=== PATIENT | male | born 1950 | race Caucasian/White ===

== ENCOUNTER 2020-12-21 19:47 | Inpatient (IN) | payer MEDICARE, SELFPAY ==
--- NOTE | ~2020-12-21 | US_ITS ---
EXAMINATION: US abdomen limited DATE: 12/22/2020 09:00 INDICATION: Abdominal pain TECHNIQUE: Multiple grayscale and Doppler ultrasound images of the abdomen were obtained. COMPARISON: CT dated 12/21/2020 FINDINGS: The pancreatic body is poorly visualized likely due to the peripancreatic edema related to acute inte rstitial pancreatitis seen on prior CT. No abnormal masses or loculated fluid collections identified. The pancreatic head and tail are obscured. Liver has normal echogenicity and contour, with a smooth surface. No liver lesion identified. No intrahepatic biliary duct dilation suspected. Portal venous f low was seen in the hepatopetal, normal direction and has normal Doppler waveform. 4 mm shadowing gal lstone along with dependently layering hyperechoic sludge at the neck of the otherwise normal-appeari ng gallbladder. No abnormal gallbladder wall thickening or pericholecystic fluid to suggest acute cho lecystitis. Patient was reportedly tender more centrally over the region of the pancreas but the sono graphic Bergman sign was reported as negative by the contact center team lead. Visualized portion of the proximal i nferior vena cava is normal. IMPRESSION: 1. Cholelithiasis without evidence of acute cholecystitis. 2. Poorly visualized pancreas likely related to acute interstitial pancreatitis but appreciated on pr ior CT. Reviewed, dictated and finalized at location A. IMPRESSION: 1. Cholelithiasis without evidence of acute cholecystitis. 2. Poorly visualized pancreas likely related to acute interstitial pancreatitis but appreciated on prior CT.
--- NOTE | ~2020-12-21 | CT_ITS ---
EXAMINATION: CT abdomen pelvis w con DATE: 12/21/2020 22:49 INDICATION: Left upper quadrant abdominal pain. TECHNIQUE: Computed tomography (CT) of the abdomen and pelvis was performed with 100 mL Omnipaque 350 intravenous contrast. Automated exposure control and iterative reconstruction technique were employe d. The dose-length product was 1603.27 mGy-cm. COMPARISON: None. FINDINGS: The visualized portions of the lung bases demonstrate mild atelectasis. No pleural effusion . The heart size is normal. There are coronary artery calcifications. No pericardial effusion. Left h epatic lobe is small. The gallbladder is distended. There is a gallstone in the gallbladder. There is fat stranding and free fluid around the pancreas, consistent with pancreatitis. The spleen and adren al glands are normal. There is cortical thinning of the kidneys. There are 1.2 cm and 2.0 cm hyperden se masses in left kidney. There are bilateral inguinal hernias containing fat. The pancreas is modera tely enlarged. There are no dilated loops of bowel. The appendix is normal. There are no pathological ly enlarged lymph nodes. There is moderate lumbar spondylosis. There are bridging endplate osteophyte s at multiple levels in the thoracic spine, consistent with diffuse idiopathic skeletal hyperostosis (DISH). IMPRESSION: 1. Acute interstitial pancreatitis. 2. Cholelithiasis. Gallbladder distention may be secondary to fasting or acute cholecystitis. 3. Two left kidney masses with the larger measuring 2.0 cm suspicious for renal cell carcinomas. Abdo [facility] CT without and with contrast is recommended. Reviewed, dictated and finalized at location A. IMPRESSION: 1. Acute interstitial pancreatitis. 2. Cholelithiasis. Gallbladder distention may be secondary to fasting or acute cholecystitis. 3. Two left kidney masses with the larger measuring 2.0 cm suspicious for renal cell carcinomas. Abdomen CT without and with contrast is recommended.
--- NOTE | ~2020-12-21 | XR_ITS ---
EXAMINATION: XR cholangiogram surg 1st inj DATE: 12/24/2020 16:38 INDICATION: Cholelithiasis. TECHNIQUE: 123 fluoroscopic images of the right upper quadrant were obtained during intraoperative ch olangiography performed by the surgeon. I was not present in the operating room. Fluoroscopy exposure time was 31 seconds. COMPARISON: MRCP 12/24/2020 FINDINGS: There is a catheter in the cystic duct. There is opacification of the biliary tree with pas braulio of contrast to the duodenum and stomach. A 4 mm filling defect at the periphery of the distal du ct may be a stone. The proximal duodenum demonstrates mild stricture, likely secondary to acute pancr eatitis. IMPRESSION: 1. 4 mm filling defect in the distal common bile duct, which may be a stone. 2. Mild stricture of the proximal duodenum, likely secondary to acute pancreatitis. Reviewed, dictated and finalized at location A. IMPRESSION: 1. 4 mm filling defect in the distal common bile duct, which may be a stone. 2. Mild stricture of the proximal duodenum, likely secondary to acute pancreati tis.
--- NOTE | ~2020-12-21 | US_ITS ---
EXAMINATION: US renal BI DATE: 12/22/2020 09:00 INDICATION: Kidney mass. Abdominal pain. TECHNIQUE: Multiple ultrasound grayscale images of the kidneys were obtained. COMPARISON: CT dated 12/21/2020 FINDINGS: The right kidney measures 11.5 x 6.7 x 6.4 cm. The left kidney measures 11.4 x 5.5 x 5.3 cm. The kidn eys demonstrate normal echogenicity. Hypoechoic exophytic lesion at the medial left kidney measuring 2.8 cm suspicious for renal cell carcinoma. A smaller 1.7 cm hypoechoic lesion inferiorly at the lowe r pole of the left kidney is without definitive correlate this location on the prior CT is likely art ifactual. A second smaller enhancing nodule at the upper pole of the left kidney is not visualized on the ultrasound images. . There is no hydronephrosis in either kidney. No stones identified. The luke dder is normal. IMPRESSION: 1. 2.8 cm hypoechoic exophytic lesion at the medial left kidney which appears to correspond to the l arger of the 2 enhancing nodules concerning for renal cell carcinoma identified on the prior CT. The smaller enhancing nodule seen on the prior CT is not identified but is located at the upper pole whic h is partially obscured on the current study. Reviewed, dictated and finalized at location A. IMPRESSION: 1. 2.8 cm hypoechoic exophytic lesion at the medial left kidney which appears to correspond to the larger of the 2 enhancing nodules concerning for renal teto l carcinoma identified on the prior CT. The smaller enhancing nodule seen on th e prior CT is not identified but is located at the upper pole which is partiall y obscured on the current study.
--- NOTE | ~2020-12-21 | XR_ITS ---
EXAMINATION: XR ERCP DATE: 12/23/2020 12:18 INDICATION: Choledocholithiasis. TECHNIQUE: 1 spot fluoroscopic images of the right upper quadrant were obtained during endoscopic ret rograde cholangiopancreatography (ERCP). Fluoroscopy exposure time was 54 seconds. COMPARISON: CT abdomen and pelvis 12/21/2020 FINDINGS: The single image demonstrates the endoscope with tip in the second portion of the duodenum. The biliary tree is not opacified. IMPRESSION: 1. Endoscope in the duodenum. Please refer to the ERCP procedure note for additional details. Reviewed, dictated and finalized at location A. IMPRESSION: 1. Endoscope in the duodenum. Please refer to the ERCP procedure note for addit ional details.
--- NOTE | ~2020-12-21 | MR_ITS ---
EXAMINATION: MR MRCP wo/w con/w 3D wo ind DATE: 12/24/2020 10:53 INDICATION: Pancreatitis and choledocholithiasis TECHNIQUE: Magnetic resonance imaging (MRI) of the abdomen was performed without and with 20 mL Multi viviane intravenous contrast. Sequences included coronal T2-weighted SS-FSE, coronal T2-weighted FS SS- FSE, coronal T2-weighted FS FIESTA, axial T2-weighted FS FIESTA, axial T2-weighted FIESTA, sagittal T 2-weighted SS-FSE, axial T1-weighted dual-echo FSPGR, axial T2-weighted SS-FSE, axial T1-weighted LAV A, axial T2-weighted STIR FSE. Thick-slab T2-weighted FRFSE-XL images were obtained for magnetic reso nance cholangiopancreatography (MRCP). Rotating maximum intensity projection 3-D reconstructions of t he volumetric data were created by the technologist. Postcontrast sequences included a time course of axial T1-weighted LAVA. COMPARISON: ERCP dated 12/23/[address] abdomen and pelvis dated 12/21/2020 FINDINGS: ABDOMEN MRI: Small left and trace right pleural effusions. Dependent atelectasis in the bilateral lower lobes. Hea rt size is normal. No pericardial effusion. 4 mm T2 hyperintense cyst in the right hepatic lobe. Live r is otherwise unremarkable. Gallbladder is dilated to 4.6 cm but without evident gallbladder wall th ickening. 3 mm low signal intensity likely stone in the dependent neck of the gallbladder. Spleen, bi lateral adrenal glands and left kidney are normal. 5 mm nonenhancing T2 hyperintense cyst at the mid left kidney. There were also partially exophytic 1.8 cm and 1.4 cm enhancing masses at the posterior lower pole of the left kidney consistent with renal cell carcinoma. Interval decrease in the amount o f the peripancreatic edema consistent with improving acute interstitial pancreatitis. There is persis tent small amount of nonloculated intraperitoneal fluid tracking caudally along the left and right pa racolic gutters. There is also a small amount of ascites along the liver, spleen and small bowel loop s in the midabdomen. No loculated abscesses or necrotic collections. Visualized portions of the bowel s are unremarkable. Mild lumbar levocurvature with moderate spondylosis. ABDOMEN MRCP: Grainer Machine on MRCP images limited by motion artifact. No intrahepatic biliary ductal dilation. The com mon bile duct is normal in diameter measuring up to 4-5 mm appears to taper gradually in the mid to d istal duct. No definitive choledocholithiasis identified however sensitivity is decreased by the sam on artifact. No dilation of the main pancreatic duct. IMPRESSION: 1. Improving acute interstitial pancreatitis with decreasing peripancreatic edema. 2. 3 mm gallstone in the gallbladder which is dilated but without wall thickening to suggest acute ch olecystitis. 3. Small amount of ascites and small left and trace right pleural effusions. 4. 1.8 cm and 1.4 cm enhancing mass at the lower pole of the left kidney consistent with renal cell c arcinoma. Reviewed, dictated and finalized at location A. IMPRESSION: 1. Improving acute interstitial pancreatitis with decreasing peripancreatic sofía ma. 2. 3 mm gallstone in the gallbladder which is dilated but without wall thickeni ng to suggest acute cholecystitis. 3. Small amount of ascites and small left and trace right pleural effusions. 4. 1.8 cm and 1.4 cm enhancing mass at the lower pole of the left kidney consis tent with renal cell carcinoma.
[2020-12-21 19:50] VITALS: BP 128/72; PULSE 104; RESP 16; TEMP 36.6; O2SAT 97
[2020-12-21 20:03] LABS: Basophils Absolute Auto 0.1 K/mm3 (0.0-0.1); Basophils Percent Auto 0.3 % (0.2-1.2); Eosinophils Percent Auto 0.1 % (0-4.4); Hematocrit 50.2 % (42.0-52.0); Hemoglobin 15.9 g/dL (14.0-18.0); Immature Granulocyte Absolute 0.13 K/mm3 (0.00-0.031); Immature Granulocyte Percent A 0.7 % (0-0.5); Lymphocytes Absolute Auto 0.94 K/mm3 (0.9-3.2); Mean Corpuscular HGB Conc 31.7 g/dl (32-36); Mean Corpuscular Hemoglobin 29.6 pg (26-34); Mean Corpuscular Volume 93.5 fl (80-100); Mean Platelet Volume 9.4 fl (7.4-10.4); Monocytes Absolute Auto 1.4 K/mm3 (0.1-0.6); Monocytes Percent Auto 7.2 % (2.6-8.5); Neutrophils Absolute Auto 16.3 K/mm3 (1.3-6.7); Neutrophils Percent Auto 86.7 % (45.5-73.1); Platelet Count Result 193 k/mm3 (150-375); Red Blood Count 5.37 M/mm3 (4.6-6.20); Red Cell Distribution Width 13.5 % (11.5-14.5); White Blood Count 18.8 K/mm3 (4.5-10.0)
[2020-12-21 20:18] LABS: Alanine Aminotransferase 262 U/L (4-50); Albumin Level 4.5 g/dL (3.5-5.1); Alkaline Phosphatase 113 U/L (38-126); Anion Gap 12 mmol/L (8-16); Aspartate Amino Transferase 194 U/L (17-59); Blood Urea Nitrogen 13 mg/dL (9-20); Calcium 9.1 mg/dL (8.4-10.2); Carbon Dioxide 24 mmol/L (22-30); Chloride 106 mmol/L (98-107); Estimated CRCL calculation 56 ml/min; Estimated Glomerular Filt Rate 43; Glucose 181 mg/dL (75-110); Sodium 142 mmol/L (137-145)
[2020-12-21] MEDS: ONDANSETRON INJ 4 MG/2 ML VIAL (20:42)
[2020-12-21 21:01] LABS: Lipase 30786 U/L (23-300)
--- NOTE | 2020-12-21 22:26 | ECG_ITS ---
Measurements Intervals [place] Rate: 101 P: 61 MD: 147 QRS: -61 QRSD: 130 T: 33 QT: 352 QTc: 458 Interpretive Statements SINUS TACHYCARDIA RIGHT BUNDLE BRANCH BLOCK LEFT ANTERIOR FASCICULAR BLOCK ABNORMAL ECG Electronically Signed On 12-22-2020 6:26:35 CDT by Jorge Martinez D.O.
--- NOTE | 2020-12-21 22:26 | ED.ABDPAIN ---
HPI - Abdominal Pain General Chief Complaint: Abdominal Pain Stated Complaint: vomiting, upper abd pain Time Seen by Provider: 12/21/20 22:07 Source: patient Mode of arrival: ambulatory Limitations: no limitations History of Present Illness HPI narrative: Patient is a 70-year-old male complaining of abdominal pain, epigastric, burning, 8 out of 10, nonradiating, accompanied by nausea vomiting, nonbilious nonbloody, started this afternoon. Patient denies any chest pain, shortness of breath, diarrhea, fever or chills. Related Data Allergies Allergy/AdvReac Type Severity Reaction Status Date / Time No Known Allergies Allergy Verified 12/21/20 20:42 Review of Systems Review of Systems: All systems reviewed & are unremarkable except as noted in HPI and below Constitutional: Constitutional: Denies body ache(s), Denies chills, Denies excessive sweating, Denies fatigue, Denies fever(s), Denies headache(s), Denies lethargy, Denies malaise, Denies weakness and Denies weight loss Eyes: Eyes: Denies blurry vision, Denies change in vision and Denies loss of vision ENT: Denies dizziness, Denies ear discharge, Denies headache(s), Denies lip swelling, Denies epistaxis, Denies nasal congestion, Denies neck pain, Denies throat swelling and Denies tongue swelling Cardiovascular: Cardiovascular: Denies chest pain, Denies chest pain at rest, Denies chest pain with activity, Denies diaphoresis, Denies rapid heart rate, Denies edema, Denies irregular heart rhythm, Denies lightheadedness, Denies palpitations, Denies dyspnea and Denies dyspnea on exertion Respiratory: Respiratory: Denies chest congestion, Denies cough, Denies hemoptysis, Denies dyspnea and Denies dyspnea on exertion Gastrointestinal: Gastrointestinal: Denies melena, Denies hematochezia, Denies diarrhea and Denies hematemesis Musculoskeletal: Musculoskeletal: Denies abnormal gait, Denies deformity, Denies joint swelling, Denies limited range of motion, Denies neck pain and Denies numbness Neurologic: Denies Abnormal speech present, Denies abnormal gait, Denies confusion, Denies dizziness, Denies headache(s), Denies focal weakness, Denies loss of vision, Denies numbness, Denies Other visual disturbances, Denies Sensory deficit (Neuro) and Denies weakness Psychiatric: Psychiatric: Denies confusion, Denies depression, Denies auditory hallucinations, Denies homicidal ideation and Denies suicidal ideation Endocrine: Endocrine: Denies cold intolerance, Denies excessive sweating, Denies fatigue, Denies heat intolerance and Denies palpitations Hematologic/Lymphatic: Hematologic/Lymphatic: Denies easy bleeding and Denies easy bruising Allergic/Immunologic: Allergic/Immunologic: Denies lip swelling, Denies throat swelling and Denies tongue swelling PMFSH Comments Past medical history: Hypertension Family history: Noncontributory Social history: Non-smoker no EtOH or drug use Exam Const: General: cooperative, healthy appearing, comfortable, no acute distress, well developed, alert and awake; No confusion Orientation/consciousness: oriented to person, oriented to place, oriented to time, patient oriented x3 and No confusion Limitations: no limitations HENMT: Head: normal to inspection, normocephalic and atraumatic Ears: hearing grossly normal bilaterally, TM normal on the right and TM normal on the left General nose exam: Normal external nose present, Normal nares present and No nasal discharge present Face and sinus: normal facial exam Mouth: Yes Normal oral and palatal mucosa present, Yes lip normal, Yes tongue normal and Yes oropharynx normal Throat: posterior oropharynx normal, tonsils normal and uvula midline Eyes: General: appearance normal, both eyes and all related structures Pupils: Equal, round and reactive pupils present EOM: EOMs intact bilaterally Neck: Neck: normal visual inspection, full ROM, no lymphadenopathy and no meningeal signs Chest: Chest palpation & inspection: norm
[2020-12-21 22:54] LABS: INR 1.1; Prothrombin Time 14.4 Seconds (11.1-14.7)
[2020-12-21 22:55] LABS: Partial Thromboplastin Time 25.7 SECONDS (22.3-36.8)
[2020-12-21] MEDS: LACTATED RINGERS 1,000 ML 999 ML IV CONT (23:00)
[2020-12-21] MEDS: PROMETHAZINE HCL 25 MG/ML AMPUL 12.5 MG IV PUSH (23:00)
[2020-12-21] MEDS: HYDROmorphone HCL INJ (*CRX) 1 MG/ML SYR 0.5 MG IV PUSH (23:01)
[2020-12-21 23:06] VITALS: BP 144/87; PULSE 101; RESP 16; O2SAT 96
[2020-12-21 23:06] LABS: Troponin I < 0.012 ng/mL (0.000-0.034)
[2020-12-21 23:55] LABS: Lactic Acid Reflex 1.8 mmol/L (0.7-2.1)
[2020-12-22] VITALS (7 sets, daily range): BP systolic 101–128; BP diastolic 45–69; PULSE 64–105; RESP 18–22; TEMP 36.3–38.2; O2SAT 91–96; BMI 44.6
--- NOTE | 2020-12-22 00:40 | ADMGEN ---
This patient, Rafael Diane, was admitted to 3 [facility] Surg Room 320-01. Patient/family oriented to hospital policies and general routines including ID bracelet, bed and alarms, visiting hours, pain management, procedures, bathroom and other care routines, personal items, smoking policy, room service/diet, and visiting hours. Information on how to activate the Rapid Response Team has been discussed. Patient/Family are encouraged to report perceived risks to care and to ask questions if they do not understand what they are told or what they should do.
--- NOTE | 2020-12-22 00:42 | PM.IMHP ---
H&P: HPI History of Present Illness Date/Time: 12/22/20 00:42 Chief Complaint: Abdominal pain nausea vomiting Narrative: This is a 70-year-old male who presents to the ER today with abdominal pain in the epigastric region severe sudden in onset 8 x 10 in intensity nonradiating . It was accompanied by nausea and vomiting nonbloody nonbilious that started this afternoon he denies any shortness of breath or chest pain no fever however he does report episodes of chills. Evaluation shows CBC with elevated white cell count at 18,000 elevated lipase at 30,000 CT scan of the abdomen and pelvis with acute interstitial pancreatitis with associated gallbladder distention and possible acute cholecystitis possible renal masses he has gotten IV fluid boluses 2 L so far he was given given IV morphine and Phenergan which is making him somnolent currently. Most of the history was taken from his son was at bedside. General surgery has been consulted from the ER. Is going to be admitted to the hospital for further evaluation and management Review of Systems Review of Systems: Narrative: - CONSTITUTIONAL: Denies weight loss, fever and chills. - HEENT: Denies changes in vision and hearing - RESPIRATORY: Denies SOB and cough. - CV: Denies palpitations and CP. - GI: Reports abdominal pain, nausea, vomiting and denies diarrhea. - : Denies dysuria and urinary frequency. - MSK: Denies myalgia and joint pain. - SKIN: Denies rash and pruritus. - NEUROLOGICAL: Denies headache and syncope. - PSYCHIATRIC: Denies recent changes in mood. Denies anxiety and depression. All systems reviewed & are unremarkable except as noted in HPI and below Constitutional: Constitutional: Reports fatigue and Reports weakness Neurologic: Reports weakness Endocrine: Endocrine: Reports fatigue [facility] Social History Social History Smoking status: Never smoker Alcohol intake: never Substance use: never Gender identity (if verbalized by the patient): Male Spiritual care concerns: No Meds Home Medications and Allergies Home Medications Medication Instructions Recorded Confirmed Type atorvastatin 10 mg PO DAILY 12/21/20 12/22/20 History lisinopril 20 mg PO DAILY 12/21/20 12/22/20 History Allergies Allergy/AdvReac Type Severity Reaction Status Date / Time No Known Allergies Allergy Verified 12/21/20 20:42 Vital Signs Vital Signs - 24 hr 12/21/20 19:50 12/21/20 23:06 Temperature 97.8 F Pulse Rate 104 H 101 H Respiratory Rate 16 16 Blood Pressure 128/72 144/87 H Pulse Oximetry 97 96 Exam Narrative: Exam Narrative: GENERAL: The patient is well developed, not in acute distress somnolent currently with pain medication that he received HEENT: Nonicteric sclerae, PERRLA, EOMI. Oropharynx clear. Dry mucous membranes. Conjunctivae appear well perfused. CHEST: Chest wall is nontender. HEART: Regular rate and rhythm without murmur, rubs, or gallops LUNGS: Clear to auscultation bilaterally. no respiratory distress ABDOMEN: Soft, positive bowel sounds, tender epigastric reason, no organomegaly. SKIN: No rash, no excessive bruising, petechiae, or purpura. NEUROLOGIC: Cranial nerves II-XII intact, somnolent opens his eyes upon verbal commands, moving all his extremities EXTREMITIES: no edema, cyanosis or clubbing Extrem: General: normal exam except as noted and no edema H&P: Results Labs Labs: Short CBC 12/21/20 Range/Units 19:56 WBC 18.8 H (4.5-10.0) K/mm3 Hgb 15.9 (14.0-18.0) g/dL Hct 50.2 (42.0-52.0) % Plt Count 193 (150-375) k/mm3 BMP 12/21/20 19:56 Sodium 142 Potassium 4.0 Chloride 106 Carbon Dioxide 24 BUN 13 Creatinine 1.60 H Glucose 181 H Calcium 9.1 Cardiac Enzymes 12/21/20 Range/Units 22:35 Troponin I < 0.012 (0.000-0.034) ng/mL Liver Function 12/21/20 Range/Units 19:56 Total Bilirubin 7.0 H (0.2-
[2020-12-22] MEDS: LACTATED RINGERS 1,000 ML 125 ML IV CONT ×4 (00:49→21:46)
[2020-12-22] MEDS: HYDROmorphone HCL INJ (*CRX) 1 MG/ML SYR 0.5 MG IV PUSH ×5 (04:27→21:45)
[2020-12-22] MEDS: ONDANSETRON INJ 4 MG/2 ML VIAL IV PUSH (05:32)
--- NOTE | 2020-12-22 09:28 | PM.CNGS ---
Assessment and Plan Assessment and plan (1) Acute pancreatitis: Qualifiers: Acute pancreatitis complication: unspecified Pancreatitis type: unspecified pancreatitis type Qualified Code(s): K85.90 - Acute pancreatitis without necrosis or infection, unspecified Code(s): K85.90 - Acute pancreatitis without necrosis or infection, unspecified Status: Inactive Assessment and Plan: the patient was admitted for acute pancreatitis. He also has significantly elevated liver enzymes concerning for possible common bile duct stone. Will await GI evaluation to determine if he will need an ERCP or other imaging. He is currently NPO and was placed on broad-spectrum IV antibiotics. Will continue bowel rest and pain control while he recovers from this episode of acute pancreatitis. I have discussed with him that pancreatitis was likely caused by his gallstones and ultimately laparoscopic cholecystectomy will be recommended to prevent recurrent episodes of pancreatitis or other complications. Ideally this will be done during this admission, but this partially depends how long it takes him to recover from pancreatitis. Will continue to follow along with patient and plan safe timing of surgery. (2) Cholelithiasis: Qualifiers: Cholecystitis presence: without cholecystitis Cholelithiasis location: gallbladder Code(s): K80.20 - Calculus of gallbladder without cholecystitis without obstruction Status: Acute (3) Transaminitis: Code(s): R74.01 - Elevation of levels of liver transaminase levels Status: Acute (4) Hyperbilirubinemia: Code(s): E80.6 - Other disorders of bilirubin metabolism Status: Acute (5) Left renal mass: Code(s): N28.89 - Other specified disorders of kidney and ureter Status: Acute History of Present Illness Consult details Consult date: 12/22/20 Reason for consult: other (Gallstone pancreatitis) Requesting physician: Gustabo Pearce MD Narrative: This is a 70-year-old man who presented to the emergency department overnight with upper abdominal pain. He states that this most recent episode started yesterday, but he has had multiple prior episodes like this over the past couple months. None have been this severe and the usually went away with time. He had not seen his primary care physician about this yet, but was planning to. His pain became more severe overnight, therefore he presented to the emergency department. He has had nausea and vomiting, but no change in bowel habits. He denies any fevers or chills. Review of Systems Review of Systems: All systems reviewed & are unremarkable except as noted in HPI and below Eyes: Eyes: Denies change in vision ENT: Denies hearing loss, Denies neck pain and Denies sore throat Cardiovascular: Cardiovascular: Denies chest pain and Denies dyspnea Respiratory: Respiratory: Denies cough, Denies dyspnea and Denies wheezing Gastrointestinal: Gastrointestinal: Reports as per HPI Genitourinary: Genitourinary: Denies hematuria and Denies dysuria Musculoskeletal: Musculoskeletal: Denies arthralgias, Denies joint swelling and Denies neck pain Allergic/Immunologic: Allergic/Immunologic: Denies wheezing PMFSH Past Medical History Medical History Acute pancreatitis Hyperlipidemia Hypertension Mass of kidney LUZMA (obstructive sleep apnea) Social History Social History Smoking status: Never smoker Alcohol intake: never Substance use: never Gender identity (if verbalized by the patient): Male Spiritual care concerns: No Meds Home Medications and Allergies Home Medications Medication Instructions Recorded Confirmed Type atorvastatin 10 mg PO DAILY 12/21/20 12/22/20 History lisinopril 20 mg PO DAILY 12/21/20 12/22/20 History Allergies Allergy/AdvReac Type
[2020-12-22 09:29] LABS: Hematocrit 47.7 % (42.0-52.0); Hemoglobin 15.2 g/dL (14.0-18.0); Mean Corpuscular HGB Conc 31.9 g/dl (32-36); Mean Corpuscular Hemoglobin 29.3 pg (26-34); Mean Corpuscular Volume 92.1 fl (80-100); Mean Platelet Volume 9.5 fl (7.4-10.4); Platelet Count Result 143 k/mm3 (150-375); Red Blood Count 5.18 M/mm3 (4.6-6.20); Red Cell Distribution Width 13.6 % (11.5-14.5); White Blood Count 13.8 K/mm3 (4.5-10.0)
[2020-12-22 09:40] LABS: Alanine Aminotransferase 200 U/L (4-50); Albumin Level 3.6 g/dL (3.5-5.1); Alkaline Phosphatase 93 U/L (38-126); Anion Gap 8 mmol/L (8-16); Aspartate Amino Transferase 112 U/L (17-59); Bilirubin,Total 6.5 mg/dL (0.2-1.3); Blood Urea Nitrogen 18 mg/dL (9-20); Calcium 8.2 mg/dL (8.4-10.2); Carbon Dioxide 27 mmol/L (22-30); Chloride 106 mmol/L (98-107); Estimated CRCL calculation 62 ml/min; Estimated Glomerular Filt Rate 50; Glucose 187 mg/dL (75-110); Magnesium 1.9 mg/dL (1.6-2.3); Potassium 4.5 mmol/L (3.4-5.0); Sodium 141 mmol/L (137-145)
[2020-12-22 13:57] LABS: Lipase 5602 U/L (23-300)
--- NOTE | 2020-12-22 14:58 | PM.IMPN ---
Progress Note: A&P Assessment and Plan (1) Acute pancreatitis: Qualifiers: Acute pancreatitis complication: unspecified Pancreatitis type: unspecified pancreatitis type Qualified Code(s): K85.90 - Acute pancreatitis without necrosis or infection, unspecified Code(s): K85.90 - Acute pancreatitis without necrosis or infection, unspecified Status: Acute Assessment and Plan: Lipase elevated at 30,[address] abdomen/pelvis showed acute interstitial pancreatitis with cholelithiasis, which is the likely etiology. Lipase improved today at 5000 Appreciate general surgery and gastroenterology consultation Continue IV fluid rehydration Advanced to clear liquid diet. Analgesics and antiemetics available as needed (2) Cholelithiasis: Qualifiers: Cholecystitis presence: without cholecystitis Cholelithiasis location: gallbladder Code(s): K80.20 - Calculus of gallbladder without cholecystitis without obstruction Status: Acute Assessment and Plan: Evident on CT abdomen/pelvis and abdominal ultrasound. No evidence of acute cholecystitis on RUQ US. General surgery and Gastroenterology following. Laparoscopic cholecystectomy has been recommended. Timing will depend upon improvement of pancreatitis Continue IV Zosyn at this time (3) Transaminitis: Code(s): R74.01 - Elevation of levels of liver transaminase levels Status: Acute Assessment and Plan: Likely secondary to gallstones/pancreatitis. Improving today. Continue to monitor LFTs ERCP/MRCP may be recommended. Will await GI recommendations (4) Mass of kidney: Code(s): N28.89 - Other specified disorders of kidney and ureter Status: Acute Assessment and Plan: Two left kidney masses measuring up to [address] Follow-up renal ultrasound showed 2.8 cm hypoechoic exophytic lesion of the medial left kidney concerning for renal cell carcinoma. Will place consult to Urology (5) Hypertension: Code(s): I10 - Essential (primary) hypertension Status: Acute Assessment and Plan: Blood pressures reviewed and are well controlled. Last BP 120/65. Lisinopril on hold given ALVIN (6) ALVIN (acute kidney injury): Code(s): N17.9 - Acute kidney failure, unspecified Status: Acute Assessment and Plan: Creatinine slightly elevated at presentation up to 1.6. Improved today to 1.4 Continue gentle IV fluids Lisinopril on hold as above (7) Leukocytosis: Code(s): D72.829 - Elevated white blood cell count, unspecified Status: Acute Assessment and Plan: Improving. Likely reactive secondary to pancreatitis. Trend CBC Additional Plan Fasting glucose noted to be elevated at 187. Will check A1c Subjective Date/time seen: 12/22/20 14:58 Interval history: Date of service: 12/22/2020 Rafael Diane is a 70-year-old male with a history of hypertension hyperlipidemia who is seen in follow-up for acute pancreatitis. He is feeling okay today. He rates his epigastric pain as 5/10. He has been feeling nauseous and had an episode of bilious emesis this morning. He reports hiccuping frequently after vomiting. He had a regular, formed bowel movement yesterday. He denies diarrhea. He denies lower abdominal pain or cramping. He would like to try to have something to drink. No shortness of breath, cough, or chest pain. No dizziness or lightheadedness. He has been able to get up and ambulate independently. Review of Systems Review of Systems: All systems reviewed & are unremarkable except as noted in HPI and below Exam Narrative: Exam Narrative: Mr. Diane is a well-nourished, well-appearing 70-year-old male who is lying supine in bed. He appears comfortable and is in NARD. Neuro: awake, alert and oriented x4, speech clear, no focal neuro deficits noted, gait steady HEENMT: normo
[2020-12-22 16:09] LABS: Add Urine Microscopic? YES; Appearance Urine Clear (Clear); Bacteria Urine Trace /hpf; Bilirubin Urine 1+ (Negative); Blood Urine Negative (Negative); Color Urine Amber (Yellow); Glucose Urine UA Negative (Negative); Ketones Urine Negative (Negative); Leukocyte Esterase Ur Negative LEU/UL (Negative); Nitrate Urine Negative (Negative); Protein Urine 1+ mg/dL (Negative); Squamous Epithelial Cell Urine Occasional /hpf (Few); WBC Urine 0-3 /hpf
[2020-12-22 16:11] LABS: Specific Grav Ur 1.032 (1.001-1.035)
--- NOTE | 2020-12-22 17:53 | WPDGICN ---
Assessment and Plan Assessment and plan (1) Hyperbilirubinemia: Code(s): E80.6 - Other disorders of bilirubin metabolism Status: Acute Assessment and Plan: this likely due to choledocholithiasis. We will schedule him for ERCP tomorrow. I discussed the procedure, the risks such as the possibility of worsening pancreatitis, of bleeding, of perforation or something that resulted (2) Acute pancreatitis: Qualifiers: Acute pancreatitis complication: unspecified Pancreatitis type: unspecified pancreatitis type Qualified Code(s): K85.90 - Acute pancreatitis without necrosis or infection, unspecified Code(s): K85.90 - Acute pancreatitis without necrosis or infection, unspecified Status: Acute Assessment and Plan: he does not drink alcohol, so obviously this is due to his gallstones. (3) Obesity: Code(s): E66.9 - Obesity, unspecified Status: Acute Assessment and Plan: Although his abdomen looked large as though he might have ascites none was seen on CT (4) Cholelithiasis: Qualifiers: Cholelithiasis location: gallbladder Cholecystitis presence: without cholecystitis Code(s): K80.20 - Calculus of gallbladder without cholecystitis without obstruction Status: Acute Assessment and Plan: after ERCP and removal of any common duct stones he will need a laparoscopic cholecystectomy. He has been seen by Dr. Galo GI Consult Note Consult date/time: 12/22/20 17:53 HPI: Rafael Diane is a 70 year old male who suddenly became ill about 4:00 p.m. yesterday he states that thats about when he had his last bowel movement and he feels uncomfortable in the left upper abdomen and feels as though stool somehow got backed up in their. He came into the emergency room is found to have markedly elevated liver enzymes and lipase over 30,000. A CT scan was found have gallstones and pancreatic edema. Ultrasound confirmed the same. There was no definite stone seen in the bile duct but his bilirubin and liver enzymes are elevated suggesting so. He has never past had problems that he knows of with his liver gallbladder but he states that his son had his gallbladder removed when in his 30s. He has never had a colonoscopy or other digestive disease problems. He did do a colo guard test 3 years ago that was negative. He had no recent vomiting or swallowing issues. Review of Systems Review of Systems: All systems reviewed & are unremarkable except as noted in HPI and below PMFSH Past Medical History Medical History Hyperlipidemia Hypertension Social History Social History Smoking status: Never smoker Alcohol intake: never Substance use: never Gender identity (if verbalized by the patient): Male Spiritual care concerns: No Meds Home Medications and Allergies Home Medications Medication Instructions Recorded Confirmed Type atorvastatin 10 mg PO DAILY 12/21/20 12/22/20 History lisinopril 20 mg PO DAILY 12/21/20 12/22/20 History Allergies Allergy/AdvReac Type Severity Reaction Status Date / Time No Known Allergies Allergy Verified 12/21/20 20:42 Vital Signs Vital Signs - 24 hr 12/21/20 19:50 12/21/20 23:06 12/22/20 00:44 Temperature 36.6 C 36.3 C L Pulse Rate 104 H 101 H 64 Respiratory Rate 16 16 22 H Blood Pressure 128/72 144/87 H 118/64 Pulse Oximetry 97 96 95 12/22/20 06:00 12/22/20 14:00 Temperature 36.6 C 36.7 C Pulse Rate 68 96 Respiratory Rate 18 18 Blood Pressure 128/69 120/65 Pulse Oximetry 91 92 Exam Const: General: alert and uncomfortable Nutritional Appearance: obese Orientation/consciousness: patient oriented x3 Resp: Effort & Inspection: normal respiratory effort Cardio: Rhythm: regular rhythm GI: Inspection: obesity GI Palp: Yes abdominal tenderness ( Epigastric and l
[2020-12-22 19:12] LABS: INR 1.3; Prothrombin Time 16.5 Seconds (11.1-14.7)
[2020-12-22] MEDS: ACETAMINOPHEN 325 MG TABLET 650 MG PO (21:45)
[2020-12-23] VITALS (13 sets, daily range): BP systolic 122–160; BP diastolic 53–85; PULSE 61–113; RESP 18–22; TEMP 36.3–38.8; O2SAT 90–100
[2020-12-23] MEDS: HYDROmorphone HCL INJ (*CRX) 1 MG/ML SYR 0.5 MG IV PUSH (02:48)
[2020-12-23 06:13] LABS: Hematocrit 47.5 % (42.0-52.0); Hemoglobin 15.1 g/dL (14.0-18.0); Mean Corpuscular HGB Conc 31.8 g/dl (32-36); Mean Corpuscular Hemoglobin 29.8 pg (26-34); Mean Corpuscular Volume 93.9 fl (80-100); Mean Platelet Volume 9.8 fl (7.4-10.4); Platelet Count Result 123 k/mm3 (150-375); Red Blood Count 5.06 M/mm3 (4.6-6.20); White Blood Count 18.3 K/mm3 (4.5-10.0)
[2020-12-23 06:48] LABS: Alanine Aminotransferase 110 U/L (4-50); Albumin Level 3.1 g/dL (3.5-5.1); Alkaline Phosphatase 76 U/L (38-126); Anion Gap 8 mmol/L (8-16); Aspartate Amino Transferase 50 U/L (17-59); Bilirubin,Total 4.2 mg/dL (0.2-1.3); Blood Urea Nitrogen 22 mg/dL (9-20); Carbon Dioxide 26 mmol/L (22-30); Chloride 105 mmol/L (98-107); Estimated CRCL calculation 62 ml/min; Estimated Glomerular Filt Rate 50; Glucose 169 mg/dL (75-110); Potassium 4.4 mmol/L (3.4-5.0); Sodium 139 mmol/L (137-145)
[2020-12-23 07:30] LABS: Hemoglobin A1C 5.8 % (<5.7)
[2020-12-23 09:13] LABS: Lipase 1785 U/L (23-300)
[2020-12-23] MEDS: LACTATED RINGERS 1,000 ML 150 ML IV CONT ×2 (10:31→14:42)
--- NOTE | 2020-12-23 10:37 | PC.NURSE ---
To GI Lab per terence at 0945, IV saline locked. Report given to HOMERO Batres.
--- NOTE | 2020-12-23 10:47 | WPDANESEPPF ---
Anes - Initial Pre Proc Eval Procedure: Operation Date: 12/23/20 10:45 Proposed Procedures p Endoscopic Retro Cholangiopancreatogram - Darren Lopez MD Date/Time: 12/23/20 10:47 Surgeon: Rose Marie Ferguson PA-C Pre Op Diagnosis: Acute Pancreatitis, Acute Cholecystitis Patient Data Age: 70 Gender: M Height: 1.78 m Weight: 141.3 kg Last Vital Signs Temp 97.7 F 12/23/20 10:33 Pulse 112 H 12/23/20 10:33 Resp 20 12/23/20 10:33 BP 138/69 12/23/20 10:33 Pulse Ox 93 12/23/20 10:33 Allergies Allergy/AdvReac Type Severity Reaction Status Date / Time No Known Allergies Allergy Verified 12/23/20 10:02 Home Medications Medication Instructions Recorded Confirmed Type atorvastatin 10 mg PO DAILY 12/21/20 12/22/20 History lisinopril 20 mg PO DAILY 12/21/20 12/22/20 History Laboratory Tests 12/22/20 12/22/20 12/22/20 09:21 15:55 18:38 WBC RBC Hgb Hct MCV MCH MCHC RDW Plt Count MPV PT 16.5 Seconds H Seconds (11.1-14.7) INR 1.3 Sodium Potassium Chloride Carbon Dioxide Anion Gap BUN Creatinine Estim Creat Clear Calc Estimated GFR Glucose Hemoglobin A1c Calcium Total Bilirubin AST ALT Alkaline Phosphatase Total Protein Albumin Lipase 5602 U/L H U/L (23-300) Urine Color Katelyn (Yellow) Urine Appearance Clear (Clear) Urine pH 5.0 (5.0-9.0) Ur Specific [place] 1.032 (1.001-1.035) Urine Protein 1+ mg/dL H mg/dL (Negative) Urine Glucose (UA) Negative mg/dL mg/dL (Negative) Urine Ketones Negative mg/dL mg/dL (Negative) Ur Blood (Man) Negative (Negative) Urine Nitrate Negative (Negative) Urine Bilirubin 1+ H (Negative) Urine Urobilinogen 4.0 mg/dL H mg/dL (<2.0) Leukocyte Esterase Rfl Negative NANCY/UL NANCY/UL (Negative) Urine RBC 3-5 /hpf H /hpf (0-2) Urine WBC 0-3 /hpf /hpf Ur Squamous Epith Cells Occasional /hpf /hpf (Few) Urine Bacteria Trace /hpf /hpf 12/23/20 12/23/20 12/23/20 06:04 06:04 06:04 WBC 18.3 K/mm3 H K/mm3 (4.5-10.0) RBC 5.06 M/mm3 M/mm3 (4.6-6.20) Hgb 15.1 g/dL g/dL (14.0-18.0) Hct 47.5 % % (42.0-52.0) MCV 93.9 fl fl (80-100) MCH 29.8 pg pg (26-34) MCHC 31.8 g/dl L g/dl (32-36) RDW 14.0 % % (11.5-14.5) Plt Count 123 k/mm3 L k/mm3 (150-375) MPV 9.8 fl fl (7.4-10.4) PT INR Sodium 139 mmol/L mmol/L (137-145) Potassium 4.4 mmol/L mmol/L (3.4-5.0) Chloride 105 mmol/L mmol/L (98-107) Carbon Dioxide 26 mmol/L mmol/L (22-30) Anion Gap 8 mmol/L mmol/L (8-16) BUN 22 mg/dL H mg/dL (9-20) Creatinine 1.40 mg/dL H mg/dL (0.7-1.3) Estim Creat Clear Calc 62 ml/min ml/min Estimated GFR 50 L (59 - ) Glucose 169 mg/dL H mg/dL (75-110) Hemoglobin A1c 5.8 % H % (<5.7) Calcium 8.0 mg/dL L mg/dL (8.4-10.2) Total Bilirubin 4.2 mg/dL H mg/dL (0.2-1.3) AST 50 U/L U/L (17-59) ALT 110 U/L H U/L (4-50) Alkaline Phosphatase 76 U/L U/L (38-126) Total Protein 6.0 g/dL L g/dL (6.3-8.2) Albumin 3.1 g/dL L g/dL (3.5-5.1) Lipase Urine Color Urine Appearance Urine pH Ur Specific [place] Urine Protein Urine Glucose (
--- NOTE | 2020-12-23 13:42 | WPDURCON ---
Assessment and Plan Assessment and plan (1) ALVIN (acute kidney injury): Code(s): N17.9 - Acute kidney failure, unspecified Status: Acute Assessment and Plan: Will continue to follow, no obstruction noted on CT. Not caused from renal mass. (2) Left renal mass: Code(s): N28.89 - Other specified disorders of kidney and ureter Status: Acute Assessment and Plan: No intervention at this time. Will plan to re-image in [address] abdomen/pelvis with and without contrast. Then to schedule a follow up in the office with Dr. Coleman following the CT scan for further evaluation and recommendation. (3) BPH (benign prostatic hyperplasia): Code(s): N40.0 - Benign prostatic hyperplasia without lower urinary tract symptoms Status: Acute Assessment and Plan: Start Flomax. Obtain a bladder scan prior to starting Flomax and call with results. [phone] Ensure that he voids prior to bladder scan. Urology Consult Note HPI Date Seen: 12/23/20 Requesting Physician: Rose Marie Ferguson PA-C Primary Care Provider: Whitley Avalos, [employer] Consult Narrative Narrative: Rafael Diane is a 70 year old male who came into the ER two days ago with c/o abdominal pain and has been since treated for pancreatitis. He was found incidentally on his CT scan initially to have two left kidney masses measuring >2.0cm noting potential renal cell carcinoma. He then had an US which also suggested this finding. His CT was done with contrast only. HIs WBC is 18.3, creatinine 1.40, down from 1.50. He was unaware of this finding, but denies any flank pain, chronic UTI's or gross hematuria in the past. His UA does show blood in it, otherwise no suspicion for infection. He does however c/o frequency, urgency, nocturia and a slowed urine stream. He has never been treated for BPH and feels that he does empty. Review of Systems Cardiovascular: Cardiovascular: Denies chest pain Respiratory: Respiratory: Reports no additional respiratory complaints Gastrointestinal: Gastrointestinal: Denies abdominal pain, Denies nausea and Denies vomiting Genitourinary: Genitourinary: Denies hematuria, Denies dysuria, Denies flank pain, Reports urinary frequency, Reports urinary hesitancy, Denies urinary incontinence and Reports urinary urgency [facility] Past Medical History Medical History Acute pancreatitis Hyperlipidemia Hypertension Mass of kidney LUZMA (obstructive sleep apnea) Social History Social History Smoking status: Never smoker Alcohol intake: never Substance use: never Gender identity (if verbalized by the patient): Male Spiritual care concerns: No Meds Home Medications and Allergies Home Medications Medication Instructions Recorded Confirmed Type atorvastatin 10 mg PO DAILY 12/21/20 12/22/20 History lisinopril 20 mg PO DAILY 12/21/20 12/22/20 History Allergies Allergy/AdvReac Type Severity Reaction Status Date / Time No Known Allergies Allergy Verified 12/23/20 10:02 Vital Signs Vital Signs - 24 hr 12/22/20 14:00 12/22/20 20:00 12/22/20 21:45 Temperature 98.1 F 100.7 F H Pulse Rate 96 96 Respiratory Rate 18 18 Blood Pressure 120/65 Pulse Oximetry 92 92 12/22/20 22:00 12/22/20 23:00 12/23/20 06:00 Temperature 100.7 F H 97.4 F L Pulse Rate 105 H 108 H Respiratory Rate 20 20 Blood Pressure 101/45 L 160/72 H Pulse Oximetry 92 96 96 12/23/20 06:45 12/23/20 10:33 12/23/20 12:23 Temperature 97.7 F 99.2 F Pulse Rate 102 H 112 H 101 H Respiratory Rate 20 22 H Blood Pressure 138/69 122/79 Pulse Oximetry 96 93 100 12/23/20 12:33 12/23/20 12:43 12/23/20 12:53 Temperature 98.6 F Pulse Rate 98 99 102 H Respiratory Rate 20 22 H 22 H Blood Pressure 128/77 129/81 131/81 Pulse Oximetry 100 100 96 12/23/20 13:03 12/23/20 13:13 Tempera
--- NOTE | 2020-12-23 13:46 | PC.NURSE ---
Returned from GI Lab at 1320. Report received from HOMERO Pabon.
--- NOTE | 2020-12-23 17:05 | PM.IMPN ---
Progress Note: A&P Assessment and Plan (1) Acute pancreatitis: Qualifiers: Acute pancreatitis complication: unspecified Pancreatitis type: unspecified pancreatitis type Qualified Code(s): K85.90 - Acute pancreatitis without necrosis or infection, unspecified Code(s): K85.90 - Acute pancreatitis without necrosis or infection, unspecified Status: Inactive Assessment and Plan: Lipase elevated at 30,[address] abdomen/pelvis showed acute interstitial pancreatitis with cholelithiasis, which is the likely etiology. Lipase improved today at 1800 Appreciate general surgery and gastroenterology consultation Continue IV fluid rehydration Continue clear liquid diet. Analgesics and antiemetics available as needed (2) Choledocholithiasis: Code(s): K80.50 - Calculus of bile duct without cholangitis or cholecystitis without obstruction Status: Acute Assessment and Plan: Evident on CT abdomen/pelvis and abdominal ultrasound. No evidence of acute cholecystitis on RUQ US. Underwent ERCP today which showed tiny gallstones passing from distal common bile duct. General surgery and Gastroenterology following. Laparoscopic cholecystectomy has been recommended. Timing will depend upon improvement of pancreatitis MRCP tomorrow to rule out common bile duct stone. (3) Sepsis: Code(s): A41.9 - Sepsis, unspecified organism Status: Acute Assessment and Plan: Evident by tachycardia, fever (T-max 100.7?), and leukocytosis. Suspect gallbladder etiology. Discussed case with Dr. Lopez, no evidence of cholangitis on ERCP, no purulent drainage. He is not jaundiced. Continue IV Zosyn Continue IV fluids Monitor vital signs, CBC, electrolytes Blood cultures collected. Low yield as he had already received 2 doses of IV Zosyn (4) Transaminitis: Code(s): R74.01 - Elevation of levels of liver transaminase levels Status: Acute Assessment and Plan: Likely secondary to gallstones/pancreatitis. Continues to improve. Continue to monitor LFTs MRCP tomorrow (5) Mass of kidney: Code(s): N28.89 - Other specified disorders of kidney and ureter Status: Inactive Assessment and Plan: Two left kidney masses measuring up to [address] Follow-up renal ultrasound showed 2.8 cm hypoechoic exophytic lesion of the medial left kidney concerning for renal cell carcinoma. Appreciate urology consultation Plan for repeat imaging in 3 months for further evaluation. Will arrange outpatient urology follow-up prior to discharge (6) ALVIN (acute kidney injury): Code(s): N17.9 - Acute kidney failure, unspecified Status: Acute Assessment and Plan: His baseline is unknown. Creatinine slightly elevated at presentation up to 1.6. Remained stable today at 1.4 Lisinopril on hold given ALVIN Monitor renal function closely. Renally dose medications and avoid nephrotoxins. (7) Hypertension: Code(s): I10 - Essential (primary) hypertension Status: Acute Assessment and Plan: Blood pressures reviewed and are well controlled. Last BP 143/71. Lisinopril on hold given ALVIN Additional Plan Patient's urinal was at the bedside with very dark, possibly bloody urine visualized. Will obtain UA to further evaluate for blood. He states his urine typically looks like this. May be due to renal mass as above. Consider obtaining CK if positive blood on UA. Continue IV fluids Subjective Date/time seen: 12/23/20 17:05 Interval history: Date of service: 12/23/2020 Rafael Tay Diane is a 70-year-old male with a history of hypertension hyperlipidemia who is seen in follow-up for acute gallstone pancreatitis. He is feeling about the same today. He reports abdominal pain as 5/10 in severity. He is tolerating clear liquids. Denies nausea or vomiting. He denies fevers or chills. He said he knows that
[2020-12-23] MEDS: LACTATED RINGERS 1,000 ML 100 ML IV CONT (21:47)
[2020-12-23] MEDS: ACETAMINOPHEN 325 MG TABLET 650 MG PO (21:47)
[2020-12-24] VITALS (14 sets, daily range): BP systolic 104–142; BP diastolic 58–81; PULSE 51–108; RESP 14–20; TEMP 36.2–36.8; O2SAT 90–100
[2020-12-24 01:18] LABS: Add Urine Microscopic? YES; Amorphous Sediment Urine Few; Appearance Urine Cloudy (Clear); Bacteria Urine Trace /hpf; Bilirubin Urine Negative (Negative); Blood Urine 1+ (Negative); Color Urine Amber (Yellow); Glucose Urine UA 1+ mg/dL (Negative); Ketones Urine Negative (Negative); Leukocyte Esterase Ur Negative LEU/UL (Negative); Mucus Urine Rare /lpf; Nitrate Urine Negative (Negative); Protein Urine 2+ mg/dL (Negative); RBC Urine 0-2 /hpf (0-2); Specific Grav Ur 1.026 (1.001-1.035); Squamous Epithelial Cell Urine Rare /hpf (Few); WBC Urine 0-3 /hpf
[2020-12-24 06:35] LABS: Hematocrit 42.6 % (42.0-52.0); Mean Corpuscular HGB Conc 32.9 g/dl (32-36); Mean Corpuscular Hemoglobin 29.5 pg (26-34); Mean Corpuscular Volume 89.9 fl (80-100); Mean Platelet Volume 10.1 fl (7.4-10.4); Platelet Count Result 129 k/mm3 (150-375); Red Blood Count 4.74 M/mm3 (4.6-6.20); Red Cell Distribution Width 13.6 % (11.5-14.5); White Blood Count 16.1 K/mm3 (4.5-10.0)
[2020-12-24 06:41] LABS: Alanine Aminotransferase 65 U/L (4-50); Albumin Level 2.8 g/dL (3.5-5.1); Alkaline Phosphatase 69 U/L (38-126); Anion Gap 6 mmol/L (8-16); Aspartate Amino Transferase 32 U/L (17-59); Bilirubin,Total 3.5 mg/dL (0.2-1.3); Blood Urea Nitrogen 21 mg/dL (9-20); Calcium 7.2 mg/dL (8.4-10.2); Carbon Dioxide 28 mmol/L (22-30); Chloride 100 mmol/L (98-107); Estimated CRCL calculation 71 ml/min; Estimated Glomerular Filt Rate 60; Glucose 149 mg/dL (75-110); Potassium 3.4 mmol/L (3.4-5.0); Sodium 134 mmol/L (137-145)
--- NOTE | 2020-12-24 08:45 | P.PNAN_ITS ---
Anes - Prog Note Post-Op Date/Time: 12/24/20 08:45 Cardiovascular status: normal Respiratory status: normal Airway patency: baseline Mental status: baseline Post-Op hydration status: normal Vital Signs: Last Vital Signs Temp 36.8 C 12/24/20 06:00 Pulse 108 H 12/24/20 06:00 Resp 20 12/24/20 06:00 BP 140/71 12/24/20 06:00 Pulse Ox 100 12/24/20 06:00 Pain Score (VAS): 0/10. Patient resting in bed at time of assessment, appears comfortable. RN at bedside. I/O: Intake & Output 12/23/20 12/24/20 12/24/20 23:59 07:59 15:59 Intake Total 1850 650 Output Total 120 Balance 1730 650 Laboratory Tests 12/24/20 06:03 12/24/20 06:03 12/23/20 12/24/20 12/24/20 08:45 00:57 06:03 WBC 16.1 H RBC 4.74 Hgb 14.0 Hct 42.6 MCV 89.9 MCH 29.5 MCHC 32.9 RDW 13.6 Plt Count 129 L MPV 10.1 Sodium Potassium Chloride Carbon Dioxide Anion Gap BUN Creatinine Estim Creat Clear Calc Estimated GFR Glucose Calcium Total Bilirubin AST ALT Alkaline Phosphatase Total Protein Albumin Lipase 1785 H Urine Color Katelyn Urine Appearance Cloudy H Urine pH 5.0 Ur Specific [place] 1.026 Urine Protein 2+ H Urine Glucose (UA) 1+ H Urine Ketones Negative Ur Blood (Man) 1+ H Urine Nitrate Negative Urine Bilirubin Negative Urine Urobilinogen 2.0 H Leukocyte Esterase Rfl Negative Urine RBC 0-2 Urine WBC 0-3 Ur Squamous Epith Cells Rare Amorphous Sediment Few H Urine Bacteria Trace Urine Mucus Rare 12/24/20 06:03 WBC RBC Hgb Hct MCV MCH MCHC RDW Plt Count MPV Sodium 134 L Potassium 3.4 Chloride 100 Carbon Dioxide 28 Anion Gap 6 L BUN 21 H Creatinine 1.20 Estim Creat Clear Calc 71 Estimated GFR 60 Glucose 149 H Calcium 7.2 L Total Bilirubin 3.5 H AST 32 ALT 65 H Alkaline Phosphatase 69 Total Protein 5.0 L Albumin 2.8 L Lipase Urine Color Urine Appearance Urine pH Ur Specific [place] Urine Protein Urine Glucose (UA) Urine Ketones Ur Blood (Man) Urine Nitrate Urine Bilirubin Urine Urobilinogen Leukocyte Esterase Rfl Urine RBC Urine WBC Ur Squamous Epith Cells Amorphous Sediment Urine Bacteria Urine Mucus Patient Feedback: Patient satisfied with anesthetic care.
--- NOTE | 2020-12-24 09:50 | P.PNAN_ITS ---
Anes - Prog Note Post-Op Date/Time: 12/24/20 09:50 Cardiovascular status: normal Respiratory status: normal Airway patency: baseline Mental status: baseline Post-Op hydration status: normal Vital Signs: Last Vital Signs Temp 36.8 C 12/24/20 06:00 Pulse 108 H 12/24/20 06:00 Resp 20 12/24/20 06:00 BP 140/71 12/24/20 06:00 Pulse Ox 100 12/24/20 06:00 Pain Score (VAS): 0 I/O: Intake & Output 12/23/20 12/24/20 12/24/20 23:59 07:59 15:59 Intake Total 1850 650 Output Total 120 Balance 1730 650 Laboratory Tests 12/24/20 06:03 12/24/20 06:03 12/24/20 12/24/20 12/24/20 00:57 06:03 06:03 WBC 16.1 H RBC 4.74 Hgb 14.0 Hct 42.6 MCV 89.9 MCH 29.5 MCHC 32.9 RDW 13.6 Plt Count 129 L MPV 10.1 Sodium 134 L Potassium 3.4 Chloride 100 Carbon Dioxide 28 Anion Gap 6 L BUN 21 H Creatinine 1.20 Estim Creat Clear Calc 71 Estimated GFR 60 Glucose 149 H Calcium 7.2 L Total Bilirubin 3.5 H AST 32 ALT 65 H Alkaline Phosphatase 69 Total Protein 5.0 L Albumin 2.8 L Urine Color Katelyn Urine Appearance Cloudy H Urine pH 5.0 Ur Specific [place] 1.026 Urine Protein 2+ H Urine Glucose (UA) 1+ H Urine Ketones Negative Ur Blood (Man) 1+ H Urine Nitrate Negative Urine Bilirubin Negative Urine Urobilinogen 2.0 H Leukocyte Esterase Rfl Negative Urine RBC 0-2 Urine WBC 0-3 Ur Squamous Epith Cells Rare Amorphous Sediment Few H Urine Bacteria Trace Urine Mucus Rare Patient Feedback: Patient satisfied with anesthetic care.
--- NOTE | 2020-12-24 10:30 | P.PNIM_ITS ---
Progress Note: A&P Assessment and Plan (1) Acute pancreatitis: Qualifiers: Acute pancreatitis complication: unspecified Pancreatitis type: unspecified pancreatitis type Qualified Code(s): K85.90 - Acute pancreatitis without necrosis or infection, unspecified Code(s): K85.90 - Acute pancreatitis without necrosis or infection, unspecified Status: Acute Assessment and Plan: * Lipase elevated at 30,000 at presentation. * CT abdomen/pelvis showed acute interstitial pancreatitis with cholelithiasis, which is the likely etiology. * Lipase improved yesterday at 1800 * rechecking now * MRCP scheduled for today to check the common bile duct * Appreciate general surgery and gastroenterology consultation * Continue IV fluid LR @ 100ml/hr * NPO for procedure today * Dilaudid 0.5mg IV Q4hr, [place] 1 tab Q6hr, tylenol 650mg PO Q4hr PRN for pain * Zofran 4mg IV Q4hr for antiemetics (2) Choledocholithiasis: Code(s): K80.50 - Calculus of bile duct without cholangitis or cholecystitis without obstruction Status: Acute Assessment and Plan: * Evident on CT abdomen/pelvis and abdominal ultrasound. * No evidence of acute cholecystitis on RUQ US. * Underwent ERCP today which showed tiny gallstones passing from distal common bile duct. * General surgery and Gastroenterology following. * Laparoscopic cholecystectomy has been recommended. * Timing will depend upon improvement of pancreatitis * Lipase is trending down * MRCP tomorrow to rule out common bile duct stone. (3) Sepsis: Code(s): A41.9 - Sepsis, unspecified organism Status: Acute Assessment and Plan: * Evident by tachycardia, fever (T-max 100.7?), and leukocytosis WBC 16.1 today. * Suspect gallbladder etiology. * Discussed case with Dr. Lopez, no evidence of cholangitis on ERCP, no purulent drainage. He is not jaundiced. * Continue IV Zosyn 3.375gm Q6hr * Continue IV fluids LR 100ml/hr * Monitor vital signs, CBC, electrolytes * Blood cultures collected and pending * Low yield as he had already received 2 doses of IV Zosyn (4) Transaminitis: Code(s): R74.01 - Elevation of levels of liver transaminase levels Status: Acute Assessment and Plan: * Likely secondary to gallstones/pancreatitis. Continues to improve. * Continue to trend LFTs * AST 32, ALT 65 trending down hoff[place] * MRCP found 3mm gallstone with gallbladder dilatation with acute cholecystitis (5) Mass of kidney: Code(s): N28.89 - Other specified disorders of kidney and ureter Status: Inactive Assessment and Plan: * Two left kidney masses measuring up to [address] * Follow-up renal ultrasound showed 2.8 cm hypoechoic exophytic lesion of the medial left kidney concerning for renal cell carcinoma. * Appreciate urology consultation * Plan for repeat imaging in 3 months for further evaluation. * Will arrange outpatient urology follow-up prior to discharge * MRCP does show a left kidney mas measuring 1.8cm and 1.4cm consistent with renal cell carcinoma (6) ALVIN (acute kidney injury): Code(s): N17.9 - Acute kidney failure, unspecified Status: Acute Assessment and Plan: * His baseline is unknown. Creatinine slightly elevated at presentation up to 1.6. * Remained stable today at 1.2 * Trend labs * Lisinopril on hold given ALVIN * Monitor renal function closely. * Renally dose medications and avoid nephrotoxins. (7) Hypertension:
--- NOTE | 2020-12-24 10:30 | PM.IMPN ---
Progress Note: A&P Assessment and Plan (1) Acute pancreatitis: Qualifiers: Acute pancreatitis complication: unspecified Pancreatitis type: unspecified pancreatitis type Qualified Code(s): K85.90 - Acute pancreatitis without necrosis or infection, unspecified Code(s): K85.90 - Acute pancreatitis without necrosis or infection, unspecified Status: Acute Assessment and Plan: Lipase elevated at 30,[address] abdomen/pelvis showed acute interstitial pancreatitis with cholelithiasis, which is the likely etiology. Lipase improved yesterday at 1800 rechecking now MRCP scheduled for today to check the common bile duct Appreciate general surgery and gastroenterology consultation Continue IV fluid LR @ 100ml/hr NPO for procedure today Dilaudid 0.5mg IV Q4hr, [place] 1 tab Q6hr, tylenol 650mg PO Q4hr PRN for pain Zofran 4mg IV Q4hr for antiemetics (2) Choledocholithiasis: Code(s): K80.50 - Calculus of bile duct without cholangitis or cholecystitis without obstruction Status: Acute Assessment and Plan: Evident on CT abdomen/pelvis and abdominal ultrasound. No evidence of acute cholecystitis on RUQ US. Underwent ERCP today which showed tiny gallstones passing from distal common bile duct. General surgery and Gastroenterology following. Laparoscopic cholecystectomy has been recommended. Timing will depend upon improvement of pancreatitis Lipase is trending down MRCP tomorrow to rule out common bile duct stone. (3) Sepsis: Code(s): A41.9 - Sepsis, unspecified organism Status: Acute Assessment and Plan: Evident by tachycardia, fever (T-max 100.7?), and leukocytosis WBC 16.1 today. Suspect gallbladder etiology. Discussed case with Dr. Lopez, no evidence of cholangitis on ERCP, no purulent drainage. He is not jaundiced. Continue IV Zosyn 3.375gm Q6hr Continue IV fluids LR 100ml/hr Monitor vital signs, CBC, electrolytes Blood cultures collected and pending Low yield as he had already received 2 doses of IV Zosyn (4) Transaminitis: Code(s): R74.01 - Elevation of levels of liver transaminase levels Status: Acute Assessment and Plan: Likely secondary to gallstones/pancreatitis. Continues to improve. Continue to trend LFTs AST 32, ALT 65 trending down [place] MRCP found 3mm gallstone with gallbladder dilatation with acute cholecystitis (5) Mass of kidney: Code(s): N28.89 - Other specified disorders of kidney and ureter Status: Inactive Assessment and Plan: Two left kidney masses measuring up to [address] Follow-up renal ultrasound showed 2.8 cm hypoechoic exophytic lesion of the medial left kidney concerning for renal cell carcinoma. Appreciate urology consultation Plan for repeat imaging in 3 months for further evaluation. Will arrange outpatient urology follow-up prior to discharge MRCP does show a left kidney mas measuring 1.8cm and 1.4cm consistent with renal cell carcinoma (6) ALVIN (acute kidney injury): Code(s): N17.9 - Acute kidney failure, unspecified Status: Acute Assessment and Plan: His baseline is unknown. Creatinine slightly elevated at presentation up to 1.6. Remained stable today at 1.2 Trend labs Lisinopril on hold given ALVIN Monitor renal function closely. Renally dose medications and avoid nephrotoxins. (7) Hypertension: Code(s): I10 - Essential (primary) hypertension Status: Acute Assessment and Plan: Blood pressures reviewed and are well controlled. Last BP 140/71. Lisinopril on hold given ALVIN Time Spent With Patient Time with patient: Greater than 35 minutes Subjective Date/time seen: 12/24/20 07:50 Interval history: Rafael Diane is a 70-year-old male with a history of hypertension hyperlipidemia who is seen in follow-up for acute gallstone pancreatitis.
[2020-12-24] MEDS: TAMSULOSIN HCL 0.4 MG CAPSULE PO (10:49)
[2020-12-24 10:55] LABS: Lipase 277 U/L (23-300)
[2020-12-24] MEDS: HYDROcodone/acetaminophen (*CRX) 5-325 MG TABLET 1 TAB PO (10:57)
[2020-12-24] MEDS: LACTATED RINGERS 1,000 ML 100 ML IV CONT (10:58)
[2020-12-24 11:32] LABS: Creatine Kinase 184 U/L (55-170)
--- NOTE | 2020-12-24 12:34 | PM.PNGS ---
Progress Note: A&P Assessment and Plan (1) Acute pancreatitis: Qualifiers: Acute pancreatitis complication: unspecified Pancreatitis type: unspecified pancreatitis type Qualified Code(s): K85.90 - Acute pancreatitis without necrosis or infection, unspecified Code(s): K85.90 - Acute pancreatitis without necrosis or infection, unspecified Status: Acute Assessment and Plan: Pancreatitis resolving. Likely caused by cholelithiasis. Now that he is improving, I would recommend proceeding with laparoscopic cholecystectomy with intraoperative cholangiogram, possible open. Procedure, risks, benefits, and alternatives discussed with patient. He agrees to proceed. (2) Cholelithiasis: Qualifiers: Cholelithiasis location: gallbladder Cholecystitis presence: without cholecystitis Code(s): K80.20 - Calculus of gallbladder without cholecystitis without obstruction Status: Acute Subjective Subjective Date/Time Seen: 12/24/20 12:34 Interval history: Pain improving. Still having some mild upper abdominal pain. +BM today. Exam GI: Inspection: obesity GI Palp: Yes Tenderness to palpation present (GI) (RUQ) and No Guarding due to palpation present (GI) Objective Data Vital Signs Vital Signs: Vital Signs - 24 hr 12/23/20 12:43 12/23/20 12:53 12/23/20 13:03 Temperature Pulse Rate 99 102 H 101 H Respiratory Rate 22 H 22 H 22 H Blood Pressure 129/81 131/81 136/85 Pulse Oximetry 100 96 94 12/23/20 13:13 12/23/20 14:00 12/23/20 21:47 Temperature 37.5 C 38.8 C H Pulse Rate 104 H 113 H Respiratory Rate 22 H 20 Blood Pressure 134/82 143/71 H Pulse Oximetry 95 90 12/23/20 22:00 12/23/20 23:25 12/24/20 06:00 Temperature 37.3 C 36.8 C Pulse Rate 61 89 108 H Respiratory Rate 18 20 Blood Pressure 130/53 L 140/71 Pulse Oximetry 94 91 100 Intake/Output Intake/Output: Intake & Output 12/21/20 12/22/20 12/23/20 12/24/20 23:59 23:59 23:59 23:59 Intake Total 4440 2500 1700 Output Total 120 120 Balance 4320 2380 1700 Meds/Results Medications: Active Medications Generic Name Dose Route Start Last Admin Trade Name Freq PRN Reason Stop Dose Admin Acetaminophen 650 mg 12/23/20 08:31 12/23/20 21:47 Acetaminophen 325 Mg Tablet PO 650 mg Q4H PRN Administration Pain 1-3, fever Hydrocodone Bitart/Acetaminophen 1 tab 12/22/20 15:18 12/24/20 10:57 Hydrocodone/Acetaminophen (*Crx) 5-325 Mg Tablet PO 1 tab Q6H PRN Administration Pain Rated 4-6 Hydromorphone HCl 0.5 mg 12/21/20 23:23 12/23/20 02:48 Hydromorphone Hcl Inj (*Crx) 1 Mg/Ml Syr IV PUSH 0.5 mg Q4H PRN Administration Pain Rated 7-10 Lactated Ringer's 1,000 mls @ 100 mls/hr 12/21/20 23:25 12/24/20 10:58 Lr - Lactated Ringers Iv IV CONT 100 mls/hr .Q10H NUPUR Administration Piperacillin/Tazobactam/Dextrose 3.375 gm in 50 mls @ 100 mls/hr 12/22/20 06:00 12/24/20 11:41 Zosyn 3.375 Gm/D5w 50ml Pm IVPB 100 mls/hr Q6H NUPUR Administration Ondansetron HCl 4 mg 12/21/20 23:23 12/22/20 05:32 Ondansetron Inj 4 Mg/2 Ml Vial IV PUSH 4 mg Q4H PRN Administration Nausea Tamsulosin HCl 0.4 mg 12/24/20 09:00 12/24/20 10:49 Tamsulosin Hcl 0.4 Mg Capsule PO 0.4 mg QAM NUPUR Administration Radiology Results: ITS Impressions Abdomen/Pelvis CT 12/21/20 22:51 IMPRESSION: 1. Acute interstitial pancreatitis. 2. Cholelithiasis. Gallbladder distention may be secondary to fasting or acute cholecystitis. 3. Two left kidney masses with the larger measuring 2.0 cm suspicious for renal cell carcinomas. Abdomen CT without and with contrast is recommended. Abdomen Ultrasound 12/22/20 09:29 IMPRESSION: 1. Cholelithiasis without evidence of acute cholecystitis. 2. Poorly visualized pancreas likely related to acute interstitial pancreatitis but appreciated on prior CT. Renal Ultrasound 12/22/20 09:48 IMPRESSION: 1.
--- NOTE | 2020-12-24 13:56 | WPDANESEPPF ---
Anes - Initial Pre Proc Eval Procedure: Operation Date: 12/23/20 10:45 Proposed Procedures p Endoscopic Retro Cholangiopancreatogram - Darren Lopez MD Operation Date: 12/24/20 15:30 Proposed Procedures p Laparoscopic Cholecystectomy With Intraoperative Cholangiograms - Connor Ceron DO Date/Time: 12/24/20 13:56 Surgeon: Rose Marie Ferguson PA-C Pre Op Diagnosis: Acute Pancreatitis, Acute Cholecystitis Patient Data Age: 70 Gender: M Height: 1.78 m Weight: 141.3 kg Last Vital Signs Temp 36.8 C 12/24/20 06:00 Pulse 108 H 12/24/20 06:00 Resp 20 12/24/20 06:00 BP 140/71 12/24/20 06:00 Pulse Ox 100 12/24/20 06:00 Allergies Allergy/AdvReac Type Severity Reaction Status Date / Time No Known Allergies Allergy Verified 12/23/20 10:02 Home Medications Medication Instructions Recorded Confirmed Type atorvastatin 10 mg PO DAILY 12/21/20 12/22/20 History lisinopril 20 mg PO DAILY 12/21/20 12/22/20 History Laboratory Tests 12/24/20 12/24/20 12/24/20 00:57 05:59 05:59 WBC RBC Hgb Hct MCV MCH MCHC RDW Plt Count MPV Sodium Potassium Chloride Carbon Dioxide Anion Gap BUN Creatinine Estim Creat Clear Calc Estimated GFR Glucose Calcium Total Bilirubin AST ALT Alkaline Phosphatase Total Creatine Kinase 184 U/L H U/L (55-170) Total Protein Albumin Lipase 277 U/L U/L (23-300) Urine Color Katelyn (Yellow) Urine Appearance Cloudy H (Clear) Urine pH 5.0 (5.0-9.0) Ur Specific [place] 1.026 (1.001-1.035) Urine Protein 2+ mg/dL H mg/dL (Negative) Urine Glucose (UA) 1+ mg/dL H mg/dL (Negative) Urine Ketones Negative mg/dL mg/dL (Negative) Ur Blood (Man) 1+ H (Negative) Urine Nitrate Negative (Negative) Urine Bilirubin Negative (Negative) Urine Urobilinogen 2.0 mg/dL H mg/dL (<2.0) Leukocyte Esterase Rfl Negative NANCY/UL NANCY/UL (Negative) Urine RBC 0-2 /hpf /hpf (0-2) Urine WBC 0-3 /hpf /hpf Ur Squamous Epith Cells Rare /hpf /hpf (Few) Amorphous Sediment Few H (None) Urine Bacteria Trace /hpf /hpf Urine Mucus Rare /lpf /lpf 12/24/20 12/24/20 06:03 06:03 WBC 16.1 K/mm3 H K/mm3 (4.5-10.0) RBC 4.74 M/mm3 M/mm3 (4.6-6.20) Hgb 14.0 g/dL g/dL (14.0-18.0) Hct 42.6 % % (42.0-52.0) MCV 89.9 fl fl (80-100) MCH 29.5 pg pg (26-34) MCHC 32.9 g/dl g/dl (32-36) RDW 13.6 % % (11.5-14.5) Plt Count 129 k/mm3 L k/mm3 (150-375) MPV 10.1 fl fl (7.4-10.4) Sodium 134 mmol/L L mmol/L (137-145) Potassium 3.4 mmol/L mmol/L (3.4-5.0) Chloride 100 mmol/L mmol/L (98-107) Carbon Dioxide 28 mmol/L mmol/L (22-30) Anion Gap 6 mmol/L L mmol/L (8-16) BUN 21 mg/dL H mg/dL (9-20) Creatinine 1.20 mg/dL mg/dL (0.7-1.3) Estim Creat Clear Calc 71 ml/min ml/min Estimated GFR 60 (59 - ) Glucose 149 mg/dL H mg/dL (75-110) Calcium 7.2 mg/dL L mg/dL (8.4-10.2) Total Bilirubin 3.5 mg/dL H mg/dL (0.2-1.3) AST 32 U/L U/L (17-59) ALT 65 U/L H U/L (4-50) Alkaline Phosphatase 69 U/L U/L (38-126) Total Creatine Kinase Total Protein 5.0 g/dL L g/dL (6.3-8.2) Albumin 2.8 g/dL L g/dL (3.5-5.1) Lipase Urine Color Urine Appearance Urine pH Ur Specific [place] Urine Protein
--- NOTE | 2020-12-24 14:18 | PC.NURSE ---
Patient to surgery via stretcher. IV saline locked. Report given and all questions answered.
--- NOTE | 2020-12-24 15:14 | WPDHPUPDATE1 ---
History and Physical Update Update Date/Time: 12/24/20 15:14 History and Physical has been reviewed, including an updated exam of the patient. There are NO changes in the patient's condition. Risks, benefits, and alternatives have been discussed and questions answered. Patient agrees to proceed with procedure.
[2020-12-24] MEDS: BUPIVACAINE/EPINEPHRINE 0.5% 10 ML VIAL 30 ML INFILTRATE (15:56)
[2020-12-24] MEDS: LACTATED RINGERS 1,000 ML 30 ML IV CONT ×2 (16:55)
--- NOTE | 2020-12-24 16:56 | W.PM.PROC2 ---
Procedure Note - Detailed Date of Procedure 12/24/20 Pre-op Diagnosis Acute Pancreatitis, Acute Cholecystitis Post-op Diagnosis same Procedure Performed Laparoscopic Cholecystectomy with intraoperative cholangiogram Surgeon Connor Ceron, DO Anesthesia general and local (0.5% bupivacaine with epinephrine) Indications This is a 70-year-old man who presented to the emergency department with epigastric abdominal pain. Imaging showed evidence of acute pancreatitis. He was admitted for further treatment. He did have elevated liver enzymes and significant hyperbilirubinemia. Dr. Lopez evaluated the patient and recommended ERCP which was done on 12/23/2020. Discussions were made with the patient about treatment options and decision was made to proceed with laparoscopic cholecystectomy with intraoperative cholangiogram. Findings Laparoscopic cholecystectomy with intraoperative cholangiogram was performed. Upon entering the abdomen laparoscopically, there appeared to be some bile tinged fluid within the upper abdomen. About 300 cc of bile tinged ascites was aspirated once the ports were placed. There was no clear evidence of perforated gallbladder when inspecting the actual gallbladder itself. He did have some some small gallstones within the gallbladder and many pericholecystic adhesions. An extra 12 mm port was placed in the left lower quadrant so that a paddle retractor could be placed and the omentum could be retracted out of the way of the neck of the gallbladder. Intraoperative cholangiogram was obtained using Omnipaque contrast. The images were sent to the radiologist for interpretation. There was a possible 4 mm defect in the distal common bile duct, but no evidence of bile duct occlusion. The gallbladder was removed and sent to the lab for pathology. Description of Procedure Procedure as well as risks, benefits, and alternatives were discussed with patient. Written consent was obtained and placed in chart prior to procedure. The patient was brought back to surgical suite. Patient was placed in supine position on operating table. Time-out was done to confirm patient and procedure. Patient was then intubated by the anesthesia department. Abdomen was prepped and draped in sterile fashion using chlorhexidine prep. 0.5% bupivacaine with epinephrine was infiltrated at each site of incision. A 5 millimeter incision was made near the umbilicus, and a 5 millimeter Optiview trocar was advanced through the abdominal layers under direct visualization. Once inside the abdominal cavity, carbon dioxide was insufflated to create a pneumoperitoneum. The camera was inserted and the abdomen was inspected. No immediate abnormalities were identified. The patient was placed in reverse Trendelenburg position and rotated slightly to the left. An 11 millimeter incision was made in the subxiphoid region, and an 11 millimeter trocar was inserted under direct visualization. Two 5 millimeter incisions were made in the right upper quadrant, and two 5 millimeter trocars were inserted under direct visualization. The gallbladder was identified and grasped at the fundus and retracted superiorly. It was then grasped at the infundibulum retracted laterally. Careful dissection around the neck of the gallbladder was performed using blunt dissection with a [place] grasper and hook electrocautery. The cystic duct was identified, and a window was created behind it. The cystic artery was also identified and a window was created behind it. The critical view of safety was identified, visualizing the cystic duct running directly into the neck of the gallbladder, and the cystic artery running directly into the wall of the gallbladder. A 5 millimeter clip bleach mixer was then used to place 2 clips proximally and 1 clip distally on the cystic artery and then it was transected using endoscopic scissors. The Salomon clamp was placed across the neck of the gallbladder and the Sal[place] cholangioca
[2020-12-24 17:23] LABS: Glucose Point of Care 145 mg/dl (65-105)
--- NOTE | 2020-12-24 18:15 | PC.NURSE ---
Patient returned from surgery via stretcher. Report received from HOMERO Amaya.
[2020-12-25 02:31] VITALS: PULSE 88; O2SAT 91
[2020-12-25 03:50] VITALS: BP 110/57; PULSE 73; RESP 20; TEMP 36.1; O2SAT 93
[2020-12-25] MEDS: HYDROcodone/acetaminophen (*CRX) 5-325 MG TABLET 1 TAB PO (06:43)
[2020-12-25 06:52] LABS: Hematocrit 39.6 % (42.0-52.0); Hemoglobin 12.9 g/dL (14.0-18.0); Mean Corpuscular HGB Conc 32.6 g/dl (32-36); Mean Corpuscular Hemoglobin 29.2 pg (26-34); Mean Corpuscular Volume 89.6 fl (80-100); Mean Platelet Volume 10.8 fl (7.4-10.4); Platelet Count Result 124 k/mm3 (150-375); Red Blood Count 4.42 M/mm3 (4.6-6.20); Red Cell Distribution Width 13.3 % (11.5-14.5)
[2020-12-25 07:02] LABS: Alanine Aminotransferase 46 U/L (4-50); Albumin Level 2.6 g/dL (3.5-5.1); Alkaline Phosphatase 58 U/L (38-126); Anion Gap 4 mmol/L (8-16); Aspartate Amino Transferase 27 U/L (17-59); Bilirubin,Total 1.5 mg/dL (0.2-1.3); Blood Urea Nitrogen 21 mg/dL (9-20); Calcium 7.2 mg/dL (8.4-10.2); Carbon Dioxide 27 mmol/L (22-30); Chloride 101 mmol/L (98-107); Estimated CRCL calculation 85 ml/min; Estimated Glomerular Filt Rate > 60; Glucose 164 mg/dL (75-110); Potassium 3.8 mmol/L (3.4-5.0); Sodium 132 mmol/L (137-145)
[2020-12-25 07:50] VITALS: BP 111/57; PULSE 52; RESP 16; TEMP 36.4; O2SAT 95
--- NOTE | 2020-12-25 08:08 | PM.PNGS ---
Progress Note: A&P Assessment and Plan (1) Acute pancreatitis: Qualifiers: Acute pancreatitis complication: unspecified Pancreatitis type: unspecified pancreatitis type Qualified Code(s): K85.90 - Acute pancreatitis without necrosis or infection, unspecified Code(s): K85.90 - Acute pancreatitis without necrosis or infection, unspecified Status: Acute Assessment and Plan: Doing well on POD#1 OK to discharge later today if tolerating diet Recommend 1 more week of antibiotics Follow up in 2 weeks in office (2) Acute cholecystitis: Code(s): K81.0 - Acute cholecystitis Status: Acute Subjective Subjective Date/Time Seen: 12/25/20 08:08 Interval history: Tolerating diet. Pain controlled. No fever. Exam GI: Inspection: incision (C/D/I) GI Palp: Yes Tenderness to palpation present (GI) (incisional) Objective Data Vital Signs Vital Signs: Vital Signs - 24 hr 12/24/20 14:34 12/24/20 16:55 12/24/20 17:25 Temperature 36.6 C Pulse Rate 92 108 H 95 Respiratory Rate 20 18 20 Blood Pressure 142/81 H 115/73 126/74 Pulse Oximetry 93 96 94 12/24/20 17:40 12/24/20 17:55 12/24/20 18:16 Temperature 36.5 C Pulse Rate 93 88 95 Respiratory Rate 14 16 Blood Pressure 129/63 133/79 125/77 Pulse Oximetry 94 94 90 12/24/20 18:31 12/24/20 18:35 12/24/20 19:01 Temperature 36.5 C 36.6 C Pulse Rate 94 94 Respiratory Rate 16 16 Blood Pressure 117/74 120/71 Pulse Oximetry 91 92 93 12/24/20 19:50 12/24/20 21:12 12/24/20 23:31 Temperature 36.6 C Pulse Rate 94 90 Respiratory Rate 16 Blood Pressure 111/74 Pulse Oximetry 93 91 92 12/24/20 23:50 12/25/20 02:31 12/25/20 03:50 Temperature 36.2 C L 36.1 C L Pulse Rate 51 L 88 73 Respiratory Rate 20 20 Blood Pressure 104/58 L 110/57 L Pulse Oximetry 92 91 93 Intake/Output Intake/Output: Intake & Output 12/22/20 12/23/20 12/24/20 12/25/20 23:59 23:59 23:59 23:59 Intake Total 4440 2500 2090 1250 Output Total 120 120 120 300 Balance 4320 3487 1367 389 Meds/Results Medications: Active Medications Generic Name Dose Route Start Last Admin Trade Name Freq PRN Reason Stop Dose Admin Acetaminophen 650 mg 12/23/20 08:31 12/23/20 21:47 Acetaminophen 325 Mg Tablet PO 650 mg Q4H PRN Administration Pain 1-3, fever Hydrocodone Bitart/Acetaminophen 1 tab 12/24/20 18:05 12/25/20 06:43 Hydrocodone/Acetaminophen (*Crx) 5-325 Mg Tablet PO 1 tab Q4H PRN Administration Pain Rated 4-6 Hydrocodone Bitart/Acetaminophen 1 tab 12/24/20 18:05 Hydrocodone/Acetaminophen (*Crx) 10-325 Mg Tablet PO Q6H PRN Pain Rated 7-10 Enoxaparin Sodium 40 mg 12/25/20 09:00 Enoxaparin 40 Mg/0.4 Ml Syringe SUB-Q DAILY NUPUR Hydromorphone HCl 0.5 mg 12/24/20 18:05 Hydromorphone Hcl Inj (*Crx) 1 Mg/Ml Syr IV PUSH Q2H PRN Pain Rated 4-6 Hydromorphone HCl 1 mg 12/24/20 18:05 Hydromorphone Hcl Inj (*Crx) 1 Mg/Ml Syr IV PUSH Q2H PRN Pain Rated 7-10 Piperacillin/Tazobactam/Dextrose 3.375 gm in 50 mls @ 100 mls/hr 12/22/20 06:00 12/25/20 06:42 Zosyn 3.375 Gm/D5w 50ml Pm IVPB 100 mls/hr Q6H NUPUR Administration Ondansetron HCl 4 mg 12/21/20 23:23 12/22/20 05:32 Ondansetron Inj 4 Mg/2 Ml Vial IV PUSH 4 mg Q4H PRN Administration Nausea Tamsulosin HCl 0.4 mg 12/24/20 09:00 12/24/20 10:49 Tamsulosin Hcl 0.4 Mg Capsule PO 0.4 mg QAM NUPUR Administration Radiology Results: ITS Impressions Abdomen/Pelvis CT 12/21/20 22:51 IMPRESSION: 1. Acute interstitial pancreatitis. 2. Cholelithiasis. Gallbladder distention may be secondary to fasting or acute cholecystitis. 3. Two left kidney masses with the larger measuring 2.0 cm suspicious for renal cell carcinomas. Abdomen CT without and with contrast is recommended. Abdomen Ultrasound 12/22/20 09:29 IMPRESSION: 1. Cholelithiasis without evidence of acute cholecy
[2020-12-25] MEDS: TAMSULOSIN HCL 0.4 MG CAPSULE PO (09:18)
[2020-12-25] MEDS: ENOXAPARIN 40 MG/0.4 ML SYRINGE SUB-Q (10:35)
--- NOTE | 2020-12-25 10:44 | P.PNIM_ITS ---
Progress Note: A&P Assessment and Plan (1) Acute pancreatitis: Qualifiers: Acute pancreatitis complication: unspecified Pancreatitis type: unspecified pancreatitis type Qualified Code(s): K85.90 - Acute pancreatitis without necrosis or infection, unspecified Code(s): K85.90 - Acute pancreatitis without necrosis or infection, unspecified Status: Acute Assessment and Plan: * Lipase elevated at 30,000 at presentation. * CT abdomen/pelvis showed acute interstitial pancreatitis with cholelithiasis, which is the likely etiology. * Lipase improved yesterday at 277 * MRCP * Appreciate general surgery and gastroenterology consultation * Continue IV fluid LR @ 100ml/hr * Low fat diet * Dilaudid 0.5mg IV Q2hr, [place] 10/325 1 tab Q6hr, tylenol 650mg PO Q4hr, [place] 5/325 1 tab Q6hr PRN for pain * Zofran 4mg IV Q4hr for antiemetics (2) Choledocholithiasis: Code(s): K80.50 - Calculus of bile duct without cholangitis or cholecystitis without obstruction Status: Acute Assessment and Plan: * Evident on CT abdomen/pelvis and abdominal ultrasound. * No evidence of acute cholecystitis on RUQ US. * Underwent ERCP today which showed tiny gallstones passing from distal common bile duct. * General surgery and Gastroenterology following. * Cholecystectomy performed yesterday * Lipase is 277 * MRCP found acute choley (3) Sepsis: Code(s): A41.9 - Sepsis, unspecified organism Status: Acute Assessment and Plan: * Evident by tachycardia, fever (T-max 100.7?), and leukocytosis WBC 11.0 today. * Suspect gallbladder etiology. * Discussed case with Dr. Lopez, no evidence of cholangitis on ERCP, no purulent drainage. He is not jaundiced. * Continue IV Zosyn 3.375gm Q6hr * Continue IV fluids LR 100ml/hr * Monitor vital signs, CBC, electrolytes * Blood cultures collected and no growth day 2 (4) Transaminitis: Code(s): R74.01 - Elevation of levels of liver transaminase levels Status: Acute Assessment and Plan: * Likely secondary to gallstones/pancreatitis. Continues to improve. * Continue to trend LFTs * AST 27, ALT 46 trending down [place]off[place] * MRCP found 3mm gallstone with gallbladder dilatation with acute cholecystitis (5) Mass of kidney: Code(s): N28.89 - Other specified disorders of kidney and ureter Status: Inactive Assessment and Plan: * Two left kidney masses measuring up to [address] * Follow-up renal ultrasound showed 2.8 cm hypoechoic exophytic lesion of the medial left kidney concerning for renal cell carcinoma. * Appreciate urology consultation * Plan for repeat imaging in 3 months for further evaluation. * Will arrange outpatient urology follow-up prior to discharge * MRCP does show a left kidney mas measuring 1.8cm and 1.4cm consistent with renal cell carcinoma (6) ALVIN (acute kidney injury): Code(s): N17.9 - Acute kidney failure, unspecified Status: Acute Assessment and Plan: * His baseline is unknown. Creatinine slightly elevated at presentation up to 1.6. * Remained stable today at 1.00 * Trend labs * Lisinopril on hold given ALVIN * Monitor renal function closely. * Renally dose medications and avoid nephrotoxins. (7) Hypertension: Code(s): I10 - Essential (primary) hypertension Status: Acute Assessment and Plan: * Blood pressures reviewed and are well controlled. Last BP 110/
--- NOTE | 2020-12-25 10:44 | PM.IMPN ---
Progress Note: A&P Assessment and Plan (1) Acute pancreatitis: Qualifiers: Acute pancreatitis complication: unspecified Pancreatitis type: unspecified pancreatitis type Qualified Code(s): K85.90 - Acute pancreatitis without necrosis or infection, unspecified Code(s): K85.90 - Acute pancreatitis without necrosis or infection, unspecified Status: Acute Assessment and Plan: Lipase elevated at 30,[address] abdomen/pelvis showed acute interstitial pancreatitis with cholelithiasis, which is the likely etiology. Lipase improved yesterday at 277 MRCP Appreciate general surgery and gastroenterology consultation Continue IV fluid LR @ 100ml/hr Low fat diet Dilaudid 0.5mg IV Q2hr, [place] 10/325 1 tab Q6hr, tylenol 650mg PO Q4hr, [place] 5/325 1 tab Q6hr PRN for pain Zofran 4mg IV Q4hr for antiemetics (2) Choledocholithiasis: Code(s): K80.50 - Calculus of bile duct without cholangitis or cholecystitis without obstruction Status: Acute Assessment and Plan: Evident on CT abdomen/pelvis and abdominal ultrasound. No evidence of acute cholecystitis on RUQ US. Underwent ERCP today which showed tiny gallstones passing from distal common bile duct. General surgery and Gastroenterology following. Cholecystectomy performed yesterday Lipase is 277 MRCP found acute choley (3) Sepsis: Code(s): A41.9 - Sepsis, unspecified organism Status: Acute Assessment and Plan: Evident by tachycardia, fever (T-max 100.7?), and leukocytosis WBC 11.0 today. Suspect gallbladder etiology. Discussed case with Dr. Lopez, no evidence of cholangitis on ERCP, no purulent drainage. He is not jaundiced. Continue IV Zosyn 3.375gm Q6hr Continue IV fluids LR 100ml/hr Monitor vital signs, CBC, electrolytes Blood cultures collected and no growth day 2 (4) Transaminitis: Code(s): R74.01 - Elevation of levels of liver transaminase levels Status: Acute Assessment and Plan: Likely secondary to gallstones/pancreatitis. Continues to improve. Continue to trend LFTs AST 27, ALT 46 trending down [place]off[place] MRCP found 3mm gallstone with gallbladder dilatation with acute cholecystitis (5) Mass of kidney: Code(s): N28.89 - Other specified disorders of kidney and ureter Status: Inactive Assessment and Plan: Two left kidney masses measuring up to [address] Follow-up renal ultrasound showed 2.8 cm hypoechoic exophytic lesion of the medial left kidney concerning for renal cell carcinoma. Appreciate urology consultation Plan for repeat imaging in 3 months for further evaluation. Will arrange outpatient urology follow-up prior to discharge MRCP does show a left kidney mas measuring 1.8cm and 1.4cm consistent with renal cell carcinoma (6) ALVIN (acute kidney injury): Code(s): N17.9 - Acute kidney failure, unspecified Status: Acute Assessment and Plan: His baseline is unknown. Creatinine slightly elevated at presentation up to 1.6. Remained stable today at 1.00 Trend labs Lisinopril on hold given ALVIN Monitor renal function closely. Renally dose medications and avoid nephrotoxins. (7) Hypertension: Code(s): I10 - Essential (primary) hypertension Status: Acute Assessment and Plan: Blood pressures reviewed and are well controlled. Last BP 110/57 Lisinopril on hold given ALVIN Subjective Date/time seen: 12/25/20 10:44 Interval history: Rafael Diane is a 70-year-old male with a history of hypertension hyperlipidemia who is seen in follow-up for acute gallstone pancreatitis. Review of Systems Review of Systems: All systems reviewed & are unremarkable except as noted in HPI and below Exam Const: General: cooperative, healthy appearing, no acute distress, well developed, alert, awake, lethargic, tired appearing a
--- NOTE | 2020-12-25 11:08 | WPDANESPN ---
Anes - Prog Note Post-Op Date/Time: 12/25/20 11:08 Cardiovascular status: normal Respiratory status: normal Airway patency: baseline Mental status: baseline Post-Op hydration status: normal Vital Signs: Last Vital Signs Temp 36.1 C L 12/25/20 03:50 Pulse 73 12/25/20 03:50 Resp 20 12/25/20 03:50 BP 110/57 L 12/25/20 03:50 Pulse Ox 93 12/25/20 03:50 Pain Score (VAS): 210 I/O: Intake & Output 12/24/20 12/25/20 12/25/20 23:59 07:59 15:59 Intake Total 340 1300 Output Total 120 300 Balance 220 1000 Laboratory Tests 12/25/20 06:21 12/25/20 06:21 12/24/20 12/24/20 12/24/20 05:59 12:52 17:20 WBC RBC Hgb Hct MCV MCH MCHC RDW Plt Count MPV Sodium Potassium Chloride Carbon Dioxide Anion Gap BUN Creatinine Estim Creat Clear Calc Estimated GFR Glucose POC Capillary Glucose 145 H Calcium Total Bilirubin AST ALT Alkaline Phosphatase Total Creatine Kinase 184 H Total Protein Albumin Blood Type A Positive Antibody Screen Negative 12/25/20 12/25/20 06:21 06:21 WBC 11.0 H RBC 4.42 L Hgb 12.9 L Hct 39.6 L MCV 89.6 MCH 29.2 MCHC 32.6 RDW 13.3 Plt Count 124 L MPV 10.8 H Sodium 132 L Potassium 3.8 Chloride 101 Carbon Dioxide 27 Anion Gap 4 L BUN 21 H Creatinine 1.00 Estim Creat Clear Calc 85 Estimated GFR > 60 Glucose 164 H POC Capillary Glucose Calcium 7.2 L Total Bilirubin 1.5 H AST 27 ALT 46 Alkaline Phosphatase 58 Total Creatine Kinase Total Protein 5.0 L Albumin 2.6 L Blood Type Antibody Screen Microbiology 12/23/20 08:45 Blood Blood Culture - Preliminary 12/23/20 08:48 Blood Blood Culture - Preliminary Post-procedural complaints: none Patient Feedback: Patient satisfied with anesthetic care.
--- NOTE | 2020-12-25 11:41 | P.DS_ITS ---
DS: Admitting Diagnosis Admitting Diagnosis Admitting Diagnosis: Acute pancreatitis Acute Veronica DS: Discharge Diagnosis Discharge Diagnosis (1) Acute pancreatitis: Qualifiers: Acute pancreatitis complication: unspecified Pancreatitis type: unspecified pancreatitis type Qualified Code(s): K85.90 - Acute pancreatitis without necrosis or infection, unspecified Code(s): K85.90 - Acute pancreatitis without necrosis or infection, unspecified Status: Acute Assessment and Plan: * Lipase elevated at 30,000 at presentation. * CT abdomen/pelvis showed acute interstitial pancreatitis with cholelithiasis, which is the likely etiology. * Lipase improved yesterday at 277 * MRCP * Appreciate general surgery and gastroenterology consultation * Continue IV fluid LR @ 100ml/hr * Low fat diet * Dilaudid 0.5mg IV Q2hr, [place] 10/325 1 tab Q6hr, tylenol 650mg PO Q4hr, [place] 5/325 1 tab Q6hr PRN for pain * Zofran 4mg IV Q4hr for antiemetics (2) Choledocholithiasis: Code(s): K80.50 - Calculus of bile duct without cholangitis or cholecystitis without obstruction Status: Acute Assessment and Plan: * Evident on CT abdomen/pelvis and abdominal ultrasound. * No evidence of acute cholecystitis on RUQ US. * Underwent ERCP today which showed tiny gallstones passing from distal common bile duct. * General surgery and Gastroenterology following. * Cholecystectomy performed yesterday * Lipase is 277 * MRCP found acute choley (3) Sepsis: Qualifiers: Sepsis acute organ dysfunction status: unspecified Sepsis type: sepsis due to unspecified organism Qualified Code(s): A41.9 - Sepsis, unspecified organism Code(s): A41.9 - Sepsis, unspecified organism Status: Acute Assessment and Plan: * Evident by tachycardia, fever (T-max 100.7?), and leukocytosis WBC 11.0 today. * Suspect gallbladder etiology. * Discussed case with Dr. Lopez, no evidence of cholangitis on ERCP, no purulent drainage. He is not jaundiced. * Continue IV Zosyn 3.375gm Q6hr * Continue IV fluids LR 100ml/hr * Monitor vital signs, CBC, electrolytes * Blood cultures collected and no growth day 2 (4) Transaminitis: Code(s): R74.01 - Elevation of levels of liver transaminase levels Status: Acute Assessment and Plan: * Likely secondary to gallstones/pancreatitis. Continues to improve. * Continue to trend LFTs * AST 27, ALT 46 trending down hoffman * MRCP found 3mm gallstone with gallbladder dilatation with acute cholecystitis (5) Mass of kidney: Code(s): N28.89 - Other specified disorders of kidney and ureter Status: Inactive Assessment and Plan: * Two left kidney masses measuring up to [address] * Follow-up renal ultrasound showed 2.8 cm hypoechoic exophytic lesion of the medial left kidney concerning for renal cell carcinoma. * Appreciate urology consultation * Plan for repeat imaging in 3 months for further evaluation. * Will arrange outpatient urology follow-up prior to discharge * MRCP does show a left kidney mas measuring 1.8cm and 1.4cm consistent with renal cell carcinoma (6) ALVIN (acute kidney injury): Code(s): N17.9 - Acute kidney failure, unspecified Status: Acute Assessment and Plan: * His baseline is unknown. Creatinine slightly elevated at presentation up to 1.6. * Remained stable today at 1.00 * Trend labs * Lisinopril on hold given ALVIN * M
--- NOTE | 2020-12-25 11:41 | PM.DS ---
DS: Admitting Diagnosis Admitting Diagnosis Admitting Diagnosis: Acute pancreatitis Acute Veronica DS: Discharge Diagnosis Discharge Diagnosis (1) Acute pancreatitis: Qualifiers: Acute pancreatitis complication: unspecified Pancreatitis type: unspecified pancreatitis type Qualified Code(s): K85.90 - Acute pancreatitis without necrosis or infection, unspecified Code(s): K85.90 - Acute pancreatitis without necrosis or infection, unspecified Status: Acute Assessment and Plan: Lipase elevated at 30,[address] abdomen/pelvis showed acute interstitial pancreatitis with cholelithiasis, which is the likely etiology. Lipase improved yesterday at 277 MRCP Appreciate general surgery and gastroenterology consultation Continue IV fluid LR @ 100ml/hr Low fat diet Dilaudid 0.5mg IV Q2hr, [place] 10/325 1 tab Q6hr, tylenol 650mg PO Q4hr, [place] 5/325 1 tab Q6hr PRN for pain Zofran 4mg IV Q4hr for antiemetics (2) Choledocholithiasis: Code(s): K80.50 - Calculus of bile duct without cholangitis or cholecystitis without obstruction Status: Acute Assessment and Plan: Evident on CT abdomen/pelvis and abdominal ultrasound. No evidence of acute cholecystitis on RUQ US. Underwent ERCP today which showed tiny gallstones passing from distal common bile duct. General surgery and Gastroenterology following. Cholecystectomy performed yesterday Lipase is 277 MRCP found acute choley (3) Sepsis: Qualifiers: Sepsis acute organ dysfunction status: unspecified Sepsis type: sepsis due to unspecified organism Qualified Code(s): A41.9 - Sepsis, unspecified organism Code(s): A41.9 - Sepsis, unspecified organism Status: Acute Assessment and Plan: Evident by tachycardia, fever (T-max 100.7?), and leukocytosis WBC 11.0 today. Suspect gallbladder etiology. Discussed case with Dr. Lopez, no evidence of cholangitis on ERCP, no purulent drainage. He is not jaundiced. Continue IV Zosyn 3.375gm Q6hr Continue IV fluids LR 100ml/hr Monitor vital signs, CBC, electrolytes Blood cultures collected and no growth day 2 (4) Transaminitis: Code(s): R74.01 - Elevation of levels of liver transaminase levels Status: Acute Assessment and Plan: Likely secondary to gallstones/pancreatitis. Continues to improve. Continue to trend LFTs AST 27, ALT 46 trending down hoffman MRCP found 3mm gallstone with gallbladder dilatation with acute cholecystitis (5) Mass of kidney: Code(s): N28.89 - Other specified disorders of kidney and ureter Status: Inactive Assessment and Plan: Two left kidney masses measuring up to [address] Follow-up renal ultrasound showed 2.8 cm hypoechoic exophytic lesion of the medial left kidney concerning for renal cell carcinoma. Appreciate urology consultation Plan for repeat imaging in 3 months for further evaluation. Will arrange outpatient urology follow-up prior to discharge MRCP does show a left kidney mas measuring 1.8cm and 1.4cm consistent with renal cell carcinoma (6) ALVIN (acute kidney injury): Code(s): N17.9 - Acute kidney failure, unspecified Status: Acute Assessment and Plan: His baseline is unknown. Creatinine slightly elevated at presentation up to 1.6. Remained stable today at 1.00 Trend labs Lisinopril on hold given ALVIN Monitor renal function closely. Renally dose medications and avoid nephrotoxins. (7) Hypertension: Qualifiers: Hypertension type: essential hypertension Qualified Code(s): I10 - Essential (primary) hypertension Code(s): I10 - Essential (primary) hypertension Status: Acute Assessment and Plan: Blood pressures reviewed and are well controlled. Last BP 110/57 Lisinopril on hold given ALVIN DS: Summary Hospital Course Hospital Course: Jovanny
--- NOTE | 2020-12-25 11:59 | WPDGIPROGNO ---
Progress Note: A&P Assessment and Plan (1) Cholelithiasis: Qualifiers: Cholelithiasis location: gallbladder Cholecystitis presence: without cholecystitis Code(s): K80.20 - Calculus of gallbladder without cholecystitis without obstruction Status: Acute Assessment and Plan: he underwent successful laparoscopic cholecystectomy by Dr. Ceron. (2) Hyperbilirubinemia: Code(s): E80.6 - Other disorders of bilirubin metabolism Status: Acute Assessment and Plan: Bilirubin is down to 1.5 following ERCP (3) Acute pancreatitis: Qualifiers: Acute pancreatitis complication: unspecified Pancreatitis type: unspecified pancreatitis type Qualified Code(s): K85.90 - Acute pancreatitis without necrosis or infection, unspecified Code(s): K85.90 - Acute pancreatitis without necrosis or infection, unspecified Status: Acute Assessment and Plan: lipase have been normal since yesterday. It is unlikely that he would develop pancreatitis again as he is not a drinker, unless he should develop recurrence common bile duct stones Additional Plan okay from my perspective for him to be discharged Time Spent With Patient Time with patient: 15 - 25 minutes Subjective Date/time seen: 12/25/20 06:50 this morning he states he feels good. He is still somewhat sore on the left side of his abdomen. he has no vomiting As looking forward to eating. He is afebrile Review of Systems Review of Systems: All systems reviewed & are unremarkable except as noted in HPI and below Exam GI: GI Palp: Yes abdominal tenderness ( generalized in the upper abdomen), Yes Soft to palpation and No Guarding due to palpation present (GI) Auscultation: normal bowel sounds Objective Data Vital Signs Vital Signs: Vital Signs - 24 hr 12/24/20 14:34 12/24/20 16:55 12/24/20 17:25 Temperature 36.6 C Pulse Rate 92 108 H 95 Respiratory Rate 20 18 20 Blood Pressure 142/81 H 115/73 126/74 Pulse Oximetry 93 96 94 12/24/20 17:40 12/24/20 17:55 12/24/20 18:16 Temperature 36.5 C Pulse Rate 93 88 95 Respiratory Rate 14 16 Blood Pressure 129/63 133/79 125/77 Pulse Oximetry 94 94 90 12/24/20 18:31 12/24/20 18:35 12/24/20 19:01 Temperature 36.5 C 36.6 C Pulse Rate 94 94 Respiratory Rate 16 16 Blood Pressure 117/74 120/71 Pulse Oximetry 91 92 93 12/24/20 19:50 12/24/20 21:12 12/24/20 23:31 Temperature 36.6 C Pulse Rate 94 90 Respiratory Rate 16 Blood Pressure 111/74 Pulse Oximetry 93 91 92 12/24/20 23:50 12/25/20 02:31 12/25/20 03:50 Temperature 36.2 C L 36.1 C L Pulse Rate 51 L 88 73 Respiratory Rate 20 20 Blood Pressure 104/58 L 110/57 L Pulse Oximetry 92 91 93 12/25/20 07:50 Temperature 36.4 C Pulse Rate 52 L Respiratory Rate 16 Blood Pressure 111/57 L Pulse Oximetry 95 Intake/Output Intake/Output: Intake & Output 12/22/20 12/23/20 12/24/20 12/25/20 23:59 23:59 23:59 23:59 Intake Total 4440 2500 2090 1420 Output Total 120 120 120 300 Balance 4320 2380 1970 1120 Meds/Results Medications: Active Medications Generic Name Dose Route Start Last Admin Trade Name Freq PRN Reason Stop Dose Admin Acetaminophen 650 mg 12/23/20 08:31 12/23/20 21:47 Acetaminophen 325 Mg Tablet PO 650 mg Q4H PRN Administration Pain 1-3, fever Hydrocodone Bitart/Acetaminophen 1 tab 12/24/20 18:05 12/25/20 06:43 Hydrocodone/Acetaminophen (*Crx) 5-325 Mg Tablet PO 1 tab Q4H PRN Administration Pain Rated 4-6 Hydrocodone Bitart/Acetaminophen 1 tab 12/24/20 18:05 Hydrocodone/Acetaminophen (*Crx) 10-325 Mg Tablet PO Q6H PRN Pain Rated 7-10 Enoxaparin Sodium 40 mg 12/25/20 09:00 12/25/20 10:35 Enoxaparin 40 Mg/0.4 Ml Syringe SUB-Q 40 mg DAILY NUPUR Administration Hydromorphone HCl 0.5 mg 12/24/20 18:05 Hydromorphone Hcl Inj (*Crx) 1 Mg/Ml Syr IV PUSH Q2H PRN Pain Rated 4-6 Hydromorpho
== END 2020-12-25 13:50 | disposition home or self-care (01) | DRG 853 ==
LOC: ANHED 23:19 → ANH3MEDSUR 12-22 07:30
PROVIDERS: Emergency Medicine; Internal Medicine Gastroenterology; Nurse Practitioner; Surgery; Admitting Provider Internal Medicine; Emergency Provider Emergency Medicine; PCP Registered Nurse; Visit Provider Physician Assistant
PROC: 0F998ZZ Drainage of Common Bile Duct, Via Natural or Artificial Opening Endoscopic (ICD-10-PCS; CPT 43260; principal; 2020-12-23 10:45)
PROC: 0FT44ZZ Resection of Gallbladder, Percutaneous Endoscopic Approach (ICD-10-PCS; CPT 47562; principal; 2020-12-24 15:30)
DX: A41.9 Sepsis, unspecified organism (principal); K85.10 Biliary acute pancreatitis without necrosis or infection; N17.9 Acute kidney failure, unspecified; Z68.41 Body mass index [BMI] 40.0-44.9, adult; K80.70 Calculus of gallbladder and bile duct without cholecystitis without obstruction; K31.9 Disease of stomach and duodenum, unspecified; N28.89 Other specified disorders of kidney and ureter; I10 Essential (primary) hypertension; E78.5 Hyperlipidemia, unspecified; R74.01 Elevation of levels of liver transaminase levels; E80.6 Other disorders of bilirubin metabolism; G47.33 Obstructive sleep apnea (adult) (pediatric); E66.9 Obesity, unspecified; N40.0 Benign prostatic hyperplasia without lower urinary tract symptoms; Z79.899 Other long term (current) drug therapy
CPT/HCPCS: 36415; 74177; 74183; 74300; 74329; 76376; 76705; 76775; 80053; 81001; 82550; 82948; 83036; 83605; 83690; 83735; 84484; 85025; 85027; 85610; 85730; 86850; 86900; 86901; 87040; 88304; 93005; 96365; 96375; 99285; A9270; A9577; J0131; J0330; J1100; J1170; J1650; J2250; J2405; J2543; J2550; J2704; J2710; J3010; J7030; J7120; Q9966; Q9967

== ENCOUNTER 2021-02-07 10:12 | Emergency (ER) | payer MEDICARE, SELFPAY ==
[2021-02-07 10:56] VITALS: BP 136/84; PULSE 111; RESP 20; TEMP 36.4; O2SAT 98
[2021-02-07 11:10] LABS: Basophils Percent Auto 0.5 % (0.2-1.2); Eosinophils Absolute Auto 0.2 K/mm3 (0-0.3); Eosinophils Percent Auto 2.9 % (0-4.4); Hemoglobin 12.8 g/dL (14.0-18.0); Immature Granulocyte Absolute 0.02 K/mm3 (0.00-0.031); Immature Granulocyte Percent A 0.2 % (0-0.5); Lymphocytes Absolute Auto 1.55 K/mm3 (0.9-3.2); Lymphocytes Percent Auto 19.2 % (18.3-44.2); Mean Corpuscular Hemoglobin 29.3 pg (26-34); Mean Corpuscular Volume 91.5 fl (80-100); Mean Platelet Volume 9.8 fl (7.4-10.4); Monocytes Absolute Auto 0.6 K/mm3 (0.1-0.6); Monocytes Percent Auto 6.8 % (2.6-8.5); Neutrophils Absolute Auto 5.7 K/mm3 (1.3-6.7); Neutrophils Percent Auto 70.4 % (45.5-73.1); Platelet Count Result 164 k/mm3 (150-375); Red Blood Count 4.37 M/mm3 (4.6-6.20); Red Cell Distribution Width 14.3 % (11.5-14.5); White Blood Count 8.1 K/mm3 (4.5-10.0)
[2021-02-07 11:26] LABS: Alanine Aminotransferase 14 U/L (4-50); Albumin Level 3.9 g/dL (3.5-5.1); Alkaline Phosphatase 79 U/L (38-126); Anion Gap 8 mmol/L (8-16); Aspartate Amino Transferase 17 U/L (17-59); Bilirubin,Total 1.8 mg/dL (0.2-1.3); Blood Urea Nitrogen 11 mg/dL (9-20); Calcium 9.2 mg/dL (8.4-10.2); Carbon Dioxide 27 mmol/L (22-30); Chloride 99 mmol/L (98-107); Estimated CRCL calculation 101 ml/min; Estimated Glomerular Filt Rate > 60; Glucose 218 mg/dL (65-110); Lipase 119 U/L (23-300); Potassium 3.9 mmol/L (3.4-5.0); Sodium 134 mmol/L (137-145)
[2021-02-07 11:32] LABS: Add Urine Microscopic? YES; Appearance Urine Clear (Clear); Bilirubin Urine Negative (Negative); Blood Urine Negative (Negative); Color Urine Amber (Yellow); Glucose Urine UA 1+ mg/dL (Negative); Ketones Urine Negative (Negative); Leukocyte Esterase Ur Negative LEU/UL (Negative); Mucus Urine Rare /lpf; Nitrate Urine Negative (Negative); Protein Urine Negative (Negative); RBC Urine 0-2 /hpf (0-2); Specific Grav Ur 1.027 (1.001-1.035); WBC Urine 0-3 /hpf
[2021-02-07] MEDS: MAGNESIUM CITRATE 300 ML BTL PO (13:59)
--- NOTE | 2021-02-07 14:05 | ED.ABDPAIN ---
HPI - Abdominal Pain General Chief Complaint: Abdominal Pain Stated Complaint: abd pain, constipated Time Seen by Provider: 02/07/21 12:43 Source: patient Mode of arrival: ambulatory Limitations: no limitations History of Present Illness HPI narrative: 70-year-old male Complains of 2-week history of lower abdominal pain Also about a 1 week history of not having any bowel movements but having some leakage into his drawers He is also having some difficulty urinating He visited with his primary care doctor 2 days ago because of this and reports that he had an x-ray done but no rectal examination was performed at that time He does not have a fever, there is no blood, and he has some discomfort chronically due to hemorrhoids Related Data Home Medications Medication Instructions Recorded Confirmed atorvastatin 10 mg PO DAILY 12/21/20 01/26/21 lisinopril 20 mg PO DAILY 12/21/20 01/26/21 Allergies Allergy/AdvReac Type Severity Reaction Status Date / Time No Known Allergies Allergy Verified 02/07/21 10:59 Review of Systems Review of Systems: All systems reviewed & are unremarkable except as noted in HPI and below Constitutional: Constitutional: Reports no additional constitutional complaints, Denies chills, Denies fever(s) and Denies headache(s) Eyes: Eyes: Reports no additional eye complaints and Denies change in vision ENT: Denies headache(s) and Denies sore throat Cardiovascular: Cardiovascular: Denies chest pain and Denies dyspnea Respiratory: Respiratory: Denies cough and Denies dyspnea Gastrointestinal: Gastrointestinal: Reports abdominal pain, Reports bloating, Reports constipation, Denies diarrhea and Denies vomiting Genitourinary: Genitourinary: Reports oliguria, Denies dysuria and Denies urinary frequency Musculoskeletal: Musculoskeletal: Denies deformity, Denies arthralgias, Denies joint swelling and Denies numbness Integumentary/Breasts: Skin/Breast: Denies rash and Denies wounds Neurologic: Denies headache(s), Denies focal weakness and Denies numbness Psychiatric: Psychiatric: Reports no additional psychiatric complaints Endocrine: Endocrine: Reports no additional endocrine complaints Hematologic/Lymphatic: Hematologic/Lymphatic: Reports no additional hematologic/lymphatic complaints Allergic/Immunologic: Allergic/Immunologic: Reports no additional allergic/immunologic complaints PMFSH Past Medical History Medical History Acute pancreatitis Hyperlipidemia Hypertension Mass of kidney LUZMA (obstructive sleep apnea) Surgical History Surgical History Hx laparoscopic cholecystectomy 12/24/20 with [facility] Social History Social History Smoking status: Never smoker Alcohol intake: never Substance use: never Gender identity (if verbalized by the patient): Male Spiritual care concerns: No Exam Const: General: cooperative, no acute distress and alert Nutritional Appearance: obese Orientation/consciousness: patient oriented x3 (alert) HENMT: Head: normal to inspection, normocephalic and atraumatic Ears: external ears normal General nose exam: no epistaxis Eyes: Conjunctivae: conjunctivae normal EOM: EOM abnormal (Left eye deviated outward) Neck: Neck: normal visual inspection, supple and no JVD Resp: Effort & Inspection: normal respiratory effort and not labored Auscultation: other (BS =) GI: GI Palp: Yes Soft to palpation, No Guarding due to palpation present (GI) and No Rebound tenderness present Rectal Exam: fecal impaction Other: Huge but soft fecal impaction : Male General Exam: Yes normal external exam Skin: General skin exam: normal color and no rashes or lesions noted Neuro: General: patient oriented x3 (alert) and moves all extremities Speech: normal speech Psych: Affect: normal affect
== END 2021-02-07 16:24 | disposition home or self-care (01) ==
PROVIDERS: Emergency Medicine; Emergency Provider Emergency Medicine; PCP Registered Nurse
DX: K56.41 Fecal impaction (principal); I10 Essential (primary) hypertension; E78.5 Hyperlipidemia, unspecified; G47.30 Sleep apnea, unspecified
CPT/HCPCS: 36415; 80053; 81001; 83690; 85025; 99283; A9270

== ENCOUNTER 2021-03-11 12:31 | Outpatient (CLI) | payer MEDICARE, SELFPAY ==
--- NOTE | ~2021-03-11 | CT_ITS ---
EXAMINATION: CT abdomen pelvis wo/w con EXAM DATE: 03/11/2021 13:14 INDICATION: N28.89 - Other specified disorders of kidney and ureter . Left kidney mass. TECHNIQUE: Spiral CT of the abdomen and pelvis was performed without contrast. The patient was then injected with small bolus intravenous Omnipaque 350, followed by delay of approximately 10 minutes to allow collecting system to opacify. A post contrast scan abdomen and pelvis was performed during inj ection of remaining contrast. A total of 130 cc intravenous contrast was administered. The dose-zoey th product (DLP) for this examination was 2960.27 mGy-cm. The exposure was tailored according to pat ient size (auto mA exposure control), and iterative reconstruction (ASIR) was used as additional dose reduction technique. There is no prior study for comparison. FINDINGS: There is enhancing mass left kidney midpole posterior cortex measuring 1.7 cm, unchanged. T he smaller lesion previously described measures 1.2 cm, is less well visualized on this exam, also un changed. Probably renal cell cancers. There is no hydronephrosis or nephrolithiasis. The calyces and opacified portions of ureters are unremarkable, without filling defects or focal suspicious strictur es. The bladder is unremarkable. The prostate is unremarkable. Small to moderate left, small right inguinal fat-containing hernias. Small umbilical fat-containing hernia. Interval development of numerous pockets of fluid density throughout the entire pancreas, probably th e result of pancreatic necrosis and pseudocyst formation. The liver, spleen, adrenal glands are unrem arkable. There are cholecystectomy clips. There is no retroperitoneal or pelvic lymphadenopathy. The appendix is normal. The stomach and small bowel are unremarkable. There is expected amount of c olonic stool. No free intraperitoneal gas. The heart is normal in size. There are no pericardial or pleural effusions. The lung bases are unremarkable. There are no osteoblastic or osteolytic les ions identified. Fused lower thoracic spine, probably diffuse idiopathic skeletal hyperostosis or ank ylosing spondylitis, but the sacroiliac joints are fused. IMPRESSION: 1. Two left renal masses most likely renal cell cancers unchanged. 2. Development of diffuse pancreatic cystic change, necrosis and pseudocyst formation 3. Fat-containing hernias 4. Interval cholecystectomy. Reviewed, dictated and finalized at location A. IMPRESSION: 1. Two left renal masses most likely renal cell cancers unchanged. 2. Development of diffuse pancreatic cystic change, necrosis and pseudocyst fo rmation 3. Fat-containing hernias 4. Interval cholecystectomy.
[2021-03-11 13:04] LABS: Estimated Glomerular Filt Rate > 60
== END 2021-03-11 12:32 | disposition home or self-care (01) ==
LOC: ANHIMG 12:32
PROVIDERS: PCP Registered Nurse; Visit Provider Urology
DX: N28.89 Other specified disorders of kidney and ureter (principal); K86.89 Other specified diseases of pancreas; Z90.49 Acquired absence of other specified parts of digestive tract; K40.90 Unilateral inguinal hernia, without obstruction or gangrene, not specified as recurrent; K42.9 Umbilical hernia without obstruction or gangrene
CPT/HCPCS: 74178; Q9967

== ENCOUNTER 2021-05-03 09:31 | Inpatient (IN) | payer MEDICARE, SELFPAY ==
[2021-05-03] VITALS (8 sets, daily range): BP systolic 91–119; BP diastolic 54–70; PULSE 87–118; RESP 16–20; TEMP 36.6–37.7; O2SAT 94–100; BMI 40.8
--- NOTE | ~2021-05-03 | MR_ITS ---
EXAMINATION: MR brain/brain stem wo con DATE: 05/10/2021 14:47 INDICATION: Aphasia. Confusion. Word finding problem. TECHNIQUE: Magnetic resonance imaging (MRI) of the brain and brainstem was performed without intraven ous contrast. Sequences included sagittal and axial T1-weighted FSE, axial diffusion-weighted FS EPI, axial T2*-weighted GRE, axial T2-weighted FLAIR Propeller, and axial T2-weighted Propeller. Apparent diffusion coefficient (ADC) maps were created. COMPARISON: None. FINDINGS: There is no intracranial hemorrhage, acute infarction, or abnormal intracranial mass lesion . The ventricles are normal in size. The paranasal sinuses are clear. There are likely changes of rig ht ocular lens replacement surgery. There are small bilateral mastoid effusions. IMPRESSION: 1. Normal brain. Reviewed, dictated and finalized at location A. 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 Normal brain.
--- NOTE | ~2021-05-03 | XR_ITS ---
EXAMINATION: XR shoulder RT min 2V EXAM DATE: 05/10/2021 13:57 INDICATION: Right shoulder pain, bacteremia. TECHNIQUE: The following right shoulder projections obtained: frontal projection with internal rotati on, frontal projection with external rotation, Grashey, and scapular Y view (4+ views). Comparison is made to prior examination from 05/04/2021. FINDINGS: No evidence of right shoulder rotator cuff calcific tendinosis. There is moderate glenoh umeral joint, moderate acromioclavicular joint primary osteoarthritis. There are no acute fractures o r dislocations identified. There is no subcutaneous gas. The soft tissue is unremarkable. There a re no radiopaque foreign bodies. There is no significant interval change. IMPRESSION: Moderate right shoulder osteoarthritis. Reviewed, dictated and finalized at location A. 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
--- NOTE | ~2021-05-03 | US_ITS ---
EXAMINATION: US renal BI DATE: 05/10/2021 09:56 INDICATION: Acute kidney injury TECHNIQUE: Multiple grayscale and Doppler ultrasound images of the kidneys were obtained. COMPARISON: CT, 03/11/2021; MRI, 12/24/2020 FINDINGS: The examination is limited by the patient's body habitus. The right kidney measures 12.0 x 5.4 x 5.0 cm. The left kidney measures 11.7 x 5.9 x 6.1 cm. The known left kidney masses are not visu alized. The kidneys demonstrate normal parenchymal echogenicity. There is no hydronephrosis. The blad sherie is decompressed by Stein catheter. IMPRESSION: 1. Grossly normal kidneys without hydronephrosis. Known left kidney mass is not visualized. Reviewed, dictated and finalized at location B. TRIC LINEMAN
--- NOTE | ~2021-05-03 | XR_ITS ---
EXAMINATION: XR shoulder RT min 2V DATE: 05/04/2021 09:53 INDICATION: Right shoulder pain TECHNIQUE: AP internally and externally rotated, AP oblique externally rotated and transscapular Y vi ews of the right shoulder were obtained. COMPARISON: None FINDINGS: Normal alignment. No fracture.Moderate glenohumeral and acromioclavicular osteoarthritis. Soft tissu es are unremarkable. IMPRESSION: Moderate right acromioclavicular and glenohumeral osteoarthritis. Reviewed, dictated and finalized at location A.
--- NOTE | ~2021-05-03 | US_ITS ---
EXAMINATION: US venous doppler LE RT DATE: 05/03/2021 11:13 INDICATION: Right lower limb swelling. Elevated d-dimer. TECHNIQUE: Grayscale ultrasound images without and with compression and Doppler ultrasound images of the right lower extremity veins were obtained. COMPARISON: None. FINDINGS: The visualized portions of right common femoral vein, profunda (deep) femoral vein, femoral vein, pop liteal vein, peroneal trunk, posterior tibial veins, peroneal veins, gastrocnemius vein and greater s aphenous vein outflow are patent. IMPRESSION: 1. No deep venous thrombosis in the right lower limb. Reviewed, dictated and finalized at location A.
--- NOTE | ~2021-05-03 | XR_ITS ---
EXAMINATION: XR knee RT 3V EXAM DATE: 05/03/2021 11:13 INDICATION: Swelling and pain. Unable to bend right knee. No known recent injury. TECHNIQUE: Three projections of the right knee. There is no prior study for comparison. FINDINGS: No evidence osteochondral defect or joint body in the right knee joint. There are no acut e fractures or dislocations identified. There is no subcutaneous gas. There is moderate amount of nonspecific joint fluid. This is most commonly sterile effusion. Possibl e underlying etiologies include reactive from arthritis, overuse, or trauma. Hemarthrosis and septic effusion are not radiographically excludable. Please clinically correlate. Some soft tissue swelling surrounding the knee within the subcutaneous fat. There are no radiopaque f oreign bodies. There is moderate patellofemoral, moderate to severe medial tibial femoral primary os teoarthritis. IMPRESSION: 1. Moderate amount of right knee joint fluid. Subcutaneous edema. 2. Osteoarthritis most advanced medial tibiofemoral compartment. Reviewed, dictated and finalized at location A.
--- NOTE | ~2021-05-03 | XR_ITS ---
EXAMINATION: XR chest port-a-cath/central DATE: 05/19/2021 17:27 INDICATION: Central line insertion TECHNIQUE: frontal view of the chest was obtained. COMPARISON: None FINDINGS: Right internal jugular central venous catheter with distal tip at the caudal superior vena cava proxi maddi 1 cm below the level of the harriet. The lateral margin of the right mid to lower lung zone incl uding the costophrenic angle is excluded from the [id number]. Visualized portions of the lungs are clear. No pulmonary edema, pneumothorax or evident pleural effusion. The cardiomediastinal silhouett e is normal. IMPRESSION: 1. Right internal jugular central venous catheter tip in the caudal superior vena cava. 2. No acute cardiopulmonary disease. Portions of the lateral right mid to lower lung zone are exclude d from the [id number]. Reviewed, dictated and finalized at location A. EN TANK FILLER IMPRESSION: 1. Right internal jugular central venous catheter tip in the caudal superior ve na cava. 2. No acute cardiopulmonary disease. Portions of the lateral right mid to lower lung zone are excluded from the [id number].
--- NOTE | 2021-05-03 09:42 | ED.GENADULT ---
HPI - General Adult General Chief complaint: Extremity Injury, Lower <Vicki Sinha PA-C - Last Filed: 05/03/21 15:16> Stated complaint: rt lower extrem pain <Vicki Sinha PA-C - Last Filed: 05/03/21 15:16> Time Seen by Provider: 05/03/21 16:18 <Vicki Sinha PA-C - Last Filed: 05/03/21 15:16> Source: patient and EMS <Vicki Sinha PA-C - Last Filed: 05/03/21 15:16> Mode of arrival: EMS <JENSEN Huddleston Last Filed: 05/03/21 15:16> Limitations: no limitations <JENSEN Huddleston Last Filed: 05/03/21 15:16> History of Present Illness HPI narrative: Patient brought in by EMS today for evaluation of right knee pain and fever. He has swelling to his right knee and thigh that he states started on Monday and has just progressed over the weekend. He has taken nothing for the pain at home. He is also not been eating and drinking as usual because of his limited mobility. He denies any history of DVT, no chest pain or shortness of breath. He does have a history of gout. No injury to the knee remote or recent. His temp when EMS arrived was 101. <Vicki Sinha PA-C - Last Filed: 05/03/21 15:16> Onset (ago): day(s) <JENSEN Huddleston Last Filed: 05/03/21 15:16> Severity scale (1-10): 5 <JENSEN Huddleston Last Filed: 05/03/21 15:16> Quality: aching <JENSEN Huddleston Last Filed: 05/03/21 15:16> Relieving factors: rest <JENSEN Huddleston Last Filed: 05/03/21 15:16> Exacerbating factors: movement and other (touch) <JENSEN Huddleston Last Filed: 05/03/21 15:16> Associated symptoms: denies other symptoms <Vicki Sinha PA-C - Last Filed: 05/03/21 15:16> Related Data Home medications: Home Medications Medication Instructions Recorded Confirmed atorvastatin 10 mg PO DAILY 12/21/20 05/03/21 lisinopril 20 mg PO DAILY 12/21/20 05/03/21 <Vicki Sinha PA-C - Last Filed: 05/03/21 15:16> Allergies/adverse reactions: Allergies Allergy/AdvReac Type Severity Reaction Status Date / Time No Known Allergies Allergy Verified 05/03/21 09:37 <Vicki Sinha PA-C - Last Filed: 05/03/21 15:16> Review of Systems Review of Systems: All systems reviewed & are unremarkable except as noted in HPI and below <Vicki Sinha PA-C - Last Filed: 05/03/21 15:16> [facility] Past Medical History Medical History: Medical History (Updated 05/03/21 @ 22:06 by Liana Hidalgo PA-C) Benign prostatic hyperplasia Gallstone pancreatitis (12/2020) Hyperlipidemia Hypertension Mass of kidney To left renal masses most likely renal cell cancers, unchanged, seen on CT of the abdomen pelvis on 03/11/2021. Followed by urology. Obstructive sleep apnea on CPAP <Vicki Sinha PA-C - Last Filed: 05/03/21 15:16> Surgical History Surgical History: Surgical History (Updated 05/03/21 @ 21:58 by iLana Hidalgo PA-C) History of endoscopic retrograde cholangiopancreatography (12/2020) History of laparoscopic cholecystectomy (12/24/20) With intraoperative cholangiogram. <Vicki Sinha PA-C - Last Filed: 05/03/21 15:16> Family History Family History: Family History Father Acute myocardial infarction <Vicki Sinha PA-C - Last Filed: 05/03/21 15:16> Social History Social History: Social History (Updated 05/03/21 @ 22:00 by Liana Hidalgo PA-C) Social History: Surrogate decision maker: Lesley Diane, . Code status: Full code. Smoking status: Never smoker Alcohol intake: former Substance use: never Substance use type: does not use Additional living arrangements comments: The patient lives with his in [place]. 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 <Vicki Sinha PA-C - Last Filed: 05/03/21 15:16> Exam Const: General: no acute di
--- NOTE | 2021-05-03 09:43 | ECG_ITS ---
Measurements Intervals [place] Rate: 116 P: 53 VA: 132 QRS: -66 QRSD: 145 T: 35 QT: 289 QTc: 402 Interpretive Statements SINUS TACHYCARDIA RIGHT BUNDLE BRANCH BLOCK LEFT ANTERIOR FASCICULAR BLOCK BASELINE ARTIFACT- I, II, III, AVR, AVL, AVF, V1-V3 ABNORMAL ECG Electronically Signed On 05-03-2021 10:36:51 CDT by Jorge Martinez D.O.
[2021-05-03] MEDS: KETOROLAC 30 MG/ML VIAL (*BKC) IV PUSH (10:03)
[2021-05-03] MEDS: SODIUM CHLORIDE 0.9% IV 1,000 ML 999 ML IV CONT ×2 (10:03→14:00)
[2021-05-03 10:09] LABS: Basophils Percent Auto 0.3 % (0.2-1.2); Eosinophils Percent Auto 0.4 % (0-4.4); Hematocrit 44.3 % (42.0-52.0); Hemoglobin 14.7 g/dL (14.0-18.0); Immature Granulocyte Absolute 0.08 K/mm3 (0.00-0.031); Immature Granulocyte Percent A 0.7 % (0-0.5); Immature Platelet Fraction Pct 3.7 % (0.9-11.2); Lymphocytes Absolute Auto 0.42 K/mm3 (0.9-3.2); Lymphocytes Percent Auto 3.7 % (18.3-44.2); Mean Corpuscular HGB Conc 33.2 g/dl (32-36); Mean Corpuscular Volume 87.4 fl (80-100); Mean Platelet Volume 10.2 fl (7.4-10.4); Monocytes Absolute Auto 0.7 K/mm3 (0.1-0.6); Monocytes Percent Auto 6.3 % (2.6-8.5); Neutrophils Absolute Auto 10.1 K/mm3 (1.3-6.7); Neutrophils Percent Auto 88.6 % (45.5-73.1); Red Blood Count 5.07 M/mm3 (4.6-6.20); Red Cell Distribution Width 13.7 % (11.5-14.5); White Blood Count 11.4 K/mm3 (4.5-10.0)
[2021-05-03 10:35] LABS: D Dimer 4.91 ug/mL (<0.48)
[2021-05-03 10:48] LABS: Platelet Count Result 155 k/mm3 (150-375)
[2021-05-03 10:49] LABS: Add Urine Microscopic? YES; Appearance Urine Cloudy (Clear); Bacteria Urine Trace /hpf; Bilirubin Urine Negative (Negative); Blood Urine 2+ (Negative); Color Urine Amber (Yellow); Glucose Urine UA 1+ mg/dL (Negative); Ketones Urine Negative (Negative); Leukocyte Esterase Ur 2+ LEU/UL (Negative); Mucus Urine Rare /lpf; Nitrate Urine Negative (Negative); Protein Urine 1+ mg/dL (Negative); Specific Grav Ur 1.024 (1.001-1.035); Squamous Epithelial Cell Urine Occasional /hpf (Few); WBC Urine 31-50 /hpf
[2021-05-03 12:34] LABS: Alanine Aminotransferase 23 U/L (4-50); Albumin Level 3.2 g/dL (3.5-5.1); Alkaline Phosphatase 61 U/L (38-126); Anion Gap 12 mmol/L (8-16); Aspartate Amino Transferase 53 U/L (17-59); Bilirubin,Total 2.6 mg/dL (0.2-1.3); Blood Urea Nitrogen 38 mg/dL (9-20); Calcium 8.4 mg/dL (8.4-10.2); Carbon Dioxide 21 mmol/L (22-30); Chloride 97 mmol/L (98-107); Estimated Glomerular Filt Rate 46; Glucose 217 mg/dL (65-110); Potassium 3.8 mmol/L (3.4-5.0); Sodium 130 mmol/L (137-145); Uric Acid 6.6 mg/dL (3.5-8.5)
[2021-05-03] MEDS: LIDOCAINE/PRILOCAINE CREAM 2.5-2.5% TUBE 1 EACH TOPICAL (12:40)
[2021-05-03 13:21] LABS: Erythrocyte Sedimentation Rate 29 mm/hr (0-20)
--- NOTE | 2021-05-03 14:15 | PM.IMHP ---
H&P: HPI History of Present Illness Date/Time: 05/03/21 14:15 Chief Complaint: Right knee pain and swelling. Narrative: This is a 70-year-old male with history of gout hypertension, hyperlipidemia, and benign prostatic hyperplasia presented to the emergency department earlier today via EMS from home for evaluation of right knee pain and swelling. He developed swelling and discomfort in his right knee sometime on and it has gotten progressively worse since that time. It is to the point where he cannot even bear weight due to severe pain. He has a difficult time describing the pain but he does report pressure-like discomfort when trying to bend the knee. His appetite has been poor since Monday and he reports little in the way of oral intake. He has also been having sweats and subjective fever and in fact his temperature was 101? F on EMS arrival today. X-ray of the right knee showed a moderate amount of right knee joint fluid which was aspirated; gram stain showed moderate white blood cells and a few Gram-positive cocci. No crystals were seen. Review of Systems Review of Systems: Twelve systems were reviewed. No cold or flu symptoms. He denies sick contacts. No chest pain or shortness of breath. He has noticed a slight decrease in urine output as well as darker urine. Reports mild dysuria. No urgency, hesitancy, or frequency. No abdominal pain or low back pain. Except as documented, all other systems were reviewed and are negative. [facility] Past Medical History Medical History (Updated 05/03/21 @ 22:06 by Liana Hidalgo PA-C) Benign prostatic hyperplasia Gallstone pancreatitis (12/2020) Hyperlipidemia Hypertension Mass of kidney To left renal masses most likely renal cell cancers, unchanged, seen on CT of the abdomen pelvis on 03/11/2021. Followed by urology. Obstructive sleep apnea on CPAP Surgical History Surgical History (Updated 05/03/21 @ 21:58 by Liana Hidalgo PA-C) History of endoscopic retrograde cholangiopancreatography (12/2020) History of laparoscopic cholecystectomy (12/24/20) With intraoperative cholangiogram. Family History Family History Father Acute myocardial infarction Social History Social History (Updated 05/03/21 @ 22:00 by Liana Hidalgo PA-C) Social History: Surrogate decision maker: Lesley Diane, . Code status: Full code. Smoking status: Never smoker Alcohol intake: former Substance use: never Substance use type: does not use Additional living arrangements comments: The patient lives with his in [place]. 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 Home Medications and Allergies Home Medications Medication Instructions Recorded Confirmed Type atorvastatin 10 mg PO DAILY 12/21/20 05/03/21 History lisinopril 20 mg PO DAILY 12/21/20 05/03/21 History tamsulosin 0.4 mg PO QAM 30 Days #30 cap 12/25/20 05/03/21 Rx Allergies Allergy/AdvReac Type Severity Reaction Status Date / Time No Known Allergies Allergy Verified 05/03/21 09:37 Vital Signs Vital Signs - 24 hr 05/03/21 09:29 05/03/21 12:10 05/03/21 12:41 Temperature 99.8 F H Pulse Rate 118 H 103 H 100 Respiratory Rate 16 18 18 Blood Pressure 104/67 91/63 L 97/59 L Pulse Oximetry 99 94 94 Exam Narrative: General: Mildly ill-appearing elderly male in the supine position in bed in no distress. Weight: 133 kg. BMI: 40.9. HEENT: PERRL, EOMI. Sclerae anicteric. Left dysconjugate gaze. Tacky mucous membranes. Neck: Supple. Respiratory: Lungs are clear to auscultation bilaterally. Cardiovascular: Regular rate and rhythm with S1-S2. Gastrointestinal: Abdomen is soft, protuberant, nontender, and nondistended with positive bowel sounds. Skin: Warm and dry. Extremities: No cyanosis or clubbing. Mild lower extremity edema. Radial and pedal pulses intact. Musculoskeletal: Rig
[2021-05-03 15:38] LABS: Lactic Acid Reflex 1.3 mmol/L (0.7-2.1)
[2021-05-03 16:50] LABS: CRP > 27.0 mg/dL (<1.0)
--- NOTE | 2021-05-03 17:23 | ADMGEN ---
This patient, Rafael Diane, was admitted to Medical Room 260-. Patient/family oriented to hospital policies and general routines including ID bracelet, bed and alarms, visiting hours, pain management, procedures, bathroom and other care routines, personal items, smoking policy, room service/diet, and visiting hours. Information on how to activate the Rapid Response Team has been discussed. Patient/Family are encouraged to report perceived risks to care and to ask questions if they do not understand what they are told or what they should do.
[2021-05-03 17:33] LABS: Source Synovial Fluid Synovial fluid
[2021-05-03 17:34] LABS: Appearance Synovial Fluid Bloody (Clear); Color Synovial Fluid Red (Colorless); Crystals Synovial Fluid None Seen (None Seen); Lymphocytes Synovial Fluid 2 %; Neutrophils Synovial Fluid 98 % (0-25); Nucleated Cell Synovial Fluid 50527 /uL (0-200); RBC Synovial Fluid 64263 /uL (0-0)
[2021-05-03 22:34] LABS: Hemoglobin A1C 8.2 % (<5.7)
[2021-05-03] MEDS: SODIUM CHLORIDE 0.9% IV 1,000 ML 100 ML IV CONT (22:35)
[2021-05-04 02:45] VITALS: PULSE 98; O2SAT 96
[2021-05-04 05:01] VITALS: BP 114/58; PULSE 102; RESP 20; TEMP 36.8; O2SAT 96
[2021-05-04 05:44] LABS: Hemoglobin 12.2 g/dL (14.0-18.0); Immature Platelet Fraction Pct 3.1 % (0.9-11.2); Mean Corpuscular HGB Conc 33.9 g/dl (32-36); Mean Corpuscular Hemoglobin 29.3 pg (26-34); Mean Corpuscular Volume 86.5 fl (80-100); Mean Platelet Volume 10.6 fl (7.4-10.4); Platelet Count Result 133 k/mm3 (150-375); Red Blood Count 4.16 M/mm3 (4.6-6.20); Red Cell Distribution Width 13.8 % (11.5-14.5); White Blood Count 8.6 K/mm3 (4.5-10.0)
[2021-05-04 05:59] LABS: Anion Gap 8 mmol/L (8-16); Blood Urea Nitrogen 51 mg/dL (9-20); CRP 8.7 mg/dL (<1.0); Calcium 7.7 mg/dL (8.4-10.2); Carbon Dioxide 21 mmol/L (22-30); Chloride 98 mmol/L (98-107); Estimated CRCL calculation 56 ml/min; Estimated Glomerular Filt Rate 46; Glucose 201 mg/dL (65-110); Magnesium 2.4 mg/dL (1.6-2.3); Potassium 3.4 mmol/L (3.4-5.0); Sodium 127 mmol/L (137-145)
--- NOTE | 2021-05-04 08:31 | PM.IMPN ---
Progress Note: A&P Assessment and Plan (1) Sepsis: Code(s): A41.9 - Sepsis, unspecified organism Status: Acute Assessment and Plan: presented with fever tachycardia leukocytosis Related to septic arthritis of right knee Now also has bacteremia Right knee aspirated in the ER positive for Gram-positive cocci suggestive of septic arthritis Orthopedic has been consulted and is planning to do repeat knee aspiration May need knee washout (2) Septic arthritis of knee, right: Code(s): M00.9 - Pyogenic arthritis, unspecified Status: Acute Assessment and Plan: gram positive cocci bacteremia with Gram-positive cocci from the right knee aspirate Orthopedics on consult from the ER On vancomycin and ceftriaxone which will be continued (3) Dehydration: Code(s): E86.0 - Dehydration Status: Acute Assessment and Plan: IV hydration (4) Acute kidney injury: Code(s): N17.9 - Acute kidney failure, unspecified Status: Acute Assessment and Plan: Stable creatinine level today continue to monitor (5) Hyperglycemia: Code(s): R73.9 - Hyperglycemia, unspecified Status: Acute Assessment and Plan: diagnosed with diabetes A1c of 8.2 Start SSI (6) Abnormal urinalysis: Code(s): R82.90 - Unspecified abnormal findings in urine Status: Acute (7) Hypertension: Qualifiers: Hypertension type: essential hypertension Qualified Code(s): I10 - Essential (primary) hypertension Code(s): I10 - Essential (primary) hypertension Status: Acute Assessment and Plan: Blood pressure stable hold lisinopril due to ALVIN (8) Benign prostatic hyperplasia: Code(s): N40.0 - Benign prostatic hyperplasia without lower urinary tract symptoms Status: Acute (9) Obstructive sleep apnea on CPAP: Code(s): G47.33 - Obstructive sleep apnea (adult) (pediatric); Z99.89 - Dependence on other enabling machines and devices Status: Acute Assessment and Plan: CPAP at night (10) Leukocytosis: Code(s): D72.829 - Elevated white blood cell count, unspecified Status: Acute Assessment and Plan: Improvement (11) Bacteremia: Code(s): R78.81 - Bacteremia Status: Acute Assessment and Plan: With Gram-positive cocci in clusters x2 On vancomycin Likely due to right knee septic arthritis (12) Hyponatremia: Code(s): E87.1 - Hypo-osmolality and hyponatremia Status: Acute Assessment and Plan: worsened today will continue to monitor (13) Diabetes type 2, uncontrolled: Code(s): E11.65 - Type 2 diabetes mellitus with hyperglycemia Status: Acute Assessment and Plan: newly diagnosed continue to monitor Accu-Cheks Additional Plan DVT prophylaxis Lovenox Subjective Date/time seen: 05/04/21 08:31 Interval history: HPI:This is a 70-year-old male with history of gout hypertension, hyperlipidemia, and benign prostatic hyperplasia presented to the emergency department earlier today via EMS from home for evaluation of right knee pain and swelling. He developed swelling and discomfort in his right knee sometime on and it has gotten progressively worse since that time. It is to the point where he cannot even bear weight due to severe pain. He has a difficult time describing the pain but he does report pressure-like discomfort when trying to bend the knee. His appetite has been poor since Monday and he reports little in the way of oral intake. He has also been having sweats and subjective fever and in fact his temperature was 101? F on EMS arrival today. X-ray of the right knee showed a moderate amount of right knee joint fluid which was aspirated; gram stain showed moderate white blood cells and a few Gram-positive cocci. No crystals were seen. Interval history: No overnight events. Still having on and off fever. Denies any shortness of breath or chest pain
[2021-05-04] MEDS: ENOXAPARIN 40 MG/0.4 ML SYRINGE SUB-Q (08:50)
--- NOTE | 2021-05-04 08:53 | PM.CNOR ---
Assessment and Plan Assessment and plan (1) Effusion of right knee joint: Code(s): M25.461 - Effusion, right knee Status: Acute Assessment and Plan: History, exam, radiographs and ultrasound reviewed with the patient. Gram stain results of the right knee reviewed with the patient as well. Gram stain results of right knee aspirate reveal gram positive cocci. final results pending. White blood cell count was 11.4 on admission CRP was 27.0. White blood cell count today is 8.6 and CRP is 8.7. Patient also found to have UTI on admission. Right knee with moderate knee joint effusion, no redness. Mild warmth. Pain with active and passive range of motion. Patient may benefit from bedside aspiration of the right knee joint today and send for repeat culture. Will determine further plan of care pending assessment by attending MD, Dr. Carlson. In the interim, WBAT RLE. Fall Risk. Ice knee. Continue IV antibiotics. (2) Degenerative joint disease of knee: Qualifiers: Laterality: right Osteoarthritis type: primary Qualified Code(s): M17.11 - Unilateral primary osteoarthritis, right knee Code(s): M17.10 - Unilateral primary osteoarthritis, unspecified knee Status: Acute Assessment and Plan: Moderate knee DJD noted on radiographs. Discussed condition, nature, etiology course of natural history. Conservative and operative treatment options reviewed as well as risks and benefits of each. We will await final culture results and attempt repeat aspiration. Conservative care in the interim. (3) Acute UTI: Code(s): N39.0 - Urinary tract infection, site not specified Status: Acute (4) Right shoulder pain: Qualifiers: Chronicity: acute Qualified Code(s): M25.511 - Pain in right shoulder Code(s): M25.511 - Pain in right shoulder Status: Acute Assessment and Plan: Acute onset right shoulder pain over the last 1 day. Obtain radiographs of the right shoulder for further evaluation. History of Present Illness HPI Consult date: 05/04/21 Requesting physician: Vicki Sinha PA-C Consult reason: other (Right Knee Joint Effusion ) Chief complaint: UTI/right knee effusion Narrative: 70-year-old male admitted with acute onset right knee pain which began on of last week. He denies known history of injury. He denies prior right knee pain. He does suffer from left knee pain intermittently. Poor historian in regards to previous treatment of the left knee. He reports a low-grade fever and chills as well as night sweats and intermittent nausea. Radiographs and Doppler obtained in the emergency room. Radiographs of the right knee reveal moderate degenerative changes and a moderate right knee joint effusion. Doppler of the right lower extremity reveals no evidence of DVT. Patient did have a white blood cell count 11.4 on admission as well as a CRP of 27.0. He also was found have a UTI and admitted for further evaluation. Review of Systems Review of Systems: All systems reviewed & are unremarkable except as noted in HPI and below PMFSH Past Medical History Medical History (Updated 05/04/21 @ 09:02 by ALIVIA Diehl) Benign prostatic hyperplasia Degenerative joint disease of knee Effusion of right knee joint Gallstone pancreatitis (12/2020) Hyperlipidemia Hypertension Mass of kidney To left renal masses most likely renal cell cancers, unchanged, seen on CT of the abdomen pelvis on 03/11/2021. Followed by urology. Obstructive sleep apnea on CPAP Right shoulder pain Surgical History Surgical History History of endoscopic retrograde cholangiopancreatography (12/2020) History of laparoscopic cholecystectomy (12/24/20) With intraoperative cholangiogram. Family History Family History Father Acute myocardial infarction Social History Socia
[2021-05-04 14:00] VITALS: BP 130/64; PULSE 108; RESP 18; TEMP 36.8; O2SAT 96
[2021-05-04 15:07] LABS: Basophils Percent Auto 0.2 % (0.2-1.2); Hematocrit 34.7 % (42.0-52.0); Hemoglobin 11.8 g/dL (14.0-18.0); Immature Granulocyte Absolute 0.05 K/mm3 (0.00-0.031); Immature Granulocyte Percent A 0.6 % (0-0.5); Lymphocytes Absolute Auto 0.37 K/mm3 (0.9-3.2); Lymphocytes Percent Auto 4.5 % (18.3-44.2); Mean Corpuscular Hemoglobin 28.8 pg (26-34); Mean Corpuscular Volume 84.6 fl (80-100); Mean Platelet Volume 10.1 fl (7.4-10.4); Monocytes Absolute Auto 0.5 K/mm3 (0.1-0.6); Monocytes Percent Auto 6.1 % (2.6-8.5); Neutrophils Absolute Auto 7.3 K/mm3 (1.3-6.7); Neutrophils Percent Auto 88.6 % (45.5-73.1); Platelet Count Result 114 k/mm3 (150-375); Red Cell Distribution Width 13.8 % (11.5-14.5); White Blood Count 8.3 K/mm3 (4.5-10.0)
[2021-05-04] MEDS: SODIUM CHLORIDE 0.9% IV 1,000 ML 100 ML IV CONT (16:35)
[2021-05-04 17:28] LABS: Crystals Synovial Fluid None Seen (None Seen)
[2021-05-04 20:00] VITALS: BP 116/67
[2021-05-04 22:00] VITALS: BP 116/67; PULSE 97; RESP 18; TEMP 36.7; O2SAT 97
[2021-05-04 22:15] VITALS: BP 145/101
[2021-05-05] VITALS (7 sets, daily range): BP systolic 111–156; BP diastolic 62–82; PULSE 92–98; RESP 16–20; TEMP 36.2–36.8; O2SAT 95–99
--- NOTE | 2021-05-05 | ECHO_ITS ---
Patient Info Name: Rafael Diane Age: 70 years : 1950 Gender: Male Ht: 71 in Wt: 294 lbs BSA: 2.64 m2 HR: 96 bpm BP: 122 / 62 mmHg Heart Rhythm: Sinus Rhythm Exam Date: 05/05/2021 2:05 PM Exam Location: [facility] Patient Status: Inpatient Admit Date: 05/04/2021 Staff Ordering Physician: Iliana Franz MD [employer] Camera Person: Kevin Bergman, KARISHMA, RT Attending Provider: Veronica Moore MD Referring Physician: Maria M LO; Exam Type: CA echo dop color flow w con Study Info Indications I52 - Other heart disorders in diseases classified elsewhere Complete two-dimensional, color flow and Doppler transthoracic echocardiogram is performed with contrast to opacify the left ventricle and to improve the deliniation of the left ventricle endocardial borders. Summary 1. Technically difficult study with limited views. Regional wall motion assessment limited due to poor endomyocardial border definition. However, no specific wall motion abnormalities noted with definity echo contrast enhancement. 2. Left ventricular systolic function is normal, estimated at 55-60%. 3. There is mildly increased left ventricular wall thickness. 4. Left ventricular septal wall motion is abnormal with septal motion related to bundle branch block. 5. The left ventricular diastolic function is grade I diastolic dysfunction. 6. There is trace mitral valve regurgitation. 7. There is trace tricuspid valve regurgitation. 8. Unable to estimate PA systolic pressure due to poor spectral resolution of tricuspid regurgitant jet velocity. Left Ventricle Left ventricular chamber dimension is normal. Left ventricular systolic function is normal, estimated at 55-60%. There is mildly increased left ventricular wall thickness. Left ventricular septal wall motion is abnormal with septal motion related to bundle branch block. The left ventricular diastolic function is grade I diastolic dysfunction. Right Ventricle Right ventricular chamber dimension is normal. Right ventricular systolic function is normal. Left Atria Left atrial chamber dimension is normal. Right Atria Right atrial chamber dimension is normal. Aortic Valve The aortic valve is probable trileaflet. There is mild aortic valve sclerosis. There is no aortic valve stenosis. There is no aortic valve regurgitation. Pulmonic Valve The pulmonic valve is not well visualized. There is trace pulmonic regurgitation. Mitral Valve The mitral valve has normal leaflets. There is trace mitral valve regurgitation. The mitral valve annulus is mildly calcified. Tricuspid Valve The tricuspid valve leaflets are normal. There is trace tricuspid valve regurgitation. Unable to estimate PA systolic pressure due to poor spectral resolution of tricuspid regurgitant jet velocity. Pericardium/Pleural The pericardium appears normal. There is trivial pericardial effusion. Inferior Vena Cava Dilated inferior vena cava with >50% collapse upon inspiration consistent with elevated right atrial pressure, 10 mmHg. Aorta The aortic root size at the sinus of Valsalva is normal. There is mild aortic atherosclerosis. Left Ventricular Outflow Tract Name Value Normal LVOT 2D LVOT Diameter
[2021-05-05] MEDS: SODIUM CHLORIDE 0.9% IV 1,000 ML 100 ML IV CONT ×2 (05:33→20:41)
[2021-05-05 05:35] LABS: Alanine Aminotransferase 21 U/L (4-50); Albumin Level 2.2 g/dL (3.5-5.1); Alkaline Phosphatase 46 U/L (38-126); Anion Gap 7 mmol/L (8-16); Aspartate Amino Transferase 51 U/L (17-59); Bilirubin,Total 0.9 mg/dL (0.2-1.3); Blood Urea Nitrogen 46 mg/dL (9-20); Calcium 7.5 mg/dL (8.4-10.2); Carbon Dioxide 19 mmol/L (22-30); Chloride 102 mmol/L (98-107); Estimated CRCL calculation 64 ml/min; Estimated Glomerular Filt Rate 54; Glucose 180 mg/dL (65-110); Magnesium 2.8 mg/dL (1.6-2.3); Potassium 3.2 mmol/L (3.4-5.0); Sodium 128 mmol/L (137-145)
[2021-05-05] MEDS: ENOXAPARIN 40 MG/0.4 ML SYRINGE SUB-Q (08:44)
--- NOTE | 2021-05-05 13:32 | WPDINFPN2 ---
Progress Note: A&P Assessment and Plan (1) Bacteremia: Code(s): R78.81 - Bacteremia Status: Acute Assessment and Plan: MRSA bacteremia/septic arthritis REC Vanc # days. Orthopedics following. TTE. Repeat BCs. Subjective Date/time seen: 05/05/21 13:32 Objective Data Vital Signs Vital Signs: Vital Signs - 24 hr 05/04/21 14:00 05/04/21 20:00 05/04/21 22:00 Temperature 36.8 C 36.7 C Pulse Rate 108 H 97 Respiratory Rate 18 18 Blood Pressure 130/64 116/67 116/67 Pulse Oximetry 96 97 05/04/21 22:15 05/05/21 00:10 05/05/21 03:01 Temperature Pulse Rate 92 94 Respiratory Rate Blood Pressure 145/101 H Pulse Oximetry 95 96 05/05/21 06:00 Temperature 36.2 C L Pulse Rate 98 Respiratory Rate 20 Blood Pressure 122/62 Pulse Oximetry 95 Intake/Output Intake/Output: Intake & Output 05/02/21 05/03/21 05/04/21 05/05/21 23:59 23:59 23:59 23:59 Intake Total 3012 4220 1680 Output Total 525 1451 1400 Balance 2480 3029 280 Meds/Results Medications: Active Medications Generic Name Dose Route Start Last Admin Trade Name Freq PRN Reason Stop Dose Admin Dextrose 12.5 gm 05/03/21 22:09 Dextrose 50% 25 Gm/50 Ml Syringe IV PUSH PRN PRN Hypoglycemia Protocol Enoxaparin Sodium 40 mg 05/04/21 09:00 05/05/21 08:44 Enoxaparin 40 Mg/0.4 Ml Syringe SUB-Q 40 mg DAILY NUPUR Administration Glucagon 1 mg 05/03/21 22:09 Glucagon For Inj 1 Mg Vial IM PRN PRN Hypoglycemia Protocol Glucose 15 gm 05/03/21 22:09 Glucose Oral Gel 15 Gm Of Glucse In 37.5 Gm Tube PO PRN PRN Hypoglycemia Protocol Dextrose 1,000 mls @ 100 mls/hr 05/03/21 22:09 Dextrose 5% 1,000 Ml IVPB PRN PRN Hypoglycemia Protocol Sodium Chloride 1,000 mls @ 100 mls/hr 05/03/21 22:10 05/05/21 05:33 Normal Saline Iv IV CONT 100 mls/hr .Q10H NUPUR Administration Vancomycin HCl 2,000 mg in 500 mls @ 250 mls/hr 05/05/21 12:00 05/05/21 12:03 Vancomycin 2,000 Mg/D5w 500 Ml IVPB 250 mls/hr Q18H NUPUR Administration Radiology Results: ITS Impressions Venous Doppler Study 05/03/21 11:13 IMPRESSION: 1. No deep venous thrombosis in the right lower limb. Knee X-Ray 05/03/21 11:14 IMPRESSION: 1. Moderate amount of right knee joint fluid. Subcutaneous edema. 2. Osteoarthritis most advanced medial tibiofemoral compartment. Shoulder X-Ray 05/04/21 10:48 IMPRESSION: Moderate right acromioclavicular and glenohumeral osteoarthritis. Labs Labs: Laboratory Results - last 24 hr 05/04/21 05/04/21 05/05/21 14:51 16:32 04:50 WBC 8.3 RBC 4.10 L Hgb 11.8 L Hct 34.7 L MCV 84.6 MCH 28.8 MCHC 34.0 RDW 13.8 Plt Count 114 L MPV 10.1 Immature Gran % (Auto) 0.6 H Neut % (Auto) 88.6 H Lymph % (Auto) 4.5 L [place] % (Auto) 6.1 Eos % (Auto) 0.0 Baso % (Auto) 0.2 Lymph # (Auto) 0.37 L [place] # (Auto) 0.5 Eos # (Auto) 0.0 Baso # (Auto) 0.0 Abs Immat Gran (auto) 0.05 H Absolute Neuts (auto) 7.3 H Absolute Nucleated RBC 0.0 Nucleated RBC % 0.0 Sodium 128 L Potassium 3.2 L Chloride 102 Carbon Dioxide 19 L Anion Gap 7 L BUN 46 H Creatinine 1.30 Estim Creat Clear Calc 64 Estimated GFR 54 L Glucose 180 H Calcium 7.5 L Magnesium 2.8 H Total Bilirubin 0.9 AST 51 ALT 21 Alkaline Phosphatase 46 Total Protein 5.0 L Albumin 2.2 L Synovial Crystals None seen
[2021-05-05] MEDS: PERFLUTREN LIPID MICROSPHERES 1.5 ML VIAL DILUTED TO 10 ML TOTAL VOLUME IV PUSH (14:25)
--- NOTE | 2021-05-05 16:33 | PM.PNORT ---
Progress Note: A&P Additional Plan RIGHT KNEE PAIN AND EFFUSION WITH MRSA UTI AND POST LIKELY SEPTIC RIGHT KNEE JOINT PROBABLE HEMATOLOGIC SPREAD FROM BLADDER TO RIGHT KNEE. HE WILL REQUIRE I AND D OF RIGHT KNEE JOINT. CURRENTLY HIS WBC COUNT IS WNL AND HE IS AFEBRILE. RECOMMEND I AND D RIGHT KNEE. HE WILL NEED MEDICAL CLEARANCE AND THE TEAM HAS BEEN NOTIFIED. WILL PROCEED WHEN HE IS STABLE. DISCUSSED NONOPERATIVE AND OPERATIVE TREATMENT OPTIONS WITH THE PATIENT. THE PATIENT'S QUESTIONS WERE ANSWERED. THE PATIENT DESIRES OPERATIVE TREATMENT. DISCUSSED RIGHT KNEE INCISION AND DRAINAGE AND IRRIGATION AND DEBRIDEMENT. RISKS OF SURGERY INCLUDING BUT NOT LIMITED TO NEUROVASCULAR DAMAGE, WOUND COMPLICATIONS, BLOOD CLOT, PULMONARY EMBOLUS, STROKE, SC, ANESTHETIC RISKS UP TO AND INCLUDING WERE REVIEWED. CONTINUED PAIN AND POSSIBLE DYSFUNCTION WERE EXPLAINED. NO GUARANTEES WERE OFFERED. THE PATIENT UNDERSTANDS AND WISHES TO PROCEED. Time Spent With Patient Time with patient: 15 - 25 minutes Subjective Subjective Date/Time Seen: 05/05/21 16:33 post aspiration with somewhat improved right knee pain. still with some discomfort with prom. Exam Extrem: Other: vss afebrile right knee effusion, pain with prom, calf soft non tender, nv intact, thigh soft non tender distal pulses intact with 2+ dp and pt. Objective Data Vital Signs Vital Signs: Vital Signs - 24 hr 05/04/21 20:00 05/04/21 22:00 05/04/21 22:15 Temperature 36.7 C Pulse Rate 97 Respiratory Rate 18 Blood Pressure 116/67 116/67 145/101 H Pulse Oximetry 97 05/05/21 00:10 05/05/21 03:01 05/05/21 06:00 Temperature 36.2 C L Pulse Rate 92 94 98 Respiratory Rate 20 Blood Pressure 122/62 Pulse Oximetry 95 96 95 05/05/21 13:52 05/05/21 13:53 Temperature 36.8 C Pulse Rate 92 Respiratory Rate 16 Blood Pressure 111/67 133/76 Pulse Oximetry 99 Intake/Output Intake/Output: Intake & Output 05/02/21 05/03/21 05/04/21 05/05/21 23:59 23:59 23:59 23:59 Intake Total 3012 4220 2180 Output Total 525 1451 1400 Balance 9132 6471 780 Meds/Results Medications: Active Medications Generic Name Dose Route Start Last Admin Trade Name Freq PRN Reason Stop Dose Admin Dextrose 12.5 gm 05/03/21 22:09 Dextrose 50% 25 Gm/50 Ml Syringe IV PUSH PRN PRN Hypoglycemia Protocol Enoxaparin Sodium 40 mg 05/04/21 09:00 05/05/21 08:44 Enoxaparin 40 Mg/0.4 Ml Syringe SUB-Q 40 mg DAILY NUPUR Administration Glucagon 1 mg 05/03/21 22:09 Glucagon For Inj 1 Mg Vial IM PRN PRN Hypoglycemia Protocol Glucose 15 gm 05/03/21 22:09 Glucose Oral Gel 15 Gm Of Glucse In 37.5 Gm Tube PO PRN PRN Hypoglycemia Protocol Dextrose 1,000 mls @ 100 mls/hr 05/03/21 22:09 Dextrose 5% 1,000 Ml IVPB PRN PRN Hypoglycemia Protocol Sodium Chloride 1,000 mls @ 100 mls/hr 05/03/21 22:10 05/05/21 05:33 Normal Saline Iv IV CONT 100 mls/hr .Q10H NUPUR Administration Vancomycin HCl 2,000 mg in 500 mls @ 250 mls/hr 05/05/21 12:00 05/05/21 14:05 Vancomycin 2,000 Mg/D5w 500 Ml IVPB Infused Q18H NUPUR Infusion Radiology Results: ITS Impressions Venous Doppler Study 05/03/21 11:13 IMPRESSION: 1. No deep venous thrombosis in the right lower limb. Knee X-Ray 05/03/21 11:14 IMPRESSION: 1. Moderate amount of right knee joint fluid. Subcutaneous edema. 2. Osteoarthritis most advanced medial tibiofemoral compartment. Shoulder X-Ray 05/04/21 10:48 IMPRESSION: Moderate right acromioclavicular and glenohumeral osteoarthritis. Labs Labs: Laboratory Results - last 24 hr 05/04/21 05/05/21 16:32 04:50 Sodium 128 L Potassium 3.2 L Chloride 102 Carbon Dioxide 19 L Anion Gap 7 L BUN 46 H Creatinine 1.30 Estim Creat Clear Calc 64 Estimated GFR 54 L Glucose 180 H Calcium 7.5 L Magnesium 2.8 H Total Bilirubin 0.9 AST
--- NOTE | 2021-05-05 17:06 | CONS_ITS ---
DATE OF CONSULTATION: 05/05/2021 REASON FOR CONSULTATION: Bacteremia. HISTORY OF PRESENT ILLNESS: A 70-year-old male who can provide limited history. He was here in the hospital in December of this year with biliary tract disease and had laparoscopic cholecystectomy. Otherwise, he has had no recent encounters. No previous positive blood cultures on the record nor by his recollection. He has had no injections into the right knee at any point. He has been told that he had [id number] arthritis on the left knee. He has been on no recent immunosuppressants. No recent antibiotics for any purpose. He presented to the hospital 2 days ago with 4 days of progressive right knee pain. He was febrile, but is unaware of any fever at home himself. He did have sweats that were not drenching in nature. He also had anorexia of 3 days' duration and pain worse with movement or weightbearing. No recent trauma to the knee, though did have an accidental laceration to the left forearm when he was 11 years old. He does have chronic urinary incontinence. Denies any other voiding complaints. Stein catheter was placed in the emergency room and remains in place currently. ALLERGIES: NONE KNOWN. PRESENT MEDICATIONS: Ceftriaxone, vancomycin day 3. HABITS: No tobacco. No alcohol. No illicit drugs. PAST MEDICAL HISTORY: In addition to the above, LUZMA, kidney mass, not otherwise characterized so far, hypertension, hyperlipidemia, BPH. FAMILY HISTORY: [place], gallbladder disease is not present. SOCIAL HISTORY: He is , has a son at the bedside. 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 REVIEW OF SYSTEMS: 14-point review otherwise negative. PHYSICAL EXAMINATION: GENERAL: Elderly male who appears actual age in no acute distress. VITAL SIGNS: Temperature on arrival 37.7, now afebrile, 122/62, 98, 20, 95% on room air. SKIN: No erythroderma, no rashes. Warm and dry. EENT: Conjunctivae are normal. Pupils equal, round, and reactive to light. He has left eye deviation laterally, which is decades old by his report. He has normal oropharynx and oral mucosa and teeth in excellent repair with dentures. NECK: No masses, meningismus, or adenopathy. He also had no cervical or axillary adenopathy. LUNGS: Clear to auscultation and percussion. CARDIAC: Regular rate and rhythm. No murmur, gallop, or rub. No heaves. PMI is not displaced. ABDOMEN: Morbidly obese, nontender. No organomegaly. No masses. : Stein catheter draining clear yellow urine. No blood. No sediment. EXTREMITIES: No clubbing, cyanosis, edema. No skin breakdown. No tinea pedis. NEUROLOGIC: Awake, alert, appropriate. LAB: Blood culture 12/23/2020, final no growth. Blood cultures on arrival, 2 out of 2 sets, MRSA, formal susceptibilities pending. Urine culture same time greater than 10 to 5th MRSA, also normal urogenital dat. Vancomycin TRAVIS less than equal to 0.5. The fluid culture collected 05/04 moderate growth of MRSA, Gram stain many white cells, rare gram-positive cocci in clusters. Synovial fluid acute inflammation. No crystals. White blood cell count 8.3, was 11.4 on admission. Hemoglobin down 3 points to 11.8, platelets are 144, and ESR 29. He has hyponatremia similar to previous. BUN 51, creatinine 1.5, glucose 201. A1c is 8.2%. Bilirubin 2.6. Liver function tests also showed an albumin 2.2, otherwise normal. Urinalysis, multiple abnormalities, which are reviewed. Synovial fluid was bloody, 64,000 red cells, 51,000 white cells, 98% PMNs. Glucose and protein are still being analyzed. RADIOLOGY: Plain films of the knee, effusion. No bony abnormality. Shoulder x-ray, DJD. ASSESSMENT: 1. Right knee pain with fever and leukocytosis due to methicillin-resista
--- NOTE | 2021-05-05 18:57 | PM.IMPN ---
Progress Note: A&P Assessment and Plan (1) Sepsis: Code(s): A41.9 - Sepsis, unspecified organism Status: Acute (2) Septic arthritis of knee, right: Code(s): M00.9 - Pyogenic arthritis, unspecified Status: Acute Assessment and Plan: (3) Dehydration: Code(s): E86.0 - Dehydration Status: Acute (4) Acute kidney injury: Code(s): N17.9 - Acute kidney failure, unspecified Status: Acute Assessment and Plan: Stable creatinine level today continue to monitor (5) Hyperglycemia: Code(s): R73.9 - Hyperglycemia, unspecified Status: Acute (6) Abnormal urinalysis: Code(s): R82.90 - Unspecified abnormal findings in urine Status: Acute (7) Hypertension: Qualifiers: Hypertension type: essential hypertension Qualified Code(s): I10 - Essential (primary) hypertension Code(s): I10 - Essential (primary) hypertension Status: Acute (8) Benign prostatic hyperplasia: Code(s): N40.0 - Benign prostatic hyperplasia without lower urinary tract symptoms Status: Acute (9) Obstructive sleep apnea on CPAP: Code(s): G47.33 - Obstructive sleep apnea (adult) (pediatric); Z99.89 - Dependence on other enabling machines and devices Status: Acute (10) Leukocytosis: Code(s): D72.829 - Elevated white blood cell count, unspecified Status: Acute Assessment and Plan: Improvement (11) Bacteremia: Code(s): R78.81 - Bacteremia Status: Acute (12) Hyponatremia: Code(s): E87.1 - Hypo-osmolality and hyponatremia Status: Acute (13) Diabetes type 2, uncontrolled: Code(s): E11.65 - Type 2 diabetes mellitus with hyperglycemia Status: Acute Additional Plan 05/04/21 presented with fever tachycardia leukocytosis Related to septic arthritis of right knee Now also has bacteremia Right knee aspirated in the ER positive for Gram-positive cocci suggestive of septic arthritis Orthopedic has been consulted and is planning to do repeat knee aspiration May need knee washout gram positive cocci bacteremia with Gram-positive cocci from the right knee aspirate Orthopedics on consult from the ER On vancomycin and ceftriaxone which will be continued IV hydration diagnosed with diabetes A1c of 8.2 Start SSI CPAP at night Blood pressure stable hold lisinopril due to ALVIN With Gram-positive cocci in clusters x2 On vancomycin Likely due to right knee septic arthritis worsened today will continue to monitor newly diagnosed continue to monitor Accu-Cheks DVT prophylaxis Lovenox 05/05/21 MRSA bacteremia, septic arthritis w MRSA in urine ECHO Vanco x 6 weeks will need PICC when cultures negative repeat blood cultures in am cont current care to OR Monday for wash out by ortho Subjective Date/time seen: 05/05/21 18:57 pt w MRSA in R knee joint, blood, and urine, we discuss need for echo and prolonged course of abx and consult to ortho and ID for further recs pt in agreement w plan Exam Narrative: General: male sitting in chair w R leg elevated HEENT: Sclerae anicteric. Left dysconjugate gaze. Tacky mucous membranes. Neck: Supple. Nontender Respiratory: symmetric chest rise no acute distress no use of accessory muscles on RA Cardiovascular: Regular rate and rhythm with S1-S2. Gastrointestinal: Abdomen is soft, protuberant, nontender, and nondistended with positive bowel sounds. Skin: Warm and dry. Extremities: No cyanosis or clubbing. Mild lower extremity edema. R knee warm to touch and TTP Neurological: Alert. Cranial nerves 2-12 are grossly intact. No gross focal deficits to casual conversation. Psychiatric: Pleasant and cooperative with normal mood and affect. Objective Data Vital Signs Vital Signs: Vital Signs - 24 hr 05/04/21 20:00 05/04/21 22:00 05/04/21 22:15 Temperature 98.1 F Pulse Rate 97 Respiratory Rate 18 Blood Pressure 116/67 116/6
[2021-05-05 19:39] LABS: Hemoglobin A1C 8.4 % (<5.7)
[2021-05-05] MEDS: TAMSULOSIN HCL 0.4 MG CAPSULE PO (20:41)
[2021-05-05 21:39] LABS: Glucose Point of Care 224 mg/dl (65-105)
[2021-05-06] VITALS (18 sets, daily range): BP systolic 109–136; BP diastolic 57–77; PULSE 83–102; RESP 16–19; TEMP 36.3–36.9; O2SAT 92–100
[2021-05-06 05:32] LABS: Basophils Percent Auto 0.3 % (0.2-1.2); Eosinophils Absolute Auto 0.1 K/mm3 (0-0.3); Eosinophils Percent Auto 0.9 % (0-4.4); Hematocrit 34.9 % (42.0-52.0); Hemoglobin 11.6 g/dL (14.0-18.0); Immature Granulocyte Absolute 0.05 K/mm3 (0.00-0.031); Immature Granulocyte Percent A 0.8 % (0-0.5); Lymphocytes Absolute Auto 0.52 K/mm3 (0.9-3.2); Mean Corpuscular HGB Conc 33.2 g/dl (32-36); Mean Corpuscular Hemoglobin 28.1 pg (26-34); Mean Corpuscular Volume 84.5 fl (80-100); Mean Platelet Volume 9.9 fl (7.4-10.4); Monocytes Absolute Auto 0.6 K/mm3 (0.1-0.6); Monocytes Percent Auto 8.6 % (2.6-8.5); Neutrophils Absolute Auto 5.3 K/mm3 (1.3-6.7); Neutrophils Percent Auto 81.4 % (45.5-73.1); Platelet Count Result 147 k/mm3 (150-375); Red Blood Count 4.13 M/mm3 (4.6-6.20); Red Cell Distribution Width 13.8 % (11.5-14.5); White Blood Count 6.5 K/mm3 (4.5-10.0)
[2021-05-06 05:36] LABS: Alanine Aminotransferase 24 U/L (4-50); Albumin Level 2.5 g/dL (3.5-5.1); Alkaline Phosphatase 54 U/L (38-126); Anion Gap 7 mmol/L (8-16); Aspartate Amino Transferase 50 U/L (17-59); Bilirubin,Total 0.9 mg/dL (0.2-1.3); Blood Urea Nitrogen 36 mg/dL (9-20); Calcium 7.3 mg/dL (8.4-10.2); Carbon Dioxide 21 mmol/L (22-30); Chloride 101 mmol/L (98-107); Estimated CRCL calculation 70 ml/min; Estimated Glomerular Filt Rate 60; Glucose 182 mg/dL (65-110); Magnesium 2.6 mg/dL (1.6-2.3); Potassium 3.1 mmol/L (3.4-5.0); Sodium 129 mmol/L (137-145)
[2021-05-06 08:03] LABS: Glucose Point of Care 178 mg/dl (65-105)
--- NOTE | 2021-05-06 08:09 | PM.IMPN ---
Progress Note: A&P Assessment and Plan (1) Sepsis: Code(s): A41.9 - Sepsis, unspecified organism Status: Acute (2) Septic arthritis of knee, right: Code(s): M00.9 - Pyogenic arthritis, unspecified Status: Acute Assessment and Plan: (3) Dehydration: Code(s): E86.0 - Dehydration Status: Acute (4) Acute kidney injury: Code(s): N17.9 - Acute kidney failure, unspecified Status: Acute Assessment and Plan: Stable creatinine level today continue to monitor (5) Hyperglycemia: Code(s): R73.9 - Hyperglycemia, unspecified Status: Acute (6) Abnormal urinalysis: Code(s): R82.90 - Unspecified abnormal findings in urine Status: Acute (7) Hypertension: Qualifiers: Hypertension type: essential hypertension Qualified Code(s): I10 - Essential (primary) hypertension Code(s): I10 - Essential (primary) hypertension Status: Acute (8) Benign prostatic hyperplasia: Code(s): N40.0 - Benign prostatic hyperplasia without lower urinary tract symptoms Status: Acute (9) Obstructive sleep apnea on CPAP: Code(s): G47.33 - Obstructive sleep apnea (adult) (pediatric); Z99.89 - Dependence on other enabling machines and devices Status: Acute (10) Leukocytosis: Code(s): D72.829 - Elevated white blood cell count, unspecified Status: Acute Assessment and Plan: Improvement (11) Bacteremia: Code(s): R78.81 - Bacteremia Status: Acute (12) Hyponatremia: Code(s): E87.1 - Hypo-osmolality and hyponatremia Status: Acute (13) Diabetes type 2, uncontrolled: Code(s): E11.65 - Type 2 diabetes mellitus with hyperglycemia Status: Acute Additional Plan 05/04/21 presented with fever tachycardia leukocytosis Related to septic arthritis of right knee Now also has bacteremia Right knee aspirated in the ER positive for Gram-positive cocci suggestive of septic arthritis Orthopedic has been consulted and is planning to do repeat knee aspiration May need knee washout gram positive cocci bacteremia with Gram-positive cocci from the right knee aspirate Orthopedics on consult from the ER On vancomycin and ceftriaxone which will be continued IV hydration diagnosed with diabetes A1c of 8.2 Start SSI CPAP at night Blood pressure stable hold lisinopril due to ALVIN With Gram-positive cocci in clusters x2 On vancomycin Likely due to right knee septic arthritis worsened today will continue to monitor newly diagnosed continue to monitor Accu-Cheks DVT prophylaxis Lovenox 05/05/21 MRSA bacteremia, septic arthritis w MRSA in urine ECHO Vanco x 6 weeks will need PICC when cultures negative repeat blood cultures in am cont current care to OR Monday for wash out by ortho 05/06/21 wash out of R knee today by ortho repeat Blood cultures new dx of DM2 HgbA1c 8.4 cont ISS low dose while in hospital will anticipate dc home on oral antihyperglycemic agents WBCs have normalized cont Vanco for MRSA restart home antihypertensive tamsulosin for voiding symptoms ID and ortho following recs appreciated Subjective Date/time seen: 05/06/21 08:09 doing ok seen post wash out in his room complains of pain Exam Narrative: General: male sitting in chair w R leg elevated HEENT: Sclerae anicteric. Left dysconjugate gaze. Tacky mucous membranes. Neck: Supple. Nontender Respiratory: symmetric chest rise no acute distress no use of accessory muscles on RA Cardiovascular: Regular rate and rhythm with S1-S2. Gastrointestinal: Abdomen is soft, protuberant, nontender, and nondistended with positive bowel sounds. Skin: Warm and dry. Extremities: No cyanosis or clubbing. Mild lower extremity edema. R knee edematous warm w clean dry surgical dressing and drain present w sanguinous fluid Neurological: Alert. Cranial nerves 2-12 are grossly intact. No gross focal d
[2021-05-06] MEDS: SODIUM CHLORIDE 0.9% IV 1,000 ML 100 ML IV CONT (09:17)
--- NOTE | 2021-05-06 10:02 | WPDANESEPPF ---
Anes - Initial Pre Proc Eval Procedure: Operation Date: 05/06/21 12:00 Proposed Procedures p Incision and Drainage Right Knee - Rene Carlson MD Date/Time: 05/06/21 10:02 Surgeon: Veronica Moore MD Pre Op Diagnosis: UTI/right knee effusion Patient Data Age: 70 Gender: M Height: 1.8 m Weight: 133.8 kg Last Vital Signs Temp 36.9 C 05/06/21 06:00 Pulse 96 05/06/21 06:00 Resp 18 05/06/21 06:00 BP 129/70 05/06/21 06:00 Pulse Ox 96 05/06/21 06:00 Allergies Allergy/AdvReac Type Severity Reaction Status Date / Time No Known Allergies Allergy Verified 05/06/21 12:54 Home Medications Medication Instructions Recorded Confirmed Type atorvastatin 10 mg PO DAILY 12/21/20 05/06/21 History lisinopril 20 mg PO DAILY 12/21/20 05/06/21 History tamsulosin 0.4 mg PO QAM 30 Days #30 cap 12/25/20 05/06/21 Rx Laboratory Tests 05/05/21 05/05/21 05/06/21 19:14 20:46 04:51 WBC 6.5 K/mm3 K/mm3 (4.5-10.0) RBC 4.13 M/mm3 L M/mm3 (4.6-6.20) Hgb 11.6 g/dL L g/dL (14.0-18.0) Hct 34.9 % L % (42.0-52.0) MCV 84.5 fl fl (80-100) MCH 28.1 pg pg (26-34) MCHC 33.2 g/dl g/dl (32-36) RDW 13.8 % % (11.5-14.5) Plt Count 147 k/mm3 L k/mm3 (150-375) MPV 9.9 fl fl (7.4-10.4) Immature Gran % (Auto) 0.8 % H % (0-0.5) Neut % (Auto) 81.4 % H % (45.5-73.1) Lymph % (Auto) 8.0 % L % (18.3-44.2) [place] % (Auto) 8.6 % H % (2.6-8.5) Eos % (Auto) 0.9 % % (0-4.4) Baso % (Auto) 0.3 % % (0.2-1.2) Lymph # (Auto) 0.52 K/mm3 L K/mm3 (0.9-3.2) [place] # (Auto) 0.6 K/mm3 K/mm3 (0.1-0.6) Eos # (Auto) 0.1 K/mm3 K/mm3 (0-0.3) Baso # (Auto) 0.0 K/mm3 K/mm3 (0.0-0.1) Abs Immat Gran (auto) 0.05 K/mm3 H K/mm3 (0.00-0.031) Absolute Neuts (auto) 5.3 K/mm3 K/mm3 (1.3-6.7) Absolute Nucleated RBC 0.0 K/mm3 K/mm3 (0.0-0.012) Nucleated RBC % 0.0 % % (0.0-0.2) Sodium Potassium Chloride Carbon Dioxide Anion Gap BUN Creatinine Estim Creat Clear Calc Estimated GFR Glucose POC Capillary Glucose 224 mg/dl H mg/dl (65-105) Hemoglobin A1c 8.4 % H % (<5.7) Calcium Magnesium Total Bilirubin AST ALT Alkaline Phosphatase Total Protein Albumin 05/06/21 05/06/21 04:51 06:06 WBC RBC Hgb Hct MCV MCH MCHC RDW Plt Count MPV Immature Gran % (Auto) Neut % (Auto) Lymph % (Auto) [place] % (Auto) Eos % (Auto) Baso % (Auto) Lymph # (Auto) [place] # (Auto) Eos # (Auto) Baso # (Auto) Abs Immat Gran (auto) Absolute Neuts (auto) Absolute Nucleated RBC Nucleated RBC % Sodium 129 mmol/L L mmol/L (137-145) Potassium 3.1 mmol/L L mmol/L (3.4-5.0) Chloride 101 mmol/L mmol/L (98-107) Carbon Dioxide 21 mmol/L L mmol/L (22-30) Anion Gap 7 mmol/L L mmol/L (8-16) BUN 36 mg/dL H D mg/dL (9-20) Creatinine 1.20 mg/dL mg/dL (0.7-1.3) Estim Creat Clear Calc 70 ml/min ml/min Estimated GFR 60 (59 - ) Glucose 182 mg/dL H mg/dL (65-110) POC Capillary Glucose 178 mg/dl H mg/dl (65-105) Hemoglobin A1c Calcium 7.3 mg/dL L mg/dL (8.4-10.2) Magnesium 2.6 mg/dL H mg/dL (1.6-2.3) Total Bilirubin 0.9 mg/dL mg/dL (0.2-1.3) AST 50 U/L U/L (17-59) ALT 24 U/L U/L (4-50) Alkaline Phosphatase 54 U/L U/L (
--- NOTE | 2021-05-06 11:02 | PCPTNOTE ---
Pt stated that he didn't want to get up or do anything this morning. He said he had been up for awhile and just wanted to lay down. Will check back with pt after lunch.
--- NOTE | 2021-05-06 11:05 | PC.NURSE ---
To OR per bed, IV intact. Report given to HOMERO Blanchard.
[2021-05-06 11:29] LABS: Glucose Point of Care 202 mg/dl (65-105)
[2021-05-06] MEDS: LACTATED RINGERS 1,000 ML 30 ML IV CONT (11:30)
--- NOTE | 2021-05-06 11:53 | WPDANESEPP ---
Anes - Eval Pre Procedure Procedure: Operation Date: 05/06/21 12:00 Proposed Procedures p Incision and Drainage Right Knee - Rene Carlson MD Date/Time: 05/06/21 11:53 Pre Op Diagnosis: UTI/right knee effusion Patient Data Age: 70 Gender: M Height: 1.8 m Weight: 133.8 kg Last Vital Signs Temp 36.6 C 05/06/21 10:01 Pulse 83 05/06/21 10:01 Resp 18 05/06/21 10:01 BP 120/67 05/06/21 10:01 Pulse Ox 94 05/06/21 10:01 Allergies Allergy/AdvReac Type Severity Reaction Status Date / Time No Known Allergies Allergy Verified 05/03/21 09:37 Home Medications Medication Instructions Recorded Confirmed Type atorvastatin 10 mg PO DAILY 12/21/20 05/03/21 History lisinopril 20 mg PO DAILY 12/21/20 05/03/21 History tamsulosin 0.4 mg PO QAM 30 Days #30 cap 12/25/20 05/03/21 Rx Laboratory Tests 05/05/21 05/05/21 05/06/21 19:14 20:46 04:51 WBC 6.5 K/mm3 K/mm3 (4.5-10.0) RBC 4.13 M/mm3 L M/mm3 (4.6-6.20) Hgb 11.6 g/dL L g/dL (14.0-18.0) Hct 34.9 % L % (42.0-52.0) MCV 84.5 fl fl (80-100) MCH 28.1 pg pg (26-34) MCHC 33.2 g/dl g/dl (32-36) RDW 13.8 % % (11.5-14.5) Plt Count 147 k/mm3 L k/mm3 (150-375) MPV 9.9 fl fl (7.4-10.4) Immature Gran % (Auto) 0.8 % H % (0-0.5) Neut % (Auto) 81.4 % H % (45.5-73.1) Lymph % (Auto) 8.0 % L % (18.3-44.2) [place] % (Auto) 8.6 % H % (2.6-8.5) Eos % (Auto) 0.9 % % (0-4.4) Baso % (Auto) 0.3 % % (0.2-1.2) Lymph # (Auto) 0.52 K/mm3 L K/mm3 (0.9-3.2) [place] # (Auto) 0.6 K/mm3 K/mm3 (0.1-0.6) Eos # (Auto) 0.1 K/mm3 K/mm3 (0-0.3) Baso # (Auto) 0.0 K/mm3 K/mm3 (0.0-0.1) Abs Immat Gran (auto) 0.05 K/mm3 H K/mm3 (0.00-0.031) Absolute Neuts (auto) 5.3 K/mm3 K/mm3 (1.3-6.7) Absolute Nucleated RBC 0.0 K/mm3 K/mm3 (0.0-0.012) Nucleated RBC % 0.0 % % (0.0-0.2) Sodium Potassium Chloride Carbon Dioxide Anion Gap BUN Creatinine Estim Creat Clear Calc Estimated GFR Glucose POC Capillary Glucose 224 mg/dl H mg/dl (65-105) Hemoglobin A1c 8.4 % H % (<5.7) Calcium Magnesium Total Bilirubin AST ALT Alkaline Phosphatase Total Protein Albumin 05/06/21 05/06/21 05/06/21 04:51 06:06 11:24 WBC RBC Hgb Hct MCV MCH MCHC RDW Plt Count MPV Immature Gran % (Auto) Neut % (Auto) Lymph % (Auto) [place] % (Auto) Eos % (Auto) Baso % (Auto) Lymph # (Auto) [place] # (Auto) Eos # (Auto) Baso # (Auto) Abs Immat Gran (auto) Absolute Neuts (auto) Absolute Nucleated RBC Nucleated RBC % Sodium 129 mmol/L L mmol/L (137-145) Potassium 3.1 mmol/L L mmol/L (3.4-5.0) Chloride 101 mmol/L mmol/L (98-107) Carbon Dioxide 21 mmol/L L mmol/L (22-30) Anion Gap 7 mmol/L L mmol/L (8-16) BUN 36 mg/dL H D mg/dL (9-20) Creatinine 1.20 mg/dL mg/dL (0.7-1.3) Estim Creat Clear Calc 70 ml/min ml/min Estimated GFR 60 (59 - ) Glucose 182 mg/dL H mg/dL (65-110) POC Capillary Glucose 178 mg/dl H mg/dl 202 mg/dl H mg/dl (65-105) (65-105) Hemoglobin A1c Calcium 7.3 mg/dL L mg/dL (8.4-10.2) Magnesium 2.6 mg/dL H mg/dL (1.6-2.3) Total Bilirubin 0.9 mg/dL mg/dL
--- NOTE | 2021-05-06 12:06 | PCPTNOTE ---
Attempted to see patient for Physical Therapy this AM, however patient was out of the room. RN stated that patient was out for a procedure.
[2021-05-06] MEDS: ceFAZolin SODIUM 1 GM VIAL 2 GM IV PUSH (12:40)
[2021-05-06 13:50] LABS: Glucose Point of Care 185 mg/dl (65-105)
[2021-05-06] MEDS: fentaNYL CITRATE INJ (*CRX) 100 MCG/2 ML VIAL 25 MCG IV PUSH ×2 (14:00→14:04)
--- NOTE | 2021-05-06 14:08 | PCPTNOTE ---
Treatment attempted this afternoon but the pt was out of his room for procedure. Nursing stated that he wouldn't be back and to hold him for today.
--- NOTE | 2021-05-06 15:15 | PC.NURSE ---
Returned from OR per bed. Report received from HOMERO Singletary.
--- NOTE | 2021-05-06 15:30 | PCOTNOTE ---
Attempted to see patient twice this date, however patient was off floor for procedure.
[2021-05-06] MEDS: TAMSULOSIN HCL 0.4 MG CAPSULE PO (15:42)
[2021-05-06] MEDS: lisinopriL 20 MG TABLET PO (15:42)
[2021-05-06] MEDS: HYDROcodone/acetaminophen (*CRX) 7.5-325 MG TABLET 1 TAB PO (15:42)
[2021-05-06] MEDS: POTASSIUM CHLORIDE 20 MEQ PACKET (FOR LIQUID) 40 MEQ PO (15:43)
[2021-05-06 16:50] LABS: Glucose Point of Care 177 mg/dl (65-105)
--- NOTE | 2021-05-06 16:53 | W.PM.PROC2 ---
Procedure Note - Detailed Date of Procedure 05/06/21 Pre-op Diagnosis UTI/right septic knee Post-op Diagnosis same Procedure Performed incision and drainage with irrigation and debridement right knee joint Surgeon Rene Carlson MD Anesthesia general Indications RIGHT SEPTIC KNEE JOINT Description of Procedure THE PATIENT WAS DIAGNOSED WITH SEPTIC KNEE AND TAKEN TO THE OPERATING ROOM IN STABLE CONDITION AND WAS PLACED UNDER GENERAL ANESTHESIA. THE RIGHT LEG WAS PREPPED AND DRAPED IN THE NORMAL FASHION. MIDLINE SKIN INCISION WAS MADE. MEDIAL PARA PATELLA ARTHROTOMY WAS MADE. PURULENCE DRAINED ROM THE KNEE JOINT. THE KNEE JOINT WAS EXPLORED. THERE WAS SEVERE DJD TO THE MEDIAL AND PATELLA FEMORAL COMPARTMENT. THERE WAS MINIMAL ARTHRITIS TO THE LATERAL COMPARTMENT. A MAJOR SYNOVECTOMY WAS PREFORMED. THE KNEE JOINT THEN WAS IRRIGATED WITH APPROXIMATELY 7 LITERS OF WATER MIXED WITH SOME STERILE BETADINE. THERE WAS NO DEVITALIZED TISSUE. A DRAIN WAS PLACED IN THE KNEE JOINT. THE CAPSULE WAS APPROXIMATED WITH 1 VICRYL, THE SUB CUTANEOUS LAYER WITH 2-0 VICRYL AND THE SKIN WITH JUANCARLOS. STERILE DRESSING WAS APPLIED. PATIENT WAS EXTUBATED AND SENT TO RECOVERY ROOM. Estimated Blood Loss 50 Urine Output 400 Drains Yes Complications No immediate complications Condition stable Disposition PACU
[2021-05-06] MEDS: DOCUSATE SODIUM 100 MG CAPSULE PO (18:01)
[2021-05-06] MEDS: ceFAZolin 2 GM/D5W 50 ML 2 GM/50 ML BAG IVPB (20:34)
[2021-05-06 23:51] LABS: Vancomycin Trough 10.7 ug/mL (10.0-20.0)
[2021-05-07] VITALS (10 sets, daily range): BP systolic 92–121; BP diastolic 49–81; PULSE 78–98; RESP 20; TEMP 36.3–37.2; O2SAT 95–98
[2021-05-07 02:35] LABS: Glucose Point of Care 210 mg/dl (65-105)
[2021-05-07] MEDS: ceFAZolin 2 GM/D5W 50 ML 2 GM/50 ML BAG IVPB ×2 (04:48→12:05)
[2021-05-07] MEDS: HYDROcodone/acetaminophen (*CRX) 7.5-325 MG TABLET 1 TAB PO (06:13)
[2021-05-07 07:49] LABS: Glucose Point of Care 214 mg/dl (65-105)
[2021-05-07] MEDS: INSULIN ASPART (*BKC) 100 UNITS/ML SUB-Q ×3 (07:57→16:51)
[2021-05-07 08:31] LABS: Basophils Percent Auto 0.4 % (0.2-1.2); Eosinophils Absolute Auto 0.1 K/mm3 (0-0.3); Eosinophils Percent Auto 1.5 % (0-4.4); Hematocrit 35.3 % (42.0-52.0); Hemoglobin 11.7 g/dL (14.0-18.0); Immature Granulocyte Absolute 0.08 K/mm3 (0.00-0.031); Immature Granulocyte Percent A 1.2 % (0-0.5); Lymphocytes Percent Auto 8.9 % (18.3-44.2); Mean Corpuscular HGB Conc 33.1 g/dl (32-36); Mean Corpuscular Hemoglobin 28.8 pg (26-34); Mean Corpuscular Volume 86.9 fl (80-100); Mean Platelet Volume 9.6 fl (7.4-10.4); Monocytes Absolute Auto 0.6 K/mm3 (0.1-0.6); Monocytes Percent Auto 9.5 % (2.6-8.5); Neutrophils Absolute Auto 5.3 K/mm3 (1.3-6.7); Neutrophils Percent Auto 78.5 % (45.5-73.1); Platelet Count Result 161 k/mm3 (150-375); Red Blood Count 4.06 M/mm3 (4.6-6.20); Red Cell Distribution Width 14.1 % (11.5-14.5); White Blood Count 6.8 K/mm3 (4.5-10.0)
[2021-05-07 08:55] LABS: Anion Gap 6 mmol/L (8-16); Blood Urea Nitrogen 43 mg/dL (9-20); Carbon Dioxide 20 mmol/L (22-30); Chloride 102 mmol/L (98-107); Estimated CRCL calculation 58 ml/min; Estimated Glomerular Filt Rate 46; Glucose 234 mg/dL (65-110); Magnesium 2.8 mg/dL (1.6-2.3); Potassium 3.6 mmol/L (3.4-5.0); Sodium 128 mmol/L (137-145)
[2021-05-07] MEDS: ENOXAPARIN 40 MG/0.4 ML SYRINGE SUB-Q (08:56)
[2021-05-07] MEDS: ATORVASTATIN 10 MG TABLET PO (08:56)
[2021-05-07] MEDS: lisinopriL 20 MG TABLET PO (08:56)
[2021-05-07] MEDS: TAMSULOSIN HCL 0.4 MG CAPSULE PO (08:56)
[2021-05-07] MEDS: DOCUSATE SODIUM 100 MG CAPSULE PO ×2 (08:57→16:53)
--- NOTE | 2021-05-07 09:35 | PM.PNORT ---
Progress Note: A&P Assessment and Plan (1) Septic joint of right knee joint: Qualifiers: Septic arthritis organism: due to other bacteria Qualified Code(s): M00.861 - Arthritis due to other bacteria, right knee Code(s): M00.9 - Pyogenic arthritis, unspecified Status: Acute Assessment and Plan: POD #1: I&D Right Knee Joint Synovial fluid cultures from 11 with MRSA. Cultures from 11 pending sensitivities currently. Repeat blood cultures pending. PICC line to be placed pending negative blood cultures. Appreciate ID recommendaitons for bed bug exterminator antibiotics. Dressing in place. Drain to be removed today. Ice knee. SCDs. PT/OT. WBAT. Walker for fall precautions. (2) Right shoulder pain: Qualifiers: Chronicity: acute Qualified Code(s): M25.511 - Pain in right shoulder Code(s): M25.511 - Pain in right shoulder Status: Acute Assessment and Plan: Continued right shoulder pain. Radiographs with DJD. Continue conservative care at this time with antiinflammatories and PT/OT with WBAT. Will follow up as an outpatient for potential injection in the future pending complete resolution of infection and healing of right knee. Subjective Subjective Date/Time Seen: 05/07/21 09:35 Post Op day: 1 Interval history: POD #1: I&D Right Knee Complaints of right knee pain today. No new concerns. Review of Systems Cardiovascular: Cardiovascular: Denies chest pain, Reports leg edema, Denies lightheadedness and Denies palpitations Respiratory: Respiratory: Denies dyspnea and Denies wheezing Gastrointestinal: Gastrointestinal: Denies abdominal pain, Denies bloating, Denies constipation, Denies diarrhea, Denies nausea and Denies vomiting Genitourinary: Genitourinary: Denies urinary frequency and Denies urinary hesitancy Musculoskeletal: Musculoskeletal: Reports as per HPI Exam Const: General: comfortable Resp: Effort & Inspection: normal respiratory effort Cardio: Rate: regular rate Rhythm: regular rhythm GI: Inspection: non-distended GI Palp: Yes Soft to palpation and No Tenderness to palpation present (GI) Skin: Wounds: wounds noted (see extremity assessment ) Neuro: Cognition (Neuro): normal cognition Extrem: Right lower extremity: knee (dressing c/d/i. Drain in place- sanguinous drainae in chamber ), lower leg Details: pitting edema Details: 2+; no ecchymosis, ankle Details: swelling Details: diffusely and foot Details: edema (entire foot ) and vascular exam Details: dorsalis pedis pulse present Other: Dressing in place right anterior knee. Difficulty with AROM with extension/flexion. Able to flex knee today. Mild knee joint effusion. Drain in place. Sanguinous drainage. Psych: Mental Status: mental status grossly normal Thought content: Yes Normal thought content present Objective Data Vital Signs Vital Signs: Vital Signs - 24 hr 05/06/21 10:01 05/06/21 11:30 05/06/21 13:27 Temperature 36.6 C 36.9 C 36.5 C Pulse Rate 83 87 102 H Respiratory Rate 18 18 18 Blood Pressure 120/67 114/57 L 136/75 Pulse Oximetry 94 96 100 05/06/21 13:40 05/06/21 13:55 05/06/21 14:10 Temperature Pulse Rate 94 89 94 Respiratory Rate 19 16 16 Blood Pressure 134/73 129/77 130/74 Pulse Oximetry 98 99 93 05/06/21 14:25 05/06/21 14:40 05/06/21 15:02 Temperature Pulse Rate 95 95 95 Respiratory Rate 18 18 19 Blood Pressure 129/76 133/69 129/70 Pulse Oximetry 94 93 94 05/06/21 15:15 05/06/21 15:30 05/06/21 16:00 Temperature 36.3 C L 36.5 C 36.5 C Pulse Rate 95 92 89 Respiratory Rate 18 18 18 Blood Pressure 125/68 121/67 128/67 Pulse Oximetry 93 93 96 05/06/21 17:00 05/06/21 20:00 05/06/21 21:25 Temperature 36.5 C 36.4 C Pulse Rate 96 97 Respiratory Rate 18 18 Blood Pressure 128/59 L 129/57 L Pulse Oximetry 94 95 95 05/06/21 21:30 05/06/21 22:47 05/07/21 02:00 Temperature 36.6 C Pulse Rate 100 78 Respiratory Rate 20 Blood Pres
[2021-05-07 12:17] LABS: Glucose Point of Care 207 mg/dl (65-105)
[2021-05-07 16:33] LABS: Glucose Point of Care 185 mg/dl (65-105)
--- NOTE | 2021-05-07 16:53 | PM.IMPN ---
Progress Note: A&P Assessment and Plan (1) Sepsis: Code(s): A41.9 - Sepsis, unspecified organism Status: Acute (2) Septic arthritis of knee, right: Code(s): M00.9 - Pyogenic arthritis, unspecified Status: Acute Assessment and Plan: (3) Dehydration: Code(s): E86.0 - Dehydration Status: Acute (4) Acute kidney injury: Code(s): N17.9 - Acute kidney failure, unspecified Status: Acute Assessment and Plan: Stable creatinine level today continue to monitor (5) Hyperglycemia: Code(s): R73.9 - Hyperglycemia, unspecified Status: Acute (6) Abnormal urinalysis: Code(s): R82.90 - Unspecified abnormal findings in urine Status: Acute (7) Hypertension: Qualifiers: Hypertension type: essential hypertension Qualified Code(s): I10 - Essential (primary) hypertension Code(s): I10 - Essential (primary) hypertension Status: Acute (8) Benign prostatic hyperplasia: Code(s): N40.0 - Benign prostatic hyperplasia without lower urinary tract symptoms Status: Acute (9) Obstructive sleep apnea on CPAP: Code(s): G47.33 - Obstructive sleep apnea (adult) (pediatric); Z99.89 - Dependence on other enabling machines and devices Status: Acute (10) Leukocytosis: Code(s): D72.829 - Elevated white blood cell count, unspecified Status: Acute Assessment and Plan: Improvement (11) Bacteremia: Code(s): R78.81 - Bacteremia Status: Acute (12) Hyponatremia: Code(s): E87.1 - Hypo-osmolality and hyponatremia Status: Acute (13) Diabetes type 2, uncontrolled: Code(s): E11.65 - Type 2 diabetes mellitus with hyperglycemia Status: Acute Additional Plan 05/04/21 presented with fever tachycardia leukocytosis Related to septic arthritis of right knee Now also has bacteremia Right knee aspirated in the ER positive for Gram-positive cocci suggestive of septic arthritis Orthopedic has been consulted and is planning to do repeat knee aspiration May need knee washout gram positive cocci bacteremia with Gram-positive cocci from the right knee aspirate Orthopedics on consult from the ER On vancomycin and ceftriaxone which will be continued IV hydration diagnosed with diabetes A1c of 8.2 Start SSI CPAP at night Blood pressure stable hold lisinopril due to ALVIN With Gram-positive cocci in clusters x2 On vancomycin Likely due to right knee septic arthritis worsened today will continue to monitor newly diagnosed continue to monitor Accu-Cheks DVT prophylaxis Lovenox 05/05/21 MRSA bacteremia, septic arthritis w MRSA in urine ECHO Vanco x 6 weeks will need PICC when cultures negative repeat blood cultures in am cont current care to OR Monday for wash out by ortho 05/06/21 wash out of R knee today by ortho repeat Blood cultures new dx of DM2 HgbA1c 8.4 cont ISS low dose while in hospital will anticipate dc home on oral antihyperglycemic agents WBCs have normalized cont Vanco for MRSA restart home antihypertensive tamsulosin for voiding symptoms ID and ortho following recs appreciated 05/07/21 BG not at goal, review of sliding scale low dose inadequate and has been adjusted cont current care pain regimen reviewed percocet added pt has not requested morphine am labs pending PT/OT repeat cultures drawn will need PICC to complete 6 weeks vanco dc planning to SNF Subjective Date/time seen: 05/07/21 16:53 pt reports vivid dreams almost hallucinating, he is reassured this is common and likely medication side effect and if it is bothersome or to real we can adjust medications to avoid this side effect. pt declines change of meds at this time. Exam Narrative: General: male sitting in chair w R leg elevated HEENT: Sclerae anicteric. Left dysconjugate gaze. Tacky mucous membranes. Neck: Supple. Nontender Respiratory: symmetric chest rise no
[2021-05-07] MEDS: INSULIN GLARGINE (*BKC) 100 UNITS/ML SUB-Q (22:56)
[2021-05-07 23:00] LABS: Glucose Point of Care 161 mg/dl (65-105)
[2021-05-08 02:49] VITALS: PULSE 103; O2SAT 95
[2021-05-08 08:04] LABS: Glucose Point of Care 154 mg/dl (65-105)
[2021-05-08] MEDS: TAMSULOSIN HCL 0.4 MG CAPSULE PO (09:57)
[2021-05-08] MEDS: DOCUSATE SODIUM 100 MG CAPSULE PO ×2 (09:57→17:34)
[2021-05-08] MEDS: lisinopriL 10 MG TABLET PO (09:57)
[2021-05-08] MEDS: ENOXAPARIN 40 MG/0.4 ML SYRINGE SUB-Q (09:57)
[2021-05-08] MEDS: ATORVASTATIN 10 MG TABLET PO (09:57)
[2021-05-08 11:46] LABS: Glucose Point of Care 171 mg/dl (65-105)
--- NOTE | 2021-05-08 11:49 | PM.IMPN ---
Progress Note: A&P Assessment and Plan (1) Sepsis: Code(s): A41.9 - Sepsis, unspecified organism Status: Acute (2) Septic arthritis of knee, right: Code(s): M00.9 - Pyogenic arthritis, unspecified Status: Acute Assessment and Plan: (3) Dehydration: Code(s): E86.0 - Dehydration Status: Acute (4) Acute kidney injury: Code(s): N17.9 - Acute kidney failure, unspecified Status: Acute Assessment and Plan: Stable creatinine level today continue to monitor (5) Hyperglycemia: Code(s): R73.9 - Hyperglycemia, unspecified Status: Acute (6) Abnormal urinalysis: Code(s): R82.90 - Unspecified abnormal findings in urine Status: Acute (7) Hypertension: Qualifiers: Hypertension type: essential hypertension Qualified Code(s): I10 - Essential (primary) hypertension Code(s): I10 - Essential (primary) hypertension Status: Acute (8) Benign prostatic hyperplasia: Code(s): N40.0 - Benign prostatic hyperplasia without lower urinary tract symptoms Status: Acute (9) Obstructive sleep apnea on CPAP: Code(s): G47.33 - Obstructive sleep apnea (adult) (pediatric); Z99.89 - Dependence on other enabling machines and devices Status: Acute (10) Leukocytosis: Code(s): D72.829 - Elevated white blood cell count, unspecified Status: Acute Assessment and Plan: Improvement (11) Bacteremia: Code(s): R78.81 - Bacteremia Status: Acute (12) Hyponatremia: Code(s): E87.1 - Hypo-osmolality and hyponatremia Status: Acute (13) Diabetes type 2, uncontrolled: Code(s): E11.65 - Type 2 diabetes mellitus with hyperglycemia Status: Acute Additional Plan 05/04/21 presented with fever tachycardia leukocytosis Related to septic arthritis of right knee Now also has bacteremia Right knee aspirated in the ER positive for Gram-positive cocci suggestive of septic arthritis Orthopedic has been consulted and is planning to do repeat knee aspiration May need knee washout gram positive cocci bacteremia with Gram-positive cocci from the right knee aspirate Orthopedics on consult from the ER On vancomycin and ceftriaxone which will be continued IV hydration diagnosed with diabetes A1c of 8.2 Start SSI CPAP at night Blood pressure stable hold lisinopril due to ALVIN With Gram-positive cocci in clusters x2 On vancomycin Likely due to right knee septic arthritis worsened today will continue to monitor newly diagnosed continue to monitor Accu-Cheks DVT prophylaxis Lovenox 05/05/21 MRSA bacteremia, septic arthritis w MRSA in urine ECHO Vanco x 6 weeks will need PICC when cultures negative repeat blood cultures in am cont current care to OR Monday for wash out by ortho 05/06/21 wash out of R knee today by ortho repeat Blood cultures new dx of DM2 HgbA1c 8.4 cont ISS low dose while in hospital will anticipate dc home on oral antihyperglycemic agents WBCs have normalized cont Vanco for MRSA restart home antihypertensive tamsulosin for voiding symptoms ID and ortho following recs appreciated 05/07/21 BG not at goal, review of sliding scale low dose inadequate and has been adjusted cont current care pain regimen reviewed percocet added pt has not requested morphine am labs pending PT/OT repeat cultures drawn will need PICC to complete 6 weeks vanco dc planning to SNF 05/08/21 2 sets of blood cultures from different days + reorder blood cultures ID following cont Vanco pain control OOB to recliner for all meals BP low normal dc lisinopril and monitor anticipate need for Lisinopril 10mg PO QD at dc PT/OT dc to SNF when cleared for PICC by ID Subjective Date/time seen: 05/08/21 11:49 pt complains of weakness and pain, advised to get up to chair and to attempt to move himself in the bed. POC reviewed w RN Exam Narrative: General: mal
[2021-05-08] MEDS: INSULIN ASPART (*BKC) 100 UNITS/ML SUB-Q ×2 (12:39→17:33)
[2021-05-08 16:59] LABS: Glucose Point of Care 163 mg/dl (65-105)
[2021-05-08 20:00] VITALS: BP 116/55
[2021-05-08] MEDS: INSULIN GLARGINE (*BKC) 100 UNITS/ML SUB-Q (20:37)
[2021-05-08 20:49] VITALS: BP 112/47
[2021-05-08 20:50] VITALS: BP 116/55; PULSE 98; RESP 18; TEMP 36.7; O2SAT 92
[2021-05-08 21:57] VITALS: PULSE 98; O2SAT 92
[2021-05-08 21:59] VITALS: O2SAT 92
[2021-05-09] VITALS (9 sets, daily range): BP systolic 110–128; BP diastolic 53–62; PULSE 86–92; RESP 16–20; TEMP 36–36.9; O2SAT 93–100
[2021-05-09 00:16] LABS: Glucose Point of Care 156 mg/dl (65-105)
--- NOTE | 2021-05-09 03:20 | PC.NURSE ---
Daylight Savings Time For Daylight Savings Time Ending in the Fall - Clocks are moved back. For Daylight Savings Time Beginning in the Spring - Clocks are moved ahead. For [facility], the time of change occurs at 0200 hrs. Time is taken from the fountain server. This entry on the patient's chart recognizes the change in time reflected during documentation. Example: 2 entries for vital signs may be charted for 0200 hrs.
[2021-05-09 08:09] LABS: Glucose Point of Care 214 mg/dl (65-105)
[2021-05-09] MEDS: lisinopriL 10 MG TABLET PO (08:22)
[2021-05-09] MEDS: DOCUSATE SODIUM 100 MG CAPSULE PO ×2 (08:22→18:14)
[2021-05-09] MEDS: INSULIN ASPART (*BKC) 100 UNITS/ML SUB-Q ×3 (08:22→18:14)
[2021-05-09] MEDS: ATORVASTATIN 10 MG TABLET PO (08:22)
[2021-05-09] MEDS: TAMSULOSIN HCL 0.4 MG CAPSULE PO (08:22)
[2021-05-09] MEDS: ENOXAPARIN 40 MG/0.4 ML SYRINGE SUB-Q (08:22)
[2021-05-09] MEDS: HYDROcodone/acetaminophen (*CRX) 7.5-325 MG TABLET 1 TAB PO (08:34)
[2021-05-09 11:52] LABS: Glucose Point of Care 233 mg/dl (65-105)
[2021-05-09] MEDS: LIDOCAINE 5% PATCH 1 PATCH TRANSDERM (12:24)
--- NOTE | 2021-05-09 14:19 | PM.IMPN ---
Progress Note: A&P Assessment and Plan (1) Sepsis: Code(s): A41.9 - Sepsis, unspecified organism Status: Acute (2) Septic arthritis of knee, right: Code(s): M00.9 - Pyogenic arthritis, unspecified Status: Acute Assessment and Plan: (3) Dehydration: Code(s): E86.0 - Dehydration Status: Acute (4) Acute kidney injury: Code(s): N17.9 - Acute kidney failure, unspecified Status: Acute Assessment and Plan: Stable creatinine level today continue to monitor (5) Hyperglycemia: Code(s): R73.9 - Hyperglycemia, unspecified Status: Acute (6) Abnormal urinalysis: Code(s): R82.90 - Unspecified abnormal findings in urine Status: Acute (7) Hypertension: Qualifiers: Hypertension type: essential hypertension Qualified Code(s): I10 - Essential (primary) hypertension Code(s): I10 - Essential (primary) hypertension Status: Acute (8) Benign prostatic hyperplasia: Code(s): N40.0 - Benign prostatic hyperplasia without lower urinary tract symptoms Status: Acute (9) Obstructive sleep apnea on CPAP: Code(s): G47.33 - Obstructive sleep apnea (adult) (pediatric); Z99.89 - Dependence on other enabling machines and devices Status: Acute (10) Leukocytosis: Code(s): D72.829 - Elevated white blood cell count, unspecified Status: Acute Assessment and Plan: Improvement (11) Bacteremia: Code(s): R78.81 - Bacteremia Status: Acute (12) Hyponatremia: Code(s): E87.1 - Hypo-osmolality and hyponatremia Status: Acute (13) Diabetes type 2, uncontrolled: Code(s): E11.65 - Type 2 diabetes mellitus with hyperglycemia Status: Acute (14) BMI 40.0-44.9, adult: Code(s): Z68.41 - Body mass index [BMI] 40.0-44.9, adult Status: Acute Additional Plan 05/04/21 presented with fever tachycardia leukocytosis Related to septic arthritis of right knee Now also has bacteremia Right knee aspirated in the ER positive for Gram-positive cocci suggestive of septic arthritis Orthopedic has been consulted and is planning to do repeat knee aspiration May need knee washout gram positive cocci bacteremia with Gram-positive cocci from the right knee aspirate Orthopedics on consult from the ER On vancomycin and ceftriaxone which will be continued IV hydration diagnosed with diabetes A1c of 8.2 Start SSI CPAP at night Blood pressure stable hold lisinopril due to ALVIN With Gram-positive cocci in clusters x2 On vancomycin Likely due to right knee septic arthritis worsened today will continue to monitor newly diagnosed continue to monitor Accu-Cheks DVT prophylaxis Lovenox 05/05/21 MRSA bacteremia, septic arthritis w MRSA in urine ECHO Vanco x 6 weeks will need PICC when cultures negative repeat blood cultures in am cont current care to OR Monday for wash out by ortho 05/06/21 wash out of R knee today by ortho repeat Blood cultures new dx of DM2 HgbA1c 8.4 cont ISS low dose while in hospital will anticipate dc home on oral antihyperglycemic agents WBCs have normalized cont Vanco for MRSA restart home antihypertensive tamsulosin for voiding symptoms ID and ortho following recs appreciated 05/07/21 BG not at goal, review of sliding scale low dose inadequate and has been adjusted cont current care pain regimen reviewed percocet added pt has not requested morphine am labs pending PT/OT repeat cultures drawn will need PICC to complete 6 weeks vanco dc planning to SNF 05/08/21 2 sets of blood cultures from different days + reorder blood cultures ID following cont Vanco pain control OOB to recliner for all meals BP low normal dc lisinopril and monitor anticipate need for Lisinopril 10mg PO QD at dc PT/OT dc to SNF when cleared for PICC by ID 05/09/21 blood cultures remain positive 05/04, 05/06, 05/08 Vanco dosing reviewed w pharmacy re
[2021-05-09 16:37] LABS: Glucose Point of Care 175 mg/dl (65-105)
[2021-05-09] MEDS: INSULIN GLARGINE (*BKC) 100 UNITS/ML SUB-Q (21:54)
[2021-05-09 22:20] LABS: Glucose Point of Care 178 mg/dl (65-105)
[2021-05-10] VITALS (12 sets, daily range): BP systolic 100–144; BP diastolic 48–62; PULSE 80–97; RESP 16–18; TEMP 36.2–36.8; O2SAT 93–100
[2021-05-10 05:49] LABS: Basophils Percent Auto 0.4 % (0.2-1.2); Eosinophils Absolute Auto 0.1 K/mm3 (0-0.3); Eosinophils Percent Auto 0.9 % (0-4.4); Hematocrit 33.4 % (42.0-52.0); Immature Granulocyte Absolute 0.51 K/mm3 (0.00-0.031); Immature Granulocyte Percent A 4.6 % (0-0.5); Lymphocytes Absolute Auto 0.71 K/mm3 (0.9-3.2); Lymphocytes Percent Auto 6.4 % (18.3-44.2); Mean Corpuscular HGB Conc 32.9 g/dl (32-36); Mean Corpuscular Hemoglobin 28.1 pg (26-34); Mean Corpuscular Volume 85.4 fl (80-100); Mean Platelet Volume 9.3 fl (7.4-10.4); Monocytes Absolute Auto 0.6 K/mm3 (0.1-0.6); Monocytes Percent Auto 5.5 % (2.6-8.5); Neutrophils Absolute Auto 9.2 K/mm3 (1.3-6.7); Neutrophils Percent Auto 82.2 % (45.5-73.1); Platelet Count Result 245 k/mm3 (150-375); Red Blood Count 3.91 M/mm3 (4.6-6.20); Red Cell Distribution Width 14.3 % (11.5-14.5); White Blood Count 11.2 K/mm3 (4.5-10.0)
[2021-05-10 06:41] LABS: Alanine Aminotransferase 10 U/L (4-50); Albumin Level 2.2 g/dL (3.5-5.1); Alkaline Phosphatase 65 U/L (38-126); Anion Gap 7 mmol/L (8-16); Aspartate Amino Transferase 29 U/L (17-59); Bilirubin,Total 0.5 mg/dL (0.2-1.3); Blood Urea Nitrogen 56 mg/dL (9-20); CRP 22.5 mg/dL (<1.0); Calcium 7.2 mg/dL (8.4-10.2); Carbon Dioxide 20 mmol/L (22-30); Chloride 97 mmol/L (98-107); Estimated CRCL calculation 47 ml/min; Estimated Glomerular Filt Rate 35; Glucose 204 mg/dL (65-110); Potassium 2.9 mmol/L (3.4-5.0); Sodium 124 mmol/L (137-145)
[2021-05-10 07:20] LABS: Vancomycin Trough 37.2 ug/mL (10.0-20.0)
[2021-05-10 07:42] LABS: Glucose Point of Care 187 mg/dl (65-105)
[2021-05-10] MEDS: INSULIN ASPART (*BKC) 100 UNITS/ML SUB-Q ×3 (07:42→16:56)
[2021-05-10] MEDS: DOCUSATE SODIUM 100 MG CAPSULE PO ×2 (09:08→16:57)
[2021-05-10] MEDS: TAMSULOSIN HCL 0.4 MG CAPSULE PO (09:08)
[2021-05-10] MEDS: ATORVASTATIN 10 MG TABLET PO (09:08)
[2021-05-10] MEDS: ENOXAPARIN 40 MG/0.4 ML SYRINGE SUB-Q (09:08)
[2021-05-10] MEDS: LIDOCAINE 5% PATCH 1 PATCH TRANSDERM (09:09)
[2021-05-10] MEDS: oxyCODONE/ACETAMINOPHEN (*CRX) 5-325 MG TABLET 1 TABLET PO (09:15)
[2021-05-10] MEDS: POTASSIUM CHLORIDE 20 MEQ PACKET (FOR LIQUID) PO (09:15)
--- NOTE | 2021-05-10 09:15 | PM.PNORT ---
Progress Note: A&P Assessment and Plan (1) Septic arthritis of knee, right: Qualifiers: Septic arthritis organism: staphylococcal Qualified Code(s): M00.061 - Staphylococcal arthritis, right knee Code(s): M00.9 - Pyogenic arthritis, unspecified Status: Acute Assessment and Plan: POD #4: I&D Right Knee Continue PT/OT. WBAT. Walker. PICC line pending negative BC. New BC to be drawn today. Continue IV antibiotics per ID in the interim. Pain control. Ice knee. Elevate RLE. Monitor dressing. Change drain site dressing daily. Apply Xeroform gauze, cover dry. May keep Mepilex Silver dressing in place unless saturated. No drainage today with dressing change. Dispo: SNF for 6 weeks IV antibiotics pending PICC line placement s/p negative blood cultures. (2) DJD of shoulder: Qualifiers: Osteoarthritis type: primary Laterality: right Qualified Code(s): M19.011 - Primary osteoarthritis, right shoulder Code(s): M19.019 - Primary osteoarthritis, unspecified shoulder Status: Acute Assessment and Plan: PT/OT. Pain medication. Continue to monitor. Subjective Subjective Date/Time Seen: 05/10/ 09:15 Post Op day: 4 Interval history: POD #4: I&D Right Knee Improvement in right knee pain. Improvement in ROM. Still with complaints of right shoulder pain. Currently awaiting PICC line pending clear BC. Drain pulled over the weekend. Review of Systems Cardiovascular: Cardiovascular: Denies chest pain, Reports leg edema, Denies lightheadedness and Denies palpitations Respiratory: Respiratory: Denies dyspnea and Denies wheezing Gastrointestinal: Gastrointestinal: Denies abdominal pain, Denies bloating, Denies constipation, Denies diarrhea, Denies nausea and Denies vomiting Genitourinary: Genitourinary: Denies urinary frequency and Denies urinary hesitancy Musculoskeletal: Musculoskeletal: Reports as per HPI Exam Const: General: comfortable Resp: Effort & Inspection: normal respiratory effort Cardio: Rate: regular rate Rhythm: regular rhythm GI: Inspection: non-distended GI Palp: Yes Soft to palpation and No Tenderness to palpation present (GI) Skin: Wounds: wounds noted (see extremity assessment ) Neuro: Cognition (Neuro): normal cognition Extrem: Right lower extremity: knee Details: abnormal ROM (limited due to pain/recent surgery ), abrasion (drain site wound ) and warmth (mild ); no ecchymosis and no crepitus, lower leg (Negative Gage's Sign ) Details: pitting edema Details: 2+; no ecchymosis, ankle (+ankle dorsiflexion/plantarflecion. ) Details: swelling Details: diffusely and foot (2+ pedal pulses. ) Details: edema (entire foot ) and vascular exam Details: dorsalis pedis pulse present Left lower extremity: lower leg Details: pitting edema Details: 2+ Other: Dressing removed right anterior knee. Incision well approximated. [place] intact. Drain site, lateral knee with scan serous drainage. Knee with marked improvement in erythema. 2+ pitting edema b/l LE (right NOT worse than left). No palpable joint effusion. Psych: Mental Status: mental status grossly normal Thought content: Yes Normal thought content present Objective Data Vital Signs Vital Signs: Vital Signs - 24 hr 05/09/21 18:24 05/09/21 20:00 05/09/21 20:18 Temperature 36.0 C L 36.0 C L Pulse Rate 87 90 90 Respiratory Rate 16 18 18 Blood Pressure 119/60 110/62 110/62 Pulse Oximetry 98 100 100 05/09/21 20:21 05/09/21 23:19 05/10/21 00:11 Temperature 36.8 C Pulse Rate 92 89 Respiratory Rate 18 Blood Pressure 125/62 103/53 L Pulse Oximetry 94 94 05/10/21 03:44 05/10/21 04:40 Temperature 36.2 C L Pulse Rate 85 91 Respiratory Rate 16 Blood Pressure 121/62 Pulse Oximetry 98 93 Intake/Output Intake/Output: Intake & Output 05/08/21 05/09/21 05/09/21 05/10/21 00:59 00:59 23:59 23:59 Intake Total 910 Output Total 250 Balance 660 Meds/Results M
--- NOTE | 2021-05-10 09:44 | PCPTNOTE ---
Attempted to see pt for PT session but pt is currently out of the room for an ultrasound. Will check back later as schedule allows and pt is available/appropriate.
[2021-05-10 11:53] LABS: Glucose Point of Care 184 mg/dl (65-105)
[2021-05-10 12:39] LABS: Creatine Kinase 53 U/L (55-170); Magnesium 2.9 mg/dL (1.6-2.3); Potassium 3.4 mmol/L (3.4-5.0)
--- NOTE | 2021-05-10 13:08 | PM.IMPN ---
Progress Note: A&P Assessment and Plan (1) Sepsis: Code(s): A41.9 - Sepsis, unspecified organism Status: Acute (2) Bacteremia: Code(s): R78.81 - Bacteremia Status: Acute (3) Septic arthritis of knee, right: Qualifiers: Septic arthritis organism: staphylococcal Qualified Code(s): M00.061 - Staphylococcal arthritis, right knee Code(s): M00.9 - Pyogenic arthritis, unspecified Status: Acute Assessment and Plan: (4) Acute kidney injury: Code(s): N17.9 - Acute kidney failure, unspecified Status: Acute Assessment and Plan: Stable creatinine level today continue to monitor (5) Diabetes mellitus: Code(s): E11.9 - Type 2 diabetes mellitus without complications Status: Acute (6) Dehydration: Code(s): E86.0 - Dehydration Status: Acute (7) Abnormal urinalysis: Code(s): R82.90 - Unspecified abnormal findings in urine Status: Acute (8) Hypertension: Qualifiers: Hypertension type: essential hypertension Qualified Code(s): I10 - Essential (primary) hypertension Code(s): I10 - Essential (primary) hypertension Status: Acute (9) Benign prostatic hyperplasia: Code(s): N40.0 - Benign prostatic hyperplasia without lower urinary tract symptoms Status: Acute (10) Obstructive sleep apnea on CPAP: Code(s): G47.33 - Obstructive sleep apnea (adult) (pediatric); Z99.89 - Dependence on other enabling machines and devices Status: Acute (11) Leukocytosis: Code(s): D72.829 - Elevated white blood cell count, unspecified Status: Acute Assessment and Plan: Improvement (12) Hyponatremia: Code(s): E87.1 - Hypo-osmolality and hyponatremia Status: Acute (13) BMI 40.0-44.9, adult: Code(s): Z68.41 - Body mass index [BMI] 40.0-44.9, adult Status: Acute Additional Plan Patient developing acute kidney injury with creatinine now 1.9. Sodium low 124. Urine electrolytes ordered. Potassium low at 2.9 this was replaced. Patient's mental status is not normal. No focal weakness. Could be related to the underlying septicemia. No evidence of meningitis clinically. Proceed with MRI of the brain. Right shoulder pain is persistent. Will repeat x-ray to exclude effusion. Will hold his GERALDINE-inhibitor. Check renal ultrasound. Will advance his Lantus to improve his hyperglycemia. Repeat blood cultures remain positive. Blood cultures have been repeated today and are pending. Continue vancomycin. Appreciate ID input. Appreciate Orthopedics input. Subjective Date/time seen: 05/10/21 13:08 Interval history: 70yo male with LUZMA, HTN and BPH here for right knee pain and found to have MRSA septic arthritis with septicemia and newly diagnosed DM. Assuming care. Chart reviewed. POD #4: I&D Right Knee. Drain was pulled over the weekend. Patient still complaining of right shoulder pain. He has chronic arthritis in the right shoulder but pain is much worse recently. He does wear his CPAP as compliant with therapy. He denies any chest pain or shortness of breath. No history of strokes or seizures. He is having word-finding problems which has been present since admission here. Exam Narrative: AF 97.1 144/48 94 16 95% ra Gen - NARD HEENT -dysconjugate gaze Chest - CTA bilaterally, nml RR CV - RRR S1/S2 Abd - Soft, NT/ND, Positive BS -Stein secured draining orange-colored urine. Ext - 1+ pitting pedal edema. Right knee dressing is clean, dry and intact. Right shoulder range of motion intact with pain Neuro - Alert and oriented but has word-finding issues. No focal weakness. Psych - Nml mood and affect Skin - Warm and dry.. Objective Data Vital Signs Vital Signs: Vital Signs - 24 hr 05/09/21 18:24 05/09/21 20:00 05/09/21 20:18 Temperature 96.8 F L 96.8 F L Pulse Rate 87 90 90 Respiratory Rate 16 18 18 Blood Pressure 119/60 11
[2021-05-10 15:26] LABS: Add Urine Microscopic? YES; Amorphous Sediment Urine Few; Appearance Urine Cloudy (Clear); Bilirubin Urine Negative (Negative); Blood Urine 2+ (Negative); Color Urine Yellow (Yellow); Glucose Urine UA Negative (Negative); Ketones Urine Negative (Negative); Leukocyte Esterase Ur Negative LEU/UL (NEGATIVE); Nitrate Urine Negative (Negative); Protein Urine Negative (Negative); Specific Grav Ur 1.013 (1.001-1.035); Squamous Epithelial Cell Urine Rare /hpf (Few); Urobilinogen Urine Negative mg/dL (<2.0)
[2021-05-10 15:44] LABS: Creatinine Urine 113.3 mg/dL
[2021-05-10 16:01] LABS: Sodium Urine Random < 5 meq/L
[2021-05-10 16:42] LABS: Eosinophil Urine None Seen % (None Seen)
[2021-05-10 17:05] LABS: Glucose Point of Care 176 mg/dl (65-105)
[2021-05-10 17:26] LABS: Vancomycin Trough 26.6 ug/mL (10.0-20.0)
[2021-05-10] MEDS: INSULIN GLARGINE (*BKC) 100 UNITS/ML 8 UNITS SUB-Q (21:51)
[2021-05-10 22:20] LABS: Glucose Point of Care 156 mg/dl (65-105)
[2021-05-11] VITALS (10 sets, daily range): BP systolic 107–131; BP diastolic 50–85; PULSE 73–92; RESP 16–18; TEMP 36.1–37.5; O2SAT 92–100
[2021-05-11 05:55] LABS: Basophils Absolute Auto 0.1 K/mm3 (0.0-0.1); Basophils Percent Auto 0.4 % (0.2-1.2); Eosinophils Absolute Auto 0.1 K/mm3 (0-0.3); Eosinophils Percent Auto 0.9 % (0-4.4); Hematocrit 32.3 % (42.0-52.0); Hemoglobin 10.7 g/dL (14.0-18.0); Immature Granulocyte Absolute 0.47 K/mm3 (0.00-0.031); Immature Granulocyte Percent A 3.5 % (0-0.5); Mean Corpuscular HGB Conc 33.1 g/dl (32-36); Mean Corpuscular Hemoglobin 28.2 pg (26-34); Mean Corpuscular Volume 85.2 fl (80-100); Monocytes Absolute Auto 0.8 K/mm3 (0.1-0.6); Monocytes Percent Auto 5.8 % (2.6-8.5); Neutrophils Absolute Auto 11.2 K/mm3 (1.3-6.7); Neutrophils Percent Auto 83.4 % (45.5-73.1); Platelet Count Result 259 k/mm3 (150-375); Red Blood Count 3.79 M/mm3 (4.6-6.20); Red Cell Distribution Width 14.1 % (11.5-14.5); White Blood Count 13.4 K/mm3 (4.5-10.0)
[2021-05-11 06:13] LABS: Albumin Level 2.3 g/dL (3.5-5.1); Anion Gap 9 mmol/L (8-16); Blood Urea Nitrogen 57 mg/dL (9-20); Calcium 7.2 mg/dL (8.4-10.2); Carbon Dioxide 17 mmol/L (22-30); Chloride 99 mmol/L (98-107); Estimated CRCL calculation 43 ml/min; Estimated Glomerular Filt Rate 31; Glucose 171 mg/dL (65-110); Magnesium 3.2 mg/dL (1.6-2.3); Phosphorus 5.2 mg/dL (2.5-4.5); Potassium 3.2 mmol/L (3.4-5.0); Sodium 125 mmol/L (137-145)
[2021-05-11 07:47] LABS: Glucose Point of Care 168 mg/dl (65-105)
[2021-05-11] MEDS: SODIUM CHLORIDE 0.9% IV 1,000 ML 100 ML IV CONT (08:20)
[2021-05-11] MEDS: POTASSIUM CHLORIDE 20 MEQ TABLET 40 MEQ PO (08:22)
[2021-05-11] MEDS: TAMSULOSIN HCL 0.4 MG CAPSULE PO (08:22)
[2021-05-11] MEDS: ENOXAPARIN 40 MG/0.4 ML SYRINGE SUB-Q (08:22)
[2021-05-11] MEDS: DOCUSATE SODIUM 100 MG CAPSULE PO ×2 (08:22→16:46)
[2021-05-11] MEDS: ATORVASTATIN 10 MG TABLET PO (08:22)
[2021-05-11] MEDS: LIDOCAINE 5% PATCH 1 PATCH TRANSDERM (08:23)
[2021-05-11] MEDS: INSULIN ASPART (*BKC) 100 UNITS/ML SUB-Q (08:25)
--- NOTE | 2021-05-11 09:23 | PM.PNORT ---
Progress Note: A&P Assessment and Plan (1) Septic arthritis of knee, right: Qualifiers: Septic arthritis organism: staphylococcal Qualified Code(s): M00.061 - Staphylococcal arthritis, right knee Code(s): M00.9 - Pyogenic arthritis, unspecified Status: Acute Assessment and Plan: POD #5: I&D Right Knee due to septic arthritis Continue PT/OT. WBAT. Walker. Encourage ROM as tolerated. Pillow from calf down. Ice knee. Monitor dressing. Change drain site dressing daily and PRN. Continue pain control. WBC 13.4 today. CRP 22 yesterday. IV antibiotics per ID. Awaiting clear blood cultures prior to PICC line placement. Will continue to monitor. (2) DJD of shoulder: Qualifiers: Laterality: right Osteoarthritis type: primary Qualified Code(s): M19.011 - Primary osteoarthritis, right shoulder Code(s): M19.019 - Primary osteoarthritis, unspecified shoulder Status: Acute Assessment and Plan: Repeat shoulder radiographs yesterday reveal no evidence of acute effusion. No new changes from previous. PT/OT for strengthening and ROM. Pain medication as needed. May benefit from addition of lidocaine patch. (3) Bacteremia: Code(s): R78.81 - Bacteremia Status: Acute (4) Diabetes type 2, uncontrolled: Code(s): E11.65 - Type 2 diabetes mellitus with hyperglycemia Status: Acute (5) Acute kidney injury: Code(s): N17.9 - Acute kidney failure, unspecified Status: Acute (6) Acute UTI: Code(s): N39.0 - Urinary tract infection, site not specified Status: Acute Time Spent With Patient Time with patient: less than 15 minutes Subjective Subjective Date/Time Seen: 05/11/ 09:23 Interval history: POD #5: I&D Right Knee Pain right knee well controlled. Increasing ability to flex right knee. No improvement in right shoulder pain, stable. Review of Systems Constitutional: Constitutional: Reports as per HPI Cardiovascular: Cardiovascular: Denies chest pain, Reports leg edema, Denies lightheadedness and Denies palpitations Respiratory: Respiratory: Denies dyspnea and Denies wheezing Gastrointestinal: Gastrointestinal: Reports bloating, Denies diarrhea, Denies nausea and Denies vomiting Genitourinary: Comments: Stein Catheter in place Musculoskeletal: Musculoskeletal: Reports as per HPI Exam Const: General: comfortable Resp: Effort & Inspection: normal respiratory effort Urinary Catheter: Urinary Catheter: patent and draining Skin: Wounds: wounds noted (see extremity assessment ) Neuro: General: No gait normal Motor exam (neuro): strength not 5/5 throughout and strength normal Sensory Exam: normal sensation Other: Answering questions appropriately. Extrem: Right upper extremity: shoulder/upper arm normal to inspection, tenderness of the proximal humerus and of the mid-shaft humerus, axillary nerve sensory function normal and abnormal ROM pain with active ROM in extension, in flexion, in internal rotation and external rotation-, pain with passive ROM with extension, with flexion, with internal rotation and external rotation- and with range as follows (FF: 125, IR: Hip ); no swelling, no lacerations, no ecchymosis, no crepitus and no deformity and elbow/forearm normal to inspection and normal ROM; no tenderness and no swelling Right lower extremity: knee Details: tenderness (diffuse ), swelling (mild ), abnormal ROM Details: pain with active ROM during Details: in flexion, pain with passive ROM during Details: in flexion and with range as follows (0-45 degrees ), abrasion (drain site wound ) and warmth (mild ) Location: of the entire knee joint (improving ); ROM abnormal, no ecchymosis and no crepitus, lower leg (Negative Gage's Sign ) Details: pitting edema Details: 2+; no ecchymosis, ankle (+ankle dorsiflexion/plantarflexion. ) Details: swelling Details: diffusely and foot (2+ pedal pulses. ) Details: edema (entire foot ), vas
--- NOTE | 2021-05-11 11:24 | PM.IMPN ---
Progress Note: A&P Assessment and Plan (1) Septicemia due to methicillin resistant Staphylococcus aureus: Code(s): A41.02 - Sepsis due to Methicillin resistant Staphylococcus aureus Status: Acute (2) Septic arthritis of knee, right: Qualifiers: Septic arthritis organism: staphylococcal Qualified Code(s): M00.061 - Staphylococcal arthritis, right knee Code(s): M00.9 - Pyogenic arthritis, unspecified Status: Acute Assessment and Plan: (3) Acute kidney injury: Code(s): N17.9 - Acute kidney failure, unspecified Status: Acute (4) UTI (urinary tract infection): Code(s): N39.0 - Urinary tract infection, site not specified Status: Acute (5) Diabetes mellitus: Code(s): E11.9 - Type 2 diabetes mellitus without complications Status: Acute (6) Hyponatremia: Code(s): E87.1 - Hypo-osmolality and hyponatremia Status: Acute (7) Hypertension: Qualifiers: Hypertension type: essential hypertension Qualified Code(s): I10 - Essential (primary) hypertension Code(s): I10 - Essential (primary) hypertension Status: Acute (8) Benign prostatic hyperplasia: Code(s): N40.0 - Benign prostatic hyperplasia without lower urinary tract symptoms Status: Acute (9) Obstructive sleep apnea on CPAP: Code(s): G47.33 - Obstructive sleep apnea (adult) (pediatric); Z99.89 - Dependence on other enabling machines and devices Status: Acute (10) BMI 40.0-44.9, adult: Code(s): Z68.41 - Body mass index [BMI] 40.0-44.9, adult Status: Acute (11) Dehydration: Code(s): E86.0 - Dehydration Status: Acute Additional Plan Patient developing acute kidney injury with creatinine now 2.1. Sarah <5 with FENa 0.07% to suggest pre-renal. Sodium low 125 still. Renal US showing no acute findings (has known left renal masses by CT Mar 2021 concerning for RCC). BP stable and afebrile. WBC worse again today. BCx 05/10 (1of2) now positive as well. Remains on Vanco monotherapy. ID consulted and following. Change abx regiment? Patient's mental status has improved. Brain MRI w/o contrast showing no acute findings. Continue PT/OT. Increase activity as toelrated. Repeat right shoulder xray showing no change and symptoms better today. Continue to hold GERALDINE-inhibitor. Start IV fluids for the ALVIN and the hyponatremia. Continue vancomycin for now. Appreciate ID input. Appreciate Orthopedics input. Repeat BCx tomorrow. Subjective Date/time seen: 05/11/21 11:24 Interval history: 70yo male with LUZMA, HTN and BPH here for right knee pain and found to have MRSA septic arthritis with septicemia and newly diagnosed DM. Right shoulder pain better today. No CP or SOB. No n/v. Eating okay but slight nausea at times. Up to the BR and had a BM yesterday. Had to use the stair steady. Then into the chair. Exam Narrative: AF 97.0 108/52 89 16 100% ra Gen - NARD HEENT -dysconjugate gaze Chest - CTA bilaterally, nml RR CV - RRR S1/S2 Abd - Soft, mild diffuse tenderness, +BS, no guarding -Stein secured draining orange-colored urine. Ext - 1+ pitting bilateral pedal edema. Right knee dressing is clean, dry and intact. Neuro - Alert and oriented but has word-finding issues. Psych - Nml mood and affect Skin - Warm and dry. Objective Data Vital Signs Vital Signs: Vital Signs - 24 hr 05/10/21 15:15 05/10/21 18:20 05/10/21 20:00 Temperature 97.3 F L 97.3 F L 97.4 F L Pulse Rate 80 85 85 Respiratory Rate 18 18 16 Blood Pressure 110/52 L 112/54 L 100/57 L Pulse Oximetry 98 100 100 05/10/21 20:10 05/10/21 20:50 05/10/21 22:53 Temperature 97.4 F L Pulse Rate 85 89 Respiratory Rate 16 Blood Pressure 100/57 L 114/58 L Pulse Oximetry 100 94 05/10/21 23:22 05/11/21 02:05 05/11/21 03:59 Temperature 97.8 F 97.8 F Pulse Rate 85 88 92 Respiratory Rate 16 18 Blood Pressure 117/52 L 117/57 L Pulse Oximetr
--- NOTE | 2021-05-11 11:38 | PCNWS ---
Weekly nutritional screen. Patient is tolerating current diet of Diabetic Consistent Carb. Oral intake has been 50-100% of most meals. No nutritional needs at this time.
[2021-05-11 11:51] LABS: Glucose Point of Care 154 mg/dl (65-105)
[2021-05-11] MEDS: HYDROcodone/acetaminophen (*CRX) 7.5-325 MG TABLET 1 TAB PO (12:34)
[2021-05-11 15:40] LABS: Anion Gap 6 mmol/L (8-16); Blood Urea Nitrogen 58 mg/dL (9-20); Calcium 6.9 mg/dL (8.4-10.2); Carbon Dioxide 20 mmol/L (22-30); Chloride 94 mmol/L (98-107); Estimated CRCL calculation 43 ml/min; Estimated Glomerular Filt Rate 31; Glucose 192 mg/dL (65-110); Potassium 3.4 mmol/L (3.4-5.0); Sodium 120 mmol/L (137-145)
[2021-05-11 16:36] LABS: Glucose Point of Care 161 mg/dl (65-105)
[2021-05-11] MEDS: INSULIN GLARGINE (*BKC) 100 UNITS/ML 8 UNITS SUB-Q (20:32)
[2021-05-11 21:30] LABS: Glucose Point of Care 173 mg/dl (65-105)
[2021-05-12] VITALS (8 sets, daily range): BP systolic 99–111; BP diastolic 46–56; PULSE 69–89; RESP 17–20; TEMP 36.3–37.8; O2SAT 96–97
[2021-05-12] MEDS: SODIUM CHLORIDE 0.9% IV 1,000 ML 100 ML IV CONT ×2 (02:21→13:32)
[2021-05-12 06:35] LABS: Basophils Percent Auto 0.3 % (0.2-1.2); Eosinophils Absolute Auto 0.1 K/mm3 (0-0.3); Eosinophils Percent Auto 0.7 % (0-4.4); Hematocrit 30.8 % (42.0-52.0); Hemoglobin 10.2 g/dL (14.0-18.0); Immature Granulocyte Absolute 0.28 K/mm3 (0.00-0.031); Immature Granulocyte Percent A 2.3 % (0-0.5); Lymphocytes Percent Auto 5.7 % (18.3-44.2); Mean Corpuscular HGB Conc 33.1 g/dl (32-36); Mean Corpuscular Hemoglobin 27.8 pg (26-34); Mean Corpuscular Volume 83.9 fl (80-100); Mean Platelet Volume 9.2 fl (7.4-10.4); Monocytes Absolute Auto 0.8 K/mm3 (0.1-0.6); Monocytes Percent Auto 6.6 % (2.6-8.5); Neutrophils Absolute Auto 10.3 K/mm3 (1.3-6.7); Neutrophils Percent Auto 84.4 % (45.5-73.1); Platelet Count Result 248 k/mm3 (150-375); Red Blood Count 3.67 M/mm3 (4.6-6.20); White Blood Count 12.2 K/mm3 (4.5-10.0)
[2021-05-12 07:00] LABS: Albumin Level 2.2 g/dL (3.5-5.1); Anion Gap 5 mmol/L (8-16); Blood Urea Nitrogen 54 mg/dL (9-20); Carbon Dioxide 21 mmol/L (22-30); Chloride 99 mmol/L (98-107); Estimated CRCL calculation 41 ml/min; Estimated Glomerular Filt Rate 30; Glucose 166 mg/dL (65-110); Magnesium 2.9 mg/dL (1.6-2.3); Phosphorus 4.7 mg/dL (2.5-4.5); Potassium 3.4 mmol/L (3.4-5.0); Sodium 125 mmol/L (137-145)
[2021-05-12 07:28] LABS: CRP 19.4 mg/dL (<1.0)
[2021-05-12 08:03] LABS: Glucose Point of Care 151 mg/dl (65-105)
[2021-05-12] MEDS: DOCUSATE SODIUM 100 MG CAPSULE PO (09:07)
[2021-05-12] MEDS: TAMSULOSIN HCL 0.4 MG CAPSULE PO (09:07)
[2021-05-12] MEDS: ENOXAPARIN 40 MG/0.4 ML SYRINGE SUB-Q (09:07)
[2021-05-12] MEDS: LIDOCAINE 5% PATCH 1 PATCH TRANSDERM (09:07)
[2021-05-12] MEDS: ATORVASTATIN 10 MG TABLET PO (09:07)
[2021-05-12 11:11] LABS: Sodium 125 mmol/L (137-145)
--- NOTE | 2021-05-12 12:19 | PM.IMPN ---
Progress Note: A&P Assessment and Plan (1) Septicemia due to methicillin resistant Staphylococcus aureus: Code(s): A41.02 - Sepsis due to Methicillin resistant Staphylococcus aureus Status: Acute Assessment and Plan: Present on admission with right knee pain and found to have septic arthritis. Also with UTI with MRSA felt to be hematologic spread. BCx have returned positive for MRSA on 05/03, 05/06, 05/08, and 05/10. TTE showing EF 55-60% with grade I diastolic dysfunction and trace valvular disease. No vegetations noted. Septal motion abnormalities related to bundle branch. Fevers early on but now afebrile. WBC better today. Remains on Vanco monotherapy. ID consulted and following. Spoke with ID who recommended changing to Daptomycin 6mg/kg Q24hr. (2) Septic arthritis of knee, right: Qualifiers: Septic arthritis organism: staphylococcal Qualified Code(s): M00.061 - Staphylococcal arthritis, right knee Code(s): M00.9 - Pyogenic arthritis, unspecified Status: Acute Assessment and Plan: Patient presents with right knee pain. Lower extremity right venous Doppler was negative for DVT. X-ray showed moderate amount of right knee joint effusion. Arthrocentesis on 05/03 with culture growing MRSA. Patient had incision and drainage with irrigation and debridement right knee joint on 05/06/21. Culture also growing MRSA. Contineu PT/OT. Appreciate Ortho consult. (3) Acute kidney injury: Code(s): N17.9 - Acute kidney failure, unspecified Status: Acute Assessment and Plan: Patient developing acute kidney injury with creatinine now 2.2. Urine studies suggest pre-renal. Avoid nephrotoxins agents. Renal US showing no acute findings (has known left renal masses by CT Mar 2021 concerning for RCC). Continue normal saline . Consider Lasix. (4) UTI (urinary tract infection): Code(s): N39.0 - Urinary tract infection, site not specified Status: Acute Assessment and Plan: UA noted. UCx growing MRSA. Suspect hematologic spread. As above. (5) Diabetes mellitus: Code(s): E11.9 - Type 2 diabetes mellitus without complications Status: Acute Assessment and Plan: The patient's blood glucose was reviewed on 05/12 Glucose remains well controlled. Continue AccuCheks covering with sliding scale. Hypoglycemia protocol available as needed. Continue current medications. (6) Hyponatremia: Code(s): E87.1 - Hypo-osmolality and hyponatremia Status: Acute Assessment and Plan: Patient developing acute kidney injury with creatinine now 2.2. Sarah <5 with FENa 0.07% to suggest pre-renal. Sodium low 125 still. Continue IV fluids and consider lasix if Cr starts to trend down. UOP good. Add NaCl tabs. (7) Hypertension: Qualifiers: Hypertension type: essential hypertension Qualified Code(s): I10 - Essential (primary) hypertension Code(s): I10 - Essential (primary) hypertension Status: Acute Assessment and Plan: Patient's blood pressure was reviewed on 05/12 Blood pressure remains well controlled. Home medications on hold (8) Benign prostatic hyperplasia: Code(s): N40.0 - Benign prostatic hyperplasia without lower urinary tract symptoms Status: Acute Assessment and Plan: Stable. Stein catheter remains in place. Continue Flomax. (9) Obstructive sleep apnea on CPAP: Code(s): G47.33 - Obstructive sleep apnea (adult) (pediatric); Z99.89 - Dependence on other enabling machines and devices Status: Acute Assessment and Plan: Patient is tolerating his CPAP at night and with naps. Continue the same. (10) BMI 40.0-44.9, adult: Code(s): Z68.41 - Body mass index [BMI] 40.0-44.9, adult Status: Acute Assessment and Plan: Contributes to his other medical problems. Healthy lifestyle as been encouraged. (11) DVT prophylaxis: Co
[2021-05-12 12:26] LABS: Glucose Point of Care 201 mg/dl (65-105)
[2021-05-12] MEDS: INSULIN ASPART (*BKC) 100 UNITS/ML SUB-Q (13:32)
--- NOTE | 2021-05-12 14:25 | PM.PNORT ---
Progress Note: A&P Additional Plan POSTOP RIGHT SEPTIC KNEE I AND D. KNEE IMPROVING PAIN. PATIENT CONTINUES TO HAVE BACTEREMIA. IF NO IMPROVEMENT WOULD CONSIDER RE ASPIRATION OF RIGHT KNEE FOR EVALUATION. FROM CLINICAL STAND POINT HIS KNEE IS BEHAVING LIKE AN EXPECTED I AND D POSTOP. WILL CONTINUE TO FOLLOW Subjective Subjective Date/Time Seen: 05/12/21 14:25 RIGHT SEPTIC KNEE S/P I AND D. HE HAS SOME EXPECTED KNEE PAIN. HE FEELS BETTER THAN PRIOR TO SURGERY. NO NEW COMPLAINTS. Exam Extrem: Other: VSS AFEBRILE THIS AM. DRESSING DRY, MILD KNEE EFFUSION, MINIMAL PAIN WITH PASSIVE KNEE MOTION, IMPROVED FROM PREOP. CALF SOFT NON TENDER NEG HOMANS SIGN. NO ERYTHEMA OR CELLULITIS. Objective Data Vital Signs Vital Signs: Vital Signs - 24 hr 05/11/21 20:15 05/11/21 20:16 05/11/21 22:15 Temperature 37.5 C Pulse Rate 87 73 Respiratory Rate 18 Blood Pressure 112/56 L 109/50 L Pulse Oximetry 99 98 05/11/21 22:58 05/12/21 01:08 05/12/21 03:30 Temperature 37.8 C H Pulse Rate 86 69 Respiratory Rate 18 Blood Pressure 102/56 L Pulse Oximetry 98 96 96 05/12/21 05:34 05/12/21 09:56 Temperature 37.2 C 36.3 C L Pulse Rate 87 86 Respiratory Rate 20 20 Blood Pressure 111/50 L 110/51 L Pulse Oximetry 96 97 Intake/Output Intake/Output: Intake & Output 05/09/21 05/10/21 05/11/21 05/12/21 23:59 23:59 23:59 23:59 Intake Total 2090 3810 1660 Output Total 825 1825 1000 Balance 1265 1985 660 Meds/Results Medications: Active Medications Generic Name Dose Route Start Last Admin Trade Name Freq PRN Reason Stop Dose Admin Hydrocodone Bitart/Acetaminophen 1 tab 05/06/21 15:09 05/11/21 12:34 Hydrocodone/Acetaminophen (*Crx) 7.5-325 Mg Tablet PO 1 tab Q6H PRN Administration Pain Rated 4-6 Atorvastatin Calcium 10 mg 05/07/21 09:00 05/12/21 09:07 Atorvastatin 10 Mg Tablet PO 10 mg DAILY NUPUR Administration Dextrose 12.5 gm 05/05/21 19:05 Dextrose 50% 25 Gm/50 Ml Syringe IV PUSH PRN PRN Hypoglycemia Protocol Diazepam 5 mg 05/06/21 15:09 Diazepam (*Crx) 5 Mg Tablet PO Q8H PRN Muscle Spasm Enoxaparin Sodium 40 mg 05/04/21 09:00 05/12/21 09:07 Enoxaparin 40 Mg/0.4 Ml Syringe SUB-Q 40 mg DAILY NUPUR Administration Glucagon 1 mg 05/05/21 19:05 Glucagon For Inj 1 Mg Vial IM PRN PRN Hypoglycemia Protocol Glucose 15 gm 05/05/21 19:05 Glucose Oral Gel 15 Gm Of Glucse In 37.5 Gm Tube PO PRN PRN Hypoglycemia Protocol Dextrose 1,000 mls @ 100 mls/hr 05/05/21 19:05 Dextrose 5% 1,000 Ml IVPB PRN PRN Hypoglycemia Protocol Sodium Chloride 1,000 mls @ 100 mls/hr 05/11/21 07:10 05/12/21 13:32 Normal Saline Iv IV CONT 100 mls/hr .Q10H NUPUR Administration Daptomycin 860 mg/ Sodium 50 mls @ 100 mls/hr 05/12/21 15:00 Chloride IVPB Q24H NUPUR Insulin Aspart 2 - 5 units 05/06/21 08:00 05/12/21 13:32 Insulin Aspart (*Bkc) 100 Units/Ml SUB-Q 2 units TIDWM NUPUR Administration Protocol Insulin Glargine 8 units 05/10/21 21:00 05/11/21 20:32 Insulin Glargine (*Bkc) 100 Units/Ml SUB-Q 8 units HS NUPUR Administration Lidocaine 1 patch 05/09/21 10:35 05/12/21 09:07 Lidocaine 5% Patch TRANSDERM 1 patch DAILY NUPUR Administration Magnesium Hydroxide 30 ml 05/06/21 15:09 Magnesium Hydroxide Susp 30 Ml Udc PO BID PRN Constipation Morphine Sulfate 3 mg 05/06/21 15:09 Morphine Sulfate (*Crx) 4 Mg/Ml Inj IV PUSH Q3H PRN Pain Rated 7-10 Ondansetron HCl 4 mg 05/06/21 15:09 Ondansetron Inj 4 Mg/2 Ml Vial IV PUSH Q4H PRN Nausea And Vomiting Oxycodone/Acetaminophen 1 tablet 05/06/21 17:48 05/10/21 09:15 Oxycodone/Acetaminophen (*Crx) 5-325 Mg Tablet PO 1 tablet Q4H PRN Administration Pain Rated 7-10 Sodium Chloride 500 mg 05/12/21 17:00 Sodium Chloride 500 Mg Tablet PO BID S
[2021-05-12] MEDS: SODIUM CHLORIDE 500 MG TABLET PO (16:54)
[2021-05-12 17:05] LABS: Glucose Point of Care 137 mg/dl (65-105)
[2021-05-12 18:06] LABS: Sodium 129 mmol/L (137-145)
[2021-05-12 19:51] LABS: Glucose Synovial Fluid 43 mg/dL
[2021-05-12] MEDS: INSULIN GLARGINE (*BKC) 100 UNITS/ML 8 UNITS SUB-Q (21:00)
[2021-05-12 21:34] LABS: Glucose Point of Care 146 mg/dl (65-105)
[2021-05-13] VITALS (13 sets, daily range): BP systolic 94–118; BP diastolic 45–53; PULSE 70–111; RESP 18–20; TEMP 35.7–36.7; O2SAT 94–98
[2021-05-13] MEDS: SODIUM CHLORIDE 0.9% IV 1,000 ML 100 ML IV CONT (05:00)
[2021-05-13 06:29] LABS: Alanine Aminotransferase 18 U/L (4-50); Alkaline Phosphatase 146 U/L (38-126); Anion Gap 6 mmol/L (8-16); Aspartate Amino Transferase 57 U/L (17-59); Bilirubin,Total 0.8 mg/dL (0.2-1.3); Blood Urea Nitrogen 47 mg/dL (9-20); CRP 18.6 mg/dL (<1.0); Calcium 6.7 mg/dL (8.4-10.2); Carbon Dioxide 18 mmol/L (22-30); Chloride 103 mmol/L (98-107); Estimated CRCL calculation 44 ml/min; Estimated Glomerular Filt Rate 31; Glucose 145 mg/dL (65-110); Magnesium 2.8 mg/dL (1.6-2.3); Potassium 3.4 mmol/L (3.4-5.0); Sodium 127 mmol/L (137-145)
[2021-05-13 06:33] LABS: Basophils Percent Auto 0.3 % (0.2-1.2); Eosinophils Percent Auto 0.2 % (0-4.4); Hematocrit 29.8 % (42.0-52.0); Hemoglobin 10.1 g/dL (14.0-18.0); Immature Granulocyte Percent A 1.8 % (0-0.5); Lymphocytes Absolute Auto 0.72 K/mm3 (0.9-3.2); Lymphocytes Percent Auto 6.3 % (18.3-44.2); Mean Corpuscular HGB Conc 33.9 g/dl (32-36); Mean Corpuscular Hemoglobin 28.4 pg (26-34); Mean Corpuscular Volume 83.7 fl (80-100); Monocytes Absolute Auto 0.7 K/mm3 (0.1-0.6); Monocytes Percent Auto 6.4 % (2.6-8.5); Neutrophils Absolute Auto 9.7 K/mm3 (1.3-6.7); Platelet Count Result 230 k/mm3 (150-375); Red Blood Count 3.56 M/mm3 (4.6-6.20); Red Cell Distribution Width 14.1 % (11.5-14.5); White Blood Count 11.4 K/mm3 (4.5-10.0)
[2021-05-13 08:02] LABS: Glucose Point of Care 143 mg/dl (65-105)
[2021-05-13] MEDS: BUMETANIDE INJ 1 MG/4 ML VIAL IV PUSH ×2 (08:48→17:26)
[2021-05-13] MEDS: ENOXAPARIN 40 MG/0.4 ML SYRINGE SUB-Q (08:48)
[2021-05-13] MEDS: SODIUM CHLORIDE 500 MG TABLET PO ×2 (08:48→17:26)
[2021-05-13] MEDS: LIDOCAINE 5% PATCH 1 PATCH TRANSDERM (08:48)
[2021-05-13] MEDS: TAMSULOSIN HCL 0.4 MG CAPSULE PO (08:48)
--- NOTE | 2021-05-13 09:18 | PM.PNORT ---
Progress Note: A&P Assessment and Plan (1) Septic arthritis of knee, right: Qualifiers: Septic arthritis organism: staphylococcal Qualified Code(s): M00.061 - Staphylococcal arthritis, right knee Code(s): M00.9 - Pyogenic arthritis, unspecified Status: Acute Assessment and Plan: POD #7: I&D Right Knee due to septic arthritis Continue PT/OT. WBAT. Walker. Encourage ROM as tolerated. Pillow from calf down. Ice knee. Monitor dressing. Change drain site dressing daily and PRN. Continue pain control. Blood cultures with MRSA on 11/, 11/4, 116 and 11. Hospitalist/ID determined need to change antibiotic therapy to Daptomycin Q24 hr. Will require negative blood cultures prior to PICC line placement. If no improvement in bacteremia with transition of IV antibiotics, patient may require repeat aspiration of the right knee. Will continue to monitor. (2) DJD of shoulder: Qualifiers: Osteoarthritis type: primary Laterality: right Qualified Code(s): M19.011 - Primary osteoarthritis, right shoulder Code(s): M19.019 - Primary osteoarthritis, unspecified shoulder Status: Acute Assessment and Plan: Repeat shoulder radiographs reveal no evidence of acute effusion. No new changes from previous. PT/OT for strengthening and ROM. Pain medication as needed. (3) Bacteremia: Code(s): R78.81 - Bacteremia Status: Acute Assessment and Plan: Transition from Vanc to Daptomycin. No new blood cultures pending at this time. (4) Diabetes type 2, uncontrolled: Code(s): E11.65 - Type 2 diabetes mellitus with hyperglycemia Status: Acute (5) Acute kidney injury: Code(s): N17.9 - Acute kidney failure, unspecified Status: Acute (6) Acute UTI: Code(s): N39.0 - Urinary tract infection, site not specified Status: Acute Time Spent With Patient Time: Reviewed case and assessment with attending MD, Dr. Carlson. Subjective Subjective Date/Time Seen: 05/13/21 09:15 Principal diagnosis: Right Septic Knee Joint Interval history: POD #7: I&D Right Knee Mild improvement in right knee pain. ROM improving. Pain right knee well controlled. Review of Systems Constitutional: Constitutional: Reports as per HPI Cardiovascular: Cardiovascular: Denies chest pain, Reports leg edema, Denies lightheadedness and Denies palpitations Respiratory: Respiratory: Denies dyspnea and Denies wheezing Gastrointestinal: Gastrointestinal: Reports bloating, Denies diarrhea, Denies nausea and Denies vomiting Genitourinary: Comments: Stein Catheter in place Musculoskeletal: Musculoskeletal: Reports as per HPI Exam Const: General: comfortable Resp: Effort & Inspection: normal respiratory effort Urinary Catheter: Urinary Catheter: patent and draining Skin: Wounds: wounds noted (see extremity assessment ) Neuro: General: No gait normal Motor exam (neuro): strength not 5/5 throughout and strength normal Sensory Exam: normal sensation Other: Answering questions appropriately. Extrem: Right upper extremity: shoulder/upper arm normal to inspection, tenderness of the proximal humerus and of the mid-shaft humerus, axillary nerve sensory function normal and abnormal ROM pain with active ROM in extension, in flexion, in internal rotation and external rotation-, pain with passive ROM with extension, with flexion, with internal rotation and external rotation- and with range as follows (FF: 125, IR: Hip ); no swelling, no lacerations, no ecchymosis, no crepitus and no deformity and elbow/forearm normal to inspection and normal ROM; no tenderness and no swelling Right lower extremity: knee Details: tenderness (diffuse ), swelling (mild ), abnormal ROM Details: pain with active ROM during Details: in flexion, pain with passive ROM during Details: in flexion and with range as follows (0-45 degrees ), abrasion (drain site wound ) and warmth (mild ) Location: of the en
[2021-05-13] MEDS: ALBUMIN HUMAN 25% 12.5 GM/50ML 50 ML IVPB ×2 (12:04→17:26)
--- NOTE | 2021-05-13 12:43 | PM.IMPN ---
Progress Note: A&P Assessment and Plan (1) Septicemia due to methicillin resistant Staphylococcus aureus: Code(s): A41.02 - Sepsis due to Methicillin resistant Staphylococcus aureus Status: Acute Assessment and Plan: Present on admission with right knee pain and found to have septic arthritis. Also with UTI with MRSA felt to be hematologic spread. BCx have returned positive for MRSA on 05/03, 05/06, 05/08, and 05/10. TTE showing EF 55-60% with grade I diastolic dysfunction and trace valvular disease. No vegetations noted. Septal motion abnormalities related to bundle branch. Fevers early on but now afebrile. WBC only mildly elevated. Was on Vanco monotherapy but had persistent positive cultures so changed to Daptomycin 6mg/kg Q24hr from ID recommendations. Appreciate ID input. (2) Septic arthritis of knee, right: Qualifiers: Septic arthritis organism: staphylococcal Qualified Code(s): M00.061 - Staphylococcal arthritis, right knee Code(s): M00.9 - Pyogenic arthritis, unspecified Status: Acute Assessment and Plan: Patient presents with right knee pain. Lower extremity right venous Doppler was negative for DVT. X-ray showed moderate amount of right knee joint effusion. Arthrocentesis on 05/03 with culture growing MRSA. Patient had incision and drainage with irrigation and debridement right knee joint on 05/06/21. Culture also growing MRSA. Contineu PT/OT. Appreciate Ortho consult. (3) Acute kidney injury: Code(s): N17.9 - Acute kidney failure, unspecified Status: Acute Assessment and Plan: Patient developing acute kidney injury with creatinine now 2.1 but stable. Urine studies suggest pre-renal. Avoid nephrotoxins agents. Renal US showing no acute findings (has known left renal masses by CT Mar 2021 concerning for RCC). Will stop IV fluids and proceed with Bumex. Albumin since level is 2.0. Monitor renal function closely. (4) UTI (urinary tract infection): Code(s): N39.0 - Urinary tract infection, site not specified Status: Acute Assessment and Plan: UA noted. UCx growing MRSA. Suspect hematologic spread. As above. (5) Diabetes mellitus: Code(s): E11.9 - Type 2 diabetes mellitus without complications Status: Acute Assessment and Plan: A1c 8.4. The patient's blood glucose was reviewed on 05/13 This is a new diagnosis for this patient. Glucose remains well controlled. Continue AccuCheks covering with sliding scale. Hypoglycemia protocol available as needed. Continue current medications. Consult Diab Educator and Gas Brazer. (6) Hyponatremia: Code(s): E87.1 - Hypo-osmolality and hyponatremia Status: Acute Assessment and Plan: Patient developing acute kidney injury with creatinine now 2.2. Sarah <5 with FENa 0.07% to suggest pre-renal. Treated with IV fluids and Na tablets. Sodium better at 127. Stop IV fluids. As above. (7) Hypertension: Qualifiers: Hypertension type: essential hypertension Qualified Code(s): I10 - Essential (primary) hypertension Code(s): I10 - Essential (primary) hypertension Status: Acute Assessment and Plan: Patient's blood pressure was reviewed on 05/13 Blood pressure remains well controlled. Home medications on hold (8) Benign prostatic hyperplasia: Code(s): N40.0 - Benign prostatic hyperplasia without lower urinary tract symptoms Status: Acute Assessment and Plan: Stable. Stein catheter remains in place. Continue Flomax. Remove Stein once patient is more ambulatory. (9) Obstructive sleep apnea on CPAP: Code(s): G47.33 - Obstructive sleep apnea (adult) (pediatric); Z99.89 - Dependence on other enabling machines and devices Status: Acute Assessment and Plan: Patient is tolerating his CPAP at night and with naps. Continue the same. (10) BMI 40.0-44.9, adult: Code(s): Z68.41 - B
[2021-05-13 13:15] LABS: Glucose Point of Care 181 mg/dl (65-105)
[2021-05-13 16:45] LABS: Glucose Point of Care 188 mg/dl (65-105)
[2021-05-13] MEDS: INSULIN GLARGINE (*BKC) 100 UNITS/ML 8 UNITS SUB-Q (20:16)
[2021-05-13 22:12] LABS: Glucose Point of Care 195 mg/dl (65-105)
[2021-05-14] VITALS (10 sets, daily range): BP systolic 103–125; BP diastolic 44–56; PULSE 74–81; RESP 16–18; TEMP 36.4–36.5; O2SAT 97–99
[2021-05-14] MEDS: ALBUMIN HUMAN 25% 12.5 GM/50ML 50 ML IVPB (00:23)
[2021-05-14 05:48] LABS: Basophils Percent Auto 0.4 % (0.2-1.2); Eosinophils Percent Auto 0.3 % (0-4.4); Hematocrit 29.4 % (42.0-52.0); Hemoglobin 9.8 g/dL (14.0-18.0); Immature Granulocyte Absolute 0.14 K/mm3 (0.00-0.031); Immature Granulocyte Percent A 1.5 % (0-0.5); Lymphocytes Absolute Auto 0.66 K/mm3 (0.9-3.2); Lymphocytes Percent Auto 7.3 % (18.3-44.2); Mean Corpuscular HGB Conc 33.3 g/dl (32-36); Monocytes Absolute Auto 0.6 K/mm3 (0.1-0.6); Neutrophils Absolute Auto 7.7 K/mm3 (1.3-6.7); Neutrophils Percent Auto 84.5 % (45.5-73.1); Platelet Count Result 206 k/mm3 (150-375); Red Cell Distribution Width 14.1 % (11.5-14.5); White Blood Count 9.1 K/mm3 (4.5-10.0)
[2021-05-14 06:06] LABS: Albumin Level 2.2 g/dL (3.5-5.1); Anion Gap 8 mmol/L (8-16); Blood Urea Nitrogen 47 mg/dL (9-20); Calcium 7.2 mg/dL (8.4-10.2); Carbon Dioxide 20 mmol/L (22-30); Chloride 101 mmol/L (98-107); Estimated CRCL calculation 41 ml/min; Estimated Glomerular Filt Rate 30; Glucose 185 mg/dL (65-110); Potassium 3.3 mmol/L (3.4-5.0); Sodium 129 mmol/L (137-145)
[2021-05-14 06:13] LABS: CRP 17.2 mg/dL (<1.0)
[2021-05-14 07:57] LABS: Glucose Point of Care 170 mg/dl (65-105)
[2021-05-14] MEDS: LIDOCAINE 5% PATCH 1 PATCH TRANSDERM (08:31)
[2021-05-14] MEDS: SODIUM CHLORIDE 500 MG TABLET PO ×2 (08:31→16:29)
[2021-05-14] MEDS: ENOXAPARIN 40 MG/0.4 ML SYRINGE SUB-Q (08:32)
[2021-05-14] MEDS: TAMSULOSIN HCL 0.4 MG CAPSULE PO (08:32)
--- NOTE | 2021-05-14 10:33 | PM.PNORT ---
Progress Note: A&P Assessment and Plan (1) Septic arthritis of knee, right: Qualifiers: Septic arthritis organism: staphylococcal Qualified Code(s): M00.061 - Staphylococcal arthritis, right knee Code(s): M00.9 - Pyogenic arthritis, unspecified Status: Acute Assessment and Plan: POD #8: I&D Right Knee due to septic arthritis Continue PT/OT. WBAT. Walker. Encourage ROM as tolerated. Pillow from calf down. Ice knee. Monitor dressing. Change drain site dressing daily and PRN. Continue pain control. Blood cultures with MRSA on 11/, 11/4, 11/6 and 11/8. Hospitalist/ID determined need to change antibiotic therapy to Daptomycin Q24 hr. New blood cultures drawn today, pending. Will require negative blood cultures prior to PICC line placement. If no improvement in bacteremia with transition of IV antibiotics, patient may require repeat aspiration of the right knee. Current WBC 9.1 Dispo: Discharge to SNF when medically stable. Ortho follow up arranged. (2) DJD of shoulder: Qualifiers: Osteoarthritis type: primary Laterality: right Qualified Code(s): M19.011 - Primary osteoarthritis, right shoulder Code(s): M19.019 - Primary osteoarthritis, unspecified shoulder Status: Acute Assessment and Plan: Repeat shoulder radiographs reveal no evidence of acute effusion. No new changes from previous. PT/OT for strengthening and ROM. Pain medication as needed. (3) Bacteremia: Code(s): R78.81 - Bacteremia Status: Acute Assessment and Plan: Transition from Vanc to Daptomycin. New blood cultures pending at this time, drawn today. (4) Diabetes type 2, uncontrolled: Code(s): E11.65 - Type 2 diabetes mellitus with hyperglycemia Status: Acute (5) Acute kidney injury: Code(s): N17.9 - Acute kidney failure, unspecified Status: Acute (6) Acute UTI: Code(s): N39.0 - Urinary tract infection, site not specified Status: Acute Subjective Subjective Date/Time Seen: 05/14/21 10:15 Principal diagnosis: Septic knee joint, right Interval history: POD #8: I&D Right Knee Continued improvement in right knee pain. ROM improving. Up in chair. Feeling better overall. Review of Systems Constitutional: Constitutional: Reports as per HPI Cardiovascular: Cardiovascular: Denies chest pain, Reports leg edema, Denies lightheadedness and Denies palpitations Respiratory: Respiratory: Denies dyspnea and Denies wheezing Gastrointestinal: Gastrointestinal: Reports bloating, Denies diarrhea, Denies nausea and Denies vomiting Genitourinary: Comments: Stein Catheter in place Musculoskeletal: Musculoskeletal: Reports as per HPI Exam Const: General: comfortable Resp: Effort & Inspection: normal respiratory effort Urinary Catheter: Urinary Catheter: patent and draining Skin: Wounds: wounds noted (see extremity assessment ) Neuro: General: No gait normal Motor exam (neuro): strength not 5/5 throughout and strength normal Sensory Exam: normal sensation Other: Answering questions appropriately. Extrem: Right upper extremity: shoulder/upper arm normal to inspection, tenderness of the proximal humerus and of the mid-shaft humerus, axillary nerve sensory function normal and abnormal ROM pain with active ROM in extension, in flexion, in internal rotation and external rotation-, pain with passive ROM with extension, with flexion, with internal rotation and external rotation- and with range as follows (FF: 125, IR: Hip ); no swelling, no lacerations, no ecchymosis, no crepitus and no deformity and elbow/forearm normal to inspection and normal ROM; no tenderness and no swelling Right lower extremity: knee Details: tenderness (diffuse ), swelling (mild ), abnormal ROM Details: pain with active ROM during Details: in flexion, pain with passive ROM during Details: in flexion and with range as follows (0-90 degrees, difficulty with full extension whe
--- NOTE | 2021-05-14 12:02 | PM.IMPN ---
Progress Note: A&P Assessment and Plan (1) Septicemia due to methicillin resistant Staphylococcus aureus: Code(s): A41.02 - Sepsis due to Methicillin resistant Staphylococcus aureus Status: Acute Assessment and Plan: Present on admission with right knee pain and found to have septic arthritis. Also with UTI with MRSA felt to be hematologic spread. BCx have returned positive for MRSA on 05/03, 05/06, 05/08, and 05/10. TTE showing EF 55-60% with grade I diastolic dysfunction and trace valvular disease. No vegetations noted. Septal motion abnormalities related to bundle branch. Fevers early on but now afebrile. WBC now normal. Was on Vanco monotherapy but had persistent positive cultures so changed to Daptomycin 6mg/kg Q24hr from ID recommendations on 05/12. Appreciate ID input. Repeat BCx. (2) Septic arthritis of knee, right: Qualifiers: Septic arthritis organism: staphylococcal Qualified Code(s): M00.061 - Staphylococcal arthritis, right knee Code(s): M00.9 - Pyogenic arthritis, unspecified Status: Acute Assessment and Plan: Patient presents with right knee pain. Lower extremity right venous Doppler was negative for DVT. X-ray showed moderate amount of right knee joint effusion. Arthrocentesis on 05/03 with culture growing MRSA. Patient had incision and drainage with irrigation and debridement right knee joint on 05/06/21. That culture also growing MRSA. Clinically improving. Continue PT/OT. Appreciate Ortho input. (3) Acute kidney injury: Code(s): N17.9 - Acute kidney failure, unspecified Status: Acute Assessment and Plan: Patient developing acute kidney injury with creatinine now 2.1 but stable. Urine studies suggest pre-renal but consider ATN from the septicemia. Avoid nephrotoxins agents. Renal US showing no acute findings (has known left renal masses by CT Mar 2021 concerning for RCC). He was treated with IV fluids but was becoming edematous so these were stopped and Bumex with Albumin started (Albumin level was 2.0). Cr unchanged at 2.2 but BUN better. Will stop Albumin and Bumex today and monitor. Monitor renal function closely. Remove Stein. (4) UTI (urinary tract infection): Code(s): N39.0 - Urinary tract infection, site not specified Status: Acute Assessment and Plan: UA noted. UCx growing MRSA. Suspect hematologic spread. As above. (5) Diabetes mellitus: Code(s): E11.9 - Type 2 diabetes mellitus without complications Status: Acute Assessment and Plan: A1c 8.4. The patient's blood glucose was reviewed on 05/14 This is a new diagnosis for this patient. Glucose remains reasonably well controlled. Continue AccuCheks covering with sliding scale. Hypoglycemia protocol available as needed. Continue current medications. Consult Diab Educator and Male Impersonator. (6) Hyponatremia: Code(s): E87.1 - Hypo-osmolality and hyponatremia Status: Acute Assessment and Plan: Patient developing hyponatremia to 120. Sarah <5 with FENa 0.07% to suggest pre-renal. Treated with IV fluids and Na tablets. Sodium better at 129. As above. (7) Hypertension: Qualifiers: Hypertension type: essential hypertension Qualified Code(s): I10 - Essential (primary) hypertension Code(s): I10 - Essential (primary) hypertension Status: Acute Assessment and Plan: Patient's blood pressure was reviewed on 05/14 Blood pressure remains well controlled. Home medications on hold (8) Benign prostatic hyperplasia: Code(s): N40.0 - Benign prostatic hyperplasia without lower urinary tract symptoms Status: Acute Assessment and Plan: Stable. Stein catheter remains in place. Continue Flomax. Remove Stein today. (9) Obstructive sleep apnea on CPAP: Code(s): G47.33 - Obstructive sleep apnea (adult) (pediatric); Z99.89 - Dependence on other enabling machines and devices
[2021-05-14 12:09] LABS: Glucose Point of Care 206 mg/dl (65-105)
[2021-05-14] MEDS: INSULIN ASPART (*BKC) 100 UNITS/ML SUB-Q (12:12)
[2021-05-14] MEDS: POTASSIUM CHLORIDE 20 MEQ TABLET PO (14:42)
--- NOTE | 2021-05-14 16:01 | PCOTNOTE ---
Attempted to see patient, patient with manager critical care in AM and later with DIGITAL EDITOR in PM. Will continue plan of care tomorrow, 05/15/21.
--- NOTE | 2021-05-14 16:15 | PCCDE ---
Consult received 05/13 for diabetes education. Pt with new onset DM. Attempted to meet with pt for education but he just received dinner tray and pt c/o being drowsy. He is waiting to have a PICC line before he can be discharged to [facility]. 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 Will plan to see pt on Thursday 05/17 for education.
[2021-05-14 16:35] LABS: Glucose Point of Care 140 mg/dl (65-105)
[2021-05-14 21:07] LABS: Glucose Point of Care 118 mg/dl (65-105)
[2021-05-14] MEDS: INSULIN GLARGINE (*BKC) 100 UNITS/ML 8 UNITS SUB-Q (21:19)
[2021-05-15] VITALS (9 sets, daily range): BP systolic 106–138; BP diastolic 49–81; PULSE 77–95; RESP 16–18; TEMP 36.3–37.2; O2SAT 97–99
[2021-05-15 06:17] LABS: Hematocrit 29.4 % (42.0-52.0); Mean Corpuscular Hemoglobin 29.2 pg (26-34); Mean Platelet Volume 8.9 fl (7.4-10.4); Platelet Count Result 204 k/mm3 (150-375); Red Blood Count 3.42 M/mm3 (4.6-6.20); Red Cell Distribution Width 14.1 % (11.5-14.5)
[2021-05-15 07:01] LABS: Albumin Level 2.2 g/dL (3.5-5.1); Anion Gap 10 mmol/L (8-16); Blood Urea Nitrogen 41 mg/dL (9-20); CRP 14.5 mg/dL (<1.0); Carbon Dioxide 18 mmol/L (22-30); Chloride 100 mmol/L (98-107); Estimated CRCL calculation 46 ml/min; Estimated Glomerular Filt Rate 33; Glucose 124 mg/dL (65-110); Magnesium 2.3 mg/dL (1.6-2.3); Phosphorus 4.6 mg/dL (2.5-4.5); Potassium 3.3 mmol/L (3.4-5.0); Sodium 128 mmol/L (137-145)
[2021-05-15 07:52] LABS: Glucose Point of Care 112 mg/dl (65-105)
[2021-05-15] MEDS: SODIUM CHLORIDE 500 MG TABLET PO ×2 (09:36→16:48)
[2021-05-15] MEDS: TAMSULOSIN HCL 0.4 MG CAPSULE PO (09:36)
[2021-05-15] MEDS: ENOXAPARIN 40 MG/0.4 ML SYRINGE SUB-Q (09:37)
[2021-05-15] MEDS: LIDOCAINE 5% PATCH 1 PATCH TRANSDERM (09:37)
--- NOTE | 2021-05-15 10:28 | PC.NURSE ---
Pt requested, get this ice pack off my knee. Pt educated regarding ice for reducing inflammation and pain. Pt educated in need to elevate knee while sitting the chair. Pt refuses ice and elevation. Pt educated on pain control and the difficulty in achieving pain control when non-medication interventions aren't being used. Pt states, I can't do it. Ice pack removed. Pt c'o cold. Pt provided warmed blanket.
[2021-05-15] MEDS: ATORVASTATIN 10 MG TABLET PO (10:30)
[2021-05-15 11:57] LABS: Glucose Point of Care 185 mg/dl (65-105)
--- NOTE | 2021-05-15 15:20 | PM.IMPN ---
Progress Note: A&P Assessment and Plan (1) Septicemia due to methicillin resistant Staphylococcus aureus: Code(s): A41.02 - Sepsis due to Methicillin resistant Staphylococcus aureus Status: Acute Assessment and Plan: Present on admission with right knee pain and found to have septic arthritis. Also with UTI with MRSA felt to be hematologic spread. BCx have returned positive for MRSA on 05/03, 05/06, 05/08, and 05/10. TTE showing EF 55-60% with grade I diastolic dysfunction and trace valvular disease. No vegetations noted. Septal motion abnormalities related to bundle branch. Fevers early on but now afebrile. WBC now normal. Was on Vanco monotherapy but had persistent positive cultures so changed to Daptomycin 6mg/kg Q24hr from ID recommendations on 05/12. Appreciate ID input. Repeat BCx remain POSITIVE 05/15. (2) Septic arthritis of knee, right: Qualifiers: Septic arthritis organism: staphylococcal Qualified Code(s): M00.061 - Staphylococcal arthritis, right knee Code(s): M00.9 - Pyogenic arthritis, unspecified Status: Acute Assessment and Plan: Patient presents with right knee pain. Lower extremity right venous Doppler was negative for DVT. X-ray showed moderate amount of right knee joint effusion. Arthrocentesis on 05/03 with culture growing MRSA. Patient had incision and drainage with irrigation and debridement right knee joint on 05/06/21. That culture also growing MRSA. Clinically improving. Continue PT/OT. Appreciate Ortho input. (3) Acute kidney injury: Code(s): N17.9 - Acute kidney failure, unspecified Status: Acute Assessment and Plan: Patient developing acute kidney injury with creatinine now 2.1 but stable. Urine studies suggest pre-renal but consider ATN from the septicemia. Avoid nephrotoxins agents. Renal US showing no acute findings (has known left renal masses by CT Mar 2021 concerning for RCC). He was treated with IV fluids but was becoming edematous so these were stopped and Bumex with Albumin started (Albumin level was 2.0). 05/15 creatinine 2.0 (4) UTI (urinary tract infection): Code(s): N39.0 - Urinary tract infection, site not specified Status: Acute Assessment and Plan: UA noted. UCx growing MRSA. Suspect hematologic spread. As above. (5) Diabetes mellitus: Code(s): E11.9 - Type 2 diabetes mellitus without complications Status: Acute Assessment and Plan: A1c 8.4. The patient's blood glucose was reviewed on 05/15 (124). This is a new diagnosis for this patient. Glucose remains reasonably well controlled. Continue AccuCheks covering with sliding scale. Hypoglycemia protocol available as needed. Continue current medications. Consulted Diab Educator and Assistant Infant Toddler Teacher. (6) Hyponatremia: Code(s): E87.1 - Hypo-osmolality and hyponatremia Status: Acute Assessment and Plan: Patient developing hyponatremia to 120. Sarah <5 with FENa 0.07% to suggest pre-renal. Treated with IV fluids and Na tablets. Sodium better at 129 05/14, 05/15 128 (7) Hypertension: Qualifiers: Hypertension type: essential hypertension Qualified Code(s): I10 - Essential (primary) hypertension Code(s): I10 - Essential (primary) hypertension Status: Acute Assessment and Plan: Patient's blood pressure was reviewed on 05/14 Blood pressure remains well controlled. Home medications on hold (8) Benign prostatic hyperplasia: Code(s): N40.0 - Benign prostatic hyperplasia without lower urinary tract symptoms Status: Acute Assessment and Plan: Stable. Stein catheter remains in place. Continue Flomax. Remove Stein today. (9) Obstructive sleep apnea on CPAP: Code(s): G47.33 - Obstructive sleep apnea (adult) (pediatric); Z99.89 - Dependence on other enabling machines and devices Status: Acute Assessment and Plan: Patient is tolerating his CP
[2021-05-15 16:56] LABS: Glucose Point of Care 134 mg/dl (65-105)
[2021-05-15] MEDS: INSULIN GLARGINE (*BKC) 100 UNITS/ML 8 UNITS SUB-Q (20:09)
[2021-05-15] MEDS: HYDROcodone/acetaminophen (*CRX) 7.5-325 MG TABLET 1 TAB PO (20:17)
[2021-05-15 21:16] LABS: Glucose Point of Care 164 mg/dl (65-105)
[2021-05-16] VITALS: BP 119/58; PULSE 89; RESP 20; TEMP 37; O2SAT 96
[2021-05-16 00:23] VITALS: PULSE 81; O2SAT 97
[2021-05-16 06:00] VITALS: BP 110/57; PULSE 73; RESP 18; TEMP 37; O2SAT 98
[2021-05-16 08:12] LABS: Glucose Point of Care 109 mg/dl (65-105)
[2021-05-16] MEDS: TAMSULOSIN HCL 0.4 MG CAPSULE PO (09:36)
[2021-05-16] MEDS: ENOXAPARIN 40 MG/0.4 ML SYRINGE SUB-Q (09:36)
[2021-05-16] MEDS: LIDOCAINE 5% PATCH 1 PATCH TRANSDERM (09:36)
[2021-05-16] MEDS: SODIUM CHLORIDE 500 MG TABLET PO ×2 (09:36→17:24)
[2021-05-16] MEDS: ATORVASTATIN 10 MG TABLET PO (09:36)
--- NOTE | 2021-05-16 10:54 | PM.IMPN ---
Progress Note: A&P Assessment and Plan (1) Septicemia due to methicillin resistant Staphylococcus aureus: Code(s): A41.02 - Sepsis due to Methicillin resistant Staphylococcus aureus Status: Acute Assessment and Plan: Present on admission with right knee pain and found to have septic arthritis. Also with UTI with MRSA felt to be hematologic spread. BCx have returned positive for MRSA on 05/03, 05/06, 05/08, and 05/10. TTE showing EF 55-60% with grade I diastolic dysfunction and trace valvular disease. No vegetations noted. Septal motion abnormalities related to bundle branch. Fevers early on but now afebrile. WBC now normal. Was on Vanco monotherapy but had persistent positive cultures so changed to Daptomycin 6mg/kg Q24hr from ID recommendations on 05/12. Appreciate ID input. Repeat BCx remain POSITIVE 05/15. F/u blood cx ordered for 05/17. (2) Septic arthritis of knee, right: Qualifiers: Septic arthritis organism: staphylococcal Qualified Code(s): M00.061 - Staphylococcal arthritis, right knee Code(s): M00.9 - Pyogenic arthritis, unspecified Status: Acute Assessment and Plan: Patient presents with right knee pain. Lower extremity right venous Doppler was negative for DVT. X-ray showed moderate amount of right knee joint effusion. Arthrocentesis on 05/03 with culture growing MRSA. Patient had incision and drainage with irrigation and debridement right knee joint on 05/06/21. That culture also growing MRSA. Clinically improving. Continue PT/OT. Appreciate Ortho input. (3) Acute kidney injury: Code(s): N17.9 - Acute kidney failure, unspecified Status: Acute Assessment and Plan: Patient developing acute kidney injury with creatinine now 2.1 but stable. Urine studies suggest pre-renal but consider ATN from the septicemia. Avoid nephrotoxins agents. Renal US showing no acute findings (has known left renal masses by CT Mar 2021 concerning for RCC). He was treated with IV fluids but was becoming edematous so these were stopped and Bumex with Albumin started (Albumin level was 2.0). 05/15 creatinine 2.0 (4) UTI (urinary tract infection): Code(s): N39.0 - Urinary tract infection, site not specified Status: Acute Assessment and Plan: UA noted. UCx growing MRSA. Suspect hematologic spread. As above. (5) Diabetes mellitus: Code(s): E11.9 - Type 2 diabetes mellitus without complications Status: Acute Assessment and Plan: A1c 8.4. The patient's blood glucose was reviewed on 05/16 (109). This is a new diagnosis for this patient. Glucose remains reasonably well controlled. Continue AccuCheks covering with sliding scale. Hypoglycemia protocol available as needed. Continue current medications. Consulted Diab Educator and Property Underwriter. (6) Hyponatremia: Code(s): E87.1 - Hypo-osmolality and hyponatremia Status: Acute Assessment and Plan: Patient developing hyponatremia to 120. Sarah <5 with FENa 0.07% to suggest pre-renal. Treated with IV fluids and Na tablets. Sodium better at 129 05/14, 05/15 128 (7) Hypertension: Qualifiers: Hypertension type: essential hypertension Qualified Code(s): I10 - Essential (primary) hypertension Code(s): I10 - Essential (primary) hypertension Status: Acute Assessment and Plan: Patient's blood pressure was reviewed on 05/16 Blood pressure remains well controlled. Home medications on hold (8) Benign prostatic hyperplasia: Code(s): N40.0 - Benign prostatic hyperplasia without lower urinary tract symptoms Status: Acute Assessment and Plan: Stable. Stein catheter remains in place. Continue Flomax. Remove Stein today. (9) Obstructive sleep apnea on CPAP: Code(s): G47.33 - Obstructive sleep apnea (adult) (pediatric); Z99.89 - Dependence on other enabling machines and devices Status: Acute Assessment and
[2021-05-16 11:45] LABS: Glucose Point of Care 166 mg/dl (65-105)
[2021-05-16 15:15] VITALS: BP 125/57; PULSE 94; RESP 18; TEMP 36.8; O2SAT 100
[2021-05-16 16:38] LABS: Glucose Point of Care 165 mg/dl (65-105)
[2021-05-16 19:48] VITALS: BP 120/59; PULSE 80; RESP 16; TEMP 37.1; O2SAT 100
[2021-05-16] MEDS: INSULIN GLARGINE (*BKC) 100 UNITS/ML 8 UNITS SUB-Q (21:47)
[2021-05-16 22:20] LABS: Glucose Point of Care 178 mg/dl (65-105)
[2021-05-16 22:24] VITALS: PULSE 72; O2SAT 96
[2021-05-17] VITALS: BP 95/50; PULSE 78; RESP 18; TEMP 37.2; O2SAT 98
[2021-05-17 05:57] LABS: Hematocrit 28.2 % (42.0-52.0); Hemoglobin 9.3 g/dL (14.0-18.0); Mean Corpuscular Hemoglobin 28.3 pg (26-34); Mean Corpuscular Volume 85.7 fl (80-100); Mean Platelet Volume 8.8 fl (7.4-10.4); Platelet Count Result 203 k/mm3 (150-375); Red Blood Count 3.29 M/mm3 (4.6-6.20); Red Cell Distribution Width 14.3 % (11.5-14.5); White Blood Count 6.6 K/mm3 (4.5-10.0)
[2021-05-17 06:00] VITALS: BP 132/82; PULSE 78; RESP 20; TEMP 37; O2SAT 97
[2021-05-17 06:06] LABS: Anion Gap 3 mmol/L (8-16); Blood Urea Nitrogen 30 mg/dL (9-20); Calcium 7.4 mg/dL (8.4-10.2); Carbon Dioxide 24 mmol/L (22-30); Chloride 106 mmol/L (98-107); Estimated CRCL calculation 50 ml/min; Estimated Glomerular Filt Rate 37; Glucose 139 mg/dL (65-110); Potassium 3.9 mmol/L (3.4-5.0); Sodium 133 mmol/L (137-145)
--- NOTE | 2021-05-17 07:40 | PCNSR ---
On 05/17/21, the student,Mallory Costello, provided care and completed [facility] documentation on this patient. I have reviewed the student's documentation and agree with the findings.
[2021-05-17 07:56] LABS: Glucose Point of Care 125 mg/dl (65-105)
[2021-05-17] MEDS: TAMSULOSIN HCL 0.4 MG CAPSULE PO (09:23)
[2021-05-17] MEDS: LIDOCAINE 5% PATCH 1 PATCH TRANSDERM (09:23)
[2021-05-17] MEDS: ENOXAPARIN 40 MG/0.4 ML SYRINGE SUB-Q (09:23)
[2021-05-17] MEDS: ATORVASTATIN 10 MG TABLET PO (09:23)
[2021-05-17] MEDS: SODIUM CHLORIDE 500 MG TABLET PO (09:23)
[2021-05-17 12:03] LABS: Glucose Point of Care 130 mg/dl (65-105)
--- NOTE | 2021-05-17 12:30 | PM.IMPN ---
Progress Note: A&P Assessment and Plan (1) Septicemia due to methicillin resistant Staphylococcus aureus: Code(s): A41.02 - Sepsis due to Methicillin resistant Staphylococcus aureus Status: Acute Assessment and Plan: Present on admission with right knee pain and found to have septic arthritis. Also with UTI with MRSA felt to be hematologic spread. BCx have returned positive for MRSA on 05/03, 05/06, 05/08, and 05/10. TTE showing EF 55-60% with grade I diastolic dysfunction and trace valvular disease. No vegetations noted. Septal motion abnormalities related to bundle branch. Fevers early on but now afebrile. WBC now normal. Was on Vanco monotherapy but had persistent positive cultures so changed to Daptomycin 6mg/kg Q24hr from ID recommendations on 05/12. BCx repeated on 05/14 but these are also positive. BCx drawn again today. Appreciate ID input. Will add ceftaroline to the regiment. Continue Daptomycin and advance to 8mg/kg Q24hr. Discussed. (2) Septic arthritis of knee, right: Qualifiers: Septic arthritis organism: staphylococcal Qualified Code(s): M00.061 - Staphylococcal arthritis, right knee Code(s): M00.9 - Pyogenic arthritis, unspecified Status: Acute Assessment and Plan: Patient presents with right knee pain. Lower extremity right venous Doppler was negative for DVT. X-ray showed moderate amount of right knee joint effusion. Arthrocentesis on 05/03 with culture growing MRSA. Patient had incision and drainage with irrigation and debridement right knee joint on 05/06/21. That culture also growing MRSA. Clinically improving and now walking with walker. Continue PT/OT. Appreciate Ortho input. (3) Acute kidney injury: Code(s): N17.9 - Acute kidney failure, unspecified Status: Acute Assessment and Plan: Patient developing acute kidney injury with creatinine now 2.1 but stable. Urine studies suggest pre-renal but consider ATN from the septicemia. Avoid nephrotoxins agents. Renal US showing no acute findings (has known left renal masses by CT Mar 2021 concerning for RCC). He was treated with IV fluids but was becoming edematous so these were stopped and Bumex with Albumin started (Albumin level was 2.0). Creatinine has improved to 1.8. Minimal edema noted. Continue to follow. (4) UTI (urinary tract infection): Code(s): N39.0 - Urinary tract infection, site not specified Status: Acute Assessment and Plan: UA noted. UCx growing MRSA. Suspect hematologic spread. As above. (5) Diabetes mellitus: Code(s): E11.9 - Type 2 diabetes mellitus without complications Status: Acute Assessment and Plan: A1c 8.4. The patient's blood glucose was reviewed on 05/17 This is a new diagnosis for this patient. Glucose remains reasonably well controlled. Continue AccuCheks covering with sliding scale. Hypoglycemia protocol available as needed. Continue current medications. Diab Educator and Engineering Project Manager were consulted. (6) Hyponatremia: Code(s): E87.1 - Hypo-osmolality and hyponatremia Status: Acute Assessment and Plan: Patient developing hyponatremia to 120. Sarah <5 with FENa 0.07% to suggest pre-renal. Treated with IV fluids and Na tablets. Sodium better at 133 today. Will cut NaCl tablets to once daily (7) Hypertension: Qualifiers: Hypertension type: essential hypertension Qualified Code(s): I10 - Essential (primary) hypertension Code(s): I10 - Essential (primary) hypertension Status: Acute Assessment and Plan: Patient's blood pressure was reviewed on 05/17 Blood pressure remains well controlled. Home medications on hold (8) Benign prostatic hyperplasia: Code(s): N40.0 - Benign prostatic hyperplasia without lower urinary tract symptoms Status: Acute Assessment and Plan: Stable. Stein catheter has been removed and voiding normally. Continue Flomax.
--- NOTE | 2021-05-17 15:02 | PM.PNORT ---
Progress Note: A&P Assessment and Plan (1) Septic arthritis of knee, right: Qualifiers: Septic arthritis organism: staphylococcal Qualified Code(s): M00.061 - Staphylococcal arthritis, right knee Code(s): M00.9 - Pyogenic arthritis, unspecified Status: Acute Assessment and Plan: POD #11: I&D Right Knee due to septic arthritis Continue PT/OT. WBAT. Walker. Encourage ROM as tolerated. Pillow from calf down. Ice knee. Monitor dressing. Change drain site dressing daily and PRN. Continue pain control. Blood cultures with MRSA on 11, 11, 05/08, 05/10, 12. Hospitalist/ID monitoring antibiotic regimen. New cultures obtained today, pending. Dispo: Discharge to SNF when medically stable. Ortho follow up arranged. (2) DJD of shoulder: Qualifiers: Osteoarthritis type: primary Laterality: right Qualified Code(s): M19.011 - Primary osteoarthritis, right shoulder Code(s): M19.019 - Primary osteoarthritis, unspecified shoulder Status: Acute Assessment and Plan: Repeat shoulder radiographs reveal no evidence of acute effusion. No new changes from previous. PT/OT for strengthening and ROM. Pain medication as needed. (3) Bacteremia: Code(s): R78.81 - Bacteremia Status: Acute (4) Diabetes type 2, uncontrolled: Code(s): E11.65 - Type 2 diabetes mellitus with hyperglycemia Status: Acute (5) Acute kidney injury: Code(s): N17.9 - Acute kidney failure, unspecified Status: Acute (6) Acute UTI: Code(s): N39.0 - Urinary tract infection, site not specified Status: Acute Subjective Subjective Date/Time Seen: 05/17/21 15:02 Interval history: POD #11: I&D Right Knee Continued improvement in right knee pain, ambulating with walker better. ROM improving. Up in chair. Feeling better overall. Review of Systems Constitutional: Constitutional: Reports as per HPI Cardiovascular: Cardiovascular: Denies chest pain, Reports leg edema, Denies lightheadedness and Denies palpitations Respiratory: Respiratory: Denies dyspnea and Denies wheezing Gastrointestinal: Gastrointestinal: Reports bloating, Denies diarrhea, Denies nausea and Denies vomiting Genitourinary: Comments: Stein Catheter in place Musculoskeletal: Musculoskeletal: Reports as per HPI Exam Const: General: comfortable Resp: Effort & Inspection: normal respiratory effort Urinary Catheter: Urinary Catheter: patent and draining Skin: Wounds: wounds noted (see extremity assessment ) Neuro: General: No gait normal Motor exam (neuro): strength not 5/5 throughout and strength normal Sensory Exam: normal sensation Other: Answering questions appropriately. Extrem: Right upper extremity: shoulder/upper arm normal to inspection, tenderness of the proximal humerus and of the mid-shaft humerus, axillary nerve sensory function normal and abnormal ROM pain with active ROM in extension, in flexion, in internal rotation and external rotation-, pain with passive ROM with extension, with flexion, with internal rotation and external rotation- and with range as follows (FF: 125, IR: Hip ); no swelling, no lacerations, no ecchymosis, no crepitus and no deformity and elbow/forearm normal to inspection and normal ROM; no tenderness and no swelling Right lower extremity: knee Details: tenderness (diffuse ), swelling (mild ), abnormal ROM Details: pain with active ROM during Details: in flexion, pain with passive ROM during Details: in flexion and with range as follows (0-90 degrees, difficulty with full extension when OOB in chair. ), abrasion (drain site wound ) and warmth (mild ) Location: of the entire knee joint (improving ); ROM abnormal, no ecchymosis and no crepitus, lower leg (Negative Gage's Sign ) Details: pitting edema Details: 2+; no ecchymosis, ankle (+ankle dorsiflexion/plantarflexion. ) Details: swelling Details: diffusely and foot (2+ pedal pulses. ) Details: edema (entire
[2021-05-17 16:24] LABS: Glucose Point of Care 119 mg/dl (65-105)
[2021-05-17] MEDS: INSULIN GLARGINE (*BKC) 100 UNITS/ML 8 UNITS SUB-Q (22:09)
[2021-05-17 22:30] VITALS: PULSE 73; RESP 14; O2SAT 97
[2021-05-17 22:32] LABS: Glucose Point of Care 122 mg/dl (65-105)
[2021-05-17 23:29] VITALS: BP 102/52; PULSE 67; RESP 20; TEMP 36.1; O2SAT 93
[2021-05-18 01:56] VITALS: PULSE 70; RESP 16; O2SAT 94
[2021-05-18 06:01] LABS: Basophils Absolute Auto 0.1 K/mm3 (0.0-0.1); Basophils Percent Auto 0.9 % (0.2-1.2); Hematocrit 27.1 % (42.0-52.0); Hemoglobin 8.9 g/dL (14.0-18.0); Immature Granulocyte Absolute 0.04 K/mm3 (0.00-0.031); Immature Granulocyte Percent A 0.6 % (0-0.5); Lymphocytes Absolute Auto 0.91 K/mm3 (0.9-3.2); Lymphocytes Percent Auto 12.9 % (18.3-44.2); Mean Corpuscular HGB Conc 32.8 g/dl (32-36); Mean Corpuscular Hemoglobin 28.1 pg (26-34); Mean Corpuscular Volume 85.5 fl (80-100); Monocytes Absolute Auto 0.5 K/mm3 (0.1-0.6); Monocytes Percent Auto 7.4 % (2.6-8.5); Neutrophils Absolute Auto 5.5 K/mm3 (1.3-6.7); Neutrophils Percent Auto 78.2 % (45.5-73.1); Platelet Count Result 182 k/mm3 (150-375); Red Blood Count 3.17 M/mm3 (4.6-6.20); Red Cell Distribution Width 14.4 % (11.5-14.5); White Blood Count 7.1 K/mm3 (4.5-10.0)
[2021-05-18 06:04] VITALS: BP 109/59; PULSE 62; RESP 18; TEMP 36.1; O2SAT 98
[2021-05-18 06:14] LABS: Alanine Aminotransferase 18 U/L (4-50); Albumin Level 2.2 g/dL (3.5-5.1); Alkaline Phosphatase 79 U/L (38-126); Anion Gap 5 mmol/L (8-16); Aspartate Amino Transferase 34 U/L (17-59); Bilirubin,Total 0.6 mg/dL (0.2-1.3); Blood Urea Nitrogen 25 mg/dL (9-20); CRP 8.3 mg/dL (<1.0); Calcium 7.3 mg/dL (8.4-10.2); Carbon Dioxide 23 mmol/L (22-30); Chloride 102 mmol/L (98-107); Estimated CRCL calculation 50 ml/min; Estimated Glomerular Filt Rate 37; Glucose 128 mg/dL (65-110); Phosphorus 4.4 mg/dL (2.5-4.5); Potassium 3.9 mmol/L (3.4-5.0); Sodium 130 mmol/L (137-145)
[2021-05-18] MEDS: ONDANSETRON INJ 4 MG/2 ML VIAL IV PUSH ×2 (07:50→21:19)
[2021-05-18] MEDS: ENOXAPARIN 40 MG/0.4 ML SYRINGE SUB-Q (08:24)
[2021-05-18] MEDS: ATORVASTATIN 10 MG TABLET PO (08:25)
[2021-05-18] MEDS: LIDOCAINE 5% PATCH 1 PATCH TRANSDERM (08:25)
[2021-05-18] MEDS: SODIUM CHLORIDE 500 MG TABLET PO (08:25)
[2021-05-18] MEDS: TAMSULOSIN HCL 0.4 MG CAPSULE PO (08:25)
--- NOTE | 2021-05-18 09:12 | PM.IMPN ---
Progress Note: A&P Assessment and Plan (1) Septicemia due to methicillin resistant Staphylococcus aureus: Code(s): A41.02 - Sepsis due to Methicillin resistant Staphylococcus aureus Status: Acute Assessment and Plan: Present on admission with right knee pain and found to have septic arthritis. Also with UTI with MRSA felt to be hematologic spread. BCx have returned positive for MRSA on 05/03, 05/06, 05/08, and 05/10. TTE showing EF 55-60% with grade I diastolic dysfunction and trace valvular disease. No vegetations noted. Septal motion abnormalities related to bundle branch. Fevers early on but now afebrile. WBC now normal and CRP trending down. Was on Vanco monotherapy but had persistent positive cultures so changed to Daptomycin 6mg/kg Q24hr from ID recommendations on 05/12. BCx repeated on 05/14 but these are also positive for MRSA. BCx drawn again 05/17 and pending. Ceftaroline added and Daptomycin advance to 8mg/kg Q24hr on 05/17. Appreciate ID input. Follow-up repeat blood cultures. (2) Septic arthritis of knee, right: Qualifiers: Septic arthritis organism: staphylococcal Qualified Code(s): M00.061 - Staphylococcal arthritis, right knee Code(s): M00.9 - Pyogenic arthritis, unspecified Status: Acute Assessment and Plan: Patient presents with right knee pain. Lower extremity right venous Doppler was negative for DVT. X-ray showed moderate amount of right knee joint effusion. Arthrocentesis on 05/03 with culture growing MRSA. Patient had incision and drainage with irrigation and debridement right knee joint on 05/06/21. That culture also growing MRSA. Clinically improving and now walking with walker. Encourage patient to be walking. Continue PT/OT. Appreciate Ortho input. (3) Acute kidney injury: Code(s): N17.9 - Acute kidney failure, unspecified Status: Acute Assessment and Plan: Patient developing acute kidney injury with creatinine now 2.1 but stable. Urine studies suggest pre-renal but consider ATN from the septicemia. Avoid nephrotoxins agents. Renal US showing no acute findings (has known left renal masses by CT Mar 2021 concerning for RCC). He was treated with IV fluids but was becoming edematous so these were stopped and Bumex with Albumin started (Albumin level was 2.0). Creatinine has improved to 1.8 but albumin still at 2.2. Minimal edema noted. LFTs okay. No diarrhea to suggest protein losing enteropathy. Will repeat UA to asses protein output with spot. Continue to follow. (4) UTI (urinary tract infection): Code(s): N39.0 - Urinary tract infection, site not specified Status: Acute Assessment and Plan: UA noted. UCx growing MRSA. Suspect hematologic spread. As above. (5) Diabetes mellitus: Code(s): E11.9 - Type 2 diabetes mellitus without complications Status: Acute Assessment and Plan: A1c 8.4. The patient's blood glucose was reviewed on 05/18 This is a new diagnosis for this patient. Glucose remains well controlled. Continue AccuCheks covering with sliding scale. Hypoglycemia protocol available as needed. Continue current medications. Diab Educator and Cripple Chaser were consulted. Continue diabetic diet. (6) Hyponatremia: Code(s): E87.1 - Hypo-osmolality and hyponatremia Status: Acute Assessment and Plan: Patient developing hyponatremia to 120. Sarah <5 with FENa 0.07% to suggest pre-renal. Treated with IV fluids and Na tablets. Sodium was better at 133 yesterday so NaCl tablets were decreased to once daily. Sodium 130 today. Monitor for now. (7) Hypertension: Qualifiers: Hypertension type: essential hypertension Qualified Code(s): I10 - Essential (primary) hypertension Code(s): I10 - Essential (primary) hypertension Status: Acute Assessment and Plan: Patient's blood pressure was reviewed on 05/18 Blood pressure remains well controlled. Home medic
[2021-05-18 11:47] LABS: Glucose Point of Care 139 mg/dl (65-105)
[2021-05-18 12:04] LABS: Add Urine Microscopic? YES; Appearance Urine Cloudy (Clear); Bacteria Urine Trace /hpf; Bilirubin Urine Negative (Negative); Blood Urine Negative (Negative); Color Urine Yellow (Yellow); Glucose Urine UA Negative (Negative); Ketones Urine Negative (Negative); Leukocyte Esterase Ur Trace LEU/UL (Negative); Mucus Urine Rare /lpf; Nitrate Urine Negative (Negative); Protein Urine Negative (Negative); Specific Grav Ur 1.011 (1.001-1.035); Squamous Epithelial Cell Urine Rare /hpf (Few); Urobilinogen Urine Negative mg/dL (<2.0)
[2021-05-18 12:18] LABS: Creatinine Urine 90.5 mg/dL; Total Protein Urine Random 18 mg/dL
[2021-05-18 14:00] VITALS: BP 104/50; PULSE 76; RESP 18; TEMP 36.4; O2SAT 96
[2021-05-18 16:40] LABS: Glucose Point of Care 163 mg/dl (65-105)
[2021-05-18 20:12] VITALS: O2SAT 97
[2021-05-18] MEDS: INSULIN GLARGINE (*BKC) 100 UNITS/ML 8 UNITS SUB-Q (20:40)
[2021-05-18 21:47] VITALS: BP 118/57; PULSE 71; RESP 18; TEMP 36.3; O2SAT 96
[2021-05-18 22:06] LABS: Glucose Point of Care 185 mg/dl (65-105)
[2021-05-18 22:07] VITALS: PULSE 72; RESP 16; O2SAT 96
[2021-05-19 02:06] VITALS: PULSE 70; RESP 16; O2SAT 96
[2021-05-19 05:26] VITALS: BP 125/53; PULSE 73; RESP 20; TEMP 36.3; O2SAT 96
[2021-05-19 05:38] LABS: Basophils Absolute Auto 0.1 K/mm3 (0.0-0.1); Basophils Percent Auto 0.9 % (0.2-1.2); Eosinophils Absolute Auto 0.2 K/mm3 (0-0.3); Eosinophils Percent Auto 2.7 % (0-4.4); Hematocrit 28.5 % (42.0-52.0); Hemoglobin 9.3 g/dL (14.0-18.0); Immature Granulocyte Absolute 0.04 K/mm3 (0.00-0.031); Immature Granulocyte Percent A 0.6 % (0-0.5); Lymphocytes Absolute Auto 0.94 K/mm3 (0.9-3.2); Mean Corpuscular HGB Conc 32.6 g/dl (32-36); Mean Corpuscular Hemoglobin 28.2 pg (26-34); Mean Corpuscular Volume 86.4 fl (80-100); Mean Platelet Volume 9.1 fl (7.4-10.4); Monocytes Absolute Auto 0.5 K/mm3 (0.1-0.6); Monocytes Percent Auto 7.6 % (2.6-8.5); Neutrophils Percent Auto 74.2 % (45.5-73.1); Platelet Count Result 178 k/mm3 (150-375); Red Cell Distribution Width 14.4 % (11.5-14.5); White Blood Count 6.7 K/mm3 (4.5-10.0)
[2021-05-19] MEDS: ONDANSETRON INJ 4 MG/2 ML VIAL IV PUSH (05:45)
[2021-05-19 06:03] LABS: Albumin Level 2.3 g/dL (3.5-5.1); Anion Gap 6 mmol/L (8-16); Blood Urea Nitrogen 21 mg/dL (9-20); Calcium 7.4 mg/dL (8.4-10.2); Carbon Dioxide 23 mmol/L (22-30); Chloride 102 mmol/L (98-107); Estimated CRCL calculation 50 ml/min; Estimated Glomerular Filt Rate 37; Glucose 138 mg/dL (65-110); Phosphorus 4.7 mg/dL (2.5-4.5); Potassium 4.3 mmol/L (3.4-5.0); Sodium 131 mmol/L (137-145)
[2021-05-19 07:04] LABS: Folic Acid 7.6 ng/mL (2.76->20)
[2021-05-19 07:51] LABS: Glucose Point of Care 120 mg/dl (65-105)
[2021-05-19 08:44] LABS: Iron 12 ug/dL (49-181)
[2021-05-19 08:54] LABS: Percent Iron Saturation 8 % (20-50)
[2021-05-19] MEDS: ATORVASTATIN 10 MG TABLET PO (09:59)
[2021-05-19] MEDS: SODIUM CHLORIDE 500 MG TABLET PO (10:00)
[2021-05-19] MEDS: TAMSULOSIN HCL 0.4 MG CAPSULE PO (10:00)
[2021-05-19] MEDS: LIDOCAINE 5% PATCH 1 PATCH TRANSDERM (10:04)
[2021-05-19] MEDS: ENOXAPARIN 40 MG/0.4 ML SYRINGE SUB-Q (10:08)
[2021-05-19 11:47] LABS: Glucose Point of Care 126 mg/dl (65-105)
--- NOTE | 2021-05-19 11:51 | PCOTNOTE ---
Attempted patient 2x this date. First attempt with MATERIALS MANAGER second attempt eating lunch.
[2021-05-19 14:11] VITALS: BP 123/62; PULSE 90; RESP 14; TEMP 36.6; O2SAT 97
--- NOTE | 2021-05-19 14:18 | PM.IMPN ---
Progress Note: A&P Assessment and Plan (1) Septicemia due to methicillin resistant Staphylococcus aureus: Code(s): A41.02 - Sepsis due to Methicillin resistant Staphylococcus aureus Status: Acute Assessment and Plan: Present on admission with right knee pain and found to have septic arthritis. Also with UTI with MRSA felt to be hematologic spread. BCx have returned positive for MRSA on 05/03, 05/06, 05/08, and 05/10. TTE showing EF 55-60% with grade I diastolic dysfunction and trace valvular disease. No vegetations noted. Septal motion abnormalities related to bundle branch. Fevers early on but now afebrile. WBC now normal and CRP trending down. Was on Vanco monotherapy but had persistent positive cultures so changed to Daptomycin 6mg/kg Q24hr from ID recommendations on 05/12. BCx repeated on 05/14 but these are also positive for MRSA. BCx drawn again 05/17 and are NGTD. Ceftaroline added and Daptomycin advance to 8mg/kg Q24hr on 05/17. Appreciate ID input. Place PICC line for outpatient IV abx. (2) Septic arthritis of knee, right: Qualifiers: Septic arthritis organism: staphylococcal Qualified Code(s): M00.061 - Staphylococcal arthritis, right knee Code(s): M00.9 - Pyogenic arthritis, unspecified Status: Acute Assessment and Plan: Patient presents with right knee pain. Lower extremity right venous Doppler was negative for DVT. X-ray showed moderate amount of right knee joint effusion. Arthrocentesis on 05/03 with culture growing MRSA. Patient had incision and drainage with irrigation and debridement right knee joint on 05/06/21. That culture also growing MRSA. Clinically improving and now walking with walker. Encourage patient to be walking. Continue PT/OT. Appreciate Ortho input. (3) Acute kidney injury: Code(s): N17.9 - Acute kidney failure, unspecified Status: Acute Assessment and Plan: Patient developing acute kidney injury with creatinine now 2.1 but stable. Urine studies suggest pre-renal but consider ATN from the septicemia. Avoid nephrotoxins agents. Renal US showing no acute findings (has known left renal masses by CT Mar 2021 concerning for RCC). He was treated with IV fluids but was becoming edematous so these were stopped and Bumex with Albumin started (Albumin level was 2.0). Creatinine has improved to 1.8 but albumin still at 2.3. Minimal edema noted. LFTs okay. No diarrhea to suggest protein losing enteropathy. UA not showing proteinuria. Low albumin related to poor oral intake. Continue to follow. (4) UTI (urinary tract infection): Code(s): N39.0 - Urinary tract infection, site not specified Status: Acute Assessment and Plan: UA noted. UCx growing MRSA. Suspect hematologic spread. As above. (5) Diabetes mellitus: Code(s): E11.9 - Type 2 diabetes mellitus without complications Status: Acute Assessment and Plan: A1c 8.4. The patient's blood glucose was reviewed on 05/19 This is a new diagnosis for this patient. Glucose remains well controlled. Continue AccuCheks covering with sliding scale. Hypoglycemia protocol available as needed. Continue current medications. Diab Educator and Jazz Singer were consulted. Discussed with personal development educator. Continue diabetic diet. (6) Hyponatremia: Code(s): E87.1 - Hypo-osmolality and hyponatremia Status: Acute Assessment and Plan: Patient developing hyponatremia to 120. Sarah <5 with FENa 0.07% to suggest pre-renal. Treated with IV fluids and Na tablets. Sodium was better in the low 130's. Monitor for now. (7) Hypertension: Qualifiers: Hypertension type: essential hypertension Qualified Code(s): I10 - Essential (primary) hypertension Code(s): I10 - Essential (primary) hypertension Status: Acute Assessment and Plan: Patient's blood pressure was reviewed on 05/19 Blood pressure remains well controlled. Home medica
--- NOTE | 2021-05-19 15:41 | PC.NURSE ---
On 05/19/21, the student, [COURTNEY], provided care and completed [facility] documentation on this patient. I have reviewed the student's documentation and agree with the findings.
[2021-05-19] MEDS: LIDOCAINE HCL 1% PF INJ 5 ML VIAL INFILTRATE (16:40)
[2021-05-19 18:11] LABS: Glucose Point of Care 123 mg/dl (65-105)
[2021-05-19] MEDS: CENTRAL LINE FLUSH 10 ML IV PUSH ×2 (19:04→21:58)
[2021-05-19 20:24] VITALS: O2SAT 97
[2021-05-19 21:28] VITALS: BP 130/65; PULSE 83; RESP 16; TEMP 37.3; O2SAT 96
[2021-05-19] MEDS: INSULIN GLARGINE (*BKC) 100 UNITS/ML 8 UNITS SUB-Q (21:56)
[2021-05-19 22:12] LABS: Glucose Point of Care 172 mg/dl (65-105)
[2021-05-19 22:33] VITALS: PULSE 78; RESP 16; O2SAT 95
[2021-05-20 01:04] VITALS: BP 111/65; PULSE 93; RESP 18; TEMP 37.1; O2SAT 97
[2021-05-20] MEDS: CENTRAL LINE FLUSH 10 ML IV PUSH ×2 (06:21→14:40)
[2021-05-20 06:51] LABS: Hematocrit 29.2 % (42.0-52.0); Hemoglobin 9.4 g/dL (14.0-18.0); Mean Corpuscular HGB Conc 32.2 g/dl (32-36); Mean Corpuscular Volume 86.9 fl (80-100); Mean Platelet Volume 9.5 fl (7.4-10.4); Platelet Count Result 153 k/mm3 (150-375); Red Blood Count 3.36 M/mm3 (4.6-6.20); Red Cell Distribution Width 14.3 % (11.5-14.5); White Blood Count 5.8 K/mm3 (4.5-10.0)
[2021-05-20 07:05] LABS: Anion Gap 4 mmol/L (8-16); Blood Urea Nitrogen 20 mg/dL (9-20); Calcium 7.7 mg/dL (8.4-10.2); Carbon Dioxide 27 mmol/L (22-30); Chloride 101 mmol/L (98-107); Estimated CRCL calculation 45 ml/min; Estimated Glomerular Filt Rate 33; Glucose 125 mg/dL (65-110); Potassium 4.2 mmol/L (3.4-5.0); Sodium 132 mmol/L (137-145)
[2021-05-20 07:51] LABS: Glucose Point of Care 113 mg/dl (65-105)
[2021-05-20] MEDS: SODIUM CHLORIDE 500 MG TABLET PO (08:43)
[2021-05-20] MEDS: LIDOCAINE 5% PATCH 1 PATCH TRANSDERM (08:44)
[2021-05-20] MEDS: TAMSULOSIN HCL 0.4 MG CAPSULE PO (08:44)
[2021-05-20] MEDS: ENOXAPARIN 40 MG/0.4 ML SYRINGE SUB-Q (08:44)
[2021-05-20] MEDS: ATORVASTATIN 10 MG TABLET PO (08:44)
--- NOTE | 2021-05-20 09:12 | PM.PNORT ---
Progress Note: A&P Assessment and Plan (1) Septic arthritis of knee, right: Qualifiers: Septic arthritis organism: staphylococcal Qualified Code(s): M00.061 - Staphylococcal arthritis, right knee Code(s): M00.9 - Pyogenic arthritis, unspecified Status: Acute Assessment and Plan: POD #14: I&D Right Knee due to septic arthritis Continue PT/OT. WBAT. Walker. Encourage ROM as tolerated. Pillow from calf down while in bed to elevate. Ice knee. Monitor dressing. Plan for change today. Possible staple removal pending assessment. Continue pain control. Preliminary blood cultures from 05/17 with NGTD. Urine culture negative. Hospitalist/ID monitoring antibiotic regimen. PICC line placement, antibiotics and discharge per hospitalist. Dispo: SNF when medically stable. Ortho follow up arranged. (2) Septicemia due to methicillin resistant Staphylococcus aureus: Code(s): A41.02 - Sepsis due to Methicillin resistant Staphylococcus aureus Status: Acute Assessment and Plan: Antibiotics deferred to hospitalist/ID. (3) DJD of shoulder: Qualifiers: Osteoarthritis type: primary Laterality: right Qualified Code(s): M19.011 - Primary osteoarthritis, right shoulder Code(s): M19.019 - Primary osteoarthritis, unspecified shoulder Status: Acute Assessment and Plan: PT/OT. Follow up as needed. Subjective Subjective Date/Time Seen: 05/20/21 09:12 Interval history: POD #14: I&D Right Knee Continued improvement in right knee pain, ambulating with walker better. ROM with marked improvement. Up in chair. Patient happy with progress in regards to knee. Review of Systems Constitutional: Constitutional: Reports as per HPI Cardiovascular: Cardiovascular: Denies chest pain, Reports leg edema, Denies lightheadedness and Denies palpitations Respiratory: Respiratory: Denies dyspnea and Denies wheezing Gastrointestinal: Gastrointestinal: Reports bloating, Denies diarrhea, Denies nausea and Denies vomiting Musculoskeletal: Musculoskeletal: Reports as per HPI Exam Const: General: comfortable Other: Poor dentition. Black lower teeth. Resp: Effort & Inspection: normal respiratory effort Skin: Wounds: wounds noted (see extremity assessment ) Neuro: General: No gait normal Motor exam (neuro): strength not 5/5 throughout (improving RLE ) and Abnormal motor strength present (RLE, improvement ) Sensory Exam: normal sensation Other: Answering questions appropriately. Extrem: Right upper extremity: shoulder/upper arm (IMPROVED ) normal to inspection, tenderness of the proximal humerus and of the mid-shaft humerus, axillary nerve sensory function normal and abnormal ROM pain with active ROM in extension, in flexion, in internal rotation and external rotation-, pain with passive ROM with extension, with flexion, with internal rotation and external rotation- and with range as follows (FF: 125, IR: Hip ); no swelling, no lacerations, no ecchymosis, no crepitus and no deformity and elbow/forearm normal to inspection and normal ROM; no tenderness and no swelling Right lower extremity: knee Details: tenderness (diffuse- MILD ), swelling (mild ) and abnormal ROM Details: pain with active ROM during Details: in flexion, pain with passive ROM during Details: in flexion and with range as follows (10-90 degrees, difficulty with full extension when OOB in chair. ); ROM abnormal, no ecchymosis, no crepitus and no unusual warmth, lower leg (Negative Gage's Sign ) Details: pitting edema Details: 2+; no ecchymosis, ankle (+ankle dorsiflexion/plantarflexion. ) Details: swelling Details: diffusely and foot (2+ pedal pulses. ) Details: edema (entire foot ), vascular exam Details: dorsalis pedis pulse present and normal capillary refill and motor-sensory exam Details: two point discrimination normal and light-touch normal Left lower extremity: lower leg Details: pitting edema Details: 2+ Other: Dressi
[2021-05-20 11:48] LABS: Glucose Point of Care 159 mg/dl (65-105)
[2021-05-20 13:50] VITALS: BP 119/63; PULSE 85; RESP 18; TEMP 36.9; O2SAT 97
--- NOTE | 2021-05-20 14:18 | PM.DS ---
DS: Admitting Diagnosis Discharge Date 05/20/21 Admitting Diagnosis Right Knee Pain DS: Discharge Diagnosis Discharge Diagnosis (1) Septicemia due to methicillin resistant Staphylococcus aureus: Code(s): A41.02 - Sepsis due to Methicillin resistant Staphylococcus aureus Status: Acute Assessment and Plan: Present on admission with right knee pain and found to have septic arthritis. Also with UTI with MRSA felt to be hematologic spread. BCx have returned positive for MRSA on 05/03, 05/06, 05/08, and 05/10. TTE showing EF 55-60% with grade I diastolic dysfunction and trace valvular disease. No vegetations noted. Septal motion abnormalities related to bundle branch. Fevers early on but now afebrile. WBC now normal and CRP trending down. Was on Vanco monotherapy but had persistent positive cultures so changed to Daptomycin 6mg/kg Q24hr from ID recommendations on 05/12. BCx repeated on 05/14 but these are also positive for MRSA. BCx were drawn again 05/17 and Ceftaroline added and Daptomycin advance to 8mg/kg Q24hr on that day. BCx from 05/17 have remained negative (prior to adding Ceftaroline and advancing Daptomycin dose). ID was following. Spoke with ID who felt Ceftaroline could be stopped but recommended continuing the Daptomycin 8mg/kg IV daily dose for 6 weeks since 05/17. Appreciate ID input. Midline placed. Plan for Daptomycin through 06/27/21. (2) Septic arthritis of knee, right: Qualifiers: Septic arthritis organism: staphylococcal Qualified Code(s): M00.061 - Staphylococcal arthritis, right knee Code(s): M00.9 - Pyogenic arthritis, unspecified Status: Acute Assessment and Plan: Patient presents with right knee pain. Lower extremity right venous Doppler was negative for DVT. Knee X-ray showed moderate amount of right knee joint effusion. Arthrocentesis on 05/03 with culture growing MRSA. Patient had incision and drainage with irrigation and debridement right knee joint on 05/06/21. That culture also growing MRSA. Clinically improving and now walking with walker. He worked with PT/OT. Appreciate Ortho input. (3) Acute kidney injury: Code(s): N17.9 - Acute kidney failure, unspecified Status: Acute Assessment and Plan: Patient developing acute kidney injury with creatinine. Cr 1.5 on admission but improved to 1.2 before climbing to the 2.2 range. Urine studies suggest pre-renal but consider ATN from the septicemia. Renal US showing no acute findings (has known left renal masses by CT Mar 2021 concerning for RCC). He was treated with IV fluids but was becoming edematous so these were stopped and Bumex with Albumin started (Albumin level was 2.0). Creatinine has improved to 1.8-2 range where it remained stable; persistent ernal insufficiency possibly related to the abx. UA showing 3-5 RBC but no blood and baseline TCK was normal. Albumin still at 2.3. Minimal edema noted. LFTs okay. No diarrhea to suggest protein losing enteropathy. UA not showing proteinuria. Low albumin related to poor oral intake. Will need to monitored closely. (4) UTI (urinary tract infection): Code(s): N39.0 - Urinary tract infection, site not specified Status: Acute Assessment and Plan: UA noted. UCx growing MRSA. Suspect hematologic spread. As above. (5) Diabetes mellitus: Code(s): E11.9 - Type 2 diabetes mellitus without complications Status: Acute Assessment and Plan: A1c 8.4. The patient's blood glucose was monitored closely with AccuCheks covering with sliding scale. Hypoglycemia protocol available as needed. This is a new diagnosis for this patient. Glucose remained well controlled. Diab Educator and Assistant General Manager were consulted. (6) Hyponatremia: Code(s): E87.1 - Hypo-osmolality and hyponatremia Status: Acute Assessment and Plan: Patient developing hyponatremia to 120. Sarah <5 with FENa 0.07% to suggest pre-renal. T
[2021-05-20 15:12] LABS: EDCOVIDSCREEN Negative (Negative)
[2021-05-20 15:17] LABS: Creatine Kinase 30 U/L (55-170)
--- NOTE | 2021-05-21 11:54 | PC.NURSE ---
COVID negative. Dr. Ramsey aware.
--- NOTE | 2021-05-24 13:02 | PC.NURSE ---
Blood cx are negative. TCK is low at 30. (55-170) Dr. Roxy wu.
== END 2021-05-20 16:32 | DRG 854 ==
LOC: ANHED 16:18 → ANH2MED 16:33
PROVIDERS: Hospitalist; Internal Medicine; Orthopaedic Surgery; Physician Assistant; Admitting Provider Internal Medicine; Emergency Provider General Practice; PCP Registered Nurse; Visit Provider Internal Medicine
PROC: 0S9C0ZZ Drainage of Right Knee Joint, Open Approach (ICD-10-PCS; principal; 2021-05-06 12:00)
DX: A41.02 Sepsis due to Methicillin resistant Staphylococcus aureus (principal); N17.9 Acute kidney failure, unspecified; M00.061 Staphylococcal arthritis, right knee; E87.1 Hypo-osmolality and hyponatremia; Z68.41 Body mass index [BMI] 40.0-44.9, adult; N39.0 Urinary tract infection, site not specified; Z20.822 Contact with and (suspected) exposure to COVID-19; E66.01 Morbid (severe) obesity due to excess calories; M17.11 Unilateral primary osteoarthritis, right knee; M19.011 Primary osteoarthritis, right shoulder; E86.0 Dehydration; E11.65 Type 2 diabetes mellitus with hyperglycemia; I10 Essential (primary) hypertension; G47.33 Obstructive sleep apnea (adult) (pediatric); N40.0 Benign prostatic hyperplasia without lower urinary tract symptoms; E78.5 Hyperlipidemia, unspecified; N28.89 Other specified disorders of kidney and ureter; M10.9 Gout, unspecified; Z79.899 Other long term (current) drug therapy; Z99.89 Dependence on other enabling machines and devices
CPT/HCPCS: 20610; 36415; 36556; 70551; 73030; 73562; 76775; 80048; 80053; 80069; 80202; 81001; 82550; 82570; 82607; 82728; 82746; 82945; 82948; 83036; 83540; 83550; 83605; 83735; 84100; 84132; 84156; 84157; 84295; 84300; 84550; 85025; 85027; 85055; 85380; 85652; 85999; 86140; 87040; 87070; 87075; 87077; 87086; 87088; 87147; 87186; 87205; 87426; 89051; 89060; 93005; 93306; 93971; 96361; 96365; 96366; 96367; 96372; 96375; 97110; 97116; 97129; 97161; 97165; 97168; 97530; 97535; 99285; A9270; C1751; C8929; C9803; G0378; J0690; J0696; J0712; J0878; J1650; J1815; J1885; J2270; J2405; J2704; J3010; J3370; J3480; J7030; J7060; J7120; P9047; Q9957

== ENCOUNTER 2021-05-31 19:46 | Inpatient (IN) | payer MEDICARE, SELFPAY ==
--- NOTE | ~2021-05-31 | CT_ITS ---
EXAMINATION: CT abdomen pelvis w con DATE: 06/01/2021 05:54 INDICATION: Necrotizing pancreatitis TECHNIQUE: Computed tomography (CT) of the abdomen and pelvis was performed with 100 mL Omnipaque-350 intravenous contrast. Automated exposure control and iterative reconstruction technique were employe d. The dose-length product was 1562.50 mGy-cm. COMPARISON: CT studies dated 05/31/2021 and 06/01/2021 FINDINGS: Moderate-sized right and small left posterior layering pleural effusions with dependent compressive a telectasis in the bilateral lower lobes. There are additional patchy airspace opacities in the left l ower lobe and to a lesser degree at the right middle and lower lobes which are more concerning for pn eumonia. Heart size is normal. No pericardial effusion. Mild dilation of the common bile duct which m easures up to 1.4 cm in maximal diameter which may be related to prior cholecystectomy with surgical clips the gallbladder fossa. No intrahepatic biliary ductal dilation. Liver, spleen and bilateral adr enal glands are normal. 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 pancreas with extension into the more posteri or retroperitoneal fat which measures approximately 3.4 x 1.7 cm in sagittal imaging. Small region of less well-defined decreased enhancement at the tail of the pancreas also likely related to necrotic pancreatitis which communicates with a couple regions of extrapancreatic acute necrotic collections m easuring 5.3 x 2.2 cm at the inferomedial margin of the spleen and 3.0 x 1.6 cm in the fat anterior t o the tail of the pancreas. Small amount of nonloculated retroperitoneal fluid in the left anterior p ararenal space and along the inferior margin of the pancreas. Right kidney is normal. Partially exophytic 2.1 cm Bosniak 3 centrally cystic renal lesion at the pos terior interpolar region of the left kidney with thickened enhancing peripheral wall suspicious for r enal cell carcinoma. More laterally along the posterior interpolar region of the left kidney is appro ximately 1.3 cm focal bulge which enhances to a similar degree as the adjacent renal parenchyma, uncl ear whether this represents a simple contour abnormality to the kidney or a second solid enhancing ne oplasm also concerning for renal cell carcinoma. Small bowel and appendix are normal. Fluid in the distal colon consistent with diarrhea. There is a h austral pattern to the sigmoid colon which could represent sequela of chronic colitis or chronic laxa tive use. Excreted contrast within the bladder from the prior contrast-enhanced CT. There are few tin y bladder diverticulum with mild trabeculation of the mucosal surface likely related to chronic outle t obstruction from the enlarged prostate which measures 5.3 x 4.1 cm. Moderate-sized bilateral fat-co ntaining inguinal hernias. No free intraperitoneal gas or fluid. There are bridging osteophytes at mu ltiple levels in the visualized lower thoracic spine, consistent with diffuse idiopathic skeletal hyp erostosis (DISH). And lumbar spondylosis with multilevel mild disc height loss and moderate to severe facet osteoarthritis. IMPRESSION: 1. . Necrotic pancreatitis with a few small organized-appearing regions of intra and peripancreatic n ecrosis as detailed above. 2. 1.6 cm Bosniak 3 lesion in the left kidney which would be considered a surgical lesion concerning for renal cell carcinoma. Suggestion of possible additional 1.3 cm solid enhancing renal cell carcino ma also at the interpolar region of the left kidney. 3. Multifocal pneumonia with small left and moderate-sized right posterior layering pleural effusions . Reviewed, dictated and finalized at location A. Electronically signed by Thien Jarquin M.D. on
--- NOTE | ~2021-05-31 | US_ITS ---
EXAMINATION:US venous doppler LE BI INDICATION:Leg edema TECHNIQUE: Multiple grayscale, color flow and Doppler images of the right and left lower extremity de ep venous systems were obtained and reviewed. COMPARISON:05/03/2021 FINDINGS: The common femoral, superficial femoral and popliteal veins demonstrate normal respiratory variation, augmentation and compressibility. Color flow is also seen within the posterior tibial, pe roneal, greater saphenous and profunda veins. IMPRESSION: 1: No lower extremity deep venous thrombosis. Reviewed, dictated and finalized at location B. PMENT MAINTENANCE SUPERVISOR
--- NOTE | ~2021-05-31 | XR_ITS ---
EXAMINATION: XR chest 1V portable DATE: 05/31/2021 20:24 INDICATION: Fever. Shortness of breath. Chest pain. TECHNIQUE: A single frontal view of the chest was obtained. COMPARISON: Chest single view 05/19/2021 FINDINGS: The lungs demonstrate a diffuse interstitial pattern. There are mild airspace opacities in right mid and lower lung zones and left lower lung zone. There is a small right pleural effusion. No pneumothorax. The heart size is normal. A right internal jugular central venous catheter is seen with tip at the superior cavoatrial junction. IMPRESSION: 1. Diffuse lung disease, consistent with pneumonia versus moderate pulmonary edema. 2. Small right pleural effusion. Reviewed, dictated and finalized at location A. OWS FILLER IMPRESSION: 1. Diffuse lung disease, consistent with pneumonia versus moderate pulmonary ed jose. 2. Small right pleural effusion.
--- NOTE | ~2021-05-31 | XR_ITS ---
EXAMINATION: XR chest 2V DATE: 06/12/2021 11:24 INDICATION: Cough and shortness of breath TECHNIQUE: AP and lateral views of the chest are obtained. COMPARISON: 06/08/2021 FINDINGS: A right internal jugular central venous catheter ends with its tip in the distal superior v dottie cava. Patchy bilateral opacities persist with slight worsening in the right mid and upper lung zo jen. There are small, stable pleural effusions. The heart size is normal. There is no pneumothorax. T here are bridging osteophytes at multiple levels in the spine, consistent with diffuse idiopathic ske letal hyperostosis (DISH). IMPRESSION: 1. Patchy bilateral opacities with slight worsening on the right, consistent with pneumonia/or pulmon dominique edema. 2. Small pleural effusions, stable. Reviewed, dictated and finalized at location A. ACCESSORIES INSTALLER IMPRESSION: 1. Patchy bilateral opacities with slight worsening on the right, consistent wi th pneumonia/or pulmonary edema. 2. Small pleural effusions, stable.
--- NOTE | ~2021-05-31 | US_ITS ---
EXAMINATION: US thoracentesis DATE: 06/02/2021 12:32 INDICATION: Right pleural effusion TECHNIQUE: The procedure and its risks and benefits were discussed with the patient. Potential risks discussed included bleeding, infection, and pneumothorax. The patient understood the risks and agreed to proceed. The skin was prepped and draped in sterile fashion. 1% lidocaine was used for local anes thesia. Under ultrasound guidance, a 5 Fr catheter with trochar was advanced into the right pleural e ffusion. Fluid was aspirated. The catheter was removed, and a dressing was applied. There were no imm ediate complications. FINDINGS: Ultrasound images demonstrate a moderate-sized right pleural effusion and the catheter within the flu id. IMPRESSION: 1. Successful ultrasound-guided thoracentesis yielding 1000 mL of clear cory-colored fluid. Reviewed, dictated and finalized at location A. EMASON SUPERVISOR IMPRESSION: 1. Successful ultrasound-guided thoracentesis yielding 1000 mL of clear cory- colored fluid.
--- NOTE | ~2021-05-31 | CT_ITS ---
EXAMINATION: CTA chest PE protocol DATE: 05/31/2021 21:31 INDICATION: Dyspnea. TECHNIQUE: Computed tomography angiography (CTA) of the chest was performed with 200 mL Omnipaque-350 intravenous contrast timed to evaluate the pulmonary arteries. Coronal maximum intensity projection 3D-reconstructions were created by the technologist. Automated exposure control and iterative reconst ruction technique were employed. The dose-length product was 1045.28 mGy-cm. COMPARISON: CT abdomen and pelvis 03/11/2021, chest single view 05/31/2021 FINDINGS: There is diffuse smooth septal thickening in the lungs. There are patchy airspace and groun dglass opacities involving all lobes with a peripheral predominance. There are dependent airspace opa cities in the lungs. There are moderate-sized right and small left pleural effusions. The heart size is normal. No pericardial effusion. There are coronary artery calcifications. A right internal jugula r central venous catheter is seen with tip in the right atrium. There is fat stranding around the vis ualized portion of the pancreas. There is poor opacification of the pulmonary arteries. There is mild bilateral hilar lymphadenopathy. There are bridging endplate osteophytes at multiple levels in the s pine, consistent with diffuse idiopathic skeletal hyperostosis (DISH). IMPRESSION: 1. Nondiagnostic evaluation for pulmonary emboli. 2. Diffuse lung disease, likely a combination of mild pulmonary edema and multifocal pneumonia. 3. Moderate-sized right and small left pleural effusions. 4. Mild bilateral hilar lymphadenopathy, likely reactive. 5. Partially visualized necrotizing pancreatitis, which may be chronic or dlfne-va-fagkkho. Reviewed, dictated and finalized at location A. ANICAL ORDNANCE ASSEMBLER IMPRESSION: 1. Nondiagnostic evaluation for pulmonary emboli. 2. Diffuse lung disease, likely a combination of mild pulmonary edema and multi focal pneumonia. 3. Moderate-sized right and small left pleural effusions. 4. Mild bilateral hilar lymphadenopathy, likely reactive. 5. Partially visualized necrotizing pancreatitis, which may be chronic or acute -on-chronic.
--- NOTE | ~2021-05-31 | XR_ITS ---
EXAMINATION: XR chest 1V portable DATE: 06/04/2021 16:19 INDICATION: Pneumonia. TECHNIQUE: A single frontal view of the chest was obtained. COMPARISON: Chest 2 views 06/02/2021, CT abdomen and pelvis 06/01/2021 FINDINGS: There are airspace opacities in all lung zones bilaterally with a peripheral predominance. There are small pleural effusions. No pneumothorax. The heart size is normal. A right internal jugula r central venous catheter is seen with tip at the superior cavoatrial junction. IMPRESSION: 1. Worsened diffuse lung disease, consistent with pneumonia. 2. Small pleural effusions. Reviewed, dictated and finalized at location A. IGN POLICY OFFICER
--- NOTE | ~2021-05-31 | XR_ITS ---
EXAMINATION: [id number]_CR DATE: 06/02/2021 12:43 INDICATION: Status post thoracentesis for right pleural effusion TECHNIQUE: frontal and lateral views of the chest were obtained. COMPARISON: Chest radiograph dated 05/31/2021 FINDINGS: Opacities in the right mid to lower and left lower lung zones consistent with atelectasis and/or pneu monia. Residual small right pleural effusion. No pneumothorax. The cardiomediastinal silhouette is no rmal. Right internal jugular central venous catheter with distal tip at the superior cavoatrial junct ion. There are bridging osteophytes at multiple levels in the spine, consistent with diffuse idiopath ic skeletal hyperostosis (DISH). IMPRESSION: 1. Residual small right pleural effusion with no pneumothorax post right thoracentesis. 2. Opacities in the right mid to lower and left lower lung zones consistent with atelectasis and/or p neumonia. Reviewed, dictated and finalized at location A. NG SQUAD WORKER IMPRESSION: 1. Residual small right pleural effusion with no pneumothorax post right thorac entesis. 2. Opacities in the right mid to lower and left lower lung zones consistent wit h atelectasis and/or pneumonia.
--- NOTE | ~2021-05-31 | CT_ITS ---
EXAMINATION: CT abdomen pelvis wo con DATE: 06/01/2021 03:18 INDICATION: Necrotizing pancreatitis TECHNIQUE: Computed tomography (CT) of the abdomen and pelvis was performed without intravenous contr ast. Automated exposure control and iterative reconstruction technique were employed. The dose-length product was 1708.15 mGy-cm. COMPARISON: CT studies 03/12/21, 05/31/2021 and 06/01/2021 FINDINGS: Moderate-sized right and small left posteriorly layering pleural effusions with dependent compressive atelectasis in bilateral lungs. There are additional patchy airspace opacities in the left lower lob e and to a lesser degree at the right middle and lower lobes which are more concerning for pneumonia. Heart size is normal. No pericardial effusion. Atherosclerotic coronary artery calcification. Distal tip of a right internal jugular central venous catheter is seen at the caudal superior vena cava. Cholecystectomy clips the gallbladder fossa. Liver, spleen and bilateral adrenal glands are normal. P recontrast and bilateral kidneys and the prior contrast-enhanced CT. There are couple small lesions a t the periphery of the posterior left kidney, indeterminate on the current study but with contrast en hancement evident on the subsequent CT which are concerning for renal cell carcinoma. Prominent perip ancreatic inflammatory stranding consistent with acute pancreatitis. There is heterogeneous attenuati on of the pancreas suspicious for acute necrotizing pancreatitis which is confirmed on the subsequent contrast-enhanced CT. Small bowel and appendix are normal. Fluid in the distal colon consistent with diarrhea. A haustral pattern to the colon suggests sequela chronic colitis or chronic laxative use. Moderate sized bilateral fat-containing inguinal hernias. Prostatomegaly. Bladder is unremarkable. No free intraperitoneal gas or fluid. No pathologically enlarged abdominal or pelvic lymphadenopathy. T here are bridging osteophytes at multiple levels in the lower thoracic spine, consistent with diffuse idiopathic skeletal hyperostosis (DISH). IMPRESSION: 1. Prominent peripancreatic stranding consistent with acute necrotizing pancreatitis which is better evaluated on subsequent contrast-enhanced CT. See separate CT report for further detail. 2. A couple indeterminate lesions at the left kidney with enhancement on subsequent CT concerning for renal cell carcinoma. Again see subsequent CT report for further detail. 3. Bilateral multifocal pneumonia with moderate sized right and small left pleural effusions. 4. Prostatomegaly. 5. Moderate-sized bilateral fat-containing inguinal hernias. Reviewed, dictated and finalized at location A. LLURGIST HELPER IMPRESSION: 1. Prominent peripancreatic stranding consistent with acute necrotizing pancrea titis which is better evaluated on subsequent contrast-enhanced CT. See separat e CT report for further detail. 2. A couple indeterminate lesions at the left kidney with enhancement on subseq uent CT concerning for renal cell carcinoma. Again see subsequent CT report for further detail. 3. Bilateral multifocal pneumonia with moderate sized right and small left pleu ral effusions. 4. Prostatomegaly. 5. Moderate-sized bilateral fat-containing inguinal hernias.
--- NOTE | ~2021-05-31 | XR_ITS ---
EXAMINATION: XR chest 1V portable DATE: 06/08/2021 13:29 INDICATION: Dyspnea TECHNIQUE: frontal view of the chest was obtained. COMPARISON: Chest radiograph dated 06/04/2021 FINDINGS: Right internal jugular central venous catheter with distal tip at the caudal superior vena cava. No i nterval change in patchy airspace opacities throughout both lungs, right greater than left. Small wali ateral pleural effusions. The cardiomediastinal silhouette is within normal limits for AP technique. IMPRESSION: 1. No significant change in patchy bilateral lung disease consistent with multifocal pneumonia. 2. Unchanged small bilateral pleural effusions. Reviewed, dictated and finalized at location B. INA REFINERY OPERATOR IMPRESSION: 1. No significant change in patchy bilateral lung disease consistent with multi focal pneumonia. 2. Unchanged small bilateral pleural effusions.
[2021-05-31 19:47] VITALS: BP 160/93; PULSE 112; RESP 32; TEMP 38.4; O2SAT 97
--- NOTE | 2021-05-31 20:01 | ECG_ITS ---
Measurements Intervals Adrian Rate: 113 P: 53 ID: [id number] QRS: -46 QRSD: 130 T: 19 QT: 281 QTc: 387 Interpretive Statements SINUS TACHYCARDIA RIGHT BUNDLE BRANCH BLOCK LEFT ANTERIOR FASCICULAR BLOCK ABNORMAL ECG Electronically Signed On 06-01-2021 9:49:00 TRANSLATOR INTERPRETER by Jorge Martinez D.O.
[2021-05-31 20:16] VITALS: O2SAT 96
--- NOTE | 2021-05-31 20:16 | PC.NURSE ---
XR at bedside.
[2021-05-31 20:46] VITALS: BP 151/77; PULSE 119; RESP 26; O2SAT 96
--- NOTE | 2021-05-31 21:02 | PC.NURSE ---
Pt to CT via stretcher on tele monitor
[2021-05-31 21:09] LABS: Basophils Percent Auto 0.3 % (0.2-1.2); Eosinophils Absolute Auto 0.6 K/mm3 (0-0.3); Eosinophils Percent Auto 4.8 % (0-4.4); Hematocrit 28.5 % (42.0-52.0); Hemoglobin 9.4 g/dL (14.0-18.0); Immature Granulocyte Absolute 0.06 K/mm3 (0.00-0.031); Immature Granulocyte Percent A 0.5 % (0-0.5); Lymphocytes Absolute Auto 0.74 K/mm3 (0.9-3.2); Lymphocytes Percent Auto 6.3 % (18.3-44.2); Mean Corpuscular Hemoglobin 28.5 pg (26-34); Mean Corpuscular Volume 86.4 fl (80-100); Mean Platelet Volume 9.1 fl (7.4-10.4); Monocytes Absolute Auto 1.1 K/mm3 (0.1-0.6); Neutrophils Absolute Auto 9.3 K/mm3 (1.3-6.7); Neutrophils Percent Auto 79.1 % (45.5-73.1); Platelet Count Result 216 k/mm3 (150-375); Red Cell Distribution Width 14.6 % (11.5-14.5); White Blood Count 11.7 K/mm3 (4.5-10.0)
[2021-05-31 21:16] LABS: Add Urine Microscopic? YES; Appearance Urine Clear (Clear); Bilirubin Urine Negative (Negative); Blood Urine Negative (Negative); Color Urine Yellow (Yellow); Glucose Urine UA 1+ mg/dL (Negative); Ketones Urine Negative (Negative); Leukocyte Esterase Ur Negative LEU/UL (Negative); Mucus Urine Rare /lpf; Nitrate Urine Negative (Negative); Protein Urine 1+ mg/dL (Negative); RBC Urine 0-2 /hpf (0-2); Specific Grav Ur 1.014 (1.001-1.035); Squamous Epithelial Cell Urine Rare /hpf (Few); Urobilinogen Urine Negative mg/dL (<2.0); WBC Urine 0-3 /hpf
[2021-05-31 21:18] LABS: Alanine Aminotransferase 55 U/L (4-50); Albumin Level 2.9 g/dL (3.5-5.1); Alkaline Phosphatase 65 U/L (38-126); Anion Gap 6 mmol/L (8-16); Aspartate Amino Transferase 57 U/L (17-59); Bilirubin,Total 0.8 mg/dL (0.2-1.3); Blood Urea Nitrogen 33 mg/dL (9-20); Calcium 8.2 mg/dL (8.4-10.2); Carbon Dioxide 24 mmol/L (22-30); Chloride 97 mmol/L (98-107); Estimated Glomerular Filt Rate 46; Glucose 191 mg/dL (65-110); Potassium 3.7 mmol/L (3.4-5.0); Sodium 127 mmol/L (137-145)
[2021-05-31 21:30] LABS: Troponin I 0.017 ng/mL (0.000-0.034)
[2021-05-31] MEDS: SODIUM CHLORIDE 0.9% IV 1,000 ML 999 ML IV CONT (21:35)
[2021-05-31 21:53] VITALS: PULSE 110; RESP 28; O2SAT 96
[2021-05-31 22:10] LABS: Lipase 95 U/L (23-300)
--- NOTE | 2021-05-31 22:15 | PC.NURSE ---
Pt moved to room 8, report given to carito VALENTIN.
--- NOTE | 2021-05-31 22:17 | ED.GENADULT ---
HPI - General Adult General Chief complaint: Recheck/Abnormal Lab/Rx Stated complaint: abnormal labs Time Seen by Provider: 05/31/21 20:00 History of Present Illness HPI narrative: Patient is a 70-year-old gentleman who presents the emergency department with chief complaint of abnormal labs. The patient was recently in the hospital after having MRSA bacteremia and a septic joint patient is currently on daptomycin and is due to complete his course on 04 June. Patient was sent over to the ER today after has been having some discomfort in his chest and some shortness of breath the patient also was found to be febrile with a temperature of 38. Related Data Home Medications Medication Instructions Recorded Confirmed atorvastatin 10 mg PO DAILY 12/21/20 05/06/21 Allergies Allergy/AdvReac Type Severity Reaction Status Date / Time No Known Allergies Allergy Verified 05/31/21 20:46 Review of Systems Review of Systems: A 10 system review of systems was completed on the patient and is negative except for what is stated in the HPI. Nursing and ancillary documentation was reviewed. 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 Followed by urology. Obstructive sleep apnea on CPAP Right shoulder pain Surgical History Surgical History History of endoscopic retrograde cholangiopancreatography (12/2020) History of laparoscopic cholecystectomy (12/24/20) With intraoperative cholangiogram. Family History Family History Father Acute myocardial infarction Social History Social History Social History: Surrogate decision maker: Lesley Diane, . Code status: Full code. Smoking status: Never smoker Alcohol intake: former Substance use: never Substance use type: does not use Additional living arrangements comments: The patient lives with his in [place]. 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 Exam Narrative: GENERAL: Well-appearing, well-nourished, and in no acute distress. HEAD: Normocephalic, atraumatic. EYES: PERRLA and EOMI. ENT: Nares clear, no rhinorrhea or epistaxis. Mucous membranes moist. There is a right IJ triple-lumen in place NECK: Supple. CHEST: Clear to auscultation. No respiratory distress. HEART: Regular rate and rhythm. No murmur heard. Normal peripheral pulses. ABDOMEN: Soft, nontender, nondistended, normal active bowel sounds. EXTREMITIES: Normal range of motion. No edema. SKIN: Warm, dry, no rash. NEURO: No focal deficits. Alert and oriented x3. PSYCH: Normal mood and affect. Course Vital Signs Vital signs: Vital Signs Temperature 38.4 C H 05/31/21 19:47 Pulse Rate 112 H 05/31/21 19:47 Respiratory Rate 32 H 05/31/21 19:47 Blood Pressure 160/93 H 05/31/21 19:47 Pulse Oximetry 97 05/31/21 19:47 Temperature 38.4 C H 05/31/21 19:47 Pulse Rate 110 H 05/31/21 21:53 Respiratory Rate 28 H 05/31/21 21:53 Blood Pressure 151/77 H 05/31/21 20:46 Pulse Oximetry 96 05/31/21 21:53 Medical Decision Making Vital Signs Vital Signs: Vital Signs Temperature 38.4 C H 05/31/21 19:47 Pulse Rate 112 H 05/31/21 19:47 Respiratory Rate 32 H 05/31/21 19:47 Blood Pressure 160/93 H 05/31/21 19:47 Pulse Oximetry 97 05/31/21 19:47 Temperature 38.4 C H 05/31/21 19:47 Pulse Rate 110 H 05/31/21 21:53 Respiratory Rate 28 H 05/31/21 21:53 Blood Pressure 151/77 H
--- NOTE | 2021-05-31 22:48 | PM.IMHP ---
H&P: HPI History of Present Illness Date/Time: 05/31/21 22:48 Chief Complaint: Fever Narrative: This is a 70-year-old male with past medical history significant for MRSA bacteremia patient recent admission with positive blood cultures, MRSA UTI as well, septic right knee. Patient was discharged to [facility] with PICC line in place for course of daptomycin. However patient was brought in today for evaluation after abnormal lab. While in emergency room patient had a fever and preliminary workup was significant for CT of chest PE protocol showed no pulmonary embolism however shows pneumonia and visualized necrotizing pancreas. Patient denies any discomfort at the time of my visit no shortness of breath, no cough, no sputum, no nausea, no vomiting, no diarrhea. As per progress notes from medical records at [facility] patient had been tachycardic today an EKG shows sinus tachycardia and patient had dyspnea and desaturation to the low 90's decision was made to bring the patient to the emergency room for further evaluation. Review of Systems Review of Systems: Patient is really a poor historian instead of telling me about his disease process he proceeded to tell me about his [id number] miles trip last summer Constitutional: Constitutional: Denies chills and Denies fever(s) Eyes: Eyes: Denies change in vision ENT: Denies dysphagia, Denies nasal congestion, Denies nasal discharge, Denies nasal obstruction and Denies odynophagia Cardiovascular: Cardiovascular: Denies radiating jaw, neck or arm pain and Denies palpitations Respiratory: Respiratory: Denies cough and Denies dyspnea Gastrointestinal: Gastrointestinal: Denies abdominal pain, Denies diarrhea, Denies nausea and Denies vomiting Genitourinary: Genitourinary: Denies dysuria Musculoskeletal: Musculoskeletal: Denies arthralgias and Denies joint swelling Integumentary/Breasts: Skin/Breast: Denies rash Neurologic: Denies focal weakness and Denies Sensory deficit (Neuro) Psychiatric: Psychiatric: Reports no additional psychiatric complaints and Reports as per HPI Endocrine: Endocrine: Reports no additional endocrine complaints and Reports as per HPI Hematologic/Lymphatic: Hematologic/Lymphatic: Reports no additional hematologic/lymphatic complaints and Reports as per HPI Allergic/Immunologic: Allergic/Immunologic: Reports no additional allergic/immunologic complaints and Reports as per HPI [facility] Past Medical History Medical History Benign prostatic hyperplasia 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 Followed by urology. Obstructive sleep apnea on CPAP Right shoulder pain Surgical History Surgical History History of endoscopic retrograde cholangiopancreatography (12/2020) History of laparoscopic cholecystectomy (12/24/20) With intraoperative cholangiogram. Family History Family History Father Acute myocardial infarction Social History Social History Social History: Surrogate decision maker: Lesley Diane, . Code status: Full code. Smoking status: Never smoker Alcohol intake: former Substance use: never Substance use type: does not use Additional living arrangements comments: The patient lives with his in [place]. Additional occupation/education comments: Retired [employer]. Meds Home Medications and Allergies Home Medications Medication Instructions Recorded Confirmed Type atorvastatin 10 mg PO DAILY 12/21/20 05/06/21 History tamsulosin 0.4
[2021-06-01] VITALS (26 sets, daily range): BP systolic 116–174; BP diastolic 74–110; PULSE 89–124; RESP 18–34; TEMP 36.1–37; O2SAT 90–99
[2021-06-01] MEDS: SODIUM CHLORIDE 0.9% IV 1,000 ML 125 ML IV CONT ×3 (05:21→23:58)
[2021-06-01] MEDS: methylPREDNISolone SOD SUCC 125 MG VIAL IV PUSH (05:21)
[2021-06-01 08:43] LABS: Basophils Percent Auto 0.3 % (0.2-1.2); Hemoglobin 10.2 g/dL (14.0-18.0); Immature Granulocyte Absolute 0.06 K/mm3 (0.00-0.031); Immature Granulocyte Percent A 0.5 % (0-0.5); Lymphocytes Absolute Auto 0.33 K/mm3 (0.9-3.2); Lymphocytes Percent Auto 2.8 % (18.3-44.2); Mean Corpuscular HGB Conc 32.9 g/dl (32-36); Mean Corpuscular Hemoglobin 27.8 pg (26-34); Mean Corpuscular Volume 84.5 fl (80-100); Monocytes Absolute Auto 0.3 K/mm3 (0.1-0.6); Monocytes Percent Auto 2.9 % (2.6-8.5); Neutrophils Absolute Auto 11.1 K/mm3 (1.3-6.7); Neutrophils Percent Auto 93.5 % (45.5-73.1); Platelet Count Result 249 k/mm3 (150-375); Red Blood Count 3.67 M/mm3 (4.6-6.20); Red Cell Distribution Width 14.7 % (11.5-14.5); White Blood Count 11.8 K/mm3 (4.5-10.0)
[2021-06-01 08:55] LABS: Alanine Aminotransferase 55 U/L (4-50); Alkaline Phosphatase 75 U/L (38-126); Anion Gap 11 mmol/L (8-16); Aspartate Amino Transferase 54 U/L (17-59); Bilirubin,Total 0.8 mg/dL (0.2-1.3); Blood Urea Nitrogen 27 mg/dL (9-20); Calcium 8.3 mg/dL (8.4-10.2); Carbon Dioxide 22 mmol/L (22-30); Chloride 100 mmol/L (98-107); Estimated CRCL calculation 61 ml/min; Estimated Glomerular Filt Rate 50; Glucose 198 mg/dL (65-110); Lipase 72 U/L (23-300); Potassium 3.5 mmol/L (3.4-5.0); Sodium 133 mmol/L (137-145)
[2021-06-01] MEDS: CENTRAL LINE FLUSH 10 ML IV PUSH ×4 (10:09→23:00)
--- NOTE | 2021-06-01 14:00 | P.PNIM_ITS ---
Progress Note: A&P Assessment and Plan (1) Pneumonia: Qualifiers: Laterality: unspecified laterality Lung location: unspecified part of lung Pneumonia type: due to unspecified organism Qualified Code(s): J18.9 - Pneumonia, unspecified organism <Kentrell VelazquezDONA Box - Last Filed: 06/02/21 07:56> Code(s): J18.9 - Pneumonia, unspecified organism <Kentrell VelazquezDONA Box - Last Filed: 06/02/21 07:56> Status: Acute <Kentrell Martins DONA Mg - Last Filed: 06/02/21 07:56> Assessment and Plan: * Patient has a new infiltrate found on CT * on daptomycin at discharge * Cefepime, vanc and flagyl are currently on board * Await cultures * MRSA from last visit * ID on board * Diamond antibiotics if cultures grow anything <DONA Condon - Last Filed: 06/02/21 07:56> (2) Necrotizing pancreatitis: Code(s): K85.91 - Acute pancreatitis with uninfected necrosis, unspecified <Kentrell VelazquezDONA Box - Last Filed: 06/02/21 07:56> Status: Inactive <Kentrell VelazquezDONA Box - Last Filed: 06/02/21 07:56> Assessment and Plan: * This was a finding on CT of chest * CT of abdomen and pelvis: 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 pancreas with extension into the more posterior retroperitoneal fat which measures approximately 3.4 x 1.7 cm in sagittal imaging. Small region of less well-defined decreased enhancement at the tail of the pancreas also likely related to necrotic pancreatitis which communicates with a couple regions of extrapancreatic acute necrotic collections measuring 5.3 x 2.2 cm at the inferomedial margin of the spleen and 3.0 x 1.6 cm in the fat anterior to the tail of the pancreas. Small amount of nonloculated retroperitoneal fluid in the left anterior pararenal space and along the inferior margin of the pancreas. * Supportive care * Patient is currently on Vanc, cefepime, and flagyl * IV fluids * NPO * Surgery consult <DONA Condon - Last Filed: 06/02/21 07:56> (3) Febrile illness, acute: Code(s): R50.9 - Fever, unspecified <DONA Condon - Last Filed: 06/02/21 07:56> Status: Acute <Kentrell VelazquezDONA Box - Last Filed: 06/02/21 07:56> Assessment and Plan: * Temp 38.4C better now 37.0C * Patient with recent persistent blood cultures with MRSA * Currently PICC line in place * Daptomycin course stopped currently * Blood cultures in progress * ID consult <DONA Condon - Last Filed: 06/02/21 07:56> (4) Septicemia due to methicillin resistant Staphylococcus aureus: Code(s): A41.02 - Sepsis due to Methicillin resistant Staphylococcus aureus <DONA Condon - Last Filed: 06/02/21 07:56> Status: Acute <Kentrell MarcusDONA Box - Last Filed: 06/02/21 07:56> Assessment and Plan: * Daptomycin course as outpatient * See above <DONA Condon - Last Filed: 06/02/21 07:56> (5) Diabetes type 2, uncontrolled: Code(s): E11.65 - Type 2 diabetes mellitus with hyperglycemia <DONA Condon - Last Filed: 06/02/21 07:56> Status: Acute <DONA Condon - Last Filed: 06/02/21 07:56> Assessment and Plan: * Current glucose 198 * Continue insulin Lantus * Insulin sliding scale as needed * Accu-Cheks AC and HS <DONA Condon - Last Filed: 06/02/21 07:56> (6) Ob
--- NOTE | 2021-06-01 14:00 | PM.IMPN ---
Progress Note: A&P Assessment and Plan (1) Pneumonia: Qualifiers: Laterality: unspecified laterality Lung location: unspecified part of lung Pneumonia type: due to unspecified organism Qualified Code(s): J18.9 - Pneumonia, unspecified organism <Kentrell VelazquezDONA Box - Last Filed: 06/02/21 07:56> Code(s): J18.9 - Pneumonia, unspecified organism <Kentrell MarcusDONA Box - Last Filed: 06/02/21 07:56> Status: Acute <Kentrell Martins DONA Mg - Last Filed: 06/02/21 07:56> Assessment and Plan: Patient has a new infiltrate found on CT on daptomycin at discharge Cefepime, vanc and flagyl are currently on board Await cultures MRSA from last visit ID on board Diamond antibiotics if cultures grow anything <DONA Condon - Last Filed: 06/02/21 07:56> (2) Necrotizing pancreatitis: Code(s): K85.91 - Acute pancreatitis with uninfected necrosis, unspecified <Kentrell VelazquezDONA Box - Last Filed: 06/02/21 07:56> Status: Inactive <Kentrell VelazquezDONA Box - Last Filed: 06/02/21 07:56> Assessment and Plan: This was a finding on CT of chest CT of abdomen and pelvis: 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 pancreas with extension into the more posterior retroperitoneal fat which measures approximately 3.4 x 1.7 cm in sagittal imaging. Small region of less well-defined decreased enhancement at the tail of the pancreas also likely related to necrotic pancreatitis which communicates with a couple regions of extrapancreatic acute necrotic collections measuring 5.3 x 2.2 cm at the inferomedial margin of the spleen and 3.0 x 1.6 cm in the fat anterior to the tail of the pancreas. Small amount of nonloculated retroperitoneal fluid in the left anterior pararenal space and along the inferior margin of the pancreas. Supportive care Patient is currently on Vanc, cefepime, and flagyl IV fluids NPO Surgery consult <DONA Condon - Last Filed: 06/02/21 07:56> (3) Febrile illness, acute: Code(s): R50.9 - Fever, unspecified <DONA Condon - Last Filed: 06/02/21 07:56> Status: Acute <DONA Condon - Last Filed: 06/02/21 07:56> Assessment and Plan: Temp 38.4C better now 37.0C Patient with recent persistent blood cultures with MRSA Currently PICC line in place Daptomycin course stopped currently Blood cultures in progress ID consult <DONA Condon - Last Filed: 06/02/21 07:56> (4) Septicemia due to methicillin resistant Staphylococcus aureus: Code(s): A41.02 - Sepsis due to Methicillin resistant Staphylococcus aureus <DONA Condon - Last Filed: 06/02/21 07:56> Status: Acute <DONA Condon - Last Filed: 06/02/21 07:56> Assessment and Plan: Daptomycin course as outpatient See above <DONA Condon - Last Filed: 06/02/21 07:56> (5) Diabetes type 2, uncontrolled: Code(s): E11.65 - Type 2 diabetes mellitus with hyperglycemia <DONA Condon - Last Filed: 06/02/21 07:56> Status: Acute <DONA Condon - Last Filed: 06/02/21 07:56> Assessment and Plan: Current glucose 198 Continue insulin Lantus Insulin sliding scale as needed Accu-Cheks AC and HS <DONA Condon - Last Filed: 06/02/21 07:56> (6) Obstructive sleep apnea on CPAP: Code(s): G47.33 - Obstructive sleep apnea (adult) (pediatric); Z99.89 - Dependence on other enabling machines and devices <DONA Condon - Last Filed: 06/02/21 07:56> Status: Acute <DONA Condon - Last Filed: 06/02/21 07:56> Assessment and Plan: CPAP at night <DONA Condon - Last Filed: 06/02/21 07:56> (7)
--- NOTE | 2021-06-01 14:03 | ADMGEN ---
This patient, Rafael Diane, was admitted to 3 [facility] Surg Room 304-01. Patient oriented to hospital policies and general routines including ID bracelet, bed and alarms, visiting hours, pain management, procedures, bathroom and other care routines, personal items, smoking policy, room service/diet, and visiting hours. Information on how to activate the Rapid Response Team has been discussed. Patient are encouraged to report perceived risks to care and to ask questions if they do not understand what they are told or what they should do.
[2021-06-01 15:57] LABS: NT Pro B Type Natriuretic Pept 2000 pg/mL (5-100)
[2021-06-01] MEDS: SILVERGEL (ELTA) 45 ML 1 APPLIC TOPICAL (16:23)
--- NOTE | 2021-06-01 16:36 | PM.CNGS ---
Assessment and Plan Assessment and plan (1) Fluid collection of pancreas: Code(s): K86.89 - Other specified diseases of pancreas Status: Acute Assessment and Plan: I have seen the patient and reviewed many of his prior recent records along with multiple CT scan reports. Although question was brought up of necrotizing pancreatitis. The patient has normal amylase he has no abdominal pain has been tolerating a diet. Therefore I believe these are not infected fluid collections the pancreas probably left over from his acute gallstone pancreatitis that he experienced in December of this year. Please see the old records. This was discussed with Dr. Ramsey. For now I believe he can continue to have a heart healthy diet. Will repeat labs in the morning and follow with you for a few days. (2) Pneumonia: Qualifiers: Laterality: unspecified laterality Lung location: unspecified part of lung Pneumonia type: due to unspecified organism Qualified Code(s): J18.9 - Pneumonia, unspecified organism Code(s): J18.9 - Pneumonia, unspecified organism Status: Acute Assessment and Plan: This is the main reason for his admission, CXR, CTA and the lower lung oliveira on his abd/pelvis CT all show patchy infiltrates. Covid test is pending. Precautuions in place because history reveals he was probably exposed. (3) Febrile illness, acute: Code(s): R50.9 - Fever, unspecified Status: Acute Assessment and Plan: as above under pneumonia. (4) Tachycardia: Code(s): R00.0 - Tachycardia, unspecified Status: Acute Assessment and Plan: unknown etiology. (5) Diabetes mellitus: Code(s): E11.9 - Type 2 diabetes mellitus without complications Status: Acute Assessment and Plan: Type II --- as per Hospitalist. (6) Septicemia due to methicillin resistant Staphylococcus aureus: Code(s): A41.02 - Sepsis due to Methicillin resistant Staphylococcus aureus Status: Acute Assessment and Plan: Under Rx for this. ID consulted. Was getting Daptomycin per his [facility] line. (7) DJD of shoulder: Qualifiers: Laterality: right Osteoarthritis type: primary Qualified Code(s): M19.011 - Primary osteoarthritis, right shoulder Code(s): M19.019 - Primary osteoarthritis, unspecified shoulder Status: Acute (8) Septic arthritis of knee, right: Qualifiers: Septic arthritis organism: staphylococcal Qualified Code(s): M00.061 - Staphylococcal arthritis, right knee Code(s): M00.9 - Pyogenic arthritis, unspecified Status: Acute Assessment and Plan: Rt. Knee Incison looks good. Recomend that you let Dr. Carlson know spt is back so he can do a post-op check here during pts admission. (9) Degenerative joint disease of knee: Qualifiers: Laterality: right Osteoarthritis type: primary Qualified Code(s): M17.11 - Unilateral primary osteoarthritis, right knee Code(s): M17.10 - Unilateral primary osteoarthritis, unspecified knee Status: Acute (10) Obstructive sleep apnea on CPAP: Code(s): G47.33 - Obstructive sleep apnea (adult) (pediatric); Z99.89 - Dependence on other enabling machines and devices Status: Acute Assessment and Plan: Should use his CPAP at night. (11) Benign prostatic hyperplasia: Code(s): N40.0 - Benign prostatic hyperplasia without lower urinary tract symptoms Status: Acute Assessment and Plan: continue the tamsulosin (12) BMI 40.0-44.9, adult: Code(s): Z68.41 - Body mass index [BMI] 40.0-44.9, adult Status: Acute (13) Left renal mass: Code(s): N28.89 - Other specified disorders of kidney and ureter Status: Acute Assessment and Plan: Apparently to F/U with Urology as an out patient. (14) Hypertension: Qualifiers: Hypertension type: essential hypertension Qualified Code(s): I10 - Esse
[2021-06-01] MEDS: FUROSEMIDE INJ 40 MG/4 ML VIAL IV PUSH (17:33)
[2021-06-01] MEDS: metroNIDAZOLE 250 MG TABLET 500 MG PO (23:00)
[2021-06-02] VITALS (11 sets, daily range): BP systolic 112–141; BP diastolic 65–81; PULSE 82–111; RESP 18–20; TEMP 36.3–36.7; O2SAT 91–96; BMI 41.2
[2021-06-02 02:32] LABS: SARS-CoV-2 RNA PCR Negative
[2021-06-02] MEDS: CENTRAL LINE FLUSH 10 ML IV PUSH ×3 (05:53→22:04)
[2021-06-02] MEDS: metroNIDAZOLE 250 MG TABLET 500 MG PO ×3 (05:53→22:04)
[2021-06-02 08:02] LABS: Basophils Percent Auto 0.2 % (0.2-1.2); Hemoglobin 8.8 g/dL (14.0-18.0); Immature Granulocyte Absolute 0.07 K/mm3 (0.00-0.031); Immature Granulocyte Percent A 0.6 % (0-0.5); Lymphocytes Absolute Auto 0.89 K/mm3 (0.9-3.2); Lymphocytes Percent Auto 7.6 % (18.3-44.2); Mean Corpuscular HGB Conc 32.6 g/dl (32-36); Mean Platelet Volume 9.6 fl (7.4-10.4); Monocytes Absolute Auto 0.8 K/mm3 (0.1-0.6); Monocytes Percent Auto 6.7 % (2.6-8.5); Neutrophils Percent Auto 84.9 % (45.5-73.1); Platelet Count Result 248 k/mm3 (150-375); Red Blood Count 3.14 M/mm3 (4.6-6.20); Red Cell Distribution Width 14.7 % (11.5-14.5); White Blood Count 11.7 K/mm3 (4.5-10.0)
[2021-06-02 08:16] LABS: INR 1.3; Prothrombin Time 16.1 Seconds (11.1-14.7)
[2021-06-02 08:17] LABS: Partial Thromboplastin Time 33.8 SECONDS (22.3-36.8)
[2021-06-02 08:18] LABS: Albumin Level 2.7 g/dL (3.5-5.1); Amylase 61 U/L (30-110); Bilirubin,Total 0.3 mg/dL (0.2-1.3); Cholesterol 99 mg/dL (0-200); Lactate Dehydrogenase 541 U/L (313-618); Triglycerides 126 mg/dL (<150)
[2021-06-02 08:38] LABS: Alanine Aminotransferase 49 U/L (4-50); Albumin Level 2.5 g/dL (3.5-5.1); Alkaline Phosphatase 56 U/L (38-126); Anion Gap 8 mmol/L (8-16); Aspartate Amino Transferase 43 U/L (17-59); Bilirubin,Total 0.3 mg/dL (0.2-1.3); Blood Urea Nitrogen 35 mg/dL (9-20); Calcium 7.9 mg/dL (8.4-10.2); Carbon Dioxide 21 mmol/L (22-30); Chloride 101 mmol/L (98-107); Estimated CRCL calculation 61 ml/min; Estimated Glomerular Filt Rate 50; Glucose 212 mg/dL (65-110); Lipase 191 U/L (23-300); Magnesium 1.9 mg/dL (1.6-2.3); Potassium 3.2 mmol/L (3.4-5.0); Sodium 130 mmol/L (137-145)
[2021-06-02] MEDS: FUROSEMIDE INJ 40 MG/4 ML VIAL IV PUSH (09:04)
[2021-06-02] MEDS: PANTOPRAZOLE 40 MG TABLET PO (09:08)
[2021-06-02] MEDS: SILVERGEL (ELTA) 45 ML 1 APPLIC TOPICAL (09:09)
--- NOTE | 2021-06-02 09:40 | PM.IMPN ---
Progress Note: A&P Assessment and Plan (1) Pneumonia: Qualifiers: Laterality: unspecified laterality Lung location: unspecified part of lung Pneumonia type: due to unspecified organism Qualified Code(s): J18.9 - Pneumonia, unspecified organism Code(s): J18.9 - Pneumonia, unspecified organism Status: Acute Assessment and Plan: Patient has a new infiltrate found on CT on daptomycin which was resumed at this time Cefepime, and flagyl are currently on board as well cultures NGTD MRSA from last visit ID on board Diamond antibiotics if cultures grow anything (2) Necrotizing pancreatitis: Code(s): K85.91 - Acute pancreatitis with uninfected necrosis, unspecified Status: Inactive Assessment and Plan: This was a finding on CT of chest CT of abdomen and pelvis: 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 pancreas with extension into the more posterior retroperitoneal fat which measures approximately 3.4 x 1.7 cm in sagittal imaging. Small region of less well-defined decreased enhancement at the tail of the pancreas also likely related to necrotic pancreatitis which communicates with a couple regions of extrapancreatic acute necrotic collections measuring 5.3 x 2.2 cm at the inferomedial margin of the spleen and 3.0 x 1.6 cm in the fat anterior to the tail of the pancreas. Small amount of nonloculated retroperitoneal fluid in the left anterior pararenal space and along the inferior margin of the pancreas. Supportive care Patient is currently on Daptomycin, cefepime, and flagyl Lipase is 191 IV fluids DCd at this time NPO Surgery consult (3) Febrile illness, acute: Code(s): R50.9 - Fever, unspecified Status: Acute Assessment and Plan: Temp 38.4C better now 37.0C Patient with recent persistent blood cultures with MRSA Currently PICC line in place Daptomycin course restarted will need coverage until 06/27/21 Blood cultures in progress ID consult (4) Septicemia due to methicillin resistant Staphylococcus aureus: Code(s): A41.02 - Sepsis due to Methicillin resistant Staphylococcus aureus Status: Acute Assessment and Plan: Daptomycin course continued and will need to continue until 06/27/21 See above (5) Diabetes type 2, uncontrolled: Code(s): E11.65 - Type 2 diabetes mellitus with hyperglycemia Status: Acute Assessment and Plan: Current glucose 198 Continue insulin Lantus Insulin sliding scale as needed Accu-Cheks AC and HS (6) Obstructive sleep apnea on CPAP: Code(s): G47.33 - Obstructive sleep apnea (adult) (pediatric); Z99.89 - Dependence on other enabling machines and devices Status: Acute Assessment and Plan: CPAP at night (7) Septic joint of right knee joint: Qualifiers: Septic arthritis organism: due to other bacteria Qualified Code(s): M00.861 - Arthritis due to other bacteria, right knee Code(s): M00.9 - Pyogenic arthritis, unspecified Status: Acute Assessment and Plan: Patient is status post incision and drainage with irrigation and debridement right knee joint This was on his prior admission Patient discharged to rehabilitation with a course of daptomycin (8) BMI 40.0-44.9, adult: Code(s): Z68.41 - Body mass index [BMI] 40.0-44.9, adult Status: Acute Assessment and Plan: Lifestyle and diet modification Carb consistent diet (9) Hypertension: Qualifiers: Hypertension type: essential hypertension Qualified Code(s): I10 - Essential (primary) hypertension Code(s): I10 - Essential (primary) hypertension Status: Acute Assessment and Plan: BP 126/71 Give one time dose of lasix 40mg IV once Patient is not currently on an
--- NOTE | 2021-06-02 09:40 | P.PNIM_ITS ---
Progress Note: A&P Assessment and Plan (1) Pneumonia: Qualifiers: Laterality: unspecified laterality Lung location: unspecified part of lung Pneumonia type: due to unspecified organism Qualified Code(s): J18.9 - Pneumonia, unspecified organism Code(s): J18.9 - Pneumonia, unspecified organism Status: Acute Assessment and Plan: * Patient has a new infiltrate found on CT * on daptomycin which was resumed at this time * Cefepime, and flagyl are currently on board as well * cultures NGTD * MRSA from last visit * ID on board * Diamond antibiotics if cultures grow anything (2) Necrotizing pancreatitis: Code(s): K85.91 - Acute pancreatitis with uninfected necrosis, unspecified Status: Inactive Assessment and Plan: * This was a finding on CT of chest * CT of abdomen and pelvis: 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 pancreas with extension into the more posterior retroperitoneal fat which measures approximately 3.4 x 1.7 cm in sagittal imaging. Small region of less well-defined decreased enhancement at the tail of the pancreas also likely related to necrotic pancreatitis which communicates with a couple regions of extrapancreatic acute necrotic collections measuring 5.3 x 2.2 cm at the inferomedial margin of the spleen and 3.0 x 1.6 cm in the fat anterior to the tail of the pancreas. Small amount of nonloculated retroperitoneal fluid in the left anterior pararenal space and along the inferior margin of the pancreas. * Supportive care * Patient is currently on Daptomycin, cefepime, and flagyl * Lipase is 191 * IV fluids DCd at this time * NPO * Surgery consult (3) Febrile illness, acute: Code(s): R50.9 - Fever, unspecified Status: Acute Assessment and Plan: * Temp 38.4C better now 37.0C * Patient with recent persistent blood cultures with MRSA * Currently PICC line in place * Daptomycin course restarted will need coverage until 06/27/21 * Blood cultures in progress * ID consult (4) Septicemia due to methicillin resistant Staphylococcus aureus: Code(s): A41.02 - Sepsis due to Methicillin resistant Staphylococcus aureus Status: Acute Assessment and Plan: * Daptomycin course continued and will need to continue until 06/27/21 * See above (5) Diabetes type 2, uncontrolled: Code(s): E11.65 - Type 2 diabetes mellitus with hyperglycemia Status: Acute Assessment and Plan: * Current glucose 198 * Continue insulin Lantus * Insulin sliding scale as needed * Accu-Cheks AC and HS (6) Obstructive sleep apnea on CPAP: Code(s): G47.33 - Obstructive sleep apnea (adult) (pediatric); Z99.89 - Dependence on other enabling machines and devices Status: Acute Assessment and Plan: * CPAP at night (7) Septic joint of right knee joint: Qualifiers: Septic arthritis organism: due to other bacteria Qualified Code(s): M00.861 - Arthritis due to other bacteria, right knee Code(s): M00.9 - Pyogenic arthritis, unspecified Status: Acute Assessment and Plan: * Patient is status post incision and drainage with irrigation and debridement right knee joint * This was on his prior admission * Patient discharged to rehabilitation with a course of daptomycin (8) BMI 40.0-44.9, adult:
[2021-06-02 13:24] LABS: pH Pleural Fluid 7.436 (7.210-7.500)
[2021-06-02 14:34] LABS: Appearance Pleural Fluid Cloudy (Clear); Pleural fluid source Pleural fluid
[2021-06-02 14:35] LABS: Color Pleural Fluid Other (Colorless); Nucleated Cell Pleural Fluid 434 /uL (0-1000); RBC Pleural Fluid 773 /uL (0-0)
[2021-06-02 14:36] LABS: Lymphocytes Pleural Fluid 56 %; Macrophages Pleural Fluid 8 %; Mesothelial Cells Pleural Flui 20 %; Neutrophils Pleural Fluid 12 % (0-25)
--- NOTE | 2021-06-02 14:40 | PM.PNGS ---
Progress Note: A&P Assessment and Plan (1) Fluid collection of pancreas: Onset Date: ~01/2021 Code(s): K86.89 - Other specified diseases of pancreas Status: Acute Assessment and Plan: This date I reviewed the patient's current and past CT scans with one of our [place] radiologists. It is true that in March of this year the fluid collections present were larger. 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 (2) Pleural effusion: Code(s): J90 - Pleural effusion, not elsewhere classified Status: Acute Assessment and Plan: Right larger than left. Patient had thoracentesis and will be having testing of the fluid today. (3) Hyperglycemia: Code(s): R73.9 - Hyperglycemia, unspecified Status: Acute Assessment and Plan: As per Medicine Service. (4) Left renal mass: Code(s): N28.89 - Other specified disorders of kidney and ureter Status: Acute Assessment and Plan: Patient has seen a urologist regarding this and will be following up in July with them. Patient and his will let them know that he had this recent CT scan that they could review prior to his visit. (5) Hypoalbuminemia: Code(s): E88.09 - Other disorders of plasma-protein metabolism, not elsewhere classified Status: Acute Assessment and Plan: Patient's pre-albumin is very low at 4. Albumin is also somewhat low at 2.7. Will get dietitians consult and start the patient on Glucerna dietary supplements since he is tolerating a diet it would be best to replenish this through the gut. Subjective Subjective Date/Time Seen: 06/02/21 14:40 Patient reports: no new complaints and feels better Interval history: Patient is happy that was found that he was COVID negative. He believes he is breathing a little bit better today. He denies any abdominal pain. He has had a bowel movement earlier today. Review of Systems Review of Systems: All systems reviewed & are unremarkable except as noted in HPI and below Constitutional: Constitutional: Reports as per HPI, Denies chills and Denies fever(s) Cardiovascular: Cardiovascular: Denies chest pain and Denies dyspnea Respiratory: Respiratory: Reports no additional respiratory complaints and Denies dyspnea Gastrointestinal: Gastrointestinal: Reports as per HPI and Denies bloating Musculoskeletal: Musculoskeletal: Reports no additional musculoskeletal complaints Neurologic: Denies memory loss Psychiatric: Psychiatric: Denies anxiety and Denies memory loss Exam Const: General: cooperative, comfortable, alert and awake Orientation/consciousness: patient oriented x3 HENMT: Head: normal to inspection Mouth: Yes moist mucous membranes Eyes: Sclera: sclerae normal Pupils: Equal, round and reactive pupils present Resp: Effort & Inspection: normal respiratory effort Auscultation: clear to auscultation bilaterally GI: Inspection: normal to inspection, obesity and scar ( Consistent with laparoscopic gallbladder surgery.) GI Palp: No abdominal tenderness, Yes Soft to palpation and No Guarding due to palpation present (GI) Auscultation: normal bowel sounds Neuro: General: patient oriented x3 Cranial nerves: Yes Equal, round and reactive pupils present Objective Data Vital Signs Vital Signs: Vital Signs - 24 hr 06/01/21 16:00 06/01/21 20:00 06/02/21 00:00 Temperature 36.5 C Pulse Rate 96 89 82 Respiratory Rate 20 Blood Pressure 125/67 Pulse Oximetry 92 92 06/02/21 04:00 06/02/21 06:00 06/02/21 07:19 Temperature 36.6 C 36.3 C L Pulse Rate 89 84 101 H Respiratory Rate 20 18 Blood Pressure 128/71 112/65 Pulse Oximetry 91 94
[2021-06-02] MEDS: SODIUM CHLORIDE 0.9% IV 1,000 ML 125 ML IV CONT (15:48)
--- NOTE | 2021-06-02 19:05 | WPDCN ---
Assessment and Plan Additional Plan Assessment and plan: 1. Pneumonia with CT scan showing pulmonary infiltrate diffuse bilateral pulmonary infiltrate interstitial in nature. Pulmonary edema versus multifocal pneumonia. Other differential diagnosis rarely eosinophilic pneumonia can occur with daptomycin. Less likely at this point. Patient has minimal cough. Patient has been started on cefepime. Will continue. Request procalcitonin levels as well as atypical pneumonia workup. Respiratory status stable on oxygen. 2. 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 Patient is currently on daptomycin. Duration of therapy to be determined when Dr. bruner returns. Continue daptomycin. 3. Pleural effusion status post thoracocentesis. Fluids have been sent for analysis and culture will follow. 4. Date of service . HPI Data of Consult Date/Time: 06/02/21 19:05 Requesting Physician: Shakir Barger MD Primary Care Provider: Whitley Avalos, TELETYPE CLERK Consult Narrative Narrative: Rafael Diane is a 70 year old male significant past medical history for MRSA bacteremia and right knee septic arthritis apparently sent to rehab center on daptomycin to complete for 4 weeks. Patient apparently presented today emergency room from the [place] [facility] due to not feeling well and episode of vomiting. Patient was also found to have an abnormal lab. In the emergency room he had a CT scan of the chest which showed pneumonia. I was requested to see further antibiotics management. Denies any cough. No chest pain. No diarrhea or dysuria. Right knee surgical site no drainage or pain. No nausea or vomiting. Review of Systems Constitutional: Constitutional: Reports as per HPI Eyes: Eyes: Reports no additional eye complaints Cardiovascular: Cardiovascular: Reports no additional cardiovascular complaints Respiratory: Respiratory: Reports no additional respiratory complaints Gastrointestinal: Gastrointestinal: Reports vomiting Comments: Vomiting x1 prior to admission. Genitourinary: Genitourinary: Reports no additional male genitourinary complaints Musculoskeletal: Musculoskeletal: Reports no additional musculoskeletal complaints Integumentary/Breasts: Comments: No complaint. 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 Followed by urology. Obstructive sleep apnea on CPAP Right shoulder pain Surgical History Surgical History History of endoscopic retrograde cholangiopancreatography (12/2020) History of laparoscopic cholecystectomy (12/24/20) With intraoperative cholangiogram. Family History Family History Father Acute myocardial infarction Social History Social History Social History: Surrogate decision maker: Lesley Diane, . Code status: Full code. Smoking status: Never smoker Alcohol intake: never Substance use: never Substance use type: does not use A
[2021-06-03] VITALS (8 sets, daily range): BP systolic 114–123; BP diastolic 53–73; PULSE 86–105; RESP 16–20; TEMP 36.6–37.2; O2SAT 90–95
[2021-06-03] MEDS: metroNIDAZOLE 250 MG TABLET 500 MG PO ×3 (07:21→21:24)
[2021-06-03] MEDS: CENTRAL LINE FLUSH 10 ML IV PUSH ×4 (07:21→21:35)
[2021-06-03 08:02] LABS: Estimated CRCL calculation 57 ml/min; Estimated Glomerular Filt Rate 46
[2021-06-03] MEDS: FUROSEMIDE INJ 40 MG/4 ML VIAL IV PUSH (08:33)
[2021-06-03] MEDS: PANTOPRAZOLE 40 MG TABLET PO (08:33)
[2021-06-03 08:39] LABS: Vancomycin Trough 10.6 ug/mL (10.0-20.0)
[2021-06-03] MEDS: SILVERGEL (ELTA) 45 ML 1 APPLIC TOPICAL (08:42)
[2021-06-03 10:24] LABS: Basophils Absolute Auto 0.1 K/mm3 (0.0-0.1); Basophils Percent Auto 0.5 % (0.2-1.2); Eosinophils Absolute Auto 1.2 K/mm3 (0-0.3); Eosinophils Percent Auto 9.3 % (0-4.4); Hematocrit 31.4 % (42.0-52.0); Hemoglobin 10.1 g/dL (14.0-18.0); Immature Granulocyte Absolute 0.11 K/mm3 (0.00-0.031); Immature Granulocyte Percent A 0.9 % (0-0.5); Lymphocytes Absolute Auto 0.96 K/mm3 (0.9-3.2); Lymphocytes Percent Auto 7.6 % (18.3-44.2); Mean Corpuscular HGB Conc 32.2 g/dl (32-36); Mean Corpuscular Hemoglobin 27.3 pg (26-34); Mean Corpuscular Volume 84.9 fl (80-100); Mean Platelet Volume 9.1 fl (7.4-10.4); Monocytes Percent Auto 7.6 % (2.6-8.5); Neutrophils Absolute Auto 9.4 K/mm3 (1.3-6.7); Neutrophils Percent Auto 74.1 % (45.5-73.1); Platelet Count Result 353 k/mm3 (150-375); Red Cell Distribution Width 14.7 % (11.5-14.5); White Blood Count 12.7 K/mm3 (4.5-10.0)
[2021-06-03 10:39] LABS: Alanine Aminotransferase 46 U/L (4-50); Albumin Level 3.1 g/dL (3.5-5.1); Alkaline Phosphatase 67 U/L (38-126); Anion Gap 9 mmol/L (8-16); Aspartate Amino Transferase 38 U/L (17-59); Bilirubin,Total 0.5 mg/dL (0.2-1.3); Blood Urea Nitrogen 46 mg/dL (9-20); Calcium 8.1 mg/dL (8.4-10.2); Carbon Dioxide 23 mmol/L (22-30); Chloride 99 mmol/L (98-107); Estimated CRCL calculation 57 ml/min; Estimated Glomerular Filt Rate 46; Glucose 215 mg/dL (65-110); Potassium 2.9 mmol/L (3.4-5.0); Sodium 131 mmol/L (137-145)
--- NOTE | 2021-06-03 11:43 | PM.PNGS ---
Progress Note: A&P Assessment and Plan (1) Fluid collection of pancreas: Onset Date: ~01/2021 Code(s): K86.89 - Other specified diseases of pancreas Status: Acute Assessment and Plan: The patient's current and past CT scans have been reviewed with one of our [place] radiologists. It is true that in March of this year the fluid collections present were larger. 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 Lipase yesterday was normal. I will sign off at this point. I have discussed with him the importance of following up with Urology to address the left kidney lesions and also to admit to self that he has diabetes and stick to a very regimented diet of high protein and low carbs as discussed with him by the dietitian. Please see her note . (2) Pleural effusion: Code(s): J90 - Pleural effusion, not elsewhere classified Status: Acute Assessment and Plan: Right larger than left. Patient had thoracentesis and will be having testing of the fluid. (3) Hyperglycemia: Code(s): R73.9 - Hyperglycemia, unspecified Status: Acute Assessment and Plan: As per Medicine Service. (4) Left renal mass: Code(s): N28.89 - Other specified disorders of kidney and ureter Status: Acute Assessment and Plan: Patient has seen a urologist regarding this and will be following up in July with them. Patient and his will let them know that he had this recent CT scan that they could review prior to his visit. (5) Hypoalbuminemia: Code(s): E88.09 - Other disorders of plasma-protein metabolism, not elsewhere classified Status: Acute Assessment and Plan: Patient's pre-albumin is very low at 4. Albumin is also somewhat low but improved today at 3.1. Will get dietitian's consult and start the patient on Glucerna dietary supplements since he is tolerating a diet it would be best to replenish this through the gut. (6) Pneumonia: Qualifiers: Laterality: unspecified laterality Lung location: unspecified part of lung Pneumonia type: due to unspecified organism Qualified Code(s): J18.9 - Pneumonia, unspecified organism Code(s): J18.9 - Pneumonia, unspecified organism Status: Acute Assessment and Plan: As per Med and ID service. (7) Decubitus ulcer of back, stage 2: Code(s): L89.102 - Pressure ulcer of unspecified part of back, stage 2 Status: Acute Assessment and Plan: This is on his Rt. buttock. Inspected today and discussed with the wound care nurses. They will re-evaluate in the nest couple of days and perhapse consider and change to use of Santyl to enzymatically debride the white adherent exudate that is covering the center of the wound. I also dicussed with the pt pressure relief for this area by limiting his sitting on it to no more than 1 hr. of continuous sitting in a chair and then spending more time lying on his sides in bed and very littie lyin on his back. Subjective Subjective Date/Time Seen: 06/03/21 11:43 Patient is sitting up in the chair when I arrived in the room. Patient seen with Zulema his day RN. We had him stand up and I was able to look at the small right buttock grade II decubitus. Current treatment ordered is silver gel covered by a small Mepilex which I believe should work well. See exam below. Also discussed with the patient his pancreatic fluid collections, his [id number] diabetes, and his left kidney lesions which are to be followed up by a urologist with possible radiofrequency ablation perc
--- NOTE | 2021-06-03 11:50 | P.PNIM_ITS ---
Progress Note: A&P Assessment and Plan (1) Pneumonia: Qualifiers: Laterality: unspecified laterality Lung location: unspecified part of lung Pneumonia type: due to unspecified organism Qualified Code(s): J18.9 - Pneumonia, unspecified organism Code(s): J18.9 - Pneumonia, unspecified organism Status: Acute Assessment and Plan: * Patient has a new infiltrate found on CT * on daptomycin which was resumed at this time * Cefepime, and flagyl are currently on board as well * cultures NGTD * MRSA from last visit * ID on board * Diamond antibiotics if cultures grow anything * More infiltrates noted on x-ray after paracentesis (2) Febrile illness, acute: Code(s): R50.9 - Fever, unspecified Status: Acute Assessment and Plan: * Seems to be resolved * Temp 38.4C better now 37.0C * Patient with recent persistent blood cultures with MRSA * Currently PICC line in place * Daptomycin course restarted will need coverage until 06/27/21 * Blood cultures in progress * ID consult (3) Septicemia due to methicillin resistant Staphylococcus aureus: Code(s): A41.02 - Sepsis due to Methicillin resistant Staphylococcus aureus Status: Acute Assessment and Plan: * Daptomycin course continued and will need to continue until 06/27/21 * See above (4) Diabetes type 2, uncontrolled: Code(s): E11.65 - Type 2 diabetes mellitus with hyperglycemia Status: Acute Assessment and Plan: * Current glucose 212 * Insulin sliding scale as needed * Accu-Cheks AC and HS * Trend glucose * Will need a 24 hour insulin (5) Obstructive sleep apnea on CPAP: Code(s): G47.33 - Obstructive sleep apnea (adult) (pediatric); Z99.89 - Dependence on other enabling machines and devices Status: Acute Assessment and Plan: * CPAP at night (6) Septic joint of right knee joint: Qualifiers: Septic arthritis organism: due to other bacteria Qualified Code(s): M00.861 - Arthritis due to other bacteria, right knee Code(s): M00.9 - Pyogenic arthritis, unspecified Status: Acute Assessment and Plan: * Patient is status post incision and drainage with irrigation and debridement right knee joint * This was on his prior admission * Patient discharged to rehabilitation with a course of daptomycin (7) BMI 40.0-44.9, adult: Code(s): Z68.41 - Body mass index [BMI] 40.0-44.9, adult Status: Acute Assessment and Plan: * Lifestyle and diet modification * Carb consistent diet (8) Hypertension: Qualifiers: Hypertension type: essential hypertension Qualified Code(s): I10 - Essential (primary) hypertension Code(s): I10 - Essential (primary) hypertension Status: Acute Assessment and Plan: * BP 126/71, stable and controlled * Give one time dose of lasix 40mg IV once * Patient is not currently on any medications * Continue to monitor (9) Chest pain: Code(s): R07.9 - Chest pain, unspecified Status: Acute Assessment and Plan: * Hypertensive and tachycardic * Trops negative * Resolved at this time * Echo Shows grade 1 diastolic dysfunction with EF of 50-55% * BNP is elevated at 2000 * Lasix x 1 (10) Pleural effusion: Code(s): J90 - Pleural effusion, not elsewhere classified Status: Acute Assessment and Plan: * Found on the CT *
--- NOTE | 2021-06-03 11:50 | PM.IMPN ---
Progress Note: A&P Assessment and Plan (1) Pneumonia: Qualifiers: Laterality: unspecified laterality Lung location: unspecified part of lung Pneumonia type: due to unspecified organism Qualified Code(s): J18.9 - Pneumonia, unspecified organism Code(s): J18.9 - Pneumonia, unspecified organism Status: Acute Assessment and Plan: Patient has a new infiltrate found on CT on daptomycin which was resumed at this time Cefepime, and flagyl are currently on board as well cultures NGTD MRSA from last visit ID on board Diamond antibiotics if cultures grow anything More infiltrates noted on x-ray after paracentesis (2) Febrile illness, acute: Code(s): R50.9 - Fever, unspecified Status: Acute Assessment and Plan: Seems to be resolved Temp 38.4C better now 37.0C Patient with recent persistent blood cultures with MRSA Currently PICC line in place Daptomycin course restarted will need coverage until 06/27/21 Blood cultures in progress ID consult (3) Septicemia due to methicillin resistant Staphylococcus aureus: Code(s): A41.02 - Sepsis due to Methicillin resistant Staphylococcus aureus Status: Acute Assessment and Plan: Daptomycin course continued and will need to continue until 06/27/21 See above (4) Diabetes type 2, uncontrolled: Code(s): E11.65 - Type 2 diabetes mellitus with hyperglycemia Status: Acute Assessment and Plan: Current glucose 212 Insulin sliding scale as needed Accu-Cheks AC and HS Trend glucose Will need a 24 hour insulin (5) Obstructive sleep apnea on CPAP: Code(s): G47.33 - Obstructive sleep apnea (adult) (pediatric); Z99.89 - Dependence on other enabling machines and devices Status: Acute Assessment and Plan: CPAP at night (6) Septic joint of right knee joint: Qualifiers: Septic arthritis organism: due to other bacteria Qualified Code(s): M00.861 - Arthritis due to other bacteria, right knee Code(s): M00.9 - Pyogenic arthritis, unspecified Status: Acute Assessment and Plan: Patient is status post incision and drainage with irrigation and debridement right knee joint This was on his prior admission Patient discharged to rehabilitation with a course of daptomycin (7) BMI 40.0-44.9, adult: Code(s): Z68.41 - Body mass index [BMI] 40.0-44.9, adult Status: Acute Assessment and Plan: Lifestyle and diet modification Carb consistent diet (8) Hypertension: Qualifiers: Hypertension type: essential hypertension Qualified Code(s): I10 - Essential (primary) hypertension Code(s): I10 - Essential (primary) hypertension Status: Acute Assessment and Plan: BP 126/71, stable and controlled Give one time dose of lasix 40mg IV once Patient is not currently on any medications Continue to monitor (9) Chest pain: Code(s): R07.9 - Chest pain, unspecified Status: Acute Assessment and Plan: Hypertensive and tachycardic Trops negative Resolved at this time Echo Shows grade 1 diastolic dysfunction with EF of 50-55% BNP is elevated at 2000 Lasix x 1 (10) Pleural effusion: Code(s): J90 - Pleural effusion, not elsewhere classified Status: Acute Assessment and Plan: Found on the CT Moderate on left and small on right Thoracentesis was performed and 1000ml was taken off Cultures pending at this time Gram stain no organisms, few WBCs Pathology shows reactive mesothelial cells, foam cells, and atypical cell, most likely additional reactive mesothelial cells (11) Acute respiratory failure with hypoxia: Code(s): J96.01 - Acute respiratory failure with hypoxia Status: Acute Assessment and Plan: Increase work of breathing Saturation recorded as low as 89% Supplemental oxygen, wean to
--- NOTE | 2021-06-03 12:09 | PC.NURSE ---
On 06/03/21, the student, Micheline CID [facility], provided care and completed [facility] documentation on this patient. I have reviewed the student's documentation and agree with the findings.
[2021-06-03] MEDS: ENOXAPARIN 40 MG/0.4 ML SYRINGE SUB-Q (15:12)
--- NOTE | 2021-06-03 18:58 | WPDINFPN2 ---
Progress Note: A&P Additional Plan Assessment and plan 1. Pneumonia with CT scan showing diffuse bilateral pulmonary infiltrate interstitial in nature. Pulmonary edema versus multifocal pneumonia. Other differential diagnosis rarely eosinophilic secondary to daptomycin. Less likely at this point. Patient is on cefepime day 3. Pleural fluid cultures have been so far negative. WBC count is 12,000. COVID-19 PCR was negative. Atypical pneumonia workup is in progress. Continue current care. 2. 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 Patient is currently on daptomycin. Duration of therapy to be determined when Dr. bruner returns. Continue daptomycin. 3. Pleural effusion status post thoracocentesis. Fluids have been sent for analysis and culture will follow. Subjective Date/time seen: 06/03/21 18:58 Exam Eyes: General: appearance normal, both eyes and all related structures Neck: Neck: normal visual inspection Chest: Chest palpation & inspection: normal inspection of the chest Resp: Effort & Inspection: normal respiratory effort Auscultation: clear to auscultation bilaterally Cardio: Rate: tachycardic Rhythm: regular rhythm Heart sounds: S1 normal heart sound present and S2 normal heart sound present Skin: Other: Right knee surgical site wound is clean. No drainage or erythema. Right neck jugular CVC line sites clean. Neuro: General: oriented to person Cranial nerves: Yes CN's II-XII intact bilaterally Extrem: Other: Bilateral lower extremity +2 edema Objective Data Vital Signs Vital Signs: Vital Signs - 24 hr 06/02/21 20:00 06/02/21 21:25 06/03/21 00:00 Temperature 36.7 C Pulse Rate 111 H 100 89 Respiratory Rate 18 Blood Pressure 139/77 Pulse Oximetry 94 06/03/21 04:00 06/03/21 05:40 06/03/21 08:00 Temperature 36.6 C Pulse Rate 87 86 89 Respiratory Rate 18 Blood Pressure 123/53 L Pulse Oximetry 93 06/03/21 12:00 06/03/21 15:08 06/03/21 16:00 Temperature 37.2 C Pulse Rate 93 105 H 101 H Respiratory Rate 16 Blood Pressure 114/73 Pulse Oximetry 95 Intake/Output Intake/Output: Intake & Output 05/31/21 06/01/21 06/02/21 06/03/21 23:59 23:59 23:59 23:59 Intake Total 1150 3590 1810 2600 Output Total 750 1750 1900 Balance 1150 2840 60 700 Meds/Results Medications: Active Medications Generic Name Dose Route Start Last Admin Trade Name Freq PRN Reason Stop Dose Admin Bisacodyl 10 mg 06/01/21 17:13 Bisacodyl 10 Mg Suppository RECTAL QAM PRN Constipation Enoxaparin Sodium 40 mg 06/03/21 12:05 06/03/21 15:12 Enoxaparin 40 Mg/0.4 Ml Syringe SUB-Q 40 mg DAILY NUPUR Administration Furosemide 40 mg 06/01/21 16:10 06/03/21 08:33 Furosemide Inj 40 Mg/4 Ml Vial IV PUSH 40 mg DAILY NUPUR Administration Cefepime HCl 2 gm in 50 mls @ 100 mls/hr 06/01/21 21:00 06/03/21 10:48 Maxipime 2 Gm/D5w 50 Ml IVPB Infused Q12H NUPUR Infusion Daptomycin 1,160 mg/ Sodium 50 mls @ 100 mls/hr 06/02/21 09:00 06/03/21 09:03 Chloride IVPB Infused Q24H NUPUR Infusion Metronidazole 500 mg 06/01/21 22:00 06/03/21 15:13 Metronidazole 250 Mg Tablet PO 500 mg Q8HR NUPUR Administration Pantoprazole Sodium 40 mg 06/02/21 09:00 06/03/21 08:33 Pantoprazole 40 Mg Tablet PO 40 mg QAM NUPUR Administration Silver Nitrate 1 applic 06/01/21 09:00 06/03/21 08:42 Silvergel (Elta) 45 Ml TOPICAL 1 applic DAILY NUPUR Administration Sodium Chloride 10 ml 05/31/21 22:00 06/03/21 15:16 Central Line Flush IV PUSH 10 ml Q8HR NUPUR Administration Sodium Chloride 10 ml 06/01/21 18:00 06/03/21 17:35 Central Line Flush IV PUSH 10 ml DAILY@1800 NUPUR Administration Sodium Chloride 20 ml 05/31/21 20:47 Central Line Flush IV PUSH PRN PRN after blood draws Radiology Results: ITS Impressions Chest CTA 05/31/21 21:38 IMPRESSION: 1. Nondiagnostic
[2021-06-03 19:52] LABS: Glucose Pleural Fluid 227 mg/dL; LDH Pleural Fluid 219 U/L; Total Protein Pleural Fluid 3.3 g/dL
[2021-06-04 06:00] VITALS: BP 131/61; PULSE 92; RESP 20; TEMP 36.6; O2SAT 91
[2021-06-04] MEDS: metroNIDAZOLE 250 MG TABLET 500 MG PO ×3 (06:22→21:56)
[2021-06-04] MEDS: CENTRAL LINE FLUSH 10 ML IV PUSH ×4 (06:25→21:56)
[2021-06-04 07:53] LABS: Basophils Percent Auto 0.3 % (0.2-1.2); Eosinophils Percent Auto 0.3 % (0-4.4); Hematocrit 26.2 % (42.0-52.0); Hemoglobin 8.6 g/dL (14.0-18.0); Immature Granulocyte Absolute 0.05 K/mm3 (0.00-0.031); Immature Granulocyte Percent A 0.4 % (0-0.5); Lymphocytes Absolute Auto 0.89 K/mm3 (0.9-3.2); Lymphocytes Percent Auto 7.8 % (18.3-44.2); Mean Corpuscular HGB Conc 32.8 g/dl (32-36); Mean Corpuscular Hemoglobin 28.2 pg (26-34); Mean Corpuscular Volume 85.9 fl (80-100); Mean Platelet Volume 9.3 fl (7.4-10.4); Monocytes Absolute Auto 0.8 K/mm3 (0.1-0.6); Monocytes Percent Auto 6.9 % (2.6-8.5); Neutrophils Absolute Auto 9.6 K/mm3 (1.3-6.7); Neutrophils Percent Auto 84.3 % (45.5-73.1); Platelet Count Result 181 k/mm3 (150-375); Red Blood Count 3.05 M/mm3 (4.6-6.20); Red Cell Distribution Width 14.6 % (11.5-14.5); White Blood Count 11.4 K/mm3 (4.5-10.0)
[2021-06-04] MEDS: CENTRAL LINE FLUSH 20 ML IV PUSH ×2 (08:00→13:23)
[2021-06-04 08:07] LABS: Glucose Point of Care 174 mg/dl (65-105)
[2021-06-04 08:13] LABS: Alanine Aminotransferase 29 U/L (4-50); Albumin Level 2.5 g/dL (3.5-5.1); Alkaline Phosphatase 51 U/L (38-126); Anion Gap 4 mmol/L (8-16); Aspartate Amino Transferase 23 U/L (17-59); Bilirubin,Total 0.5 mg/dL (0.2-1.3); Blood Urea Nitrogen 32 mg/dL (9-20); Calcium 7.4 mg/dL (8.4-10.2); Carbon Dioxide 25 mmol/L (22-30); Chloride 99 mmol/L (98-107); Estimated CRCL calculation 70 ml/min; Estimated Glomerular Filt Rate 60; Glucose 177 mg/dL (65-110); Potassium 2.5 mmol/L (3.4-5.0); Sodium 128 mmol/L (137-145)
[2021-06-04 08:42] LABS: Magnesium 1.7 mg/dL (1.6-2.3)
[2021-06-04] MEDS: ENOXAPARIN 40 MG/0.4 ML SYRINGE SUB-Q (08:54)
[2021-06-04] MEDS: FUROSEMIDE INJ 40 MG/4 ML VIAL IV PUSH (08:54)
[2021-06-04] MEDS: PANTOPRAZOLE 40 MG TABLET PO (08:54)
[2021-06-04] MEDS: POTASSIUM CHLORIDE 20 MEQ TABLET 40 MEQ PO ×3 (09:00→17:09)
[2021-06-04 10:19] LABS: Immature Reticulocyte Fraction 15.9 % (3.0-15.9); Reticulocyte Hemoglobin Conten 32.2 pg (28.2-35.7); Reticulocyte Percent 1.71 % (0.7-4.3); Reticulocytes Absolute 0.05 B/L (32.2-175.7)
--- NOTE | 2021-06-04 10:45 | P.PNIM_ITS ---
Progress Note: A&P Assessment and Plan (1) Pneumonia: Qualifiers: Laterality: unspecified laterality Lung location: unspecified part of lung Pneumonia type: due to unspecified organism Qualified Code(s): J18.9 - Pneumonia, unspecified organism Code(s): J18.9 - Pneumonia, unspecified organism Status: Acute Assessment and Plan: * Patient has a new infiltrate found on CT * on daptomycin which was resumed at this time * Cefepime, and flagyl are currently on board as well * cultures NGTD * MRSA from last visit * ID on board * Diamond antibiotics if cultures grow anything * More infiltrates noted on x-ray after paracentesis * Repeat chest xray * WBC is 11.4 today (2) Febrile illness, acute: Code(s): R50.9 - Fever, unspecified Status: Acute Assessment and Plan: * Seems to be resolved * Temp 38.4C better now 37.0C * Patient with recent persistent blood cultures with MRSA * Currently PICC line in place * Daptomycin course restarted will need coverage until 06/27/21 * Blood cultures in progress * ID consult (3) Septicemia due to methicillin resistant Staphylococcus aureus: Code(s): A41.02 - Sepsis due to Methicillin resistant Staphylococcus aureus Status: Acute Assessment and Plan: * Daptomycin course continued and will need to continue until 06/27/21 * See above (4) Diabetes type 2, uncontrolled: Code(s): E11.65 - Type 2 diabetes mellitus with hyperglycemia Status: Acute Assessment and Plan: * Current glucose 177 * Insulin sliding scale as needed * Accu-Cheks AC and HS * Trend glucose * Will need a 24 hour insulin * Add 20units lantus (5) Obstructive sleep apnea on CPAP: Code(s): G47.33 - Obstructive sleep apnea (adult) (pediatric); Z99.89 - Dependence on other enabling machines and devices Status: Acute Assessment and Plan: * CPAP at night (6) Septic joint of right knee joint: Qualifiers: Septic arthritis organism: due to other bacteria Qualified Code(s): M00.861 - Arthritis due to other bacteria, right knee Code(s): M00.9 - Pyogenic arthritis, unspecified Status: Acute Assessment and Plan: * Patient is status post incision and drainage with irrigation and debridement right knee joint * This was on his prior admission * Patient discharged to rehabilitation with a course of daptomycin (7) BMI 40.0-44.9, adult: Code(s): Z68.41 - Body mass index [BMI] 40.0-44.9, adult Status: Acute Assessment and Plan: * Lifestyle and diet modification * Carb consistent diet (8) Hypertension: Qualifiers: Hypertension type: essential hypertension Qualified Code(s): I10 - Ess ential (primary) hypertension Code(s): I10 - Essential (primary) hypertension Status: Acute Assessment and Plan: * BP 126/71, stable and controlled * Give one time dose of lasix 40mg IV once * Patient is not currently on any medications * Continue to monitor (9) Chest pain: Code(s): R07.9 - Chest pain, unspecified Status: Acute Assessment and Plan: * Hypertensive and tachycardic * Trops negative * Resolved at this time * Echo Shows grade 1 diastolic dysfunction with EF of 50-55% * BNP is elevated at 2000 (10) Pleural effusion:
--- NOTE | 2021-06-04 10:45 | PM.IMPN ---
Progress Note: A&P Assessment and Plan (1) Pneumonia: Qualifiers: Laterality: unspecified laterality Lung location: unspecified part of lung Pneumonia type: due to unspecified organism Qualified Code(s): J18.9 - Pneumonia, unspecified organism Code(s): J18.9 - Pneumonia, unspecified organism Status: Acute Assessment and Plan: Patient has a new infiltrate found on CT on daptomycin which was resumed at this time Cefepime, and flagyl are currently on board as well cultures NGTD MRSA from last visit ID on board Diamond antibiotics if cultures grow anything More infiltrates noted on x-ray after paracentesis Repeat chest xray WBC is 11.4 today (2) Febrile illness, acute: Code(s): R50.9 - Fever, unspecified Status: Acute Assessment and Plan: Seems to be resolved Temp 38.4C better now 37.0C Patient with recent persistent blood cultures with MRSA Currently PICC line in place Daptomycin course restarted will need coverage until 06/27/21 Blood cultures in progress ID consult (3) Septicemia due to methicillin resistant Staphylococcus aureus: Code(s): A41.02 - Sepsis due to Methicillin resistant Staphylococcus aureus Status: Acute Assessment and Plan: Daptomycin course continued and will need to continue until 06/27/21 See above (4) Diabetes type 2, uncontrolled: Code(s): E11.65 - Type 2 diabetes mellitus with hyperglycemia Status: Acute Assessment and Plan: Current glucose 177 Insulin sliding scale as needed Accu-Cheks AC and HS Trend glucose Will need a 24 hour insulin Add 20units lantus (5) Obstructive sleep apnea on CPAP: Code(s): G47.33 - Obstructive sleep apnea (adult) (pediatric); Z99.89 - Dependence on other enabling machines and devices Status: Acute Assessment and Plan: CPAP at night (6) Septic joint of right knee joint: Qualifiers: Septic arthritis organism: due to other bacteria Qualified Code(s): M00.861 - Arthritis due to other bacteria, right knee Code(s): M00.9 - Pyogenic arthritis, unspecified Status: Acute Assessment and Plan: Patient is status post incision and drainage with irrigation and debridement right knee joint This was on his prior admission Patient discharged to rehabilitation with a course of daptomycin (7) BMI 40.0-44.9, adult: Code(s): Z68.41 - Body mass index [BMI] 40.0-44.9, adult Status: Acute Assessment and Plan: Lifestyle and diet modification Carb consistent diet (8) Hypertension: Qualifiers: Hypertension type: essential hypertension Qualified Code(s): I10 - Essential (primary) hypertension Code(s): I10 - Essential (primary) hypertension Status: Acute Assessment and Plan: BP 126/71, stable and controlled Give one time dose of lasix 40mg IV once Patient is not currently on any medications Continue to monitor (9) Chest pain: Code(s): R07.9 - Chest pain, unspecified Status: Acute Assessment and Plan: Hypertensive and tachycardic Trops negative Resolved at this time Echo Shows grade 1 diastolic dysfunction with EF of 50-55% BNP is elevated at 1999 (10) Pleural effusion: Code(s): J90 - Pleural effusion, not elsewhere classified Status: Acute Assessment and Plan: Found on the CT Moderate on left and small on right Thoracentesis was performed and 1000ml was taken off Cultures pending at this time Gram stain no organisms, few WBCs Pathology shows reactive mesothelial cells, foam cells, and atypical cell, most likely additional reactive mesothelial cells (11) Acute respiratory failure with hypoxia: Code(s): J96.01 - Acute respiratory failure with hypoxia Status: Acute Assessment and Plan: Increase wor
[2021-06-04] MEDS: SILVERGEL (ELTA) 45 ML 1 APPLIC TOPICAL (11:07)
[2021-06-04] MEDS: MAGNESIUM SULF 2 GM/WATER 50ML 2 GM/50 ML BAG IVPB (11:07)
[2021-06-04 11:35] LABS: Iron < 10 ug/dL (49-181)
[2021-06-04 11:48] LABS: Transferrin 90 mg/dL (206-381)
[2021-06-04 12:16] LABS: Glucose Point of Care 300 mg/dl (65-105)
[2021-06-04 12:48] LABS: Folic Acid 4.7 ng/mL (2.76->20)
[2021-06-04] MEDS: INSULIN ASPART (*BKC) 100 UNITS/ML SUB-Q (12:50)
[2021-06-04 13:40] LABS: Anion Gap 8 mmol/L (8-16); Blood Urea Nitrogen 30 mg/dL (9-20); Calcium 7.6 mg/dL (8.4-10.2); Carbon Dioxide 24 mmol/L (22-30); Chloride 99 mmol/L (98-107); Estimated CRCL calculation 65 ml/min; Estimated Glomerular Filt Rate 54; Glucose 271 mg/dL (65-110); Potassium 3.1 mmol/L (3.4-5.0); Sodium 131 mmol/L (137-145)
[2021-06-04] MEDS: ALTEPLASE 2 MG VIAL (CATHFLO) IV PUSH ×3 (13:58→14:02)
[2021-06-04 14:05] LABS: Percent Iron Saturation < 6 % (20-50)
[2021-06-04 14:44] VITALS: BP 113/65; PULSE 97; RESP 19; TEMP 37.9; O2SAT 92
[2021-06-04 17:34] LABS: Glucose Point of Care 179 mg/dl (65-105)
[2021-06-04 21:51] VITALS: BP 133/64; PULSE 106; RESP 18; TEMP 38.2; O2SAT 90
[2021-06-04] MEDS: ACETAMINOPHEN 500 MG TABLET 1000 MG PO (21:54)
[2021-06-04] MEDS: INSULIN GLARGINE (*BKC) 100 UNITS/ML 20 UNITS SUB-Q (22:10)
[2021-06-05] VITALS (10 sets, daily range): BP systolic 96–146; BP diastolic 57–65; PULSE 87–113; RESP 16–26; TEMP 36.4–37.5; O2SAT 81–100
[2021-06-05 03:30] LABS: Glucose Point of Care 176 mg/dl (65-105)
[2021-06-05] MEDS: CENTRAL LINE FLUSH 10 ML IV PUSH ×4 (06:20→22:57)
[2021-06-05] MEDS: metroNIDAZOLE 250 MG TABLET 500 MG PO (06:21)
[2021-06-05 07:03] LABS: Estimated CRCL calculation 70 ml/min; Estimated Glomerular Filt Rate 60
[2021-06-05 07:47] LABS: Glucose Point of Care 167 mg/dl (65-105)
[2021-06-05] MEDS: FUROSEMIDE 40 MG TABLET PO (08:28)
[2021-06-05] MEDS: ENOXAPARIN 40 MG/0.4 ML SYRINGE SUB-Q (08:28)
[2021-06-05] MEDS: PANTOPRAZOLE 40 MG TABLET PO (08:29)
[2021-06-05 08:56] LABS: Basophils Percent Auto 0.2 % (0.2-1.2); Eosinophils Absolute Auto 1.3 K/mm3 (0-0.3); Eosinophils Percent Auto 9.2 % (0-4.4); Hematocrit 27.7 % (42.0-52.0); Immature Granulocyte Absolute 0.15 K/mm3 (0.00-0.031); Immature Granulocyte Percent A 1.1 % (0-0.5); Lymphocytes Percent Auto 5.1 % (18.3-44.2); Mean Corpuscular HGB Conc 32.5 g/dl (32-36); Mean Platelet Volume 9.6 fl (7.4-10.4); Monocytes Absolute Auto 0.7 K/mm3 (0.1-0.6); Monocytes Percent Auto 5.3 % (2.6-8.5); Neutrophils Absolute Auto 10.8 K/mm3 (1.3-6.7); Neutrophils Percent Auto 79.1 % (45.5-73.1); Platelet Count Result 197 k/mm3 (150-375); Red Blood Count 3.22 M/mm3 (4.6-6.20); Red Cell Distribution Width 14.7 % (11.5-14.5); White Blood Count 13.7 K/mm3 (4.5-10.0)
[2021-06-05 09:09] LABS: Alanine Aminotransferase 25 U/L (4-50); Albumin Level 2.6 g/dL (3.5-5.1); Alkaline Phosphatase 54 U/L (38-126); Anion Gap 5 mmol/L (8-16); Aspartate Amino Transferase 20 U/L (17-59); Bilirubin,Total 0.6 mg/dL (0.2-1.3); Blood Urea Nitrogen 24 mg/dL (9-20); Calcium 7.6 mg/dL (8.4-10.2); Carbon Dioxide 27 mmol/L (22-30); Chloride 98 mmol/L (98-107); Estimated CRCL calculation 76 ml/min; Estimated Glomerular Filt Rate > 60; Glucose 188 mg/dL (65-110); Sodium 130 mmol/L (137-145)
--- NOTE | 2021-06-05 10:30 | PM.IMPN ---
Progress Note: A&P Assessment and Plan (1) Pneumonia: Qualifiers: Laterality: unspecified laterality Lung location: unspecified part of lung Pneumonia type: due to unspecified organism Qualified Code(s): J18.9 - Pneumonia, unspecified organism Code(s): J18.9 - Pneumonia, unspecified organism Status: Acute Assessment and Plan: I wonder if this PNA is an HCAP. Patient just got out of acute rehab Patient has a new infiltrate found on CT on daptomycin which was resumed at this time Cefepime, changed flagyl to vancomycin cultures NGTD MRSA from last visit ID on board Diamond antibiotics if cultures grow anything More infiltrates noted on x-ray after paracentesis Repeat chest xray shows worsening PNA WBC is 13.7 today (2) Febrile illness, acute: Code(s): R50.9 - Fever, unspecified Status: Acute Assessment and Plan: Mild fever noted Temp 38.2 down to 36.4 Patient with recent persistent blood cultures with MRSA Currently PICC line in place Daptomycin course restarted will need coverage until 06/27/21 Blood cultures in progress ID consult (3) Septicemia due to methicillin resistant Staphylococcus aureus: Code(s): A41.02 - Sepsis due to Methicillin resistant Staphylococcus aureus Status: Acute Assessment and Plan: Daptomycin course continued and will need to continue until 06/27/21 See above (4) Diabetes type 2, uncontrolled: Code(s): E11.65 - Type 2 diabetes mellitus with hyperglycemia Status: Acute Assessment and Plan: Current glucose 188 Insulin sliding scale as needed Accu-Cheks AC and HS Trend glucose Will need a 24 hour insulin Add 20units lantus (5) Obstructive sleep apnea on CPAP: Code(s): G47.33 - Obstructive sleep apnea (adult) (pediatric); Z99.89 - Dependence on other enabling machines and devices Status: Acute Assessment and Plan: CPAP at night (6) Septic joint of right knee joint: Qualifiers: Septic arthritis organism: due to other bacteria Qualified Code(s): M00.861 - Arthritis due to other bacteria, right knee Code(s): M00.9 - Pyogenic arthritis, unspecified Status: Acute Assessment and Plan: Patient is status post incision and drainage with irrigation and debridement right knee joint This was on his prior admission Patient discharged to rehabilitation with a course of daptomycin (7) BMI 40.0-44.9, adult: Code(s): Z68.41 - Body mass index [BMI] 40.0-44.9, adult Status: Acute Assessment and Plan: Lifestyle and diet modification Carb consistent diet (8) Hypertension: Qualifiers: Hypertension type: essential hypertension Qualified Code(s): I10 - Essential (primary) hypertension Code(s): I10 - Essential (primary) hypertension Status: Acute Assessment and Plan: BP 137/62, stable and controlled lasix 40mg IV, Lasix 40mg PO Patient is not currently on any medications Continue to monitor (9) Chest pain: Code(s): R07.9 - Chest pain, unspecified Status: Acute Assessment and Plan: Hypertensive and tachycardic Trops negative Resolved at this time Echo Shows grade 1 diastolic dysfunction with EF of 50-55% BNP is elevated at 1999 (10) Pleural effusion: Code(s): J90 - Pleural effusion, not elsewhere classified Status: Acute Assessment and Plan: Found on the CT Moderate on left and small on right Thoracentesis was performed and 1000ml was taken off Cultures pending at this time Gram stain no organisms, few WBCs Pathology shows reactive mesothelial cells, foam cells, and atypical cell, most likely additional reactive mesothelial cells (11) Acute respiratory failure with hypoxia: Code(s): J96.01 - Acute respiratory failure with hypoxia
--- NOTE | 2021-06-05 10:30 | P.PNIM_ITS ---
Progress Note: A&P Assessment and Plan (1) Pneumonia: Qualifiers: Laterality: unspecified laterality Lung location: unspecified part of lung Pneumonia type: due to unspecified organism Qualified Code(s): J18.9 - Pneumonia, unspecified organism Code(s): J18.9 - Pneumonia, unspecified organism Status: Acute Assessment and Plan: * I wonder if this PNA is an HCAP. Patient just got out of acute rehab * Patient has a new infiltrate found on CT * on daptomycin which was resumed at this time * Cefepime, changed flagyl to vancomycin * cultures NGTD * MRSA from last visit * ID on board * Diamond antibiotics if cultures grow anything * More infiltrates noted on x-ray after paracentesis * Repeat chest xray shows worsening PNA * WBC is 13.7 today (2) Febrile illness, acute: Code(s): R50.9 - Fever, unspecified Status: Acute Assessment and Plan: * Mild fever noted * Temp 38.2 down to 36.4 * Patient with recent persistent blood cultures with MRSA * Currently PICC line in place * Daptomycin course restarted will need coverage until 06/27/21 * Blood cultures in progress * ID consult (3) Septicemia due to methicillin resistant Staphylococcus aureus: Code(s): A41.02 - Sepsis due to Methicillin resistant Staphylococcus aureus Status: Acute Assessment and Plan: * Daptomycin course continued and will need to continue until 06/27/21 * See above (4) Diabetes type 2, uncontrolled: Code(s): E11.65 - Type 2 diabetes mellitus with hyperglycemia Status: Acute Assessment and Plan: * Current glucose 188 * Insulin sliding scale as needed * Accu-Cheks AC and HS * Trend glucose * Will need a 24 hour insulin * Add 20units lantus (5) Obstructive sleep apnea on CPAP: Code(s): G47.33 - Obstructive sleep apnea (adult) (pediatric); Z99.89 - Dependence on other enabling machines and devices Status: Acute Assessment and Plan: * CPAP at night (6) Septic joint of right knee joint: Qualifiers: Septic arthritis organism: due to other bacteria Qualified Code(s): M00.861 - Arthritis due to other bacteria, right knee Code(s): M00.9 - Pyogenic arthritis, unspecified Status: Acute Assessment and Plan: * Patient is status post incision and drainage with irrigation and debridement right knee joint * This was on his prior admission * Patient discharged to rehabilitation with a course of daptomycin (7) BMI 40.0-44.9, adult: Code(s): Z68.41 - Body mass index [BMI] 40.0-44.9, adult Status: Acute Assessment and Plan: * Lifestyle and diet modification * Carb consistent diet (8) Hypertension: Qualifiers: Hypertension type: essential hypertension Qualified Code(s): I10 - Essential (primary) hypertension Code(s): I10 - Essential (primary) hypertension Status: Acute Assessment and Plan: * BP 137/62, stable and controlled * lasix 40mg IV, Lasix 40mg PO * Patient is not currently on any medications * Continue to monitor (9) Chest pain: Code(s): R07.9 - Chest pain, unspecified Status: Acute Assessment and Plan: * Hypertensive and tachycardic * Trops negative * Resolved at this time * Echo Shows grade 1 diastolic dysfunction with EF of 50-55% * BNP is elevated at 2000
[2021-06-05 12:03] LABS: Glucose Point of Care 260 mg/dl (65-105)
[2021-06-05] MEDS: INSULIN ASPART (*BKC) 100 UNITS/ML SUB-Q ×2 (12:27→18:49)
[2021-06-05] MEDS: SILVERGEL (ELTA) 45 ML 1 APPLIC TOPICAL (12:28)
--- NOTE | 2021-06-05 14:47 | PCPTNOTE ---
Patient refused treatment this session stating he has severe fatigue this afternoon just finished going to the bathroom and sitting in the chair for several hours and is way to tired to attempt therapy at this time. Patient was unable to stay awake when talking with him to perform therapy.
--- NOTE | 2021-06-05 15:01 | WPDINFPN2 ---
Progress Note: A&P Additional Plan Assessment and plan: 1. Pneumonia with CT scan showing diffuse bilateral pulmonary infiltrate interstitial in nature. Pulmonary edema versus multifocal pneumonia. Other differential diagnosis rarely eosinophilic secondary to daptomycin. Less likely at this point. Patient is on cefepime day 5. Pleural fluid cultures have been so far negative. Fluid analysis suggestive of transudate. WBC count is 13,000. COVID-19 PCR was negative. Atypical pneumonia workup is pain. Respiratory status stable. Continue current care. 2. 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 Patient is currently on daptomycin. Duration of therapy to be determined when Dr. bruner returns. Continue daptomycin. 3. Pleural effusion status post thoracocentesis. Fluid cultures are negative. Fluid analysis consistent with a transudative effusion. Subjective Date/time seen: 06/05/21 15:01 Exam Const: Other: Alert awake and not in distress Neck: Other: Neck is supple no lymphadenopathy Resp: Other: Good bilateral air entry with bibasilar crackles Cardio: Other: Positive S1 and positive S2. No murmur GI: Other: Positive bowel sound nontender. No organomegaly or mass. Skin: Other: No rash right knee surgical site wound is healing well. No erythema or drainage Neuro: Other: Alert and awake no focal neurological deficit Extrem: Other: +2 edema bilaterally Psych: Other: No anxiety or agitation Objective Data Vital Signs Vital Signs: Vital Signs - 24 hr 06/04/21 21:51 06/05/21 06:00 06/05/21 08:00 Temperature 38.2 C H 36.4 C L Pulse Rate 106 H 98 Respiratory Rate 18 18 Blood Pressure 133/64 137/62 Pulse Oximetry 90 90 94 Intake/Output Intake/Output: Intake & Output 06/02/21 06/03/21 06/04/21 06/05/21 23:59 23:59 23:59 23:59 Intake Total 1810 2650 2482 1310 Output Total 1750 1900 2400 975 Balance 60 750 82 335 Meds/Results Medications: Active Medications Generic Name Dose Route Start Last Admin Trade Name Freq PRN Reason Stop Dose Admin Acetaminophen 1,000 mg 06/04/21 11:03 06/04/21 21:54 Acetaminophen 500 Mg Tablet PO 1,000 mg Q6H PRN Administration Mild Pain (1-3) or Fever Albuterol 2.5 mg 06/05/21 16:00 Albuterol Sulfate Neb 2.5 Mg/0.5 Ml Inh INHALATION Q4HRT NUPUR Alteplase, Recombinant 2 mg 06/04/21 13:28 06/04/21 13:58 Alteplase 2 Mg Vial (Cathflo) IV PUSH 2 mg ONCE PRN Administration Line Occlusion Alteplase, Recombinant 2 mg 06/04/21 14:00 06/04/21 14:02 Alteplase 2 Mg Vial (Cathflo) IV PUSH 2 mg ONCE PRN Administration Line Occlusion Alteplase, Recombinant 2 mg 06/04/21 14:00 06/04/21 14:02 Alteplase 2 Mg Vial (Cathflo) IV PUSH 2 mg ONCE PRN Administration Line Occlusion Bisacodyl 10 mg 06/01/21 17:13 Bisacodyl 10 Mg Suppository RECTAL QAM PRN Constipation Dextrose 12.5 gm 06/04/21 06:46 Dextrose 50% 25 Gm/50 Ml Syringe IV PUSH PRN PRN Hypoglycemia Protocol Enoxaparin Sodium 40 mg 06/03/21 12:05 06/05/21 08:28 Enoxaparin 40 Mg/0.4 Ml Syringe SUB-Q 40 mg DAILY NUPUR Administration Furosemide 40 mg 06/05/21 09:00 06/05/21 08:28 Furosemide 40 Mg Tablet PO 40 mg DAILY NUPUR Administration Glucagon 1 mg 06/04/21 06:46 Glucagon For Inj 1 Mg Vial IM PRN PRN Hypoglycemia Protocol Glucose 15 gm 06/04/21 06:46 Glucose Oral Gel 15 Gm Of Glucse In 37.5 Gm Tube PO PRN PRN Hypoglycemia Protocol Cefepime HCl 2 gm in 50 mls @ 100 mls/hr 06/01/21 21:00 06/05/21 08:32 Maxipime 2 Gm/D5w 50 Ml IVPB 100 mls/hr Q12H NUPUR Administration Daptomycin 1,160 mg/ Sodium 50 mls @ 100 mls/hr 06/02/21 09:00 06/05/21 08:33 Chloride IVPB 100 mls/hr Q24H NUPUR Administration Dextrose 1,000 mls @ 100 mls/hr 06/04/21 06:46 Dextrose 5% 1,000 Ml IVPB PRN PRN Hypoglyce
[2021-06-05] MEDS: ALBUTEROL SULFATE NEB 2.5 MG/0.5 ML INH INHALATION ×3 (15:17→23:41)
[2021-06-05] MEDS: POTASSIUM CHLORIDE 20 MEQ TABLET 40 MEQ PO (16:43)
[2021-06-05 17:00] LABS: Glucose Point of Care 209 mg/dl (65-105)
[2021-06-05 20:32] LABS: Amylase, Pleural Fluid 10 U/L
[2021-06-05] MEDS: INSULIN GLARGINE (*BKC) 100 UNITS/ML 20 UNITS SUB-Q (22:56)
[2021-06-06] VITALS (15 sets, daily range): BP systolic 117–124; BP diastolic 58–65; PULSE 86–110; RESP 16–22; TEMP 37.2–37.8; O2SAT 90–93
[2021-06-06] MEDS: ALBUTEROL SULFATE NEB 2.5 MG/0.5 ML INH INHALATION ×5 (03:47→20:22)
[2021-06-06] MEDS: ACETAMINOPHEN 500 MG TABLET 1000 MG PO (04:59)
[2021-06-06] MEDS: CENTRAL LINE FLUSH 10 ML IV PUSH ×4 (05:09→21:48)
[2021-06-06 05:22] LABS: Basophils Percent Auto 0.2 % (0.2-1.2); Eosinophils Absolute Auto 1.6 K/mm3 (0-0.3); Eosinophils Percent Auto 12.8 % (0-4.4); Hematocrit 26.2 % (42.0-52.0); Hemoglobin 8.7 g/dL (14.0-18.0); Immature Granulocyte Absolute 0.19 K/mm3 (0.00-0.031); Immature Granulocyte Percent A 1.5 % (0-0.5); Lymphocytes Absolute Auto 0.86 K/mm3 (0.9-3.2); Lymphocytes Percent Auto 6.7 % (18.3-44.2); Mean Corpuscular HGB Conc 33.2 g/dl (32-36); Mean Corpuscular Hemoglobin 27.8 pg (26-34); Mean Corpuscular Volume 83.7 fl (80-100); Mean Platelet Volume 9.6 fl (7.4-10.4); Monocytes Absolute Auto 0.7 K/mm3 (0.1-0.6); Monocytes Percent Auto 5.8 % (2.6-8.5); Neutrophils Absolute Auto 9.3 K/mm3 (1.3-6.7); Platelet Count Result 178 k/mm3 (150-375); Red Blood Count 3.13 M/mm3 (4.6-6.20); Red Cell Distribution Width 14.9 % (11.5-14.5); White Blood Count 12.8 K/mm3 (4.5-10.0)
[2021-06-06 05:36] LABS: Alanine Aminotransferase 20 U/L (4-50); Albumin Level 2.4 g/dL (3.5-5.1); Alkaline Phosphatase 51 U/L (38-126); Anion Gap 4 mmol/L (8-16); Aspartate Amino Transferase 19 U/L (17-59); Bilirubin,Total 0.5 mg/dL (0.2-1.3); Blood Urea Nitrogen 23 mg/dL (9-20); Calcium 7.4 mg/dL (8.4-10.2); Carbon Dioxide 28 mmol/L (22-30); Chloride 97 mmol/L (98-107); Estimated CRCL calculation 76 ml/min; Estimated Glomerular Filt Rate > 60; Glucose 170 mg/dL (65-110); Magnesium 1.8 mg/dL (1.6-2.3); Potassium 2.9 mmol/L (3.4-5.0); Sodium 129 mmol/L (137-145)
[2021-06-06 05:47] LABS: Glucose Point of Care 195 mg/dl (65-105)
[2021-06-06 08:31] LABS: Glucose Point of Care 174 mg/dl (65-105)
--- NOTE | 2021-06-06 10:00 | PM.IMPN ---
Progress Note: A&P Assessment and Plan (1) Pneumonia: Qualifiers: Laterality: unspecified laterality Lung location: unspecified part of lung Pneumonia type: due to unspecified organism Qualified Code(s): J18.9 - Pneumonia, unspecified organism Code(s): J18.9 - Pneumonia, unspecified organism Status: Acute Assessment and Plan: I wonder if this PNA is an HCAP. Patient just got out of acute rehab Patient has a new infiltrate found on CT on daptomycin which was resumed at this time Cefepime and vancomycin cultures NGTD MRSA from last visit ID on board Diamond antibiotics if cultures grow anything More infiltrates noted on x-ray after paracentesis Repeat chest xray shows worsening PNA WBC is 13.7 today (2) Febrile illness, acute: Code(s): R50.9 - Fever, unspecified Status: Acute Assessment and Plan: Resolved at this time Mild fever noted Patient with recent persistent blood cultures with MRSA Currently PICC line in place Daptomycin course restarted will need coverage until 06/27/21 Blood cultures in progress ID consult (3) Septicemia due to methicillin resistant Staphylococcus aureus: Code(s): A41.02 - Sepsis due to Methicillin resistant Staphylococcus aureus Status: Acute Assessment and Plan: Daptomycin course continued and will need to continue until 06/27/21 See above (4) Diabetes type 2, uncontrolled: Code(s): E11.65 - Type 2 diabetes mellitus with hyperglycemia Status: Acute Assessment and Plan: Current glucose 188 Insulin sliding scale as needed Accu-Cheks AC and HS Trend glucose Will need a 24 hour insulin Add 20units lantus (5) Obstructive sleep apnea on CPAP: Code(s): G47.33 - Obstructive sleep apnea (adult) (pediatric); Z99.89 - Dependence on other enabling machines and devices Status: Acute Assessment and Plan: CPAP at night (6) Septic joint of right knee joint: Qualifiers: Septic arthritis organism: due to other bacteria Qualified Code(s): M00.861 - Arthritis due to other bacteria, right knee Code(s): M00.9 - Pyogenic arthritis, unspecified Status: Acute Assessment and Plan: Patient is status post incision and drainage with irrigation and debridement right knee joint This was on his prior admission Patient discharged to rehabilitation with a course of daptomycin (7) Hypertension: Qualifiers: Hypertension type: essential hypertension Qualified Code(s): I10 - Essential (primary) hypertension Code(s): I10 - Essential (primary) hypertension Status: Acute Assessment and Plan: BP 123/64, stable and controlled lasix 40mg IV, Lasix 40mg PO Patient is not currently on any medications Continue to monitor (8) Pleural effusion: Code(s): J90 - Pleural effusion, not elsewhere classified Status: Acute Assessment and Plan: Found on the CT Moderate on left and small on right Thoracentesis was performed and 1000ml was taken off Cultures negative Gram stain no organisms, few WBCs Pathology shows reactive mesothelial cells, foam cells, and atypical cell, most likely additional reactive mesothelial cells (9) Hypoalbuminemia: Code(s): E88.09 - Other disorders of plasma-protein metabolism, not elsewhere classified Status: Acute Assessment and Plan: Albumin 2.6 Prealbumin 4.0 Assembler Tester consult Glucerna added (10) Fluid collection of pancreas: Onset Date: ~01/2021 Code(s): K86.89 - Other specified diseases of pancreas Status: Acute Assessment and Plan: This was a finding on CT of chest CT of abdomen and pelvis: 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
--- NOTE | 2021-06-06 10:00 | P.PNIM_ITS ---
Progress Note: A&P Assessment and Plan (1) Pneumonia: Qualifiers: Laterality: unspecified laterality Lung location: unspecified part of lung Pneumonia type: due to unspecified organism Qualified Code(s): J18.9 - Pneumonia, unspecified organism Code(s): J18.9 - Pneumonia, unspecified organism Status: Acute Assessment and Plan: * I wonder if this PNA is an HCAP. Patient just got out of acute rehab * Patient has a new infiltrate found on CT * on daptomycin which was resumed at this time * Cefepime and vancomycin * cultures NGTD * MRSA from last visit * ID on board * Diamond antibiotics if cultures grow anything * More infiltrates noted on x-ray after paracentesis * Repeat chest xray shows worsening PNA * WBC is 13.7 today (2) Febrile illness, acute: Code(s): R50.9 - Fever, unspecified Status: Acute Assessment and Plan: * Resolved at this time * Mild fever noted * Patient with recent persistent blood cultures with MRSA * Currently PICC line in place * Daptomycin course restarted will need coverage until 06/27/21 * Blood cultures in progress * ID consult (3) Septicemia due to methicillin resistant Staphylococcus aureus: Code(s): A41.02 - Sepsis due to Methicillin resistant Staphylococcus aureus Status: Acute Assessment and Plan: * Daptomycin course continued and will need to continue until 06/27/21 * See above (4) Diabetes type 2, uncontrolled: Code(s): E11.65 - Type 2 diabetes mellitus with hyperglycemia Status: Acute Assessment and Plan: * Current glucose 188 * Insulin sliding scale as needed * Accu-Cheks AC and HS * Trend glucose * Will need a 24 hour insulin * Add 20units lantus (5) Obstructive sleep apnea on CPAP: Code(s): G47.33 - Obstructive sleep apnea (adult) (pediatric); Z99.89 - Dependence on other enabling machines and devices Status: Acute Assessment and Plan: * CPAP at night (6) Septic joint of right knee joint: Qualifiers: Septic arthritis organism: due to other bacteria Qualified Code(s): M00.861 - Arthritis due to other bacteria, right knee Code(s): M00.9 - Pyogenic arthritis, unspecified Status: Acute Assessment and Plan: * Patient is status post incision and drainage with irrigation and debridement right knee joint * This was on his prior admission * Patient discharged to rehabilitation with a course of daptomycin (7) Hypertension: Qualifiers: Hypertension type: essential hypertension Qualified Code(s): I10 - Essential (primary) hypertension Code(s): I10 - Essential (primary) hypertension Status: Acute Assessment and Plan: * BP 123/64, stable and controlled * lasix 40mg IV, Lasix 40mg PO * Patient is not currently on any medications * Continue to monitor (8) Pleural effusion: Code(s): J90 - Pleural effusion, not elsewhere classified Status: Acute Assessment and Plan: * Found on the CT * Moderate on left and small on right * Thoracentesis was performed and 1000ml was taken off * Cultures negative * Gram stain no organisms, few WBCs * Pathology shows reactive mesothelial cells, foam cells, and atypical cell, most likely additional reactive mesothelial cells (9) Hypoalbuminemia: Code(s): E88.09 - Other disorders of plasma-prot
[2021-06-06] MEDS: FUROSEMIDE 40 MG TABLET PO (10:30)
[2021-06-06] MEDS: ENOXAPARIN 40 MG/0.4 ML SYRINGE SUB-Q (10:30)
[2021-06-06] MEDS: PANTOPRAZOLE 40 MG TABLET PO (10:31)
[2021-06-06] MEDS: SILVERGEL (ELTA) 45 ML 1 APPLIC TOPICAL (10:31)
[2021-06-06] MEDS: INSULIN ASPART (*BKC) 100 UNITS/ML SUB-Q (11:58)
[2021-06-06 12:17] LABS: Glucose Point of Care 232 mg/dl (65-105)
--- NOTE | 2021-06-06 13:56 | WPDINFPN2 ---
Progress Note: A&P Assessment and Plan (1) Pneumonia: Qualifiers: Laterality: unspecified laterality Lung location: unspecified part of lung Pneumonia type: due to unspecified organism Qualified Code(s): J18.9 - Pneumonia, unspecified organism Code(s): J18.9 - Pneumonia, unspecified organism Status: Acute Assessment and Plan: 1. Bacterial (presumed) HCAP, improving. 2. Recent MRSA bacteremia and septic arthritis, s/p operative intervention last month and acceptable progress since then. REC Cefepime # 6, continue until WBC back to normal. Continue Daptomycin through 06/13/21, to complete 42 days of therapy. Call if Qs Subjective Date/time seen: 06/06/21 13:56 Interval history: minimal non productive cough. No dyspnea. No knee pain at rest, minimal with weight bearing Exam Narrative: afebrile now t max 37.8 Const: General: no acute distress Eyes: General: appearance normal, both eyes and all related structures Resp: Effort & Inspection: normal respiratory effort Auscultation: clear to auscultation bilaterally Cardio: Rate: regular rate Rhythm: regular rhythm Heart sounds: no murmurs GI: Inspection: non-distended GI Palp: Yes Soft to palpation and No Tenderness to palpation present (GI) Skin: General skin exam: normal color and no rashes or lesions noted Extrem: Other: r knee with fully closed incision. Mild warmth, no tenderness no effusion, no erythema Objective Data Vital Signs Vital Signs: Vital Signs - 24 hr 06/05/21 15:20 06/05/21 15:23 06/05/21 20:20 Temperature 36.4 C Pulse Rate 87 113 H 106 H Respiratory Rate 16 26 H 24 H Blood Pressure 146/65 H Pulse Oximetry 96 90 06/05/21 20:21 06/05/21 20:29 06/05/21 22:00 Temperature 37.5 C Pulse Rate 102 H 100 Respiratory Rate 24 H 18 Blood Pressure 96/57 L Pulse Oximetry 90 100 06/05/21 23:42 06/05/21 23:51 06/06/21 03:46 Temperature Pulse Rate 100 100 94 Respiratory Rate 22 H 22 H 22 H Blood Pressure Pulse Oximetry 06/06/21 03:55 06/06/21 04:59 06/06/21 05:54 Temperature 37.8 C H 37.8 C H Pulse Rate 96 104 H Respiratory Rate 20 18 Blood Pressure 123/64 Pulse Oximetry 91 06/06/21 08:50 06/06/21 09:03 06/06/21 12:01 Temperature Pulse Rate 86 107 H 110 H Respiratory Rate 20 20 20 Blood Pressure Pulse Oximetry 92 06/06/21 12:11 Temperature Pulse Rate 100 Respiratory Rate 20 Blood Pressure Pulse Oximetry Intake/Output Intake/Output: Intake & Output 06/03/21 06/04/21 06/05/21 06/06/21 23:59 23:59 23:59 23:59 Intake Total 2650 2482 2350 1510 Output Total 1900 2400 1375 1200 Balance 750 82 975 310 Meds/Results Medications: Active Medications Generic Name Dose Route Start Last Admin Trade Name Freq PRN Reason Stop Dose Admin Acetaminophen 1,000 mg 06/04/21 11:03 06/06/21 04:59 Acetaminophen 500 Mg Tablet PO 1,000 mg Q6H PRN Administration Mild Pain (1-3) or Fever Albuterol 2.5 mg 06/05/21 16:00 06/06/21 12:01 Albuterol Sulfate Neb 2.5 Mg/0.5 Ml Inh INHALATION 2.5 mg Q4HRT NUPUR Administration Alteplase, Recombinant 2 mg 06/04/21 13:28 06/04/21 13:58 Alteplase 2 Mg Vial (Cathflo) IV PUSH 2 mg ONCE PRN Administration Line Occlusion Alteplase, Recombinant 2 mg 06/04/21 14:00 06/04/21 14:02 Alteplase 2 Mg Vial (Cathflo) IV PUSH 2 mg ONCE PRN Administration Line Occlusion Alteplase, Recombinant 2 mg 06/04/21 14:00 06/04/21 14:02 Alteplase 2 Mg Vial (Cathflo) IV PUSH 2 mg ONCE PRN Administration Line Occlusion Bisacodyl 10 mg 06/01/21 17:13 Bisacodyl 10 Mg Suppository RECTAL QAM PRN Constipation Dextrose 12.5 gm 06/04/21 06:46 Dextrose 50% 25 Gm/50 Ml Syringe IV PUSH PRN PRN Hypoglycemia Protocol Enoxaparin Sodium 40 mg 06/03/21 12:05 06/06/21 10:30 Enoxaparin 40 Mg/0.4 Ml Syringe SUB-Q 40 mg DAILY [facility] Administra
[2021-06-06] MEDS: polyethylene glycoL 3350 17 GM POWD.PACK PO (14:10)
[2021-06-06] MEDS: DOCUSATE SODIUM 100 MG CAPSULE PO (14:10)
[2021-06-06] MEDS: POTASSIUM CHLORIDE 20 MEQ TABLET 60 MEQ PO (14:10)
[2021-06-06 17:10] LABS: Glucose Point of Care 196 mg/dl (65-105)
[2021-06-06 19:26] LABS: Albumin Pleural Fluid 1.5 g/dL
[2021-06-06] MEDS: INSULIN GLARGINE (*BKC) 100 UNITS/ML 20 UNITS SUB-Q (20:54)
[2021-06-06 22:44] LABS: Glucose Point of Care 212 mg/dl (65-105)
[2021-06-07] VITALS (18 sets, daily range): BP systolic 107–124; BP diastolic 53–88; PULSE 67–106; RESP 18–20; TEMP 36.1–36.9; O2SAT 88–95
[2021-06-07] MEDS: ALBUTEROL SULFATE NEB 2.5 MG/0.5 ML INH INHALATION ×6 (00:02→20:32)
[2021-06-07 05:37] LABS: Basophils Percent Auto 0.2 % (0.2-1.2); Eosinophils Percent Auto 9.6 % (0-4.4); Hematocrit 26.9 % (42.0-52.0); Hemoglobin 8.8 g/dL (14.0-18.0); Immature Granulocyte Absolute 0.18 K/mm3 (0.00-0.031); Immature Granulocyte Percent A 1.8 % (0-0.5); Lymphocytes Absolute Auto 0.62 K/mm3 (0.9-3.2); Mean Corpuscular HGB Conc 32.7 g/dl (32-36); Mean Corpuscular Hemoglobin 27.7 pg (26-34); Mean Corpuscular Volume 84.6 fl (80-100); Mean Platelet Volume 9.7 fl (7.4-10.4); Monocytes Absolute Auto 0.7 K/mm3 (0.1-0.6); Monocytes Percent Auto 7.2 % (2.6-8.5); Neutrophils Absolute Auto 7.7 K/mm3 (1.3-6.7); Neutrophils Percent Auto 75.2 % (45.5-73.1); Platelet Count Result 160 k/mm3 (150-375); Red Blood Count 3.18 M/mm3 (4.6-6.20); White Blood Count 10.3 K/mm3 (4.5-10.0)
[2021-06-07 05:57] LABS: Alanine Aminotransferase 20 U/L (4-50); Albumin Level 2.5 g/dL (3.5-5.1); Alkaline Phosphatase 48 U/L (38-126); Anion Gap 5 mmol/L (8-16); Aspartate Amino Transferase 26 U/L (17-59); Bilirubin,Total 0.5 mg/dL (0.2-1.3); Blood Urea Nitrogen 19 mg/dL (9-20); Calcium 7.4 mg/dL (8.4-10.2); Carbon Dioxide 26 mmol/L (22-30); Chloride 94 mmol/L (98-107); Estimated CRCL calculation 76 ml/min; Estimated Glomerular Filt Rate > 60; Glucose 159 mg/dL (65-110); Magnesium 1.7 mg/dL (1.6-2.3); Potassium 3.3 mmol/L (3.4-5.0); Sodium 125 mmol/L (137-145)
[2021-06-07] MEDS: CENTRAL LINE FLUSH 10 ML IV PUSH ×4 (06:45→20:39)
[2021-06-07 07:31] LABS: Estimated CRCL calculation 70 ml/min; Estimated Glomerular Filt Rate 60
[2021-06-07 07:37] LABS: NT Pro B Type Natriuretic Pept 783 pg/mL (5-100)
[2021-06-07 07:58] LABS: Glucose Point of Care 170 mg/dl (65-105)
[2021-06-07] MEDS: FUROSEMIDE 40 MG TABLET PO (08:34)
[2021-06-07] MEDS: PANTOPRAZOLE 40 MG TABLET PO (08:34)
[2021-06-07] MEDS: DOCUSATE SODIUM 100 MG CAPSULE PO ×2 (08:34→20:39)
[2021-06-07] MEDS: polyethylene glycoL 3350 17 GM POWD.PACK PO (08:34)
[2021-06-07] MEDS: POTASSIUM CHLORIDE 20 MEQ TABLET 40 MEQ PO (08:34)
[2021-06-07] MEDS: MAGNESIUM SULF 2 GM/WATER 50ML 2 GM/50 ML BAG IVPB (08:35)
[2021-06-07] MEDS: SILVERGEL (ELTA) 45 ML 1 APPLIC TOPICAL (08:35)
[2021-06-07] MEDS: ENOXAPARIN 40 MG/0.4 ML SYRINGE SUB-Q (08:35)
--- NOTE | 2021-06-07 09:15 | PM.IMPN ---
Progress Note: A&P Assessment and Plan (1) Pneumonia: Qualifiers: Laterality: unspecified laterality Lung location: unspecified part of lung Pneumonia type: due to unspecified organism Qualified Code(s): J18.9 - Pneumonia, unspecified organism Code(s): J18.9 - Pneumonia, unspecified organism Status: Acute Assessment and Plan: PNA is an HCAP. Just got out of acute rehab Patient has a new infiltrate found on CT on daptomycin which was resumed at this time Cefepime and vancomycin New cultures were drawn through the night MRSA from last visit ID on board Diamond antibiotics if cultures grow anything More infiltrates noted on x-ray after paracentesis Repeat chest xray shows worsening PNA WBC is 10.3 today (2) Febrile illness, acute: Code(s): R50.9 - Fever, unspecified Status: Acute Assessment and Plan: Probably resolved at this time Patient with recent persistent blood cultures with MRSA Currently PICC line in place, might need to be changed Daptomycin course restarted will need coverage until 06/27/21 Blood cultures negative ID consult (3) Septicemia due to methicillin resistant Staphylococcus aureus: Code(s): A41.02 - Sepsis due to Methicillin resistant Staphylococcus aureus Status: Acute Assessment and Plan: Daptomycin course continued and will need to continue until 06/27/21 See above (4) Diabetes type 2, uncontrolled: Code(s): E11.65 - Type 2 diabetes mellitus with hyperglycemia Status: Acute Assessment and Plan: Current glucose 159 Insulin sliding scale as needed Accu-Cheks AC and HS Trend glucose Add 20units lantus Will need to switch to oral (5) Obstructive sleep apnea on CPAP: Code(s): G47.33 - Obstructive sleep apnea (adult) (pediatric); Z99.89 - Dependence on other enabling machines and devices Status: Acute Assessment and Plan: CPAP at night (6) Septic joint of right knee joint: Qualifiers: Septic arthritis organism: due to other bacteria Qualified Code(s): M00.861 - Arthritis due to other bacteria, right knee Code(s): M00.9 - Pyogenic arthritis, unspecified Status: Acute Assessment and Plan: Patient is status post incision and drainage with irrigation and debridement right knee joint This was on his prior admission Patient discharged to rehabilitation with a course of daptomycin (7) Hypertension: Qualifiers: Hypertension type: essential hypertension Qualified Code(s): I10 - Essential (primary) hypertension Code(s): I10 - Essential (primary) hypertension Status: Acute Assessment and Plan: BP 124/61, stable and controlled lasix 40mg IV BID Patient is not currently on any medications Continue to monitor (8) Pleural effusion: Code(s): J90 - Pleural effusion, not elsewhere classified Status: Acute Assessment and Plan: Found on the CT Moderate on left and small on right Thoracentesis was performed and 1000ml was taken off 06/02/21 Cultures NGTD Gram stain no organisms, few WBCs Pathology shows reactive mesothelial cells, foam cells, and atypical cell, most likely additional reactive mesothelial cells (9) Hypoalbuminemia: Code(s): E88.09 - Other disorders of plasma-protein metabolism, not elsewhere classified Status: Acute Assessment and Plan: Albumin 2.5 Prealbumin 4.0 Lobby Porter consult Glucerna added (10) Fluid collection of pancreas: Onset Date: ~01/2021 Code(s): K86.89 - Other specified diseases of pancreas Status: Acute Assessment and Plan: This was a finding on CT of chest CT of abdomen and pelvis: Peripancreatic stranding with pancreatic necrosis and acute necrotic fluid collection measuring 3.9 x 1.7 cm in transaxial dimensions within t
--- NOTE | 2021-06-07 09:15 | P.PNIM_ITS ---
Progress Note: A&P Assessment and Plan (1) Pneumonia: Qualifiers: Laterality: unspecified laterality Lung location: unspecified part of lung Pneumonia type: due to unspecified organism Qualified Code(s): J18.9 - Pneumonia, unspecified organism Code(s): J18.9 - Pneumonia, unspecified organism Status: Acute Assessment and Plan: * PNA is an HCAP. * Just got out of acute rehab * Patient has a new infiltrate found on CT * on daptomycin which was resumed at this time * Cefepime and vancomycin * New cultures were drawn through the night * MRSA from last visit * ID on board * Diamond antibiotics if cultures grow anything * More infiltrates noted on x-ray after paracentesis * Repeat chest xray shows worsening PNA * WBC is 10.3 today (2) Febrile illness, acute: Code(s): R50.9 - Fever, unspecified Status: Acute Assessment and Plan: * Probably resolved at this time * Patient with recent persistent blood cultures with MRSA * Currently PICC line in place, might need to be changed * Daptomycin course restarted will need coverage until 06/27/21 * Blood cultures negative * ID consult (3) Septicemia due to methicillin resistant Staphylococcus aureus: Code(s): A41.02 - Sepsis due to Methicillin resistant Staphylococcus aureus Status: Acute Assessment and Plan: * Daptomycin course continued and will need to continue until 06/27/21 * See above (4) Diabetes type 2, uncontrolled: Code(s): E11.65 - Type 2 diabetes mellitus with hyperglycemia Status: Acute Assessment and Plan: * Current glucose 159 * Insulin sliding scale as needed * Accu-Cheks AC and HS * Trend glucose * Add 20units lantus * Will need to switch to oral (5) Obstructive sleep apnea on CPAP: Code(s): G47.33 - Obstructive sleep apnea (adult) (pediatric); Z99.89 - Dependence on other enabling machines and devices Status: Acute Assessment and Plan: * CPAP at night (6) Septic joint of right knee joint: Qualifiers: Septic arthritis organism: due to other bacteria Qualified Code(s): M00.861 - Arthritis due to other bacteria, right knee Code(s): M00.9 - Pyogenic arthritis, unspecified Status: Acute Assessment and Plan: * Patient is status post incision and drainage with irrigation and debridement right knee joint * This was on his prior admission * Patient discharged to rehabilitation with a course of daptomycin (7) Hypertension: Qualifiers: Hypertension type: essential hypertension Qualified Code(s): I10 - Essential (primary) hypertension Code(s): I10 - Essential (primary) hypertension Status: Acute Assessment and Plan: * BP 124/61, stable and controlled * lasix 40mg IV BID * Patient is not currently on any medications * Continue to monitor (8) Pleural effusion: Code(s): J90 - Pleural effusion, not elsewhere classified Status: Acute Assessment and Plan: * Found on the CT * Moderate on left and small on right * Thoracentesis was performed and 1000ml was taken off 06/02/21 * Cultures NGTD * Gram stain no organisms, few WBCs * Pathology shows reactive mesothelial cells, foam cells, and atypical cell, most likely additional reactive mesothelial cells (9) Hypoalbuminemia: Code(s): E88.09 - Other disorders
[2021-06-07 12:20] LABS: Glucose Point of Care 219 mg/dl (65-105)
[2021-06-07] MEDS: INSULIN ASPART (*BKC) 100 UNITS/ML SUB-Q (12:29)
--- NOTE | 2021-06-07 14:16 | PCOTNOTE ---
Attempted to see patient at 14:15pm this date. Patient had just received lunch tray. Will attempt again this date.
[2021-06-07] MEDS: FUROSEMIDE INJ 40 MG/4 ML VIAL 20 MG IV PUSH (14:37)
[2021-06-07 15:20] LABS: C. pneumoniae Ab (IgM) <1:10 (<1:10); C. psittaci Ab (IgM) <1:10 (<1:10); C. trachomatis Ab (IgM) <1:10 (<1:10)
[2021-06-07 16:29] LABS: Glucose Point of Care 183 mg/dl (65-105)
[2021-06-07] MEDS: FUROSEMIDE INJ 40 MG/4 ML VIAL IV PUSH (17:23)
--- NOTE | 2021-06-07 17:50 | WPDREHABDC ---
DS: Admitting Diagnosis Discharge Date 05/31/2021 Admitting Diagnosis medically complex, sepsis DS: Discharge Diagnosis Discharge Diagnosis (1) Transaminitis: Code(s): R74.01 - Elevation of levels of liver transaminase levels Status: Acute (2) ALVIN (acute kidney injury): Code(s): N17.9 - Acute kidney failure, unspecified Status: Acute (3) Leukocytosis: Code(s): D72.829 - Elevated white blood cell count, unspecified Status: Acute (4) Hypertension: Qualifiers: Hypertension type: essential hypertension Qualified Code(s): I10 - Essential (primary) hypertension Code(s): I10 - Essential (primary) hypertension Status: Acute (5) Hyperlipidemia: Code(s): E78.5 - Hyperlipidemia, unspecified Status: Acute (6) Obesity: Code(s): E66.9 - Obesity, unspecified Status: Acute (7) Left renal mass: Code(s): N28.89 - Other specified disorders of kidney and ureter Status: Acute (8) BPH (benign prostatic hyperplasia): Code(s): N40.0 - Benign prostatic hyperplasia without lower urinary tract symptoms Status: Acute (9) Sepsis: Qualifiers: Sepsis type: sepsis due to unspecified organism Sepsis acute organ dysfunction status: unspecified Qualified Code(s): A41.9 - Sepsis, unspecified organism Code(s): A41.9 - Sepsis, unspecified organism Status: Acute (10) Encounter for surgical aftercare following surgery on the digestive system: Code(s): Z48.815 - Encounter for surgical aftercare following surgery on the digestive system Status: Acute (11) Dehydration: Code(s): E86.0 - Dehydration Status: Acute (12) Septic arthritis: Qualifiers: Laterality: right Septic arthritis location: knee Septic arthritis organism: due to unspecified organism Qualified Code(s): M00.9 - Pyogenic arthritis, unspecified Code(s): M00.9 - Pyogenic arthritis, unspecified Status: Acute (13) Acute UTI: Code(s): N39.0 - Urinary tract infection, site not specified Status: Acute (14) Benign prostatic hyperplasia: Code(s): N40.0 - Benign prostatic hyperplasia without lower urinary tract symptoms Status: Acute (15) Obstructive sleep apnea on CPAP: Code(s): G47.33 - Obstructive sleep apnea (adult) (pediatric); Z99.89 - Dependence on other enabling machines and devices Status: Acute (16) Septic joint of right knee joint: Qualifiers: Septic arthritis organism: due to other bacteria Qualified Code(s): M00.861 - Arthritis due to other bacteria, right knee Code(s): M00.9 - Pyogenic arthritis, unspecified Status: Acute (17) Sepsis: Code(s): A41.9 - Sepsis, unspecified organism Status: Acute (18) Septic arthritis of knee, right: Qualifiers: Septic arthritis organism: staphylococcal Qualified Code(s): M00.061 - Staphylococcal arthritis, right knee Code(s): M00.9 - Pyogenic arthritis, unspecified Status: Acute (19) Dehydration: Code(s): E86.0 - Dehydration Status: Acute (20) Acute kidney injury: Code(s): N17.9 - Acute kidney failure, unspecified Status: Acute (21) Diabetes type 2, uncontrolled: Code(s): E11.65 - Type 2 diabetes mellitus with hyperglycemia Status: Acute DS: Summary Hospital Course Rehabilitation Hospital Course: Narrative: This is a 70-year-old male with past medical history significant for MRSA bacteremia patient recent admission with positive blood cultures, MRSA UTI as well, septic right knee. Patient was discharged to assisted with PICC line in place for course of daptomycin. However patient was brought in today for evaluation after abnormal lab. While in emergency room patient had a fever and preliminary workup was significant for CT of chest PE protocol showed no pulmonary embolism however shows pneumonia and visuali
[2021-06-07] MEDS: INSULIN GLARGINE (*BKC) 100 UNITS/ML 20 UNITS SUB-Q (20:40)
[2021-06-07 20:43] LABS: Glucose Point of Care 222 mg/dl (65-105)
[2021-06-08] VITALS (20 sets, daily range): BP systolic 99–130; BP diastolic 51–68; PULSE 94–108; RESP 18–22; TEMP 37.1–38.6; O2SAT 91–97
[2021-06-08] MEDS: ALBUTEROL SULFATE NEB 2.5 MG/0.5 ML INH INHALATION ×5 (05:05→23:50)
[2021-06-08] MEDS: CENTRAL LINE FLUSH 10 ML IV PUSH ×4 (06:08→21:44)
[2021-06-08 07:42] LABS: Basophils Percent Auto 0.2 % (0.2-1.2); Eosinophils Percent Auto 24.2 % (0-4.4); Hematocrit 27.4 % (42.0-52.0); Hemoglobin 8.9 g/dL (14.0-18.0); Immature Granulocyte Absolute 0.19 K/mm3 (0.00-0.031); Immature Granulocyte Percent A 2.3 % (0-0.5); Lymphocytes Absolute Auto 0.46 K/mm3 (0.9-3.2); Lymphocytes Percent Auto 5.6 % (18.3-44.2); Mean Corpuscular HGB Conc 32.5 g/dl (32-36); Mean Corpuscular Hemoglobin 27.3 pg (26-34); Mean Platelet Volume 9.9 fl (7.4-10.4); Monocytes Absolute Auto 0.7 K/mm3 (0.1-0.6); Monocytes Percent Auto 8.1 % (2.6-8.5); Neutrophils Absolute Auto 4.9 K/mm3 (1.3-6.7); Neutrophils Percent Auto 59.6 % (45.5-73.1); Platelet Count Result 179 k/mm3 (150-375); Red Blood Count 3.26 M/mm3 (4.6-6.20); Red Cell Distribution Width 15.3 % (11.5-14.5); White Blood Count 8.2 K/mm3 (4.5-10.0)
[2021-06-08 07:49] LABS: Glucose Point of Care 184 mg/dl (65-105)
[2021-06-08 08:03] LABS: Alanine Aminotransferase 24 U/L (4-50); Albumin Level 2.6 g/dL (3.5-5.1); Alkaline Phosphatase 49 U/L (38-126); Anion Gap 4 mmol/L (8-16); Aspartate Amino Transferase 36 U/L (17-59); Bilirubin,Total 0.5 mg/dL (0.2-1.3); Blood Urea Nitrogen 21 mg/dL (9-20); Calcium 7.6 mg/dL (8.4-10.2); Carbon Dioxide 29 mmol/L (22-30); Chloride 93 mmol/L (98-107); Estimated CRCL calculation 70 ml/min; Estimated Glomerular Filt Rate 60; Glucose 157 mg/dL (65-110); Magnesium 1.9 mg/dL (1.6-2.3); Potassium 3.7 mmol/L (3.4-5.0); Sodium 126 mmol/L (137-145)
[2021-06-08] MEDS: ENOXAPARIN 40 MG/0.4 ML SYRINGE SUB-Q (08:18)
[2021-06-08] MEDS: FUROSEMIDE 40 MG TABLET PO (08:19)
[2021-06-08] MEDS: PANTOPRAZOLE 40 MG TABLET PO (08:19)
[2021-06-08] MEDS: polyethylene glycoL 3350 17 GM POWD.PACK PO (08:19)
[2021-06-08] MEDS: DOCUSATE SODIUM 100 MG CAPSULE PO ×2 (08:19→21:42)
[2021-06-08] MEDS: FUROSEMIDE INJ 40 MG/4 ML VIAL IV PUSH ×2 (08:19→18:20)
[2021-06-08] MEDS: SILVERGEL (ELTA) 45 ML 1 APPLIC TOPICAL (08:20)
--- NOTE | 2021-06-08 08:20 | PM.IMPN ---
Progress Note: A&P Assessment and Plan (1) Pneumonia: Qualifiers: Laterality: unspecified laterality Lung location: unspecified part of lung Pneumonia type: due to unspecified organism Qualified Code(s): J18.9 - Pneumonia, unspecified organism Code(s): J18.9 - Pneumonia, unspecified organism Status: Acute Assessment and Plan: PNA is an HCAP. Just got out of acute rehab Patient has a new infiltrate found on CT on daptomycin which was resumed at this time Cefepime and vancomycin New cultures were drawn through the night MRSA from last visit ID on board Diamond antibiotics if cultures grow anything More infiltrates noted on x-ray after paracentesis Repeat chest xray shows worsening PNA WBC is 8.2 today (2) Febrile illness, acute: Code(s): R50.9 - Fever, unspecified Status: Acute Assessment and Plan: Mild fever noted overnight Patient with recent persistent blood cultures with MRSA Currently PICC line in place, might need to be changed Daptomycin course restarted will need coverage until 06/27/21 Blood cultures repeated and redrawn ID consult (3) Septicemia due to methicillin resistant Staphylococcus aureus: Code(s): A41.02 - Sepsis due to Methicillin resistant Staphylococcus aureus Status: Acute Assessment and Plan: Daptomycin course continued and will need to continue until 06/27/21 See above (4) Diabetes type 2, uncontrolled: Code(s): E11.65 - Type 2 diabetes mellitus with hyperglycemia Status: Acute Assessment and Plan: Current glucose 157 Insulin sliding scale as needed Accu-Cheks AC and HS Trend glucose Add 20units lantus Will need to switch to oral (5) Obstructive sleep apnea on CPAP: Code(s): G47.33 - Obstructive sleep apnea (adult) (pediatric); Z99.89 - Dependence on other enabling machines and devices Status: Acute Assessment and Plan: CPAP at night (6) Septic joint of right knee joint: Qualifiers: Septic arthritis organism: due to other bacteria Qualified Code(s): M00.861 - Arthritis due to other bacteria, right knee Code(s): M00.9 - Pyogenic arthritis, unspecified Status: Acute Assessment and Plan: Patient is status post incision and drainage with irrigation and debridement right knee joint This was on his prior admission Patient discharged to rehabilitation with a course of daptomycin (7) Hypertension: Qualifiers: Hypertension type: essential hypertension Qualified Code(s): I10 - Essential (primary) hypertension Code(s): I10 - Essential (primary) hypertension Status: Acute Assessment and Plan: BP 130/68, stable and controlled lasix 40mg IV BID Patient is not currently on any medications Continue to monitor (8) Pleural effusion: Code(s): J90 - Pleural effusion, not elsewhere classified Status: Acute Assessment and Plan: Found on the CT Moderate on left and small on right Thoracentesis was performed and 1000ml was taken off 06/02/21 Repeat cultures drawn Gram stain no organisms, few WBCs Pathology shows reactive mesothelial cells, foam cells, and atypical cell, most likely additional reactive mesothelial cells (9) Hypoalbuminemia: Code(s): E88.09 - Other disorders of plasma-protein metabolism, not elsewhere classified Status: Acute Assessment and Plan: Albumin 2.6 Prealbumin 4.0 Will give one dose to see if it helps patients edema Naphthalene Operator consult Glucerna added (10) Fluid collection of pancreas: Onset Date: ~01/2021 Code(s): K86.89 - Other specified diseases of pancreas Status: Acute Assessment and Plan: This was a finding on CT of chest CT of abdomen and pelvis: Peripancreatic stranding with pancreatic necrosis and acute necrotic flu
--- NOTE | 2021-06-08 08:20 | P.PNIM_ITS ---
Progress Note: A&P Assessment and Plan (1) Pneumonia: Qualifiers: Laterality: unspecified laterality Lung location: unspecified part of lung Pneumonia type: due to unspecified organism Qualified Code(s): J18.9 - Pneumonia, unspecified organism Code(s): J18.9 - Pneumonia, unspecified organism Status: Acute Assessment and Plan: * PNA is an HCAP. * Just got out of acute rehab * Patient has a new infiltrate found on CT * on daptomycin which was resumed at this time * Cefepime and vancomycin * New cultures were drawn through the night * MRSA from last visit * ID on board * Diamond antibiotics if cultures grow anything * More infiltrates noted on x-ray after paracentesis * Repeat chest xray shows worsening PNA * WBC is 8.2 today (2) Febrile illness, acute: Code(s): R50.9 - Fever, unspecified Status: Acute Assessment and Plan: * Mild fever noted overnight * Patient with recent persistent blood cultures with MRSA * Currently PICC line in place, might need to be changed * Daptomycin course restarted will need coverage until 06/27/21 * Blood cultures repeated and redrawn * ID consult (3) Septicemia due to methicillin resistant Staphylococcus aureus: Code(s): A41.02 - Sepsis due to Methicillin resistant Staphylococcus aureus Status: Acute Assessment and Plan: * Daptomycin course continued and will need to continue until 06/27/21 * See above (4) Diabetes type 2, uncontrolled: Code(s): E11.65 - Type 2 diabetes mellitus with hyperglycemia Status: Acute Assessment and Plan: * Current glucose 157 * Insulin sliding scale as needed * Accu-Cheks AC and HS * Trend glucose * Add 20units lantus * Will need to switch to oral (5) Obstructive sleep apnea on CPAP: Code(s): G47.33 - Obstructive sleep apnea (adult) (pediatric); Z99.89 - Dependence on other enabling machines and devices Status: Acute Assessment and Plan: * CPAP at night (6) Septic joint of right knee joint: Qualifiers: Septic arthritis organism: due to other bacteria Qualified Code(s): M00.861 - Arthritis due to other bacteria, right knee Code(s): M00.9 - Pyogenic arthritis, unspecified Status: Acute Assessment and Plan: * Patient is status post incision and drainage with irrigation and debridement right knee joint * This was on his prior admission * Patient discharged to rehabilitation with a course of daptomycin (7) Hypertension: Qualifiers: Hypertension type: essential hypertension Qualified Code(s): I10 - Essential (primary) hypertension Code(s): I10 - Essential (primary) hypertension Status: Acute Assessment and Plan: * BP 130/68, stable and controlled * lasix 40mg IV BID * Patient is not currently on any medications * Continue to monitor (8) Pleural effusion: Code(s): J90 - Pleural effusion, not elsewhere classified Status: Acute Assessment and Plan: * Found on the CT * Moderate on left and small on right * Thoracentesis was performed and 1000ml was taken off 06/02/21 * Repeat cultures drawn * Gram stain no organisms, few WBCs * Pathology shows reactive mesothelial cells, foam cells, and atypical cell, most likely additional reactive mesothelial cells (9) Hypoalbuminemia: Code(s): E88.09 - O
[2021-06-08 11:50] LABS: Glucose Point of Care 182 mg/dl (65-105)
--- NOTE | 2021-06-08 13:05 | PC.NURSE ---
On 06/08/21, the student, [ Sabrina Blanco], provided care and completed [facility] documentation on this patient. I have reviewed the student's documentation and agree with the findings.
[2021-06-08 13:47] LABS: C. psittaci Ab (IgG) <1:64 (<1:64); C. trachomatis Ab (IgG) <1:64 (<1:64)
[2021-06-08 17:40] LABS: Glucose Point of Care 136 mg/dl (65-105)
[2021-06-08 17:42] LABS: Vancomycin Trough 29.8 ug/mL (10.0-20.0)
[2021-06-08 20:46] LABS: Glucose Point of Care 158 mg/dl (65-105)
[2021-06-08] MEDS: ACETAMINOPHEN 500 MG TABLET 1000 MG PO (21:44)
--- NOTE | 2021-06-08 23:09 | PCRCNOTE ---
unable to give treatment- therapist in ED
[2021-06-09] VITALS (15 sets, daily range): BP systolic 101–130; BP diastolic 58–62; PULSE 72–110; RESP 17–20; TEMP 36.8–37.2; O2SAT 92–97
--- NOTE | 2021-06-09 01:33 | PC.NURSE ---
Pt temperature was taken and read 101.4. I attempted to give patient 1,000 mg of tylenol, but patient refused and would only take 500 mg of tylenol. Pt temperature decreased to 100.4.
[2021-06-09] MEDS: CENTRAL LINE FLUSH 10 ML IV PUSH ×4 (06:00→21:30)
[2021-06-09 06:16] LABS: Basophils Percent Auto 0.1 % (0.2-1.2); Eosinophils Absolute Auto 1.5 K/mm3 (0-0.3); Hematocrit 26.5 % (42.0-52.0); Hemoglobin 8.5 g/dL (14.0-18.0); Immature Granulocyte Absolute 0.11 K/mm3 (0.00-0.031); Immature Granulocyte Percent A 1.3 % (0-0.5); Lymphocytes Absolute Auto 0.71 K/mm3 (0.9-3.2); Lymphocytes Percent Auto 8.6 % (18.3-44.2); Mean Corpuscular HGB Conc 32.1 g/dl (32-36); Mean Corpuscular Hemoglobin 27.1 pg (26-34); Mean Corpuscular Volume 84.4 fl (80-100); Mean Platelet Volume 9.5 fl (7.4-10.4); Monocytes Absolute Auto 0.5 K/mm3 (0.1-0.6); Monocytes Percent Auto 6.4 % (2.6-8.5); Neutrophils Absolute Auto 5.4 K/mm3 (1.3-6.7); Neutrophils Percent Auto 65.6 % (45.5-73.1); Platelet Count Result 159 k/mm3 (150-375); Red Blood Count 3.14 M/mm3 (4.6-6.20); Red Cell Distribution Width 15.4 % (11.5-14.5); White Blood Count 8.2 K/mm3 (4.5-10.0)
[2021-06-09 06:19] LABS: Alanine Aminotransferase 27 U/L (4-50); Albumin Level 2.6 g/dL (3.5-5.1); Alkaline Phosphatase 47 U/L (38-126); Anion Gap 4 mmol/L (8-16); Aspartate Amino Transferase 43 U/L (17-59); Bilirubin,Total 0.5 mg/dL (0.2-1.3); Blood Urea Nitrogen 24 mg/dL (9-20); Calcium 7.5 mg/dL (8.4-10.2); Carbon Dioxide 30 mmol/L (22-30); Chloride 91 mmol/L (98-107); Estimated CRCL calculation 65 ml/min; Estimated Glomerular Filt Rate 54; Glucose 137 mg/dL (65-110); Magnesium 1.9 mg/dL (1.6-2.3); Potassium 3.3 mmol/L (3.4-5.0); Sodium 125 mmol/L (137-145)
[2021-06-09] MEDS: ALBUMIN HUMAN 25% 25 GM/100 ML 200 ML IVPB (07:42)
[2021-06-09 07:52] LABS: Vancomycin Random 20.8 ug/mL (10-20)
[2021-06-09 07:58] LABS: Glucose Point of Care 128 mg/dl (65-105)
[2021-06-09] MEDS: ALBUTEROL SULFATE NEB 2.5 MG/0.5 ML INH INHALATION ×3 (08:41→16:31)
[2021-06-09] MEDS: DOCUSATE SODIUM 100 MG CAPSULE PO ×2 (09:19→21:31)
[2021-06-09] MEDS: PANTOPRAZOLE 40 MG TABLET PO (09:19)
[2021-06-09] MEDS: ENOXAPARIN 40 MG/0.4 ML SYRINGE SUB-Q (09:19)
[2021-06-09] MEDS: SILVERGEL (ELTA) 45 ML 1 APPLIC TOPICAL (09:24)
[2021-06-09] MEDS: FUROSEMIDE INJ 40 MG/4 ML VIAL IV PUSH ×2 (09:40→17:12)
--- NOTE | 2021-06-09 10:00 | PM.IMPN ---
Progress Note: A&P Assessment and Plan (1) Pneumonia: Qualifiers: Laterality: unspecified laterality Lung location: unspecified part of lung Pneumonia type: due to unspecified organism Qualified Code(s): J18.9 - Pneumonia, unspecified organism Code(s): J18.9 - Pneumonia, unspecified organism Status: Acute Assessment and Plan: PNA is an HCAP. Just got out of acute rehab Patient has a new infiltrate found on CT on daptomycin which was resumed at this time Cefepime and vancomycin New cultures were drawn through the night MRSA from last visit ID on board Diamond antibiotics if cultures grow anything More infiltrates noted on x-ray after paracentesis Repeat chest xray shows WBC is 8.2 today (2) Febrile illness, acute: Code(s): R50.9 - Fever, unspecified Status: Acute Assessment and Plan: Mild fever noted overnight Patient with recent persistent blood cultures with MRSA Currently PICC line in place, might need to be changed Daptomycin course restarted will need coverage until 06/27/21 Blood cultures repeated and redrawn ID consult (3) Septicemia due to methicillin resistant Staphylococcus aureus: Code(s): A41.02 - Sepsis due to Methicillin resistant Staphylococcus aureus Status: Acute Assessment and Plan: Daptomycin course continued and will need to continue until 06/27/21 See above (4) Diabetes type 2, uncontrolled: Code(s): E11.65 - Type 2 diabetes mellitus with hyperglycemia Status: Acute Assessment and Plan: Current glucose 137 Insulin sliding scale as needed Accu-Cheks AC and HS Trend glucose Add 20units lantus Will need to switch to oral (5) Obstructive sleep apnea on CPAP: Code(s): G47.33 - Obstructive sleep apnea (adult) (pediatric); Z99.89 - Dependence on other enabling machines and devices Status: Acute Assessment and Plan: CPAP at night (6) Septic joint of right knee joint: Qualifiers: Septic arthritis organism: due to other bacteria Qualified Code(s): M00.861 - Arthritis due to other bacteria, right knee Code(s): M00.9 - Pyogenic arthritis, unspecified Status: Acute Assessment and Plan: Patient is status post incision and drainage with irrigation and debridement right knee joint This was on his prior admission Patient discharged to rehabilitation with a course of daptomycin (7) Hypertension: Qualifiers: Hypertension type: essential hypertension Qualified Code(s): I10 - Essential (primary) hypertension Code(s): I10 - Essential (primary) hypertension Status: Acute Assessment and Plan: BP 130/62, stable and controlled lasix 40mg IV BID Patient is not currently on any medications Continue to monitor (8) Pleural effusion: Code(s): J90 - Pleural effusion, not elsewhere classified Status: Acute Assessment and Plan: Found on the CT Moderate on left and small on right Thoracentesis was performed and 1000ml was taken off 06/02/21 Repeat cultures drawn Gram stain no organisms, few WBCs Pathology shows reactive mesothelial cells, foam cells, and atypical cell, most likely additional reactive mesothelial cells (9) Hypoalbuminemia: Code(s): E88.09 - Other disorders of plasma-protein metabolism, not elsewhere classified Status: Acute Assessment and Plan: Albumin 2.6 Prealbumin 4.0 Will give one dose to see if it helps patients edema Box Sealing Machine Operator consult Glucerna added (10) Fluid collection of pancreas: Onset Date: ~01/2021 Code(s): K86.89 - Other specified diseases of pancreas Status: Acute Assessment and Plan: This was a finding on CT of chest CT of abdomen and pelvis: Peripancreatic stranding with pancreatic necrosis and acute necrotic fluid collection
--- NOTE | 2021-06-09 10:00 | P.PNIM_ITS ---
Progress Note: A&P Assessment and Plan (1) Pneumonia: Qualifiers: Laterality: unspecified laterality Lung location: unspecified part of lung Pneumonia type: due to unspecified organism Qualified Code(s): J18.9 - Pneumonia, unspecified organism Code(s): J18.9 - Pneumonia, unspecified organism Status: Acute Assessment and Plan: * PNA is an HCAP. * Just got out of acute rehab * Patient has a new infiltrate found on CT * on daptomycin which was resumed at this time * Cefepime and vancomycin * New cultures were drawn through the night * MRSA from last visit * ID on board * Diamond antibiotics if cultures grow anything * More infiltrates noted on x-ray after paracentesis * Repeat chest xray shows * WBC is 8.2 today (2) Febrile illness, acute: Code(s): R50.9 - Fever, unspecified Status: Acute Assessment and Plan: * Mild fever noted overnight * Patient with recent persistent blood cultures with MRSA * Currently PICC line in place, might need to be changed * Daptomycin course restarted will need coverage until 06/27/21 * Blood cultures repeated and redrawn * ID consult (3) Septicemia due to methicillin resistant Staphylococcus aureus: Code(s): A41.02 - Sepsis due to Methicillin resistant Staphylococcus aureus Status: Acute Assessment and Plan: * Daptomycin course continued and will need to continue until 06/27/21 * See above (4) Diabetes type 2, uncontrolled: Code(s): E11.65 - Type 2 diabetes mellitus with hyperglycemia Status: Acute Assessment and Plan: * Current glucose 137 * Insulin sliding scale as needed * Accu-Cheks AC and HS * Trend glucose * Add 20units lantus * Will need to switch to oral (5) Obstructive sleep apnea on CPAP: Code(s): G47.33 - Obstructive sleep apnea (adult) (pediatric); Z99.89 - Dependence on other enabling machines and devices Status: Acute Assessment and Plan: * CPAP at night (6) Septic joint of right knee joint: Qualifiers: Septic arthritis organism: due to other bacteria Qualified Code(s): M00.861 - Arthritis due to other bacteria, right knee Code(s): M00.9 - Pyogenic arthritis, unspecified Status: Acute Assessment and Plan: * Patient is status post incision and drainage with irrigation and debridement right knee joint * This was on his prior admission * Patient discharged to rehabilitation with a course of daptomycin (7) Hypertension: Qualifiers: Hypertension type: essential hypertension Qualified Code(s): I10 - Essential (primary) hypertension Code(s): I10 - Essential (primary) hypertension Status: Acute Assessment and Plan: * BP 130/62, stable and controlled * lasix 40mg IV BID * Patient is not currently on any medications * Continue to monitor (8) Pleural effusion: Code(s): J90 - Pleural effusion, not elsewhere classified Status: Acute Assessment and Plan: * Found on the CT * Moderate on left and small on right * Thoracentesis was performed and 1000ml was taken off 06/02/21 * Repeat cultures drawn * Gram stain no organisms, few WBCs * Pathology shows reactive mesothelial cells, foam cells, and atypical cell, most likely additional reactive mesothelial cells (9) Hypoalbuminemia: Code(s): E88.09 - Other disorder
[2021-06-09 11:52] LABS: Glucose Point of Care 182 mg/dl (65-105)
--- NOTE | 2021-06-09 12:39 | PCNWS ---
Weekly nutritional screen. Patient is tolerating current diet with adequate intake. No weight loss reported. No nutritional needs at this time.
[2021-06-09 13:20] LABS: Anion Gap 7 mmol/L (8-16); Blood Urea Nitrogen 24 mg/dL (9-20); Calcium 7.8 mg/dL (8.4-10.2); Carbon Dioxide 30 mmol/L (22-30); Chloride 88 mmol/L (98-107); Estimated CRCL calculation 61 ml/min; Estimated Glomerular Filt Rate 50; Glucose 185 mg/dL (65-110); Potassium 3.5 mmol/L (3.4-5.0); Sodium 125 mmol/L (137-145)
[2021-06-09 17:10] LABS: Glucose Point of Care 194 mg/dl (65-105)
[2021-06-09 22:10] LABS: Glucose Point of Care 180 mg/dl (65-105)
[2021-06-10] VITALS (9 sets, daily range): BP systolic 117–124; BP diastolic 61–62; PULSE 78–103; RESP 17–20; TEMP 36.1–37.1; O2SAT 90–96
[2021-06-10] MEDS: ALBUTEROL SULFATE NEB 2.5 MG/0.5 ML INH INHALATION ×8 (01:18→23:59)
[2021-06-10] MEDS: CENTRAL LINE FLUSH 10 ML IV PUSH ×4 (05:27→21:34)
[2021-06-10 05:34] LABS: Basophils Percent Auto 0.2 % (0.2-1.2); Eosinophils Percent Auto 20.2 % (0-4.4); Hematocrit 25.7 % (42.0-52.0); Hemoglobin 8.6 g/dL (14.0-18.0); Immature Granulocyte Absolute 0.13 K/mm3 (0.00-0.031); Immature Granulocyte Percent A 1.3 % (0-0.5); Lymphocytes Absolute Auto 0.69 K/mm3 (0.9-3.2); Lymphocytes Percent Auto 7.1 % (18.3-44.2); Mean Corpuscular HGB Conc 33.5 g/dl (32-36); Mean Corpuscular Hemoglobin 27.7 pg (26-34); Mean Corpuscular Volume 82.9 fl (80-100); Mean Platelet Volume 9.5 fl (7.4-10.4); Monocytes Absolute Auto 0.5 K/mm3 (0.1-0.6); Neutrophils Absolute Auto 6.4 K/mm3 (1.3-6.7); Neutrophils Percent Auto 66.2 % (45.5-73.1); Platelet Count Result 166 k/mm3 (150-375); Red Cell Distribution Width 14.9 % (11.5-14.5); White Blood Count 9.7 K/mm3 (4.5-10.0)
[2021-06-10 05:51] LABS: Magnesium 1.9 mg/dL (1.6-2.3)
[2021-06-10 07:33] LABS: Alanine Aminotransferase 31 U/L (4-50); Albumin Level 2.5 g/dL (3.5-5.1); Alkaline Phosphatase 48 U/L (38-126); Anion Gap 7 mmol/L (8-16); Aspartate Amino Transferase 50 U/L (17-59); Bilirubin,Total 0.5 mg/dL (0.2-1.3); Blood Urea Nitrogen 29 mg/dL (9-20); Calcium 7.7 mg/dL (8.4-10.2); Carbon Dioxide 30 mmol/L (22-30); Chloride 92 mmol/L (98-107); Estimated CRCL calculation 57 ml/min; Estimated Glomerular Filt Rate 46; Glucose 156 mg/dL (65-110); Potassium 3.2 mmol/L (3.4-5.0); Sodium 129 mmol/L (137-145)
[2021-06-10 08:27] LABS: Glucose Point of Care 149 mg/dl (65-105)
--- NOTE | 2021-06-10 09:01 | PM.CNNEP ---
Assessment and Plan Assessment and plan (1) Hyponatremia: Code(s): E87.1 - Hypo-osmolality and hyponatremia Status: Acute Assessment and Plan: Rafael has hyponatremia. It looks like it has been low since December. Therefore there is a chronic component to this. The patient also has lower sodium now. He is on diuretics to help get rid of his sodium and has been drinking a lot of water. I suspect that he is driving his sodium levels down and because of the furosemide his kidneys cannot respond to the excess fluid. He still needs the diuretics because of swelling so at this point I will put him on a fluid restriction and salt tablets to help bring the sodium back up. There other causes of low sodium as well: Hormonal causes: Will get a TSH and a cortisol level medicine causes: He is not on any medicines besides diuretic that would do this. Cancer causes: He has 2 masses in the left kidney which may or may not be cancer. Otherwise he does not have any history of cancer. He is up-to-date with his cancer screening. Pulmonary causes: He does have COPD. Chest x-ray is unremarkable except his current pneumonia may be exacerbating his hyponatremia. DIESEL PLANT OPERATOR causes he has no symptoms of this. Will check serum and urine osmolality, TSH, cortisol, and urine sodium is already been checked by JOSUÉ Mg. I will put on a fluid restriction. (2) Pneumonia: Qualifiers: Laterality: unspecified laterality Lung location: unspecified part of lung Pneumonia type: due to unspecified organism Qualified Code(s): J18.9 - Pneumonia, unspecified organism Code(s): J18.9 - Pneumonia, unspecified organism Status: Acute (3) Septicemia due to methicillin resistant Staphylococcus aureus: Code(s): A41.02 - Sepsis due to Methicillin resistant Staphylococcus aureus Status: Acute Assessment and Plan: He is getting daptomycin (4) Diabetes mellitus: Code(s): E11.9 - Type 2 diabetes mellitus without complications Status: Acute Assessment and Plan: he is on Accu-Cheks and sliding-scale insulin (5) Obstructive sleep apnea on CPAP: Code(s): G47.33 - Obstructive sleep apnea (adult) (pediatric); Z99.89 - Dependence on other enabling machines and devices Status: Acute Assessment and Plan: he is is a CPAP machine religiously (6) Left renal mass: Code(s): N28.89 - Other specified disorders of kidney and ureter Status: Acute Assessment and Plan: he is getting urologic evaluation soon History of Present Illness Reason for Consult Consult date: 06/10/21 Chief Complaint Chief complaint: Pneumonia, febrile illness History of Present Illness Narrative: Rafael is a very pleasant 70-year-old gentleman who has multiple medical problems including arthritis, right knee infection complicated with sepsis from MRSA, BPH, arthritis, gallstone pancreatitis, hyperlipidemia, hypertension, 2 masses in his left kidney, obstructive sleep apnea on CPAP , diabetes. The patient had been in an out of the hospital with this knee infection. He was most recently admitted on the 31 of May with fever., He was diagnosed with pneumonia and continued septic knee. He is on antibiotics and is getting better from this standpoint. While this was going on his sodium level was low. In the last couple of days it dropped even further so renal consultation was requested. He had a low sodium in December on the on the . it was also low in January. last admission, his sodium was low ranging anywhere from 130-120 but was 132 on discharge. This admission this sodium was 128 on admission and varied between 125 and 131. He does not take any antidepressants or narcotics. He was on furosemide off and on because of swelling. He says he is thirsty and drinks a lot of fluid. Yesterday he drank over 3L of water. He drinks a lot of water at home as well. He d
--- NOTE | 2021-06-10 10:00 | P.PNIM_ITS ---
Progress Note: A&P Assessment and Plan (1) Hyponatremia: Code(s): E87.1 - Hypo-osmolality and hyponatremia Status: Acute Assessment and Plan: * Na 129 today * Could be from fluid overload, pt reports drinking 3L of fluid a day * Fluid restriction * Nephrology on board, thank you for your recommendation * Na tabs started * Trend labs (2) Pneumonia: Qualifiers: Laterality: unspecified laterality Lung location: unspecified part of lung Pneumonia type: due to unspecified organism Qualified Code(s): J18.9 - Pneumonia, unspecified organism Code(s): J18.9 - Pneumonia, unspecified organism Status: Acute Assessment and Plan: * PNA is an HCAP. * Just got out of acute rehab * Patient has a new infiltrate found on CT * on daptomycin which was resumed at this time * Cefepime and vancomycin will dc as WBC is normal at this time * New cultures No growth to date * MRSA from last visit * ID on board * Diamond antibiotics if cultures grow anything * More infiltrates noted on x-ray after paracentesis * Repeat chest xray shows * WBC is 9.7 today (3) Diabetes type 2, uncontrolled: Code(s): E11.65 - Type 2 diabetes mellitus with hyperglycemia Status: Acute Assessment and Plan: * Current glucose 156 * Insulin sliding scale as needed * Accu-Cheks AC and HS * Trend glucose * Add 20units lantus * Will need to switch to oral (4) Obstructive sleep apnea on CPAP: Code(s): G47.33 - Obstructive sleep apnea (adult) (pediatric); Z99.89 - Dependence on other enabling machines and devices Status: Acute Assessment and Plan: * CPAP at night (5) Septic joint of right knee joint: Qualifiers: Septic arthritis organism: due to other bacteria Qualified Code(s): M00.861 - Arthritis due to other bacteria, right knee Code(s): M00.9 - Pyogenic arthritis, unspecified Status: Acute Assessment and Plan: * Patient is status post incision and drainage with irrigation and debridement right knee joint * This was on his prior admission * Patient discharged to rehabilitation with a course of daptomycin (6) Hypertension: Qualifiers: Hypertension type: essential hypertension Qualified Code(s): I10 - Essential (primary) hypertension Code(s): I10 - Essential (primary) hypertension Status: Acute Assessment and Plan: * BP 117/61, stable and controlled * lasix 40mg IV BID, will switch to PO for tomorrow morning * Patient is not currently on any medications * Continue to monitor (7) Pleural effusion: Code(s): J90 - Pleural effusion, not elsewhere classified Status: Acute Assessment and Plan: * Found on the CT * Moderate on left and small on right * Thoracentesis was performed and 1000ml was taken off 06/02/21 * Repeat cultures drawn * Gram stain no organisms, few WBCs * Pathology shows reactive mesothelial cells, foam cells, and atypical cell, most likely additional reactive mesothelial cells (8) Hypoalbuminemia: Code(s): E88.09 - Other disorders of plasma-protein metabolism, not elsewhere classified Status: Acute Assessment and Plan: * Albumin 2.5 * Prealbumin 4.0 * Will give one dose to see if it helps patients edema * Director Of Music Therapy consult * Glucerna added (9) Fluid collection of pancreas
--- NOTE | 2021-06-10 10:00 | PM.IMPN ---
Progress Note: A&P Assessment and Plan (1) Hyponatremia: Code(s): E87.1 - Hypo-osmolality and hyponatremia Status: Acute Assessment and Plan: Na 129 today Could be from fluid overload, pt reports drinking 3L of fluid a day Fluid restriction Nephrology on board, thank you for your recommendation Na tabs started Trend labs (2) Pneumonia: Qualifiers: Laterality: unspecified laterality Lung location: unspecified part of lung Pneumonia type: due to unspecified organism Qualified Code(s): J18.9 - Pneumonia, unspecified organism Code(s): J18.9 - Pneumonia, unspecified organism Status: Acute Assessment and Plan: PNA is an HCAP. Just got out of acute rehab Patient has a new infiltrate found on CT on daptomycin which was resumed at this time Cefepime and vancomycin will dc as WBC is normal at this time New cultures No growth to date MRSA from last visit ID on board Diamond antibiotics if cultures grow anything More infiltrates noted on x-ray after paracentesis Repeat chest xray shows WBC is 9.7 today (3) Diabetes type 2, uncontrolled: Code(s): E11.65 - Type 2 diabetes mellitus with hyperglycemia Status: Acute Assessment and Plan: Current glucose 156 Insulin sliding scale as needed Accu-Cheks AC and HS Trend glucose Add 20units lantus Will need to switch to oral (4) Obstructive sleep apnea on CPAP: Code(s): G47.33 - Obstructive sleep apnea (adult) (pediatric); Z99.89 - Dependence on other enabling machines and devices Status: Acute Assessment and Plan: CPAP at night (5) Septic joint of right knee joint: Qualifiers: Septic arthritis organism: due to other bacteria Qualified Code(s): M00.861 - Arthritis due to other bacteria, right knee Code(s): M00.9 - Pyogenic arthritis, unspecified Status: Acute Assessment and Plan: Patient is status post incision and drainage with irrigation and debridement right knee joint This was on his prior admission Patient discharged to rehabilitation with a course of daptomycin (6) Hypertension: Qualifiers: Hypertension type: essential hypertension Qualified Code(s): I10 - Essential (primary) hypertension Code(s): I10 - Essential (primary) hypertension Status: Acute Assessment and Plan: BP 117/61, stable and controlled lasix 40mg IV BID, will switch to PO for tomorrow morning Patient is not currently on any medications Continue to monitor (7) Pleural effusion: Code(s): J90 - Pleural effusion, not elsewhere classified Status: Acute Assessment and Plan: Found on the CT Moderate on left and small on right Thoracentesis was performed and 1000ml was taken off 06/02/21 Repeat cultures drawn Gram stain no organisms, few WBCs Pathology shows reactive mesothelial cells, foam cells, and atypical cell, most likely additional reactive mesothelial cells (8) Hypoalbuminemia: Code(s): E88.09 - Other disorders of plasma-protein metabolism, not elsewhere classified Status: Acute Assessment and Plan: Albumin 2.5 Prealbumin 4.0 Will give one dose to see if it helps patients edema Ladies Suit Operator consult Glucerna added (9) Fluid collection of pancreas: Onset Date: ~01/2021 Code(s): K86.89 - Other specified diseases of pancreas Status: Acute Assessment and Plan: This was a finding on CT of chest CT of abdomen and pelvis: 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 pancreas with extension into the more posterior retroperitoneal fat which measures approximately 3.4 x 1.7 cm in sagittal imaging. Small region of less well-defined decreased enhancement at the tail of the pancreas a
[2021-06-10] MEDS: PANTOPRAZOLE 40 MG TABLET PO (10:15)
[2021-06-10] MEDS: FUROSEMIDE INJ 40 MG/4 ML VIAL IV PUSH ×2 (10:15→16:31)
[2021-06-10] MEDS: ENOXAPARIN 40 MG/0.4 ML SYRINGE SUB-Q (10:15)
[2021-06-10] MEDS: DOCUSATE SODIUM 100 MG CAPSULE PO ×2 (10:15→21:32)
[2021-06-10] MEDS: SILVERGEL (ELTA) 45 ML 1 APPLIC TOPICAL (10:16)
--- NOTE | 2021-06-10 10:22 | PCRCNOTE ---
Window of time for administration has passed. See next scheduled administration.
[2021-06-10] MEDS: SODIUM CHLORIDE 1 GM TABLET PO ×2 (11:39→16:31)
[2021-06-10 11:44] LABS: Glucose Point of Care 245 mg/dl (65-105)
[2021-06-10] MEDS: INSULIN ASPART (*BKC) 100 UNITS/ML SUB-Q (12:23)
--- NOTE | 2021-06-10 15:27 | PCOTNOTE ---
On 06/10/21, the student, Isabell HOPE, provided care and completed [facility] documentation on this patient. I have reviewed the student's documentation and agree with the findings.
[2021-06-10] MEDS: POTASSIUM CHLORIDE 20 MEQ TABLET 40 MEQ PO (16:31)
[2021-06-10 16:40] LABS: Glucose Point of Care 175 mg/dl (65-105)
[2021-06-10 16:51] LABS: Sodium 125 mmol/L (137-145)
[2021-06-10 19:13] LABS: Creatinine Urine 26.6 mg/dL; Total Protein Urine Random 37 mg/dL; Ur Ttl Prot Creatinine Ratio 1.39 mg/mg (0-0.20)
[2021-06-10 19:15] LABS: Creatinine Urine 26.8 mg/dL
[2021-06-10 19:22] LABS: Sodium Urine Random 60 meq/L
[2021-06-10 22:26] LABS: Glucose Point of Care 184 mg/dl (65-105)
[2021-06-11] VITALS (9 sets, daily range): BP systolic 109–124; BP diastolic 59–68; PULSE 54–103; RESP 18–20; TEMP 36.3–37; O2SAT 92–97
[2021-06-11] MEDS: ALBUTEROL SULFATE NEB 2.5 MG/0.5 ML INH INHALATION ×3 (04:15→15:57)
[2021-06-11] MEDS: CENTRAL LINE FLUSH 10 ML IV PUSH ×4 (05:21→21:37)
[2021-06-11 05:47] LABS: Basophils Percent Auto 0.2 % (0.2-1.2); Eosinophils Absolute Auto 2.5 K/mm3 (0-0.3); Eosinophils Percent Auto 24.9 % (0-4.4); Hematocrit 25.4 % (42.0-52.0); Hemoglobin 8.2 g/dL (14.0-18.0); Immature Granulocyte Absolute 0.12 K/mm3 (0.00-0.031); Immature Granulocyte Percent A 1.2 % (0-0.5); Lymphocytes Absolute Auto 0.75 K/mm3 (0.9-3.2); Lymphocytes Percent Auto 7.5 % (18.3-44.2); Mean Corpuscular HGB Conc 32.3 g/dl (32-36); Mean Corpuscular Hemoglobin 27.4 pg (26-34); Mean Corpuscular Volume 84.9 fl (80-100); Mean Platelet Volume 9.6 fl (7.4-10.4); Monocytes Absolute Auto 0.5 K/mm3 (0.1-0.6); Neutrophils Absolute Auto 6.2 K/mm3 (1.3-6.7); Neutrophils Percent Auto 61.2 % (45.5-73.1); Platelet Count Result 165 k/mm3 (150-375); Red Blood Count 2.99 M/mm3 (4.6-6.20); Red Cell Distribution Width 15.2 % (11.5-14.5)
[2021-06-11 05:58] LABS: Alanine Aminotransferase 37 U/L (4-50); Albumin Level 2.6 g/dL (3.5-5.1); Alkaline Phosphatase 52 U/L (38-126); Anion Gap 6 mmol/L (8-16); Aspartate Amino Transferase 53 U/L (17-59); Bilirubin,Total 0.5 mg/dL (0.2-1.3); Blood Urea Nitrogen 30 mg/dL (9-20); Calcium 7.7 mg/dL (8.4-10.2); Carbon Dioxide 29 mmol/L (22-30); Chloride 95 mmol/L (98-107); Estimated CRCL calculation 53 ml/min; Estimated Glomerular Filt Rate 43; Glucose 166 mg/dL (65-110); Potassium 3.1 mmol/L (3.4-5.0); Sodium 130 mmol/L (137-145)
[2021-06-11 07:49] LABS: Glucose Point of Care 144 mg/dl (65-105)
[2021-06-11] MEDS: ENOXAPARIN 40 MG/0.4 ML SYRINGE SUB-Q (08:40)
[2021-06-11] MEDS: DOCUSATE SODIUM 100 MG CAPSULE PO ×2 (08:41→21:34)
[2021-06-11] MEDS: SODIUM CHLORIDE 1 GM TABLET PO ×2 (08:41→17:45)
[2021-06-11] MEDS: FUROSEMIDE 40 MG TABLET PO ×2 (08:41→17:44)
[2021-06-11] MEDS: PANTOPRAZOLE 40 MG TABLET PO (08:41)
[2021-06-11] MEDS: SILVERGEL (ELTA) 45 ML 1 APPLIC TOPICAL (08:42)
[2021-06-11 11:13] LABS: Glucose Point of Care 208 mg/dl (65-105)
[2021-06-11] MEDS: POTASSIUM CHLORIDE 20 MEQ PACKET (FOR LIQUID) PO (11:56)
[2021-06-11] MEDS: INSULIN ASPART (*BKC) 100 UNITS/ML SUB-Q (11:56)
--- NOTE | 2021-06-11 12:42 | PM.PNNEP ---
Progress Note: A&P Assessment and Plan (1) Hyponatremia: Code(s): E87.1 - Hypo-osmolality and hyponatremia Status: Acute Assessment and Plan: Rafael has hyponatremia. It looks like it has been low since December. Therefore there is a chronic component to this. The patient also has lower sodium now. urine electrolytes are non pre renal. He does not have a lot of protein in the urine. TSH and cortisol are both okay. Probably related to excess water drinking in the setting of diuretics. Also he possibly has kidney cancer. He cut way back on how much she is drinking. His sodium level came up to 130 today. Will continue current approach. (2) Pneumonia: Qualifiers: Laterality: unspecified laterality Lung location: unspecified part of lung Pneumonia type: due to unspecified organism Qualified Code(s): J18.9 - Pneumonia, unspecified organism Code(s): J18.9 - Pneumonia, unspecified organism Status: Acute (3) Septicemia due to methicillin resistant Staphylococcus aureus: Code(s): A41.02 - Sepsis due to Methicillin resistant Staphylococcus aureus Status: Acute Assessment and Plan: He is getting daptomycin (4) Diabetes mellitus: Code(s): E11.9 - Type 2 diabetes mellitus without complications Status: Acute Assessment and Plan: he is on Accu-Cheks and sliding-scale insulin (5) Obstructive sleep apnea on CPAP: Code(s): G47.33 - Obstructive sleep apnea (adult) (pediatric); Z99.89 - Dependence on other enabling machines and devices Status: Acute Assessment and Plan: he is is a CPAP machine religiously (6) Left renal mass: Code(s): N28.89 - Other specified disorders of kidney and ureter Status: Acute Assessment and Plan: he is getting urologic evaluation soon Subjective Date/time seen: 06/11/21 12:42 Interval history: Rafael is feeling better today. He is sitting up in a chair. Some cough still. No shortness of breath. Review of Systems Cardiovascular: Cardiovascular: Reports no additional cardiovascular complaints Respiratory: Respiratory: Reports no additional respiratory complaints Gastrointestinal: Gastrointestinal: Reports no additional gastrointestinal complaints Genitourinary: Genitourinary: Reports no additional male genitourinary complaints Exam Narrative: WDWN in NAD skin no rash head ncat lungs clear Bilaterally cor reg no rub abd BS+ nontender and soft ext trace edema. Objective Data Vital Signs Vital Signs: Vital Signs - 24 hr 06/10/21 14:00 06/10/21 20:00 06/10/21 21:10 Temperature 36.1 C L Pulse Rate 103 H Respiratory Rate 17 Blood Pressure 117/61 Pulse Oximetry 90 90 95 06/10/21 22:00 06/11/21 00:00 06/11/21 02:53 Temperature 37.1 C Pulse Rate 99 89 91 Respiratory Rate 18 Blood Pressure 124/62 Pulse Oximetry 90 92 93 06/11/21 06:00 06/11/21 09:00 06/11/21 09:26 Temperature 36.9 C Pulse Rate 92 Respiratory Rate 18 Blood Pressure 116/68 Pulse Oximetry 93 96 95 Intake/Output Intake/Output: Intake & Output 06/08/21 06/09/21 06/10/21 06/11/21 23:59 23:59 23:59 23:59 Intake Total 2624 3980 2030 0 Output Total 3200 2650 2700 900 Balance -576 1330 670 -900 Meds/Results Medications: Active Medications Generic Name Dose Route Start Last Admin Trade Name Freq PRN Reason Stop Dose Admin Acetaminophen 1,000 mg 06/04/21 11:03 06/08/21 21:44 Acetaminophen 500 Mg Tablet PO 500 mg Q6H PRN Administration Mild Pain (1-3) or Fever Albuterol 2.5 mg 06/05/21 16:00 06/11/21 08:55 Albuterol Sulfate Neb 2.5 Mg/0.5 Ml Inh INHALATION 2.5 mg Q4HRT NUPUR Administration Alteplase, Recombinant 2 mg 06/04/21 13:28 06/04/21 13:58 Alteplase 2 Mg Vial (Cathflo) IV PUSH 2 mg ONCE PRN Administration Line Occlusion Alteplase, Recombinant 2 mg 06/04/21 14:00
[2021-06-11 13:43] LABS: Vancomycin Trough 22.6 ug/mL (10.0-20.0)
--- NOTE | 2021-06-11 14:25 | PCRCNOTE ---
Window of time for administration has passed. See next scheduled administration.
--- NOTE | 2021-06-11 16:10 | P.PNIM_ITS ---
Progress Note: A&P Assessment and Plan (1) Hyponatremia: Code(s): E87.1 - Hypo-osmolality and hyponatremia Status: Acute Assessment and Plan: * Na 129 today * Could be from fluid overload, pt reports drinking 3L of fluid a day * Fluid restriction * Nephrology on board, thank you for your recommendation * Na tabs started * Trend labs 06/11/2021 Interval history: patient is a 70-year-old male admitted with healthcare associated pneumonia seen by ID was treated with Cefepime for 6 days, patient with history of MRSA and septic arthritis seen by ID recommended to continue daptomycin until 06/13/2021 to complete the course of 42 days, patient also has happened seen by Nephrology suspect or consumption free fluid, patient in fluid restriction and sodium is trending and today's 130, patient denies any complaint of cough shortness of breath fever chills, will continue present management and will monitor (2) Pneumonia: Qualifiers: Laterality: unspecified laterality Lung location: unspecified part of lung Pneumonia type: due to unspecified organism Qualified Code(s): J18.9 - Pneumonia, unspecified organism Code(s): J18.9 - Pneumonia, unspecified organism Status: Acute Assessment and Plan: * PNA is an HCAP. * Just got out of acute rehab * Patient has a new infiltrate found on CT * on daptomycin which was resumed at this time * Cefepime and vancomycin will dc as WBC is normal at this time * New cultures No growth to date * MRSA from last visit * ID on board * Diamond antibiotics if cultures grow anything * More infiltrates noted on x-ray after paracentesis * Repeat chest xray shows * WBC is 9.7 today (3) Diabetes type 2, uncontrolled: Code(s): E11.65 - Type 2 diabetes mellitus with hyperglycemia Status: Acute Assessment and Plan: * Current glucose 156 * Insulin sliding scale as needed * Accu-Cheks AC and HS * Trend glucose * Add 20units lantus * Will need to switch to oral (4) Obstructive sleep apnea on CPAP: Code(s): G47.33 - Obstructive sleep apnea (adult) (pediatric); Z99.89 - Dependence on other enabling machines and devices Status: Acute Assessment and Plan: * CPAP at night (5) Septic joint of right knee joint: Qualifiers: Septic arthritis organism: due to other bacteria Qualified Code(s): M00.861 - Arthritis due to other bacteria, right knee Code(s): M00.9 - Pyogenic arthritis, unspecified Status: Acute Assessment and Plan: * Patient is status post incision and drainage with irrigation and debridement right knee joint * This was on his prior admission * Patient discharged to rehabilitation with a course of daptomycin (6) Hypertension: Qualifiers: Hypertension type: essential hypertension Qualified Code(s): I10 - Essential (primary) hypertension Code(s): I10 - Essential (primary) hypertension Status: Acute Assessment and Plan: * BP 117/61, stable and controlled * lasix 40mg IV BID, will switch to PO for tomorrow morning * Patient is not currently on any medications * Continue to monitor (7) Pleural effusion: Code(s): J90 - Pleural effusion, not elsewhere classified Status: Acute Assessment and Plan: * Found on the CT * Moderate on left and small on right * Thoracentesis was performed and 1000ml was taken off 06/02/21 * Repeat cultures drawn *
--- NOTE | 2021-06-11 16:10 | PM.IMPN ---
Progress Note: A&P Assessment and Plan (1) Hyponatremia: Code(s): E87.1 - Hypo-osmolality and hyponatremia Status: Acute Assessment and Plan: Na 129 today Could be from fluid overload, pt reports drinking 3L of fluid a day Fluid restriction Nephrology on board, thank you for your recommendation Na tabs started Trend labs 06/11/2021 Interval history: patient is a 70-year-old male admitted with healthcare associated pneumonia seen by ID was treated with Cefepime for 6 days, patient with history of MRSA and septic arthritis seen by ID recommended to continue daptomycin until 06/13/2021 to complete the course of 42 days, patient also has happened seen by Nephrology suspect or consumption free fluid, patient in fluid restriction and sodium is trending and today's 130, patient denies any complaint of cough shortness of breath fever chills, will continue present management and will monitor (2) Pneumonia: Qualifiers: Laterality: unspecified laterality Lung location: unspecified part of lung Pneumonia type: due to unspecified organism Qualified Code(s): J18.9 - Pneumonia, unspecified organism Code(s): J18.9 - Pneumonia, unspecified organism Status: Acute Assessment and Plan: PNA is an HCAP. Just got out of acute rehab Patient has a new infiltrate found on CT on daptomycin which was resumed at this time Cefepime and vancomycin will dc as WBC is normal at this time New cultures No growth to date MRSA from last visit ID on board Diamond antibiotics if cultures grow anything More infiltrates noted on x-ray after paracentesis Repeat chest xray shows WBC is 9.7 today (3) Diabetes type 2, uncontrolled: Code(s): E11.65 - Type 2 diabetes mellitus with hyperglycemia Status: Acute Assessment and Plan: Current glucose 156 Insulin sliding scale as needed Accu-Cheks AC and HS Trend glucose Add 20units lantus Will need to switch to oral (4) Obstructive sleep apnea on CPAP: Code(s): G47.33 - Obstructive sleep apnea (adult) (pediatric); Z99.89 - Dependence on other enabling machines and devices Status: Acute Assessment and Plan: CPAP at night (5) Septic joint of right knee joint: Qualifiers: Septic arthritis organism: due to other bacteria Qualified Code(s): M00.861 - Arthritis due to other bacteria, right knee Code(s): M00.9 - Pyogenic arthritis, unspecified Status: Acute Assessment and Plan: Patient is status post incision and drainage with irrigation and debridement right knee joint This was on his prior admission Patient discharged to rehabilitation with a course of daptomycin (6) Hypertension: Qualifiers: Hypertension type: essential hypertension Qualified Code(s): I10 - Essential (primary) hypertension Code(s): I10 - Essential (primary) hypertension Status: Acute Assessment and Plan: BP 117/61, stable and controlled lasix 40mg IV BID, will switch to PO for tomorrow morning Patient is not currently on any medications Continue to monitor (7) Pleural effusion: Code(s): J90 - Pleural effusion, not elsewhere classified Status: Acute Assessment and Plan: Found on the CT Moderate on left and small on right Thoracentesis was performed and 1000ml was taken off 06/02/21 Repeat cultures drawn Gram stain no organisms, few WBCs Pathology shows reactive mesothelial cells, foam cells, and atypical cell, most likely additional reactive mesothelial cells (8) Hypoalbuminemia: Code(s): E88.09 - Other disorders of plasma-protein metabolism, not elsewhere classified Status: Acute Assessment and Plan: Albumin 2.5 Prealbumin 4.0 Will give one dose to see if it helps patients edema [employer] consult Glucerna added (9) Fluid collection of pancreas:
[2021-06-11 16:40] LABS: Glucose Point of Care 144 mg/dl (65-105)
[2021-06-11 21:40] LABS: Glucose Point of Care 154 mg/dl (65-105)
--- NOTE | 2021-06-11 23:19 | PCRCNOTE ---
therapist in code yellow ed
[2021-06-12] VITALS (11 sets, daily range): BP systolic 109–127; BP diastolic 52–66; PULSE 89–115; RESP 15–20; TEMP 36.4–37.2; O2SAT 93–96
[2021-06-12] MEDS: ALBUTEROL SULFATE NEB 2.5 MG/0.5 ML INH INHALATION ×4 (00:36→20:48)
[2021-06-12] MEDS: CENTRAL LINE FLUSH 10 ML IV PUSH ×3 (05:30→17:03)
[2021-06-12 05:35] LABS: Albumin Level 2.6 g/dL (3.5-5.1); Anion Gap 9 mmol/L (8-16); Blood Urea Nitrogen 34 mg/dL (9-20); Calcium 7.9 mg/dL (8.4-10.2); Carbon Dioxide 27 mmol/L (22-30); Chloride 98 mmol/L (98-107); Estimated CRCL calculation 43 ml/min; Estimated Glomerular Filt Rate 33; Glucose 174 mg/dL (65-110); Phosphorus 3.4 mg/dL (2.5-4.5); Potassium 3.3 mmol/L (3.4-5.0); Sodium 134 mmol/L (137-145)
[2021-06-12 07:55] LABS: Glucose Point of Care 161 mg/dl (65-105)
[2021-06-12] MEDS: DOCUSATE SODIUM 100 MG CAPSULE PO ×2 (09:30→20:36)
[2021-06-12] MEDS: POTASSIUM CHLORIDE 20 MEQ PACKET (FOR LIQUID) PO (09:30)
[2021-06-12] MEDS: FUROSEMIDE 40 MG TABLET PO (09:31)
[2021-06-12] MEDS: PANTOPRAZOLE 40 MG TABLET PO (09:31)
[2021-06-12] MEDS: polyethylene glycoL 3350 17 GM POWD.PACK PO (09:31)
[2021-06-12] MEDS: ENOXAPARIN 40 MG/0.4 ML SYRINGE SUB-Q (09:31)
[2021-06-12] MEDS: SODIUM CHLORIDE 1 GM TABLET PO ×2 (09:31→17:03)
[2021-06-12] MEDS: SILVERGEL (ELTA) 45 ML 1 APPLIC TOPICAL (09:32)
[2021-06-12] MEDS: POTASSIUM CHLORIDE 20 MEQ TABLET 40 MEQ PO (09:33)
--- NOTE | 2021-06-12 10:30 | PCRCNOTE ---
Window of time for administration has passed. See next scheduled administration.
[2021-06-12 11:33] LABS: Glucose Point of Care 218 mg/dl (65-105)
--- NOTE | 2021-06-12 11:45 | PM.PNNEP ---
Progress Note: A&P Assessment and Plan (1) Hyponatremia: Code(s): E87.1 - Hypo-osmolality and hyponatremia Status: Acute Assessment and Plan: Rafael has hyponatremia. It looks like it has been low since December. Therefore there is a chronic component to this. The patient also has lower sodium now. urine electrolytes are non pre renal. He does not have a lot of protein in the urine. TSH and cortisol are both okay. Probably related to excess water drinking in the setting of diuretics. Also he possibly has kidney cancer. He cut way back on how much she is drinking. His sodium level came up to 134 Will continue current approach. (2) Pneumonia: Qualifiers: Laterality: unspecified laterality Lung location: unspecified part of lung Pneumonia type: due to unspecified organism Qualified Code(s): J18.9 - Pneumonia, unspecified organism Code(s): J18.9 - Pneumonia, unspecified organism Status: Acute Assessment and Plan: per chest x-ray. On antibiotics (3) Septicemia due to methicillin resistant Staphylococcus aureus: Code(s): A41.02 - Sepsis due to Methicillin resistant Staphylococcus aureus Status: Acute Assessment and Plan: He is getting daptomycin (4) Diabetes mellitus: Code(s): E11.9 - Type 2 diabetes mellitus without complications Status: Acute Assessment and Plan: he is on Accu-Cheks and sliding-scale insulin (5) Obstructive sleep apnea on CPAP: Code(s): G47.33 - Obstructive sleep apnea (adult) (pediatric); Z99.89 - Dependence on other enabling machines and devices Status: Acute Assessment and Plan: he is is a CPAP machine religiously (6) Left renal mass: Code(s): N28.89 - Other specified disorders of kidney and ureter Status: Acute Assessment and Plan: he is getting urologic evaluation soon Subjective Date/time seen: 06/12/21 11:45 Interval history: Rafael is feeling better today. He is giving himself a bath. No chest pain or shortness of breath eating well and restricting his fluids. Exam Narrative: WDWN in NAD skin no rash head ncat ext trace edema. Objective Data Vital Signs Vital Signs: Vital Signs - 24 hr 06/11/21 14:00 06/11/21 20:00 06/11/21 20:35 Temperature 36.3 C L Pulse Rate 103 H 89 Respiratory Rate 20 Blood Pressure 109/59 L Pulse Oximetry 97 92 92 06/11/21 22:00 06/12/21 00:35 06/12/21 00:46 Temperature 37.0 C Pulse Rate 54 L 89 91 Respiratory Rate 18 18 18 Blood Pressure 124/60 Pulse Oximetry 92 06/12/21 04:26 06/12/21 04:42 06/12/21 05:42 Temperature 37.2 C Pulse Rate 115 H 108 H 108 H Respiratory Rate 20 18 20 Blood Pressure 109/52 L Pulse Oximetry 94 Intake/Output Intake/Output: Intake & Output 06/09/21 06/10/21 06/11/21 06/12/21 23:59 23:59 23:59 23:59 Intake Total 3980 2030 170 360 Output Total 2650 2700 1420 350 Balance 1538 -[phone] -[phone] 10 Meds/Results Medications: Active Medications Generic Name Dose Route Start Last Admin Trade Name Freq PRN Reason Stop Dose Admin Acetaminophen 1,000 mg 06/04/21 11:03 06/08/21 21:44 Acetaminophen 500 Mg Tablet PO 500 mg Q6H PRN Administration Mild Pain (1-3) or Fever Albuterol 2.5 mg 06/05/21 16:00 06/12/21 10:30 Albuterol Sulfate Neb 2.5 Mg/0.5 Ml Inh INHALATION Not Given Q4HRT [facility] Alteplase, Recombinant 2 mg 06/04/21 13:28 06/04/21 13:58 Alteplase 2 Mg Vial (Cathflo) IV PUSH 2 mg ONCE PRN Administration Line Occlusion Alteplase, Recombinant 2 mg 06/04/21 14:00 06/04/21 14:02 Alteplase 2 Mg Vial (Cathflo) IV PUSH 2 mg ONCE PRN Administration Line Occlusion Alteplase, Recombinant 2 mg 06/04/21 14:00 06/04/21 14:02 Alteplase 2 Mg Vial (Cathflo) IV PUSH 2 mg ONCE PRN Administration Line Occlusion Bisacodyl 10 mg 06/01/21 17:13 Bisacodyl
--- NOTE | 2021-06-12 12:39 | P.PNIM_ITS ---
Progress Note: A&P Assessment and Plan (1) Hyponatremia: Code(s): E87.1 - Hypo-osmolality and hyponatremia Status: Acute Assessment and Plan: * Na 129 today * Could be from fluid overload, pt reports drinking 3L of fluid a day * Fluid restriction * Nephrology on board, thank you for your recommendation * Na tabs started * Trend labs 06/12/21 12:39 06/11/2021 Interval history: patient is a 70-year-old male admitted with healthcare associated pneumonia seen by ID was treated with Cefepime for 6 days, patient with history of MRSA and septic arthritis seen by ID recommended to continue daptomycin until 06/13/2021 to complete the course of 42 days, patient also has happened seen by Nephrology suspect or consumption free fluid, patient in fluid restriction and sodium is trending and today's 130, patient denies any complaint of cough shortness of breath fever chills, will continue present management and will monitor 06/12/2021 Interval history: patient is a 70-year-old male admitted with healthcare associated pneumonia seen by ID was treated with Cefepime for 6 days, Repeat CXR today shows slight worsening infiltrated/edema patient with history of MRSA and septic arthritis seen by ID recommended to continue daptomycin until tomorrow 06/13/2021 to complete the course of 42 days, patient also has hyponatremia seen by Nephrology suspect over consumption of free fluid, patient is on fluid restriction and sodium is trending and today's 134, patient denies any complaint of cough shortness of breath fever chills, will continue present management and will monitor (2) Pneumonia: Qualifiers: Laterality: unspecified laterality Lung location: unspecified part of lung Pneumonia type: due to unspecified organism Qualified Code(s): J18.9 - Pneumonia, unspecified organism Code(s): J18.9 - Pneumonia, unspecified organism Status: Acute Assessment and Plan: * PNA is an HCAP. * Just got out of acute rehab * Patient has a new infiltrate found on CT * on daptomycin which was resumed at this time * Cefepime and vancomycin will dc as WBC is normal at this time * New cultures No growth to date * MRSA from last visit * ID on board * Diamond antibiotics if cultures grow anything * More infiltrates noted on x-ray after paracentesis * Repeat chest xray shows * WBC is 9.7 today (3) Diabetes type 2, uncontrolled: Code(s): E11.65 - Type 2 diabetes mellitus with hyperglycemia Status: Acute Assessment and Plan: * Current glucose 156 * Insulin sliding scale as needed * Accu-Cheks AC and HS * Trend glucose * Add 20units lantus * Will need to switch to oral (4) Obstructive sleep apnea on CPAP: Code(s): G47.33 - Obstructive sleep apnea (adult) (pediatric); Z99.89 - Dependence on other enabling machines and devices Status: Acute Assessment and Plan: * CPAP at night (5) Septic joint of right knee joint: Qualifiers: Septic arthritis organism: due to other bacteria Qualified Code(s): M00.861 - Arthritis due to other bacteria, right knee Code(s): M00.9 - Pyogenic arthritis, unspecified Status: Acute Assessment and Plan: * Patient is status post incision and drainage with irrigation and debridement right knee joint * This was on his prior admission * Patient discharged to rehabilitation with a course of daptomycin (6) Hypertension: Qualifiers: Hypertension type: essential hyperte
--- NOTE | 2021-06-12 12:39 | PM.IMPN ---
Progress Note: A&P Assessment and Plan (1) Hyponatremia: Code(s): E87.1 - Hypo-osmolality and hyponatremia Status: Acute Assessment and Plan: Na 129 today Could be from fluid overload, pt reports drinking 3L of fluid a day Fluid restriction Nephrology on board, thank you for your recommendation Na tabs started Trend labs 06/12/21 12:39 06/11/2021 Interval history: patient is a 70-year-old male admitted with healthcare associated pneumonia seen by ID was treated with Cefepime for 6 days, patient with history of MRSA and septic arthritis seen by ID recommended to continue daptomycin until 06/13/2021 to complete the course of 42 days, patient also has happened seen by Nephrology suspect or consumption free fluid, patient in fluid restriction and sodium is trending and today's 130, patient denies any complaint of cough shortness of breath fever chills, will continue present management and will monitor 06/12/2021 Interval history: patient is a 70-year-old male admitted with healthcare associated pneumonia seen by ID was treated with Cefepime for 6 days, Repeat CXR today shows slight worsening infiltrated/edema patient with history of MRSA and septic arthritis seen by ID recommended to continue daptomycin until tomorrow 06/13/2021 to complete the course of 42 days, patient also has hyponatremia seen by Nephrology suspect over consumption of free fluid, patient is on fluid restriction and sodium is trending and today's 134, patient denies any complaint of cough shortness of breath fever chills, will continue present management and will monitor (2) Pneumonia: Qualifiers: Laterality: unspecified laterality Lung location: unspecified part of lung Pneumonia type: due to unspecified organism Qualified Code(s): J18.9 - Pneumonia, unspecified organism Code(s): J18.9 - Pneumonia, unspecified organism Status: Acute Assessment and Plan: PNA is an HCAP. Just got out of acute rehab Patient has a new infiltrate found on CT on daptomycin which was resumed at this time Cefepime and vancomycin will dc as WBC is normal at this time New cultures No growth to date MRSA from last visit ID on board Diamond antibiotics if cultures grow anything More infiltrates noted on x-ray after paracentesis Repeat chest xray shows WBC is 9.7 today (3) Diabetes type 2, uncontrolled: Code(s): E11.65 - Type 2 diabetes mellitus with hyperglycemia Status: Acute Assessment and Plan: Current glucose 156 Insulin sliding scale as needed Accu-Cheks AC and HS Trend glucose Add 20units lantus Will need to switch to oral (4) Obstructive sleep apnea on CPAP: Code(s): G47.33 - Obstructive sleep apnea (adult) (pediatric); Z99.89 - Dependence on other enabling machines and devices Status: Acute Assessment and Plan: CPAP at night (5) Septic joint of right knee joint: Qualifiers: Septic arthritis organism: due to other bacteria Qualified Code(s): M00.861 - Arthritis due to other bacteria, right knee Code(s): M00.9 - Pyogenic arthritis, unspecified Status: Acute Assessment and Plan: Patient is status post incision and drainage with irrigation and debridement right knee joint This was on his prior admission Patient discharged to rehabilitation with a course of daptomycin (6) Hypertension: Qualifiers: Hypertension type: essential hypertension Qualified Code(s): I10 - Essential (primary) hypertension Code(s): I10 - Essential (primary) hypertension Status: Acute Assessment and Plan: BP 117/61, stable and controlled lasix 40mg IV BID, will switch to PO for tomorrow morning Patient is not currently on any medications Continue to monitor (7) Pleural effusion: Code(s): J90 - Pleural effusion, not elsewhere classified Status: Acut
[2021-06-12] MEDS: INSULIN ASPART (*BKC) 100 UNITS/ML SUB-Q (13:19)
[2021-06-12 16:40] LABS: Glucose Point of Care 165 mg/dl (65-105)
[2021-06-12] MEDS: FUROSEMIDE 20 MG TABLET PO (17:03)
--- NOTE | 2021-06-12 18:59 | PCRCNOTE ---
Window of time for administration has passed. See next scheduled administration.
[2021-06-12 20:41] LABS: Glucose Point of Care 158 mg/dl (65-105)
[2021-06-13] VITALS (12 sets, daily range): BP systolic 119–132; BP diastolic 64–72; PULSE 2–115; RESP 18–28; TEMP 36.6–37.4; O2SAT 92–96
[2021-06-13] MEDS: ALBUTEROL SULFATE NEB 2.5 MG/0.5 ML INH INHALATION ×4 (00:50→20:02)
[2021-06-13] MEDS: CENTRAL LINE FLUSH 10 ML IV PUSH ×4 (05:40→21:11)
--- NOTE | 2021-06-13 06:08 | PCRCNOTE ---
Window of time for administration has passed. See next scheduled administration.
[2021-06-13 06:30] LABS: Albumin Level 2.8 g/dL (3.5-5.1); Anion Gap 6 mmol/L (8-16); Blood Urea Nitrogen 36 mg/dL (9-20); Carbon Dioxide 29 mmol/L (22-30); Chloride 99 mmol/L (98-107); Estimated CRCL calculation 41 ml/min; Estimated Glomerular Filt Rate 31; Glucose 160 mg/dL (65-110); Phosphorus 3.7 mg/dL (2.5-4.5); Potassium 3.4 mmol/L (3.4-5.0); Sodium 134 mmol/L (137-145)
[2021-06-13 08:24] LABS: Glucose Point of Care 149 mg/dl (65-105)
--- NOTE | 2021-06-13 09:41 | PM.PNNEP ---
Progress Note: A&P Assessment and Plan (1) Hyponatremia: Code(s): E87.1 - Hypo-osmolality and hyponatremia Status: Acute Assessment and Plan: Rafael has hyponatremia. It looks like it has been low since December. Therefore there is a chronic component to this. The patient also has lower sodium now. urine electrolytes are non pre renal. He does not have a lot of protein in the urine. TSH and cortisol are both okay. Probably related to excess water drinking in the setting of diuretics. Also he possibly has kidney cancer. He cut way back on how much he is drinking. His edema is better. his sodium level stable at 134. Will stop the salt tablets and Lasix. I think we can give him a little bit more fluid. Will continue current approach. (2) Pneumonia: Qualifiers: Laterality: unspecified laterality Lung location: unspecified part of lung Pneumonia type: due to unspecified organism Qualified Code(s): J18.9 - Pneumonia, unspecified organism Code(s): J18.9 - Pneumonia, unspecified organism Status: Acute Assessment and Plan: per chest x-ray. On antibiotics (3) Septicemia due to methicillin resistant Staphylococcus aureus: Code(s): A41.02 - Sepsis due to Methicillin resistant Staphylococcus aureus Status: Acute Assessment and Plan: He is getting daptomycin (4) Diabetes mellitus: Code(s): E11.9 - Type 2 diabetes mellitus without complications Status: Acute Assessment and Plan: he is on Accu-Cheks and sliding-scale insulin (5) Obstructive sleep apnea on CPAP: Code(s): G47.33 - Obstructive sleep apnea (adult) (pediatric); Z99.89 - Dependence on other enabling machines and devices Status: Acute Assessment and Plan: he is is a CPAP machine religiously (6) Left renal mass: Code(s): N28.89 - Other specified disorders of kidney and ureter Status: Acute Assessment and Plan: he is getting urologic evaluation soon Subjective Date/time seen: 06/13/21 09:41 Interval history: Rafael is feeling better today. he hates the fluid restriction. We discussed how important this is because low sodium can cause seizures in coma. No chest pain or shortness of breath eating well and restricting his fluids. Exam Narrative: WDWN in NAD skin no rash head ncat Lungs clear to auscultation heart regular without rub abdomen bowel sounds positive soft nontender ext trace edema. Objective Data Vital Signs Vital Signs: Vital Signs - 24 hr 06/12/21 11:50 06/12/21 15:18 06/12/21 20:00 Temperature 36.4 C L Pulse Rate 106 H 101 H Respiratory Rate 18 15 Blood Pressure 127/64 Pulse Oximetry 93 96 96 06/12/21 20:49 06/12/21 20:56 06/12/21 22:00 Temperature 37.0 C Pulse Rate 99 98 105 H Respiratory Rate 18 18 20 Blood Pressure 114/66 Pulse Oximetry 95 06/13/21 00:50 06/13/21 05:44 06/13/21 08:29 Temperature 36.7 C Pulse Rate 96 100 99 Respiratory Rate 18 20 18 Blood Pressure 119/68 Pulse Oximetry 93 96 06/13/21 08:38 Temperature Pulse Rate 101 H Respiratory Rate 18 Blood Pressure Pulse Oximetry Intake/Output Intake/Output: Intake & Output 06/10/21 06/11/21 06/12/21 06/13/21 23:59 23:59 23:59 23:59 Intake Total 2030 170 804 Output Total 2700 1420 950 500 [facility]670 -[phone] -[phone] -500 Meds/Results Medications: Active Medications Generic Name Dose Route Start Last Admin Trade Name Freq PRN Reason Stop Dose Admin Acetaminophen 1,000 mg 06/04/21 11:03 06/08/21 21:44 Acetaminophen 500 Mg Tablet PO 500 mg Q6H PRN Administration Mild Pain (1-3) or Fever Albuterol 2.5 mg 06/05/21 16:00 06/13/21 08:29 Albuterol Sulfate Neb 2.5 Mg/0.5 Ml Inh INHALATION 2.5 mg Q4HRT NUPUR Administration Alteplase, Recombinant 2 mg 06/04/21 13:28 06/04/21 13:58 Alteplase 2 Mg Vial (Cathflo) IV PUSH
--- NOTE | 2021-06-13 09:58 | P.PNIM_ITS ---
Progress Note: A&P Assessment and Plan (1) Hyponatremia: Code(s): E87.1 - Hypo-osmolality and hyponatremia Status: Acute Assessment and Plan: * Na 129 today * Could be from fluid overload, pt reports drinking 3L of fluid a day * Fluid restriction * Nephrology on board, thank you for your recommendation * Na tabs started * Trend labs 06/13/21 09:58 06/11/2021 Interval history: patient is a 70-year-old male admitted with healthcare associated pneumonia seen by ID was treated with Cefepime for 6 days, patient with history of MRSA and septic arthritis seen by ID recommended to continue daptomycin until 06/13/2021 to complete the course of 42 days, patient also has happened seen by Nephrology suspect or consumption free fluid, patient in fluid restriction and sodium is trending and today's 130, patient denies any complaint of cough shortness of breath fever chills, will continue present management and will monitor 06/12/2021 Interval history: patient is a 70-year-old male admitted with healthcare associated pneumonia seen by ID was treated with Cefepime for 6 days, Repeat CXR today shows slight worsening infiltrated/edema patient with history of MRSA and septic arthritis seen by ID recommended to continue daptomycin until tomorrow 06/13/2021 to complete the course of 42 days, patient also has hyponatremia seen by Nephrology suspect over consumption of free fluid, patient is on fluid restriction and sodium is trending and today's 134, patient denies any complaint of cough shortness of breath fever chills, will continue present management and will monitor 06/13/2021 Interval history: patient is a 70-year-old male admitted with healthcare associated pneumonia seen by ID was treated with Cefepime for 6 days, Repeat CXR 06/12 showed slight worsening infiltrated/edema patient with history of MRSA and septic arthritis seen by ID recommended to continue daptomycin until today 06/13/2021 to complete the course of 42 days, I discussed with the pharmacy and will stop the abx afterr today's dose, patient also has hyponatremia seen by Nephrology suspect over consumption of free fluid, patient is on fluid restriction and salt tablets, sodium is trending and today's 134 and stable, 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 * Just got out of acute rehab * Patient has a new infiltrate found on CT * on daptomycin which was resumed at this time * Cefepime and vancomycin will dc as WBC is normal at this time * New cultures No growth to date * MRSA from last visit * ID on board * Diamond antibiotics if cultures grow anything * More infiltrates noted on x-ray after paracentesis * Repeat chest xray shows * WBC is 9.7 today (3) Diabetes type 2, uncontrolled: Code(s): E11.65 - Type 2 diabetes mellitus with hyperglycemia Status: Acute Assessment and Plan: * Current glucose 156 * Insulin sliding scale as needed * Accu-Cheks AC and HS * Trend glucose * Add 20units lantus * Will need to switch to oral (4) Obstructive sleep apnea on CPAP: Code(s): G47.33 - Obstructive slee
--- NOTE | 2021-06-13 09:58 | PM.IMPN ---
Progress Note: A&P Assessment and Plan (1) Hyponatremia: Code(s): E87.1 - Hypo-osmolality and hyponatremia Status: Acute Assessment and Plan: Na 129 today Could be from fluid overload, pt reports drinking 3L of fluid a day Fluid restriction Nephrology on board, thank you for your recommendation Na tabs started Trend labs 06/13/21 09:58 06/11/2021 Interval history: patient is a 70-year-old male admitted with healthcare associated pneumonia seen by ID was treated with Cefepime for 6 days, patient with history of MRSA and septic arthritis seen by ID recommended to continue daptomycin until 06/13/2021 to complete the course of 42 days, patient also has happened seen by Nephrology suspect or consumption free fluid, patient in fluid restriction and sodium is trending and today's 130, patient denies any complaint of cough shortness of breath fever chills, will continue present management and will monitor 06/12/2021 Interval history: patient is a 70-year-old male admitted with healthcare associated pneumonia seen by ID was treated with Cefepime for 6 days, Repeat CXR today shows slight worsening infiltrated/edema patient with history of MRSA and septic arthritis seen by ID recommended to continue daptomycin until tomorrow 06/13/2021 to complete the course of 42 days, patient also has hyponatremia seen by Nephrology suspect over consumption of free fluid, patient is on fluid restriction and sodium is trending and today's 134, patient denies any complaint of cough shortness of breath fever chills, will continue present management and will monitor 06/13/2021 Interval history: patient is a 70-year-old male admitted with healthcare associated pneumonia seen by ID was treated with Cefepime for 6 days, Repeat CXR 06/12 showed slight worsening infiltrated/edema patient with history of MRSA and septic arthritis seen by ID recommended to continue daptomycin until today 06/13/2021 to complete the course of 42 days, I discussed with the pharmacy and will stop the abx afterr today's dose, patient also has hyponatremia seen by Nephrology suspect over consumption of free fluid, patient is on fluid restriction and salt tablets, sodium is trending and today's 134 and stable, 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 Just got out of acute rehab Patient has a new infiltrate found on CT on daptomycin which was resumed at this time Cefepime and vancomycin will dc as WBC is normal at this time New cultures No growth to date MRSA from last visit ID on board Diamond antibiotics if cultures grow anything More infiltrates noted on x-ray after paracentesis Repeat chest xray shows WBC is 9.7 today (3) Diabetes type 2, uncontrolled: Code(s): E11.65 - Type 2 diabetes mellitus with hyperglycemia Status: Acute Assessment and Plan: Current glucose 156 Insulin sliding scale as needed Accu-Cheks AC and HS Trend glucose Add 20units lantus Will need to switch to oral (4) Obstructive sleep apnea on CPAP: Code(s): G47.33 - Obstructive sleep apnea (adult) (pediatric); Z99.89 - Dependence on other enabling machines and devices Status: Acute Assessment and Plan: CPAP at night (5) Septic joint of right knee joint: Qualifiers: Septic arthritis organism: due to other bacteria Qualified Code(s): M00.861 - Arthritis due to other bacteria, right knee Cod
[2021-06-13] MEDS: POTASSIUM CHLORIDE 20 MEQ TABLET 40 MEQ PO (10:44)
[2021-06-13] MEDS: POTASSIUM CHLORIDE 20 MEQ PACKET (FOR LIQUID) PO (10:45)
[2021-06-13] MEDS: SILVERGEL (ELTA) 45 ML 1 APPLIC TOPICAL (10:46)
[2021-06-13] MEDS: PANTOPRAZOLE 40 MG TABLET PO (10:46)
[2021-06-13] MEDS: ENOXAPARIN 40 MG/0.4 ML SYRINGE SUB-Q (10:46)
[2021-06-13 11:53] LABS: Glucose Point of Care 193 mg/dl (65-105)
--- NOTE | 2021-06-13 13:51 | PCRCNOTE ---
Window of time for administration has passed. See next scheduled administration.
[2021-06-13 16:46] LABS: Glucose Point of Care 163 mg/dl (65-105)
[2021-06-13] MEDS: DOCUSATE SODIUM 100 MG CAPSULE PO (21:09)
[2021-06-13 21:14] LABS: Glucose Point of Care 157 mg/dl (65-105)
[2021-06-14] VITALS (10 sets, daily range): BP systolic 125–130; BP diastolic 66–69; PULSE 83–114; RESP 18; TEMP 36.6–37.4; O2SAT 91–96
[2021-06-14] MEDS: ALBUTEROL SULFATE NEB 2.5 MG/0.5 ML INH INHALATION ×3 (01:03→12:51)
[2021-06-14] MEDS: CENTRAL LINE FLUSH 10 ML IV PUSH (06:19)
[2021-06-14 06:26] LABS: Albumin Level 2.9 g/dL (3.5-5.1); Anion Gap 5 mmol/L (8-16); Blood Urea Nitrogen 34 mg/dL (9-20); Calcium 8.1 mg/dL (8.4-10.2); Carbon Dioxide 29 mmol/L (22-30); Chloride 102 mmol/L (98-107); Estimated CRCL calculation 41 ml/min; Estimated Glomerular Filt Rate 31; Glucose 166 mg/dL (65-110); Phosphorus 3.5 mg/dL (2.5-4.5); Potassium 3.7 mmol/L (3.4-5.0); Sodium 136 mmol/L (137-145)
[2021-06-14] MEDS: SILVERGEL (ELTA) 45 ML 1 APPLIC TOPICAL (09:41)
[2021-06-14] MEDS: PANTOPRAZOLE 40 MG TABLET PO (09:41)
[2021-06-14] MEDS: ENOXAPARIN 40 MG/0.4 ML SYRINGE SUB-Q (09:41)
[2021-06-14] MEDS: DOCUSATE SODIUM 100 MG CAPSULE PO (09:41)
[2021-06-14] MEDS: polyethylene glycoL 3350 17 GM POWD.PACK PO (09:41)
[2021-06-14] MEDS: POTASSIUM CHLORIDE 20 MEQ PACKET (FOR LIQUID) PO (09:41)
--- NOTE | 2021-06-14 11:35 | P.DS_ITS ---
DS: Admitting Diagnosis Discharge Date 06/14/2021 Admitting Diagnosis Fever DS: Discharge Diagnosis Discharge Diagnosis (1) Hyponatremia: Code(s): E87.1 - Hypo-osmolality and hyponatremia Status: Acute Assessment and Plan: * Na 129 today * Could be from fluid overload, pt reports drinking 3L of fluid a day * Fluid restriction * Nephrology on board, thank you for your recommendation * Na tabs started * Trend labs 06/13/21 09:58 06/11/2021 Interval history: patient is a 70-year-old male admitted with healthcare associated pneumonia seen by ID was treated with Cefepime for 6 days, patient with history of MRSA and septic arthritis seen by ID recommended to continue daptomycin until 06/13/2021 to complete the course of 42 days, patient also has happened seen by Nephrology suspect or consumption free fluid, patient in fluid restriction and sodium is trending and today's 130, patient denies any complaint of cough shortness of breath fever chills, will continue present management and will monitor 06/12/2021 Interval history: patient is a 70-year-old male admitted with healthcare associated pneumonia seen by ID was treated with Cefepime for 6 days, Repeat CXR today shows slight worsening infiltrated/edema patient with history of MRSA and septic arthritis seen by ID recommended to continue daptomycin until tomorrow 06/13/2021 to complete the course of 42 days, patient also has hyponatremia seen by Nephrology suspect over consumption of free fluid, patient is on fluid restriction and sodium is trending and today's 134, patient denies any complaint of cough shortness of breath fever chills, will continue present management and will monitor 06/13/2021 Interval history: patient is a 70-year-old male admitted with healthcare associated pneumonia seen by ID was treated with Cefepime for 6 days, Repeat CXR 06/12 showed slight worsening infiltrated/edema patient with history of MRSA and septic arthritis seen by ID recommended to continue daptomycin until today 06/13/2021 to complete the course of 42 days, I discussed with the pharmacy and will stop the abx afterr today's dose, patient also has hyponatremia seen by Nephrology suspect over consumption of free fluid, patient is on fluid restriction and salt tablets, sodium is trending and today's 134 and stable, 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 * Just got out of acute rehab * Patient has a new infiltrate found on CT * on daptomycin which was resumed at this time * Cefepime and vancomycin will dc as WBC is normal at this time * New cultures No growth to date * MRSA from last visit * ID on board * Diamond antibiotics if cultures grow anything * More infiltrates noted on x-ray after paracentesis * Repeat chest xray shows * WBC is 9.7 today (3) Diabetes type 2, uncontrolled: Code(s): E11.65 - Type 2 diabetes mellitus with hyperglycemia Status: Acute Assessment and Plan: * Current glucose 156 * Insulin sliding scale as needed * Accu-Cheks AC and HS * Trend glucose * Add 20units lantus * Will need to switch to oral
--- NOTE | 2021-06-14 11:35 | PM.DS ---
DS: Admitting Diagnosis Discharge Date 06/14/2021 Admitting Diagnosis Fever DS: Discharge Diagnosis Discharge Diagnosis (1) Hyponatremia: Code(s): E87.1 - Hypo-osmolality and hyponatremia Status: Acute Assessment and Plan: Na 129 today Could be from fluid overload, pt reports drinking 3L of fluid a day Fluid restriction Nephrology on board, thank you for your recommendation Na tabs started Trend labs 06/13/21 09:58 06/11/2021 Interval history: patient is a 70-year-old male admitted with healthcare associated pneumonia seen by ID was treated with Cefepime for 6 days, patient with history of MRSA and septic arthritis seen by ID recommended to continue daptomycin until 06/13/2021 to complete the course of 42 days, patient also has happened seen by Nephrology suspect or consumption free fluid, patient in fluid restriction and sodium is trending and today's 130, patient denies any complaint of cough shortness of breath fever chills, will continue present management and will monitor 06/12/2021 Interval history: patient is a 70-year-old male admitted with healthcare associated pneumonia seen by ID was treated with Cefepime for 6 days, Repeat CXR today shows slight worsening infiltrated/edema patient with history of MRSA and septic arthritis seen by ID recommended to continue daptomycin until tomorrow 06/13/2021 to complete the course of 42 days, patient also has hyponatremia seen by Nephrology suspect over consumption of free fluid, patient is on fluid restriction and sodium is trending and today's 134, patient denies any complaint of cough shortness of breath fever chills, will continue present management and will monitor 06/13/2021 Interval history: patient is a 70-year-old male admitted with healthcare associated pneumonia seen by ID was treated with Cefepime for 6 days, Repeat CXR 06/12 showed slight worsening infiltrated/edema patient with history of MRSA and septic arthritis seen by ID recommended to continue daptomycin until today 06/13/2021 to complete the course of 42 days, I discussed with the pharmacy and will stop the abx afterr today's dose, patient also has hyponatremia seen by Nephrology suspect over consumption of free fluid, patient is on fluid restriction and salt tablets, sodium is trending and today's 134 and stable, 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 Just got out of acute rehab Patient has a new infiltrate found on CT on daptomycin which was resumed at this time Cefepime and vancomycin will dc as WBC is normal at this time New cultures No growth to date MRSA from last visit ID on board Diamond antibiotics if cultures grow anything More infiltrates noted on x-ray after paracentesis Repeat chest xray shows WBC is 9.7 today (3) Diabetes type 2, uncontrolled: Code(s): E11.65 - Type 2 diabetes mellitus with hyperglycemia Status: Acute Assessment and Plan: Current glucose 156 Insulin sliding scale as needed Accu-Cheks AC and HS Trend glucose Add 20units lantus Will need to switch to oral (4) Obstructive sleep apnea on CPAP: Code(s): G47.33 - Obstructive sleep apnea (adult) (pediatric); Z99.89 - Dependence on other enabling machines and devices Status: Acute Assessment and Plan: CPAP at night (5) Septic joint of right knee joint: Qualifiers: Septic arthritis organism: due to other bact
[2021-06-14 12:27] LABS: Glucose Point of Care 201 mg/dl (65-105)
[2021-06-14 13:39] LABS: EDCOVIDSCREEN Negative (Negative)
[2021-06-14 21:56] LABS: Osmolality, Urine 221 mOsm/kg (50-1200)
== END 2021-06-14 15:30 | DRG 193 ==
LOC: ANHED 23:01 → ANH2MED 06-01 01:38 → ANH3MEDSUR 06-01 13:20 → ANH2MED 06-15 11:13 → ANH3MEDSUR 06-15 11:13
PROVIDERS: Family Medicine; Internal Medicine Infectious Disease; Internal Medicine Nephrology; Nurse Practitioner; Surgery; Admitting Provider Internal Medicine; Emergency Provider Emergency Medicine; PCP Registered Nurse; Visit Provider Internal Medicine
DX: J15.9 Unspecified bacterial pneumonia (principal); J96.01 Acute respiratory failure with hypoxia; K85.92 Acute pancreatitis with infected necrosis, unspecified; Z68.41 Body mass index [BMI] 40.0-44.9, adult; M00.9 Pyogenic arthritis, unspecified; E87.1 Hypo-osmolality and hyponatremia; J90 Pleural effusion, not elsewhere classified; Z20.822 Contact with and (suspected) exposure to COVID-19; Y95 Nosocomial condition; N40.0 Benign prostatic hyperplasia without lower urinary tract symptoms; E78.5 Hyperlipidemia, unspecified; I10 Essential (primary) hypertension; G47.33 Obstructive sleep apnea (adult) (pediatric); B95.62 Methicillin resistant Staphylococcus aureus infection as the cause of diseases classified elsewhere; E11.65 Type 2 diabetes mellitus with hyperglycemia; Z79.4 Long term (current) use of insulin; E88.09 Other disorders of plasma-protein metabolism, not elsewhere classified; E87.6 Hypokalemia; Z99.89 Dependence on other enabling machines and devices; K86.89 Other specified diseases of pancreas; N28.89 Other specified disorders of kidney and ureter; L89.102 Pressure ulcer of unspecified part of back, stage 2
CPT/HCPCS: 32555; 36415; 71045; 71046; 71275; 74176; 74177; 80048; 80053; 80069; 80202; 81001; 82040; 82042; 82150; 82247; 82465; 82533; 82565; 82570; 82607; 82728; 82746; 82945; 82948; 83540; 83550; 83605; 83615; 83690; 83735; 83880; 83930; 83935; 83986; 84134; 84145; 84155; 84156; 84157; 84295; 84300; 84311; 84443; 84466; 84478; 84484; 85025; 85046; 85610; 85730; 86631; 86632; 87015; 87040; 87070; 87075; 87102; 87116; 87205; 87206; 87426; 87804; 87880; 88104; 88108; 88305; 89051; 93005; 93970; 94640; 96361; 96365; 96366; 96367; 96375; 97110; 97116; 97161; 97166; 97530; 97535; 99285; A9270; C9803; G0378; J0131; J0692; J0878; J1650; J1815; J1940; J2930; J2997; J3370; J3475; J7030; P9047; Q9967; U0003; U0005

== ENCOUNTER 2021-07-20 13:29 | Emergency (ER) | payer MEDICARE, SELFPAY ==
[2021-07-20 13:36] VITALS: BP 130/68; PULSE 108; RESP 22; TEMP 36.7; O2SAT 98
[2021-07-20 16:36] VITALS: BP 108/49; PULSE 100; TEMP 36.4; O2SAT 100
[2021-07-20 19:40] VITALS: BP 104/57; PULSE 92; TEMP 36.3; O2SAT 100
--- NOTE | 2021-07-20 21:47 | PC.NURSE ---
Pt to desk with family reporting that they want to leave. Pt encouraged to stay but still insisting on leaving. Son wheeling pt to vehicle.
== END 2021-07-20 21:55 | disposition left against medical advice (07) ==
LOC: ANHED 21:50
PROVIDERS: PCP Registered Nurse
DX: R09.02 Hypoxemia (principal)
CPT/HCPCS: 99199

== ENCOUNTER → 2022-02-14 13:51 | Outpatient (CLI) | payer MEDICARE, SELFPAY ==
--- NOTE | ~2022-02-14 | MR_ITS ---
EXAMINATION: MR hand RT wo/w con DATE: 02/14/2022 15:02 INDICATION: Pain in joints of right hand. Tingling in right hand. TECHNIQUE: Magnetic resonance imaging (MRI) of the right hand was performed without and with 20 mL Mu ltiHance intravenous contrast. COMPARISON: None. FINDINGS: Bone alignment is normal. No fracture. There is severe osteoarthritis of triscaphe joint an d first carpometacarpal joint. There is mild osteoarthritis of many other intercarpal joints. There i s moderate osteoarthritis of first-third metacarpophalangeal joints. There is mild osteoarthritis of most of the interphalangeal joints. There is moderate osteoarthritis of second-fifth distal interphal angeal joints. The flexor and extensor tendons are normal. The pulleys are intact. IMPRESSION: 1. Polyarticular osteoarthritis. Reviewed, dictated and finalized at location A.
== END ==
PROVIDERS: PCP Nurse Practitioner Family; Visit Provider Nurse Practitioner Family
DX: I27.24 Chronic thromboembolic pulmonary hypertension (principal); R76.8 Other specified abnormal immunological findings in serum; M19.041 Primary osteoarthritis, right hand
CPT/HCPCS: 71046; 73220; A9577

== ENCOUNTER → 2022-02-14 15:00 | Outpatient (CLI) | payer MEDICARE, SELFPAY ==
--- NOTE | ~2022-02-14 | XR_ITS ---
Corrected Report Order # Associated Wrong Visit # 02/15/2022 [facility] XR chest 2V 02/14/2022 15:23 Indication: Chronic thrombocytopenia Procedure: 2 view chest Comparison: Comparison to multiple prior studies sequentially, with oldest reviewed study dated 05/31/2021. Findings: Cardiomegaly. Bibasilar airspace disease. Moderate pleural effusions. No pneumothorax. Impression: 1: Bibasilar airspace disease which may represent edema or pneumonia. 2: Moderate pleural effusions. Reviewed, dictated and finalized at location B. EILEEND
== END ==
PROVIDERS: PCP Internal Medicine Pulmonary Disease; Visit Provider Internal Medicine Pulmonary Disease
DX: I27.24 Chronic thromboembolic pulmonary hypertension (principal); R91.8 Other nonspecific abnormal finding of lung field; J90 Pleural effusion, not elsewhere classified
CPT/HCPCS: 71046